=== PATIENT | male | born 1950 | race Caucasian/White ===

== ENCOUNTER 2022-05-04 08:55 | Outpatient (CLI) | payer MEDICARE, BC, SELFPAY ==
--- OUTSIDE RECORDS SUMMARY | 2022-06-04 14:59 | XMS_ITS | Encounter Summary ---
:1950 Author Organization [facility] Address [address] [place] [address] Care Team Providers Name Role Phone Unavailable Primary Care Provider Unavailable Encounter Details Date Type Department Care Team Description 10/02/2011 Hospital Encounter HX [facility] FAMILY[facility] Indigo Santos APRN, C.N.P., D. N.P. [address], [place] [address] (Wo rk) Social History Tobacco Use Types Packs/Day Years Used Date Smoking Tobacco: Never Assessed Sex Assigned at Date Recorded Not on file documented as of this encounter Last Filed Vital Signs Vital Sign Reading Time Taken Comments Blood Pressure 108/62 10/02/2011 8:36 AM EARLY INTERVENTION SPECIALIST Pulse 60 10/02/2011 8:36 AM EARLY INTERVENTION SPECIALIST Temperature - - Respiratory Rate 16 10/02/2011 8:36 AM EARLY INTERVENTION SPECIALIST Oxygen Saturation - - Inhaled Oxygen Concentration - - Weight 74.4 kg (164 lb 0.4 oz) 10/02/2011 8:36 AM EARLY INTERVENTION SPECIALIST Height 177.1 cm (5' 9.72) 10/02/2011 8:36 AM EARLY INTERVENTION SPECIALIST Body Mass Index 23.72 10/02/2011 8:36 AM EARLY INTERVENTION SPECIALIST documented in this encounter Medications at Time of Discharge Medication Sig Dispensed Refills Start Date End Date MULTIVITAMIN ORAL Take 1 tablet by mouth 0 2011 daily. aspirin 325 mg tablet Take 1 tablet by mouth 0 05/06/2022 daily. documented as of this encounter H&P Notes Tania Santos APRN, C.N.P. - 10/02/2011 12:00 AM CST [id number] CHIEF COMPLAINT/ REASON FOR VISIT DOT physical. HISTORY OF PRESENT ILLNESS The patient is a 61-year-old male who presents for a DOT physical. 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 During this time, he was hospitalized and had one episode of atrial fibrillation which they think with secondary to pneumonia. He was cardioverted and had no further symptoms. He denies palpitations, racing heart, shortness of breath or chest pain. The patient is generally healthy and does not routinely doctor other than his DOT physical. He denies fever, chills, nausea, vomiting, shortness of breath or chest pain. CURRENT MEDICATIONS See depart summary ALLERGIES See EMR SYSTEMS REVIEW Review of systems reviewed in its entirety and negative. PAST MEDICAL/SURGICAL HISTORY See EMR SOCIAL HISTORY The patient is and has two children. 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 He does not follow a particular diet. He does not exercise. His vision is corrected and his last eye exam was last year. The patient wears top and bottom dentures. He denies alcohol or drug use or tobacco use. He did quit smoking 3 years ago. FAMILY HISTORY Updated and see EMR VITAL SIGNS See EMR PHYSICAL EXAM See DOT screening sheet scanned into EMR IMPRESSION/REPORT/PLAN 1. Satisfactory DOT physical. UA obtained and within normal limits. There was trace blood. Patient was given a 2-year card. 2. Health maintenance. The patient declines to have his tetanus shot updated today. He also declines cholesterol screening. Patient will return in 2 years for DOT physical. YASMIN/geraldo Signed Tania Manzo CNP Nurse Practitioner Electronically Signed By: TANIA MANZO CNP On: 10/05/2011 09:38 PM Source: [facility] MHSDOLBEYNONRADSYS Document Id: [id number] Y INTERVENTION SPECIALIST documented in this encounter Procedure Notes Conversion, Historical Provider Ser - 10/02/2011 8:50 AM CST Vision Testing Vision Testing Entered On: 10/02/2011 8:50 EARLY INTERVENTION SPECIALIST Performed On: 10/02/2011 8:50 EARLY INTERVENTION SPECIALIST by SUHAS LEE LPN Vision Testing Corrective Lenses : Glasses Color Vision : Pass Eye, Right w/o Correction : 20/25 Eye, Left w/o Correction : 20/20 Eye, Right with Correction : 20/20 Eye, Left w/Correction : 20/20 SUHAS LEE LPN - 10/02/2011 8:50 EARLY INTERVENTION SPECIALIST Source: [facility] POWERCHART Document Id: [id number] EARLY INTERVENTION SPECIALIST!8 documented in this encounter Miscellaneous Notes Miscellaneous - Tania Santos APRN, C.N.P. - 10/02/2011 9:42 AM EARLY INTERVENTION SPECIALIST Ambulatory Patient Summary [address] [address] Visit Information Name: CARLOS MANUEL ZENG Current Date: 10/02/2011 09:42:47 Physicians Attending Provider: TANIA MANZO CNP Primary Care Provider: TANIA MANZO CNP Your Medications Here is a list of your medications. It is important to take your medications as directed. Use a pillbox or chart to help remind you to take your medications. Please let your doctor or nurse know if you have problems taking your medications. Medication/Strength Dose Route Frequency Indications/Special Instructions/Comments multivitamin (multivitamin) Oral once a day Attention: If you have any medications at home that are not on this list, DO NOT take them until youcontact your provider for clarification. Your Allergies & Intolerances Substance Reaction Symptoms Category Comments NKA Drug Your Problem List Problem Status Onset Comments Other General Medical Examination for Administrative Purposes Active 10/03/2009 Debility, Unspecified Active 02/23/2009 Atrial Fibrillation Active 03/14/2009 Tobacco Use Disorder Active 03/14/2009 Routine DOT Exam Active Your Recommendations We want to make sure you get the tests, immunizations, and guidance you need to stay healthy. Here is a customized list of recommendations, based on information we have in your medical record. Your doctor may have additional recommendations for you, based on your personal medical history and risk factors. You can help us by calling us to make an appointment when you are due for your tests. Additional information regarding recommendations: Test/Treatment Last Done Next Due Additional Information Health Assessment every 1 year 10/02/2011 Screening Colonoscopy or Flex Sig or Occult Blood 05/07/2009 05/05/2019 Checks for signs of cancer of the colon. Lipid Panel every 5 years Age 20-75 10/02/2011 11/01/2011 Checks blood for good (HDL) and bad (LDL) cholesterol. Know your numbers, they are one indicator of your risk for heart attack and stroke. Vaccine: Flu every 1 year 10/02/2011 10/16/2011 Immunization to help prevent you from getting the flu strain expected to be a problem for that year's flu season. Vaccine: Tetanus every 10 years 08/03/2005 2015 Immunization to help prevent you from getting the serious disease Tetanus (Lockjaw). Your Upcoming Appointments Date Time Location Reason Provider No Appointments found Your Goals/Additional instructions: Source: [facility] POWERCHART Document Id: [id number] Y INTERVENTION SPECIALIST Miscellaneous - Tania Santos APRN, C.N.P. - 10/02/2011 9:42 AM EARLY INTERVENTION SPECIALIST Ambulatory Depart Summary [address] [address] Visit Information Name: CARLOS MANUEL ZENG Visit Date: 10/02/2011 09:42:47 Attending Provider: TANIA MANZO CNP Primary Care Provider: TANIA MANZO CNP CARLOS MANUEL ZENG has been given the following list of medications: Your Medications It is important to take your medications as directed. Use a pill box or chart to help remind you to take your medications. Please let your doctor or nurse know if you have problems taking your medications. Medication/Strength Dose Route Frequency Indications/Special Instructions/Comments multivitamin (multivitamin) Oral once a day Attention: If you have any medications at home that are not on this list, DO NOT take them until youcontact your provider for clarification. Additional Information: Source: [facility] POWERCHART Document Id: [id number] Y INTERVENTION SPECIALIST Miscellaneous - Conversion, Historical Provider Ser - 10/02/2011 8:36 AM EARLY INTERVENTION SPECIALIST Adult Natural Resources Faculty Member Intake/History Adult Natural Resources Faculty Member Intake/History Entered On: 10/02/2011 8:44 EARLY INTERVENTION SPECIALIST Performed On: 10/02/2011 8:36 EARLY INTERVENTION SPECIALIST by SUHAS LEE LPN Intake Systolic Blood Pressure : 108mmHg Diastolic Blood Pressure : 62mmHg NIBP Mean : 77mmHg SUHAS LEE LPN - 10/02/2011 8:44 EARLY INTERVENTION SPECIALIST Chief Complaint : DOT physical - Temperature Oral : 36.8C(Converted to: 98.2DegF) Peripheral Pulse Rate : 60/min Respiratory Rate : 16/min Heart Rhythm : Regular BP Location : Right upper extremity Blood Pressure Cuff Size : Regular SpO2 : 97% Oxygen Therapy : Room air, Nonrebreather mask Height : 177.1cm(Converted to: 5ft 10inch(es), 69.72inch(es)) Actual Weight : 74.4kg(Converted to: 164lb 0oz) Dosing Weight Clinic : 74.40kg Clinic BSA : 1.91 Body Mass Index : 23.72kg/m2 SUHAS LEE LPN - 10/02/2011 8:36 EARLY INTERVENTION SPECIALIST Subjective Pain Symptoms : No SUHAS LEE LPN - 10/02/2011 8:36 EARLY INTERVENTION SPECIALIST Dependent Habits Tobacco Use/Currently Using : No Tobacco Use/Last 12 months : No Smoking Status : Former smoker Alcohol Use : No SUHAS LEE LPN - 10/02/2011 8:36 EARLY INTERVENTION SPECIALIST Caffeine Use Grid Caffeine Use : Current Type : Coffee Frequency : Daily Amount : 3 cups Last Use : this morning SUHAS LEE LPN - 10/02/2011 8:36 EARLY INTERVENTION SPECIALIST Recreational Drug Use Grid Drug Use : None SUHAS LEE LPN - 10/02/2011 8:36 EARLY INTERVENTION SPECIALIST Allergy Allergies (Active) NKA Estimated Onset Date: Unspecified ; Created By: SUHAS LEE LPN; Reaction Status: Active ; Category: Drug ; Substance: NKA ; Type: Allergy ; Updated By: SUHAS LEE LPN; Reviewed Date: 10/02/2011 8:36 EARLY INTERVENTION SPECIALIST Source: [facility] POWERCHART Document Id: [id number] EARLY INTERVENTION SPECIALIST!5 documented in this encounter Plan of Treatment Upcoming Encounters Date Type Specialty Care Team Description 06/17/2022 Office Visit Neurology Sourav Gregg M.D. [address] [place] [phone] (Wo rk) documented as of this encounter Procedures Procedure Name Priority Date/Time Associated Diagnosis Comme nts DIPSTICK, U Routine 10/02/2011 9:11 AM Results f or this EARLY INTERVENTION SPECIALIST procedure are i n the results section . documented in this encounter Results (ABNORMAL) Dipstick, Urine (10/02/2011 9:11 AM EARLY INTERVENTION SPECIALIST) [facility] Method Time Signature Source Clean Void POWERCHART Urine HXUr Color Yellow POWERCHART Appearance Clear POWERCHART Glucose Negative Negative POWERCHART HXBILIRUBIN Negative Negative POWERCHART Ketones, QL(U) Negative Negative POWERCHART Specific 1.015 1.020 POWERCHART [place], POCT, U HXBLOOD Trace Intact Negative POWERCHART (A) pH, POCT, Urine 7.5 5.0 - 8.0 POWERCHART Protein, Ur, Dip Negative Negative POWERCHART Urobilinogen 0.2 0.2 - 1.0 POWERCHART HXNITRITE Negative Negative POWERCHART Leukocyte Negative Negative POWERCHART Esterase Specimen (Source) Anatomical Collection Method Collection Time Re ceived Time Location / / Volume Laterality Urine 10/02/2011 9:11 AM EARLY INTERVENTION SPECIALIST Tania Santos APRN, C.N.P., D.N.P. LAB URINE ORDERA BLES Performing Organization Address City/State/ZIP Code Phon e Number POWERCHART documented in this encounter Visit Diagnoses Not on filedocumented in this encounter
--- OUTSIDE RECORDS SUMMARY | 2022-06-04 14:59 | XMS_ITS | Encounter Summary ---
:1950 Author Organization [facility] Address [address] [place] [address] Care Team Providers Name Role Phone Elsewhere, Pcp Primary Care Provider Unavailable Reason for Visit Outpatient (Routine) - Closed Specialty Diagnoses / Referred By Contact Referred To Contact Procedures Physical Medicine and Diagnoses Stroke (HCC) [facility] [address] [place] [phone] Referral ID Status Reason Start Date Expiration Date Visits Requ ested Visits Authorized [id number] Closed 05/06/2022 05/06/2023 1 1 Encounter Details Date Type Department Care Team Description 05/14/2022 Comprehensive Visit Department of Physical Mauricio Bo Stroke (HCC) Medicine and A, [facility] in [address] [place] [address] [place] [phone] [place] [phone] Social History Tobacco Use Types Packs/Day Years Used Date Smoking Tobacco: Every Day Cigarettes 0.3 S tarted: 08/03/1964 Smokeless Tobacco: Never Comments: Used to smoke half pack per da y. Alcohol Use Standard Drinks/Week Comments No 0 (1 standard drink = 0.6 oz pure alcoho l) Sex Assigned at Date Recorded Not on file documented as of this encounter Last Filed Vital Signs Vital Sign Reading Time Taken Comments Blood Pressure 132/78 05/14/2022 2:54 PM CDT Pulse 70 05/14/2022 2:54 PM CDT Temperature - - Respiratory Rate - - Oxygen Saturation - - Inhaled Oxygen Concentration - - Weight - - Height - - Body Mass Index - - documented in this encounter Consult Notes Summer Bo M.D. - 05/14/2022 3:00 PM CDT SUBJECTIVE REQUESTING PROVIDER Benjy Gregg M.D. REASON FOR CONSULT Rehabilitation needs after stroke HISTORY OF PRESENT ILLNESS Carlos Manuel Montaño is a 71 y.o. male who presents today for evaluation of rehabilitation needs after stroke. He is accompanied by his daughter and to this appointment. He was admitted to [facility] on 05/04/2022 after waking up with acuteonset left hemiparesis and neglect. NIH stroke score was 6. He was noted to be hypertensive but otherwise unremarkable hemodynamically on presentation. CT head revealed hypodensity of the right insula and right frontal lobe consistent with establish infarction. CTA head and neck showed acute right MCAM2 occlusion. MRI on 05/05 confirmed an evolving acute right MCA territory infarct with petechial hemorrhage in the right insula infarct. His exam improved during hospitalization. During hospitalization, he was seen by PT, OT and BRICK GRADER. With PT he was able to ambulate 500 feet withno assistive device and supervision. CGA for stairs. With OT, he was demonstrating near baseline function with some mild functional/cognitive deficits. He demonstrates mild LUE inattention, weakness (he reports that's normal for him), and requiring intermittent continuous cues to follow a command whendistracted. Geoffrey ambulated to and from bathroom, standing at sink to complete oral cares, and transfers to/from toilet with supervision. No unsteadiness noted. He completed a short blessed cognitive scr een demonstrating normal cognition. BRICK GRADER completed a dysphagia assessment (cleared for general diet) but was unable to complete a cognitive assessment before dismissal. Currently he describes: No specific symptoms related to the stroke. Therefore, I reviewed thing head to toe. Specifically, he denies any headache, visual changes, hearing changes, cognitive changes, pain, change in fatigue, change in sleep, change in bowel or bladder function, sensory changes, balance difficulties, difficulties with walking, difficulties with swallow, difficulties with seizure activity. He does describe weakness on the left side of his body but states that is baseline. He describes 90% weakness in the leftside of his body compared to the right. He has driven his lawnmower and states that his ???lines were straight?? . He also did drive 5 city blocks to the local dum without difficulties. His concurs that everything is going well at home. She states that he has been able to manage medications including hers without error. She has no concerns regarding his cognition, attention to the left side, orstrength. Daughter also concurs with this. They are hopeful he will be able to return to work. We reviewed work in detail. 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 He is aware that he will need to undergo a DOT evaluation if he were to use the CDL license again in the future. Mr. Montaño lives in [place], [place] with his Kimberly. They live in a 2 story house with 4 steps to enter (rails on both sides). Bathroom is on the main floor but bedroom is up a full flight of stairs,approximately 14-16 per patient. They have a step in shower. 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 The following portions of the patient's history were reviewed and updated as appropriate: allergies,current medications, family history, and surgical history. REVIEW OF SYSTEMS I have briefly reviewed the Review of Systems as noted on the Health history form. I am only responding to those symptoms which are directly relevant to the specific indication for my consultation. I recommend that the patient follow up with their primary or referring provider to pursue any other symptoms which may be of concern. OBJECTIVE There were no vitals taken for this visit. PHYSICAL EXAM General: No acute distress, normal mood and affect. Head: Normocephalic, atraumatic. Skin: Exposed areas of skin are clean, dry, and intact with no evidence of cellulitis, pressure ulcers, or necrosis. Lungs: Breathing comfortably on room air. Neuro Exam: Mental Status: Grossly oriented, followed all commands appropriately during and exam and provided full history of present illness. Cranial Nerves: Extra ocular muscles intact. Visual mendez intact in all quadrants to confrontation.No dysconjugate gaze. No gaze preference. No facial droop. Tongue protrudes midline. Coordination: Normal upper and lower limb Abrahan. Normal [id number]. Ymhd-qv-abvs within normal limits. Muscle Strength: No pronator drift although, he cannot extend his left elbow out completely due to aprevious elbow injury. All major muscles groups of the bilateral upper and lower limbs have normal and symmetric bulk and strength with the exception of trace weakness of his left finger flexors and interossei.. Sensation: Normal light touch sensation throughout upper and lower limbs. No extinction to double simultaneous stimulation. Proprioception intact at the great toes bilaterally. Tone: Normal tone throughout upper and lower limbs. Reflexes: Symmetric in upper (0/0) and lower (0/0) extremities bilaterally, no ankle clonus bilateral, Whyte response is absent b/l. Gait: Normal sitting and standing balance. Gsz-dc-[id number] is independent. Romberg negative. Normal gait. Normal single leg stance. Normal tandem stance and tandem gait. ASSESSMENT / PLAN #1 R MCA stroke on 05/04/2022 Mr. Montaño presented today for [facility]. Since hospitalization, he has been doing well. On examination today, he is doing wonderfully well. There are no signs of visual or sensory neglect. He has normal strength in the left side of his body with the exception of very trace weakness of his finger flexors on the left. Visual mendez were intact. Cognition was intact. We had a long discussion about returning to drive in a safe manner. Specifically, we talked about setting himself up for success including driving during good weather, familiar environments, and when heis awake and alert to start with. If this goes well, then driving and more challenging environments.I believe at this time he can return to work and driving for his job. He is aware that if he wants to return to work with a CDL license, he will require a DOT examination. I wrote him a letter explaining this. At this point, I do not feel he requires any additional therapies. I have taken the liberty of cancelling the upcoming PT, OT, and speech pathology appointments. However, I do think he will benefit from regular exercise. We discussed moderate exertion level for aerobic conditioning for 150 minutes week ly and he and his family discussed a walking program as an option. Additionally, we spoke about finemotor exercises including puzzles, playing cards, nuts and bolts, washing dishes, folding laundry and other daily tasks that will continue to strengthen his weaker muscles. Task oriented exercises haveexcellent evidence for stroke rehab. Lastly we reviewed his imaging which he appreciated. No follow up is necessary however he was given my card and he can and was encouraged to follow up with me on an as needed basis. I personally spent 45 minutes in care of the patient today. Time includes both non face to face and face to face patient care. EDUCATION Patient Education: Ready to learn, no apparent learning barriers were identified; learning preferences include listening. Explained diagnosis and treatment plan; patient/child/caregiver expressed understanding of the content. documented in this encounter Plan of Treatment Upcoming Encounters Date Type Specialty Care Team Description 06/17/2022 Office Visit Neurology Sourav Gregg M.D. [address] [place] [phone] (Wo rk) documented as of this encounter Visit Diagnoses Diagnosis Stroke (HCC) documented in this encounter Additional Health Concerns Assessment Noted Time PHQ-9 Depression Total Score: 3 05/05/2022 2:00 PM CDT documented as of this encounter Care Teams Ditch Repairer Relationship Specialty Start Date End Date Elsewhere, Pcp PCP - General 10/16/20 documented as of this encounter
--- OUTSIDE RECORDS SUMMARY | 2022-06-04 14:59 | XMS_ITS | Encounter Summary ---
:1950 Author Organization [facility] Address [address] [place] [address] Care Team Providers Name Role Phone Unavailable Primary Care Provider Unavailable Encounter Details Date Type Department Care Team Description 05/07/2009 Hospital Encounter HX NO MAPPING Social History Tobacco Use Types Packs/Day Years Used Date Smoking Tobacco: Never Assessed Sex Assigned at Date Recorded Not on file documented as of this encounter Plan of Treatment Upcoming Encounters Date Type Specialty Care Team Description 06/17/2022 Office Visit Neurology Sourav Gregg M.D. [address] [place], [place] [phone] (Wo rk) documented as of this encounter Visit Diagnoses Not on filedocumented in this encounter
--- OUTSIDE RECORDS SUMMARY | 2022-06-04 14:59 | XMS_ITS | Encounter Summary ---
:1950 Author Organization [facility] Address [address] [place] [id number] Care Team Providers Name Role Phone Elsewhere, Pcp Primary Care Provider Unavailable Reason for Visit Reason Comments Post Hospital Follow-up Encounter Details Date Type Department Care Team Description 05/09/2022 Clinical Communication Department of [facility] in [place] Follow-up [place], [address] [place] [address] [place] [id number] [place], [place] [phone] (Work) [phone] Social History Tobacco Use Types Packs/Day Years Used Date Smoking Tobacco: Every Day Cigarettes 0.3 S tarted: 08/03/1964 Smokeless Tobacco: Never Comments: Used to smoke half pack per da y. Alcohol Use Standard Drinks/Week Comments No 0 (1 standard drink = 0.6 oz pure alcoho l) Sex Assigned at Date Recorded Not on file documented as of this encounter Miscellaneous Notes Telephone Encounter - Adwoa Prajapati, R.N. - 05/09/2022 1:45 PM CDT The patient was hospitalized on Dr. Sg Goldstein's Neurology Stroke Service from 05/04/22 to 05/07/22 for a right insular acute stroke. He underwent right M2 thrombectomy successfully. I called today for post [facility] hospital follow up. The patient reports feeling good. He shares he is back to feeling like his usual self. He does not perceive any residual effects himself at this point. Symptoms: He denies any new or ongoing residual symptoms. His reports that he is doing wonderful. Patient was able to teach back signs and symptoms of stroke with reinforcement. He shares he wouldreally defer to his on when to call 911. He would appreciate a Stroke Magnet mailed to his homeand this will be sent accordingly. Medications: The patient was diagnosed with atrial fibrillation prior to dismissal. He was advised to continue 81 mg aspirin daily taking last dose on 05/12/22, then transitioning to Xarelto on 05/13/22. He is taking the metoprolol succinate 50 mg daily as advised. He is checking his heart rate daily.They have a blood pressure monitor at home to keep track. He shares he saw his primary provider today at [facility] now in [place]. His transition to Xarelto was provided his PCP. He is aware hisatorvastatin dose was increased to 40 mg. Risk factors: Atrial fibrillation, hyperlipidemia, hypertension, smoking. Test pending at time of hospital dismissal: None. Follow-up: He has seen his PCP. 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 They are awaiting an order for this. The patient is aware of his upcoming appointments: -05/14/22-PM&R consult, Dr. Zach Bo -05/15/22-PT, OT. -05/30/22-Speech -06/17/22-Neurology Post [facility] visit. I verified the follow up plan, when to seek emergent medical treatment, and provided our contact information. The patient and his expressed appreciation for this phone contact. RECOMMENDED LEVEL OF CARE. The patient/caller is willing and able to follow the nurse's recommendation. RESPONSE TO ADVICE GIVEN. Patient/caller able to teach back. REFERENCES UTILIZED. Nursing clinical judgment utilized. Other interventions or information: Provider advice. TYPE OF PHONE CALL. Follow-up. Symptom assessment. documented in this encounter Plan of Treatment Upcoming Encounters Date Type Specialty Care Team Description 06/17/2022 Office Visit Neurology Sourav Gregg M.D. [address] [place], [place] [phone] (Wo rk) documented as of this encounter Visit Diagnoses Not on filedocumented in this encounter Additional Health Concerns Assessment Noted Time PHQ-9 Depression Total Score: 3 05/05/2022 2:00 PM CDT documented as of this encounter Care Teams Maintenance Shop Manager Relationship Specialty Start Date End Date Elsewhere, Pcp PCP - General 10/16/20 documented as of this encounter
--- OUTSIDE RECORDS SUMMARY | 2022-06-04 14:59 | XMS_ITS | Encounter Summary ---
:1950 Author Organization [facility] Address [address] [place] [address] Care Team Providers Name Role Phone Elsewhere, Pcp Primary Care Provider Unavailable Reason for Referral Physical Therapy (Routine) - Authorized Specialty Diagnoses / Procedures Referred By Contact Refer red To Contact Diagnoses Stroke ([facility]) Benjy Gregg M.D. [facility] Procedures PMR Brain rehabilitation program (PMR Internal) [address] [place] [address] Referral ID Status Reason Start Date Expiration Date Visits V isits Requested Authorized [id number] Authorized 05/06/2022 05/06/2023 99 99 Physical Therapy (Routine) - Authorized Specialty Diagnoses / Procedures Referred By Contact Refer red To Contact Diagnoses Stroke ([facility]) Benjy Gregg M.D. [facility] Procedures PMR Brain rehabilitation program (PMR Internal) [address] [place] [address] Referral ID Status Reason Start Date Expiration Date Visits V isits Requested Authorized [id number] Authorized 05/06/2022 05/06/2023 99 99 Outpatient (Routine) - Closed Specialty Diagnoses / Referred By Contact Referred To Contact Procedures Physical Medicine and Diagnoses Stroke (HCC) Benjy Gregg [facility] Yamini Delacruz [address] [place] [address] Referral ID Status Reason Start Date Expiration Date Visits Requ ested Visits Authorized [id number] Closed 05/06/2022 05/06/2023 1 1 Outpatient (Routine) - Authorized Specialty Diagnoses / Procedures Referred By Contact Refer red To Contact Diagnoses Stroke (HCC) Benjy Gregg M.D. [facility] Procedures US Carotid Bilateral [address] [place], [place] [address] Referral ID Status Reason Start Date Expiration Date Visits V isits Requested Authorized [id number] Authorized 05/06/2022 05/06/2023 1 1 Outpatient (Routine) - Authorized Specialty Diagnoses / Procedures Referred By Contact Refer red To Contact Neurology Maricruz Leung M .D., Ph.D. [facility] [address] [place], [place] [address] Referral ID Status Reason Start Date Expiration Date Visits V isits Requested Authorized [id number] Authorized 05/06/2022 05/05/2025 1 1 Reason for Visit Reason Comments Stroke Like Symptoms Encounter Details Date Type Department Care Team Description 05/04/2022 - Hospital Encounter [facility] Marquis Leach M.D., M.P.H. [address] [place] [id number] Stroke (HCC) (Primary Dx); 05/07/2022 [facility] Alejandro A, M.D. [address] [place] [phone] Change Mental Status; [facility], Shar Sarah M.D. [address] [place] [address] Decline Functional Status; Javier Nicotine Depend ence Cigarettes With Withdrawal Building, [address] floor [address] [place] [phone] Social History Tobacco Use Types Packs/Day Years Used Date Smoking Tobacco: Every Day Cigarettes 0.3 S tarted: 08/03/1964 Smokeless Tobacco: Never Tobacco Cessation: Ready to Quit: Not As ked; Counseling Given: Not Answered Comments: Used to smoke half pack per da y. Alcohol Use Standard Drinks/Week Comments No 0 (1 standard drink = 0.6 oz pure alcoho l) Sex Assigned at Date Recorded Not on file documented as of this encounter Last Filed Vital Signs Vital Sign Reading Time Taken Comments Blood Pressure 103/63 05/07/2022 11:15 AM CDT Pulse 30 05/07/2022 11:17 AM CDT Temperature 36.5 ??C (97.7 ??F) 05/07/2022 11:15 AM CDT Respiratory Rate 18 05/07/2022 11:15 AM CDT Oxygen Saturation 92% 05/07/2022 11:16 AM CDT Inhaled Oxygen Concentration - - Weight 69.2 kg (152 lb 8.9 oz) 05/05/2022 8:45 PM CDT Height 175.3 cm (5' 9) 05/05/2022 8:45 PM CDT Body Mass Index 22.53 05/05/2022 8:45 PM CDT documented in this encounter Discharge Summaries Je Marrero M.D. - 05/07/2022 10:57 AM CDT DISCHARGE SUMMARY BRIEF OVERVIEW Hospital: [facility] Discharge Provider: Shar Sarah M.D. Primary Team: [facility] Neurology Stroke and Cerebrovascular Disease Primary Care Providers: Elsewhere, Pcp (General) No address on file Primary Care Provider Phone Number: None Primary Care Provider Fax Number: None Admission Date: 05/04/2022 Discharge Date: 05/07/2022 PRINCIPAL DIAGNOSIS Stroke (HCC) SECONDARY DIAGNOSES Principal Problem: Stroke (HCC) Active Problems: Atrial Fibrillation Unspecified Abuse Tobacco Smoking Chronic Obstructive Pulmonary Disease Exacerbation (HCC) Resolved Problems: * No resolved hospital problems. * DISCHARGE DISPOSITION Home or Self Care [1] ACTIVE ISSUES REQUIRING FOLLOW UP PATIENT Please continue Aspirin 81mg until 05/12. On 05/13, please attend your appointment with your primarycare provider who will start anticoagulation. When you start your anticoagulation, discontinue Aspirin. Your atorvastatin was increased to 40mg a day You were recommended to have a driving evaluation eval. We recommend this to be completed with the [employer]. You were given a list of providers that can do this evaluation. Please schedule and attend this evaluation. You will need / supervision at home, this is extremely important Physical therapy, occupational therapy, speech therapy and PMR was ordered for outpatient. Please attend these appointments. Starting tomorrow 05/08 begin taking Metoprolol Succinate 50 mg for heart rate control. Please measure your heart rate daily. Your goal heart rate is less than 110 beats per minute. If it is greater than 110 beats per minute please contact your primary care provider. If HR > 140 or symptoms of lightheadedness, chest pain, or shortness of breath, please go to the emergency department for further evaluation. PRIMARY CARE Please follow up with patient 1 week within discharge. Given his etiology was likely due to a cardioembolic source, please initiate rivaroxaban (XARELTO) 20 mg once daily on 05/13 (10 days after his stroke 05/04). He will continue aspirin up until then, and discontinue aspirin when rivaroxaban (XARELTO) is started On the day before discharge the patient went into atrial fibrillation with RVR. He was started on Metoprolol Succinate 50 mg daily. Please repeat an ECG and adjust Metoprolol as indicated. If the patient is still in atrial fibrillation, please refer the patient to cardiology for consideration of cardioversion. NEUROLOGY We will follow up with you in 1 month to ensure medication adherence and follow up return to work You will have an ultrasound of your carotid arteries to monitor your stenosis in 6 months OUTPATIENT FOLLOW UP Scheduled Appointments 06/17/2022 3:00 PM Benjy Gregg M.D. Neurology For appointment details refer to your Patient Appointment Guide. TEST RESULTS PENDING AT DISCHARGE Pending Labs None DETAILS OF HOSPITAL STAY REASON FOR ADMISSION Stroke (HCC) Change Mental Status Decline Functional Status HOSPITAL COURSE Carlos Manuel Montaño is a 71 y.o. 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 He was in his usual state of health when he went to bed on 05/03 at 2200 then awoke on 05/04 with L hemiparesis, L neglect, L facial droop. NIHSS on admission was 6. CT/CTA/CTP revealed an M2 thrombus and mismatch volume of 42 mL for which he received thrombectomy with TICI 2c reperfusion. During the mechanical thrombectomy there was concern that there was also VIRAL involvement and subsequently developed left lower extremity weakness. Post- mechanical thrombectomy NIHSS was scored as a 10 in the IR Suite. He was admitted to the NeuroICU for post-thrombectomy monitoring and his exam significantly improvedwith essentially complete resolution of his neurological deficits over the next 24 hrs. He was stable for transfer to the Stroke service on 05/05. Regarding his stroke mechanism workup, initial ECG and cardiac monitoring was negative for afib, buton 05/06 he had new irregular heart rate and ECG confirmed new diagnosis of atrial fibrillation and he was started on metoprolol. CTA and MRA demonstrated approximately 30-40% stenosis at the R carotid bulb for no features of unstable plaque. CT cardiac angiogram demonstrated a normal L atrial size andno thrombus in the L atrial appendage. TTE with bubble study was normal with no evidence of an intracardiac shunt. MRI brain on 05/05 showed diffusion restriction in the R insula with petechial hemorrhage. Of note, he had a documented history of atrial fibrillation in the context of Legionnaire's pneumo naida in 2008 however did not proceed with anticoagulation due to GI bleed and was initiated on aspirin. No further workup for following of atrial fibrillation per chart review. For his new diagnosis of atrial fibrillation, he was seen by cardiology and repeat ECG demonstrated continued Afib but resolved RVR, rate 92. Following consult, cardiology recommended transitioning to metoprolol succinate 50mg post- discharge. Cardiology recommended the patient check his heart rate once daily until his PCP follow up in 1-2 weeks with another ECG. Outpatient cardiology follow up will be determined by the PCP. For therapeutic anticoagulation, rivaroxaban will be initiated on 05/13. His 81 mg daily aspirin will be discontinued once rivaroxaban has been initiated (last day 05/12). His LDL was 94 and his atorvastatin was increased to 40 mg daily. We extensively counseled him on smoking cessation, and he politely declined. A1C was 5.4%. PMR/PT/OT/ENCODING CLERK evaluated him and recommended discharge home with 24 hr supervision and outpatient follow up before return to work and driving. We counseled him to avoid driving until he has a driving evaluation by the [employer] or [employer]. A list of providers through [employer] was given to him at the time of discharge. Discharge Physical Exam Physical Exam: Constitutional: well-developed, well-nourished, resting comfortably in bed Lungs: Breathing comfortably on NC. Clear to auscultation bilaterally. Cardiac: regular rate and rhythm Abdomen: Soft, non-tender, non-distended. Skin: No rash on exposed skin. Neurologic: Mental status: Alert, orientated, restricted affect Speech: Clear. Language: No evidence of aphasia. Faint dysarthria, however does not have dentures Cranial nerves: PERRL, EOMI, visual mendez intact to confrontation, facial movements full and symmetric, sensation intact to light touch and pinprick in the V1-V3 distributions, hearing intact to voice, tongue protrudes in midline, there is equal elevation of the soft palate, shoulder shrug is appropriate in strength. Motor: Motor Deltoid Biceps Triceps Wrist ext Finger abd Finger extensor Hip flex Hip ext Knee flex Knee ext Ankle flex Ankle ext R 0 0 0 0 0 0 0 0 0 0 0 0 L 0 0 0 0 0 0 0 0 0 0 0 0 No Pronator Drift, however, Satellite sign indicates L arm weakness (has chronic L arm weakness due to remote elbow injury). Sensory: Sensation is intact touch Reflexes: Biceps Brachiorad Triceps Knee Ankle Plantar R 0 0 0 0 0 flexor L 0 0 0 0 0 flexor Coordination: Finger to nose and heel to zamudio are normal bilaterally. No sensory neglect Gait: no gait abnormalities CONSULTS ORDERED DURING THIS ADMISSION IP CONSULT TO NEUROLOGY IP CONSULT TO PHYSICAL MEDICINE & REHABILITATION IP CONSULT TO INTERNAL MEDICINE NICOTINE DEPENDENCE IP CONSULT TO CARDIOLOGY MRI Brain/MR Neck Angiogram IMPRESSION: 1. Evolving acute right MCA territory infarct with petechial hemorrhage in the right insula infarct. No organized parenchymal hematoma. 2. Right carotid bulb plaque with mild luminal narrowing. No evidence of intraplaque hemorrhage. 3. At least moderate right vertebral artery origin narrowing. CT Cardiac Angiogram IMPRESSION: 1. No significant mobile plaque or thrombus of the thoracic aorta. 2. No intracardiac thrombus. 3. Mild thickening of mitral valve leaflets without discrete mass . 4. Bronchial thickening and mucus plugging in bilateral lower lobes and right middle lobe and clustered nodular opacities in the right lower lobe could be due to infection or aspiration. 5. Enlarged hilar lymph nodes could be reactive. TTE 1. Normal left ventricular chamber size. Calculated left ventricular ejection fraction 66%. No regional wall motion abnormalities. 2. Normal left ventricular filling pressure. 3. Normal right ventricular chamber size by visual estimate. Normal right ventricular systolic function. 4. Sclerotic aortic valve with possible strands. Trivial aortic regurgitation. 5. Enlarged inferior vena cava size with normal inspiratory collapse (>50%). 6. Atherosclerosis in the abdominal aorta. 7. No intracardiac or intrapulmonary shunt by agitated saline contrast injection at rest and with Valsalva. 8. No pericardial effusion. CONDITION AT DISCHARGE stable Discharge instructions were provided to the patient and caregiver(s). Benjy Proctor M.D. - 05/06/2022 3:56 PM CDT DISCHARGE SUMMARY BRIEF OVERVIEW Hospital: [facility] Discharge Provider: Shar Sarah M.D. Primary Team: [facility] Neurology Stroke and Cerebrovascular Disease Primary Care Providers: Elsewhere, Pcp (General) No address on file Primary Care Provider Phone Number: None Primary Care Provider Fax Number: None Other Providers: None Admission Date: 05/04/2022 Discharge Date: 05/06/22 PRIMARY DIAGNOSIS Stroke (HCC) SECONDARY DIAGNOSES Principal Problem: Stroke (HCC) Active Problems: Atrial Fibrillation Unspecified Abuse Tobacco Smoking Chronic Obstructive Pulmonary Disease Exacerbation (HCC) Resolved Problems: * No resolved hospital problems. * DISCHARGE DISPOSITION Home or Self Care [1] ACTIVE ISSUES REQUIRING FOLLOW UP - Please continue aspirin 81mg until 05/12. On 05/13, please start anticoagulation prescribed by your primary care provider. When you start your anticoagulation, discontinue your aspirin. - Your atorvastatin was increased to 40mg a day - You were recommended to have a driving evaluation eval. We recommend this to be completed with the[employer]. You were given a list of providers that can do this evaluation. - you will need 24/7 supervision at home - Physical therapy, occupational therapy, speech therapy and PMR was ordered for outpatient. PRIMARY CARE - please follow up with patient 1 week within discharge. Given his etiology was likely due to a cardioembolic source, please initiate anticoagulation on 05/13 (10 days after his stroke 05/04). He will continue aspirin up until then, and discontinue when anticoagulation is started. NEUROLOGY - we will follow up with you in 1 month to review your Holter monitor - you will have an ultrasound of your carotid arteries to monitor your stenosis in 6 months OUTPATIENT FOLLOW UP Scheduled Appointments 06/17/2022 3:00 PM Benjy Gregg M.D. Neurology For appointment details refer to your Patient Appointment Guide. TEST RESULTS PENDING AT DISCHARGE Pending Labs None DETAILS OF HOSPITAL STAY REASON FOR ADMISSION Stroke HOSPITAL COURSE Carlos Manuel Montaño is a 71 y.o. male with significant comorbidities including COPD, Active smoking, and Atrial fibrillation not on AC. Mr. Montaño presents with acute ischemic stroke with left-sided facial droop, left-sided hemiparesis, and left sided visual neglect. 's last known wellwas approximately 2200 on 05/03, and had symptoms upon awakening on 05/04 at 0700. Pt then presented to [facility] ED via EMS where a stroke code was activated, initial NIHSS was determined to be 6, and CT/CTA/CTP were preformed which showed large penumbra and 42mL core proximal R. M2 occlusion. then proceeded to IR for mechanical thrombectomy due to being outside of the time window for possible thrombolysis. Mechanical thrombectomy was successfully preformed and resulted in TICI 2C reperfusion. During the Mechanical thrombectomy there was concern that there was also VIRAL involvement and subsequently developed left lower extremity weakness. Post-mechanical thrombectomy NIHSS was scored as a 10 in the IR Suite. was subsequently admitted to NSICU for further management of AIS s/p mechanical thrombectomy. Upon arrival to the unit NIHSS was scored as a 5for facial palsy, LUE+LLE drift, dysarthria, and visual inattention. Exam continued to improve over the course of the evening of 05/04. Facial palsy appears to have resolved, neglect no longer appreciated, left upper extremity does is noted to be slightly weaker than right side, however, no drift is present. LLE also had no drift. NIHSS of 0. His R M2 occlusion was evaluated for cardioembolic versus carotid plaque etiology. In regards to hiscardioembolic etiology he had a documented history of atrial fibrillation in the context of lesion apneumonia in 2008 however did not proceed with anticoagulation due to GI bleed and was initiated on aspirin. No further workup for following of atrial fibrillation per chart review. In regards to his carotid plaque, on CTA neck and MRA showed 30% stenosis on the symptomatic side however did not revealany high risk features on plaque imaging. Currently favor cardioembolic etiology as a cause to his M2 occlusion. Therefore he will initiate anticoagulation, Eliquis (to prescribe by PCP), at day 10 (05/13), and continue aspirin 81 up until then. We will also continue to monitor for atrial fibrillationwith a Holter monitor and will follow up with neurology in 1 month. In regards to his carotid stenosis, we have ordered carotid ultrasound in 6 months. At the time of discharge, he was recommended a driving evaluation before he drives to assess his safety. He was recommended DMV or with [employer]. A list of providers through [employer] was given to him at the time of discharge. Also, he was instructed to have 24/7 supervision, and PMR/PT/OT/ENCODING CLERK was ordered for outpatient. Discharge Physical Exam Physical Exam: Constitutional: well-developed, well-nourished, resting comfortably in bed Lungs: Breathing comfortably on NC. Clear to auscultation bilaterally. Cardiac: regular rate and rhythm Abdomen: Soft, non-tender, non-distended. Skin: No rash on exposed skin. Neurologic: Mental status: Alert, orientated, restricted affect Speech: Clear. Language: No evidence of aphasia. Faint dysarthria, however does not have dentures Cranial nerves: PERRL, EOMI, visual mendez intact to confrontation, facial movements full and symmetric, sensation intact to light touch and pinprick in the V1-V3 distributions, hearing intact to voice, tongue protrudes in midline, there is equal elevation of the soft palate, shoulder shrug is appropriate in strength. Motor: Motor Deltoid Biceps Triceps Wrist ext Finger abd Finger extensor Hip flex Hip ext Knee flex Knee ext Ankle flex Ankle ext R 0 0 0 0 0 0 0 0 0 0 0 0 L 0 0 0 0 0 0 0 0 0 0 0 0 No Pronator Drift, however, Satellite sign right arm orbiting left. Sensory: Sensation is intact touch Reflexes: Biceps Brachiorad Triceps Knee Ankle Plantar R 0 0 0 0 0 flexor L 0 0 0 0 0 flexor Coordination: Finger to nose and heel to zamudio are normal bilaterally. No sensory neglect Gait: no gait abnormalities CONSULTS ORDERED DURING THIS ADMISSION IP CONSULT TO NEUROLOGY IP CONSULT TO PHYSICAL MEDICINE & REHABILITATION IP CONSULT TO INTERNAL MEDICINE NICOTINE DEPENDENCE CONDITION AT DISCHARGE stable Discharge instructions were provided to the patient and caregiver(s). Yang Anderson P.A.-C. - 05/05/2022 12:39 PM CDT NSICU TRANSFER NOTE REASON FOR TRANSFER: No longer requires ICU level care CONDITION AT TRANSFER: Stable HOSPITAL SUMMARY: Carlos Manuel Montaño is a 71 y.o. male with significant comorbidities including COPD, Active smoking, and Atrial fibrillation not on AC. Mr. Montaño presents with acute ischemic stroke with left-sided facial droop, left-sided hemiparesis, and left sided visual neglect. 's last known wellwas approximately 2200 on 05/03, and had symptoms upon awakening on 05/04 at 0700. Pt then presented to [facility] ED via EMS where a stroke code was activated, initial NIHSS was determined to be 6, and CT/CTA/CTP were preformed which showed large penumbra and 42mL core proximal R. M2 occlusion and R. carotid plaque 30-40% occlusion. then proceeded to IR for mechanical thrombectomy due to being outside of the time window for possible thrombolysis. Mechanical thrombectomy was successfully preformed and resulted in TICI 2C reperfusion. During the Mechanical thrombectomy there was concern that there was also VIRAL involvement and subsequently developed left lower extremity weakness. Post-mechanical thrombectomy NIHSS was scored as a 10 in the IR Suite. was subsequently admitted to NSICU for further management of AIS s/p mechanical thrombectomy. Upon arrival to the unit NIHSS was scored as a 5 for facial palsy, LUE+LLE drift, dysarthria, and visual extinction. Overnight SBPremained <160 without any intervention. Exam continued to improve over the course of the evening of 05/04. Facial palsy appears to have resolved, neglect no longer appreciated, left upper extremity does have an old olecranon fracture and is chronically weak and appears to be at baseline, however, nodrift is present. LLE also had no drift. NIHSS of 0 this morning 05/05. We will plan to order an MRI and TTE this morning in order to decide whether or not this is most likely a cardioembolic vs carotidplaque etiology of stroke and then decide whether anti-coagulation would be appropriate and whether intervention of carotid artery is necessary. RECOMMENDATIONS: Follow-up on MRI results in order to determine size of infarction appropriateness of initiation of anticoagulation Follow-up on MRA results in order to determine whether intervention is needed on carotid plaque. Follow-up on TTE results in order to help determine possible cardioembolic source Continue atorvastatin 40mg daily Goal SBP <160 PRN Labetalol and Hydralazine available, has not required Transfer Checklist: Diet: Oral Maintenance IVF: No Vital sign instability: No Recommended Blood Pressure Parameter: SBP less than 160 IV blood pressure medications in the past 6 hours: No Have all IV cardiac meds or sedatives been cancelled or converted to oral form: Yes Was antiplatelet therapy or anticoagulation (other than for DVT prophylaxis) started during ICU admission: No Pharmacologic DVT prophylaxis: Yes Lines other than peripheral IVs: No Urinary Catheter: No Active consults: Yes Pending labs/tests that require follow-up: TTE, MRI, MRA Social work consult: Yes Anticipated disposition: Home Code status: full Decision maker: Patient Advanced directive available: No DIAGNOSES SUMMARY: #1 Stroke (HCC) #2 Atrial Fibrillation Unspecified #3 Chronic Obstructive Pulmonary Disease Exacerbation (HCC) #4 Abuse Tobacco Smoking Yang Anderson P.A.-C. 05/05/22 documented in this encounter Discharge Instructions Discharge InstructionsLoretta López - 05/06/2022 7:31 AM CDT You were discharged from the Neurology Stroke Service. Please Identify this service name if you callwith questions after your hospitalization. Discharge Instr - Radha Reveles O.T., MOT - 05/06/2022 12:29 PM CDT Physical Therapy Discharge Summary MOBILITY RESTRICTIONS/PRECAUTIONS: Other Precautions: fall risk CURRENT FUNCTIONAL STATUS: Bed Mobility-Supine to Sit # of Assistants: 1 Level of Assistance: Minimal assistance Device: Bed rail Cuing: Verbal, Tactile, Visual Transfer-Sit to Stand # of Assistants: 1 Transfer Surface: Bed Transfer Equipment: Gait belt Level of Assistance: Supervision/set-up Bed to Chair/Wheelchair # of Assistants: 1 Transfer Surface: Bed, Chair Transfer Approach: To, To the right Transfer Equipment: No device Level of Assistance: Contact guard assistance Gait Assessment Distance (m): 153 m (500 feet (with stairs in the middle)) Surface: Even, Smooth/hard Device: Gait belt # of Assistants: 1 Level of Assistance: Supervision/Set-up, Independent Quality/Pattern: Shuffling, Decreased arm swing Stability: good stability, no loss of balance. Assessment of Gait: Patient ambulates with bilateral lower extremities externally rotated. Able to turn in hallway to change direction with ease; scans environment to both sides throughout; stand by assistance to near independence with ambulation. Cueing Provided: Verbal Stairs # Stairs: 10 Rails: 1 Device: Gait belt # of Assistants: 1 Level of Assistance: Contact guard assistance Stair Navigation Pattern-Ascending: Reciprocal pattern Stair Navigation Pattern-Descending: Reciprocal pattern Quality of Stair Negotiation: Contact guard assistance due to first time negotiating stairs in hospital. Patient navigates stairs with right rail ascending and descending. When ascending, patient only puts ball of foot on each step. No loss of balance. Cueing Provided: Verbal Stability: Stable throughout. RECOMMENDATIONS: Level of Care Needed - PT: Physical assistance needed (/ assistance recommended upon discharge, just initially for safety.) Discharge information provided on 05/06/2022 Contact information: [facility], [address], Occupational Therapy Discharge Summary MOBILITY RESTRICTIONS/PRECAUTIONS: Other Precautions: mild left inattention, cog-attention CURRENT FUNCTIONAL STATUS: Grooming Grooming Level of Assistance: Supervision/Set-up Grooming Location: Standing at sink Grooming Comments: Patient completed oral cares standing at the sink with no assist and one physicalcue to open toothbrush packaging. Patient did a great job cleaning up around sink and sequencing through task. Toileting: Independent Lower Body Dressing: Independent Toilet Transfers # of Assistants: 1 Level of Assistance: Independent Transfer Approach: To and from COGNITIVE ASSESSMENTS PERFORMED: Short Blessed Test demonstrating normal cognition. Clinical observations demonstrates mild processing delay and left inattention. RECOMMENDATIONS: Discharge Therapy Needs - OT: Ongoing skilled occupational therapy (one follow up visit) Level of Care Needed - OT: Assistance with transportation, Assistance with shopping, Assistance withfinancial management, Assistance with meal preparation, Other (Comment) (will followup with financial/money scenarios tomorrow) Discharge information provided on 05/06/2022 Contact information: [facility], [address], AttachmentsThe following attachments cannot be sent through Care Everywhere. Aspirin (By mouth) (Puerto [place]ican)Atorvastatin (By mouth) ([place])Metoprolol (By mouth) ([place])Rivaroxaban (By mouth) ([place])documented in this encounter Medications at Time of Discharge Medication Sig Dispensed Refills Start Date End Date aspirin 81 mg chewable Chew 1 tablet (81 mg 5 tablet 0 12/2021 tablet total) daily for 5 days. atorvastatin (LIPITOR) Take 1 tablet (40 mg 90 tablet 0 11/202108/04/2022 40 mg tablet total) by mouth at bedtime. albuterol 90 Inhale 2 puffs every 0 mcg/actuation inhaler 6 (six) hours as needed for wheezing or shortness of breath. metoprolol succinate Take 2 tablets (50 mg 30 tablet 11 12/2021 (TOPROL-XL) 25 mg 24 hr total) by mouth tablet daily. Do not crush or chew. rivaroxaban (XARELTO) 20 Take 1 tablet (20 mg 30 tablet 3 1 mg tablet total) by mouth daily with dinner. MULTIVITAMIN ORAL Take 1 tablet by 0 10/02/2011 mouth daily. documented as of this encounter Progress Notes Mahnaz Curtis R.N. - 05/07/2022 12:40 PM CDT Patient discussed at Stroke multidisciplinary rounds. Patient is currently being followed by the following members of the Care Management team: Case Management Plan for the day: PT, OT, Cardiology consult and Discharge planning Plan for stay: Stroke work up Discharge barriers: Inpatient needs Recommended discharge disposition: Home w/family As discussed, multidisciplinary team members have had ongoing care and discharge discussions with the Patient and Family. Multidisciplinary team indicated Patient and Family may benefit from the following discharge services: Outpatient follow up Shar Sarah M.D. - 05/07/2022 11:38 AM CDT SUBJECTIVE Mr. Montaño developed atrial fibrillation with RVR was kept overnight and started on Metoprolol. Hefeels ready for discharge OBJECTIVE EXAM: He has minimal deficits at this time as his weakness as essentially resolved ASSESSMENT / PLAN #1 Acute ischemic stroke, right MCA distribution, mechanism: Embolism likely from cardiac source #2 Chronic paroxysmal atrial fibrillation, not anticoagulated #3 Status post endovascular recanalization of right M2 occlusion #4 Left hemiparesis, resolved #5 Left hemineglect, resolved #6 Chronic nicotine use disorder #7 Right ICA origin atherosclerosis with mild stenosis #8 Atrial fibrillation, Paroxysmal Mechanism: Atrial fibrillation Aspirin 81 mg daily for 10 days and then switch to DOAC, discontinuing aspirin. 2. Metoprolol succinate 50 mg daily, which can be titrated, monitor heart rate at home 3. He was counseled on nicotine cessation 4. Atorvastatin increased to 40 mg/d 5. Will need PCP follow-up 6. Carotid U/S in 6 months 7. Will need home supervision 8. Discussed that he cannot drive until he is cleared by rehab and road-side driving evaluation. Total time: 35 minutes Suzie Lew Pharm.D., R.Ph. - 05/07/2022 7:54 AM CDT Pharmacist Progress Note Reason for admission: 71 year old male with acute ischemic stroke - right M2 infarct PMH: COPD, nicotine dependence, AFib not on A/C OBJECTIVE Home medications: Held: MVT Changed: aspirin 325 --> 81 mg Patient own medications: none Prophylaxis: H ASSESSMENT / PLAN Acute ischemic right MCA stroke s/p thrombectomy 05/04 Continues atorvastatin 40 mg/d Goal SBP < 160 mmHg; not requiring antihypertensives Asa 81 mg x 10 days (stop date 05/12), then switch to AC per PCP Afib: Dx 2008 - self limited. 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 Found to be in Afib w/ RVR on 05/06, Metoprolol 25 mg BID initiated for rate control. Plan to initiate AC with PCP outpatient once asa completed (AC to start 05/13). Nicotine dependence - if desired by patient, may use 14 mg nicotine patch per Nicotine Dependence Counselor. Changes to medications anticipated at discharge:New atorvastatin, aspirin, metoprolol Suzie Lew Pharm.D., R.Ph. Benjy Gregg M.D. - 05/06/2022 6:34 PM CDT NEUROLOGY STROKE SERVICE PROGRESS NOTE EVENT NOTE Plan for discharge, last vitals noted by nursing to be fluctuating between 70-100s. EKG taken, critical care fellow paged, agree Afib w/ RVR with PVC sBP 130s/70s, manual check average 110-120s. asymptomatic, no cp, sob, lightheadedness, palpitations Metoprolol 25mg PO bid ordered with HR goal <110, avoiding rhythm ctrl given not on anticoagulation and stroke risk Discharge cancelled May consider consult cardiology 05/07, cannot give anticoagulation at this time give recent M2 AIS. SUBJECTIVE No pain, complaints. Some coughing, but no wheezing or SOB. No new sx. I have reviewed the current medication list. OBJECTIVE Temperature: [36.8 ??C-37.7 ??C] 37.3 ??C Resp Rate: [16-18] 16 Blood Pressure: (117-136)/(58-78) 134/67 SpO2: [89 %-93 %] 91 % Pulse Rate: [46-96] 96 Physical Exam: Constitutional: well-developed, well-nourished, resting comfortably in bed Lungs: Breathing comfortably on NC. Clear to auscultation bilaterally. Cardiac: regular rate and rhythm Abdomen: Soft, non-tender, non-distended. Skin: No rash on exposed skin. Neurologic: Mental status: Alert, orientated, restricted affect Speech: Clear. Language: No evidence of aphasia. Faint dysarthria, however does not have dentures Cranial nerves: PERRL, EOMI, visual mendez intact to confrontation, facial movements full and symmetric, sensation intact to light touch and pinprick in the V1-V3 distributions, hearing intact to voice, tongue protrudes in midline, there is equal elevation of the soft palate, shoulder shrug is appropriate in strength. Motor: Motor Deltoid Biceps Triceps Wrist ext Finger abd Finger extensor Hip flex Hip ext Knee flex Knee ext Ankle flex Ankle ext R 0 0 0 0 0 0 0 0 0 0 0 0 L 0 0 0 0 0 0 0 0 0 0 0 0 No Pronator Drift, however, Satellite sign right arm orbiting left. Sensory: Sensation is intact touch Reflexes: Biceps Brachiorad Triceps Knee Ankle Plantar R 0 0 0 0 0 flexor L 0 0 0 0 0 flexor Coordination: Finger to nose and heel to zamudio are normal bilaterally. No sensory neglect Gait: deferred ASSESSMENT / PLAN 71-year-old right-handed man with history of atrial fibrillation not on anticoagulation, history of GI bleed 2008, smoking use, presents with left hemiparesis and neglect. CT head with aspects of 8, CTA with right M2 occlusion. Proceeded to mechanical thrombectomy and resulted in TICI to see reperfusion. Of note during mechanical thrombectomy, concern for VIRAL involvement and subsequently patient developed left lower extremity weakness. After mechanical thrombectomy NIHSS score increased from 6 (in the ED) to 10 in the IR suite. Transferred to the [facility] thereafter. NIHSS score decreased to 5 upon arrival to the unit for facial palsy, LUE+LLE drift, dysarthria, and neglect. Overnight vital signs stable, systolics less than 160. On repeat examination exam improved over the course with recent NIH SS score of 0. Plan to order MRI and CT to evaluate cardioembolic versus carotid plaque etiology. His R M2 occlusion was evaluated for cardioembolic versus carotid plaque etiology. In regards to hiscardioembolic etiology he had a documented history of atrial fibrillation in the context of lesion apneumonia in 2008 however did not proceed with anticoagulation due to GI bleed and was initiated on aspirin. No further workup for following of atrial fibrillation per chart review. In regards to his carotid plaque, on CTA neck and MRA showed 30% stenosis on the symptomatic side however did not revealany high risk features on plaque imaging. Currently favor cardioembolic etiology as a cause to his M2 occlusion. Therefore he will initiate anticoagulation, Eliquis (to prescribe by PCP), at day 10 (), and continue aspirin 81 up until then. We will also continue to monitor for atrial fibrillationwith a Holter monitor and will follow up with neurology in 1 month. In regards to his carotid stenosis, we have ordered carotid ultrasound in 6 months. On 05/06, pt found to be in afib w/ RVR. Will require monitoring overnight. Metop tart 25mg po q12 started tonight for HR goal <110. Avoid rhythm control d/t risk of stroke and also not on anticoagulation. Plan - metoprolol 25mg po q12, start tonight for afib - does not need holter monitor on discharge - aspirin until day 10, then start anticoagulation (prescribed by the PCP) on day 11 and stop aspirin - PCP within 1 week after discharge to start anticoagulation and dc aspirin - f/u neurology in 1 month - carotid ultrasound in 6 months to monitor carotid stenosis - OP PMR/ST/PT/OT # R Proximal M2 AIS # ?R VIRAL AIS # s/p thrombectomy 05/04 Etiology cardioembolic vs carotid plaque - Anticoagulation vs DAPT - DVTppx: heparin - sBP<160 - TTE, MRI, MRA - PT/OT - TSH 1.4, A1c: 5.4, cLDL: 94 # Afib w/ RVR Chart review, afib w/ rvr in the context of pneumonia. No other document afib. Anticoag deferred at the time d/t GI bleed, but was put on aspirin 325. - documented afib 05/06 this admission - metoprolol 25mg po bid # COPD No home o2, currently asymptomatic but w/ 2L NC # Tobacco Use - smoking cessation consult - recommend 14mg patch if patch amenable - not interesting in stopping Current activity/mobility: PAMP Level 2 (chairbound, staff moves patient to chair TID) Diet: regular Tubes/lines: Lines, Drains, and Airways None VTE prophylaxis: heparin Code status: DNR Surrogate Decision Maker: Spouse, kimberly Disposition: pending w/u with expected discharge date 05/06/2022 Stable to discharge criteria (not met): pending w/u Plan discussed with NSICU quality improvement consultant, Dr. Bhandari. Please page the [facility] Neurology Stroke and Cerebrovascular Disease service pager at [phone] with any questions. Benjy Gregg M.D. Kristi Blankenship PRobles., D.P.T. - 05/06/2022 12:21 PM CDT Physical Therapy Acute Hospital Inpatient Treatment SUBJECTIVE Patient's Name: Carlos Manuel Montaño Reason for Referral: PT Evaluation and Treat - Brain Consult Medical Diagnosis: 1. Stroke (HCC) 2. Change Mental Status Active 3. Decline Functional Status Active 4. Nicotine Dependence Cigarettes With Withdrawal History of Present Illness: Patient is a 71 year old male that presented to [facility] on 05/04/2022 after waking up with acute onset left hemiparesis and neglect. Last known well was evening prior to bed on 05/03. NIH score was 6 on presentation. His past medical history is significant for atrial fibrilation and 1 pack per day tobacco use. Onset Date: 05/04/22 Patient/Caregiver Goals: To go home. Patient Comments: I am feeling normal. Precautions Other Precautions: fall risk Fall Risk (65 and older) Fall in the last 12 months: No Are you fearful of falling?: No Fall Risk Comments: New onset of left sided weakness. OBJECTIVE Pain: Patient reports no pain. Vitals: Not indicated at this time Therapeutic Activity Bed Mobility - Sit to Supine # of Assistants: 1 Level of Assistance: Supervision/Set-up Device: None Cuing: Verbal Comments: Patient able to get into transfer bed to CAT scan with supervision. Sit to Stand Transfers # of Assistants: 1 Transfer Surface: Bed Transfer Equipment: Gait belt Level of Assistance: Supervision/set-up Assessment/Delivery: Assessed Comments: Patient able to stand prior to ambulation to put on gown. Good power and stability upon standing. Stand to Sit Transfers # of Assistants: 1 Transfer Surface: Chair Transfer Equipment: Gait belt Level of Assistance: Supervision/set-up Assessment/Delivery: Assessed Comments: Patient controls descent without cueing. Bed, Chair, Wheelchair Transfers # of Assistants: 1 Transfer Surface: Bed, Chair Transfer Approach: To, To the right Transfer Equipment: No device Level of Assistance: Contact guard assistance Assessment/Delivery: Assessed, Instructed, Educated, Therapist assisted Comments: Patient able to transfer to bedside chair with contact guard assist, requires total assistfor line management and chair set up. Gait Assessment/Training Distance (m): 153 m (500 feet (with stairs in the middle)) Surface: Even, Smooth/hard Device: Gait belt # of Assistants: 1 Level of Assistance: Supervision/Set-up, Independent Quality/Pattern: Shuffling, Decreased arm swing Stability: good stability, no loss of balance. Assessment of Gait: Patient ambulates with bilateral lower extremities externally rotated. Able to turn in hallway to change direction with ease; scans environment to both sides throughout; stand by assistance to near independence with ambulation. Cueing Provided: Verbal Training/Intervention: Encouragement to continue scaning environment (esspecially to the left) to promote safety upon discharge. Response: Patient not fatigued following ambulation or stairs. Stairs/Curb # Stairs: 10 Rails: 1 Device: Gait belt # of Assistants: 1 Level of Assistance: Contact guard assistance Stair Navigation Pattern-Ascending: Reciprocal pattern Stair Navigation Pattern-Descending: Reciprocal pattern Quality of Stair Negotiation: Contact guard assistance due to first time negotiating stairs in hospital. Patient navigates stairs with right rail ascending and descending. When ascending, patient only puts ball of foot on each step. No loss of balance. Cueing Provided: Verbal Stability: Stable throughout. Training/Intervention: PT encouraged patient to place entirity of foot on each step to promote safety, patient does not complete, but does stay stable throughout. Response: Patient has no short of breath following stairs. Patient/Family Training: No family in room throughout session. Patient provided education on safety following discharge. PT recommends patient slowing down while ambulating and use of railings on stairs to avoid any falls. At the end of today's therapy session patient was left with transfer service to CT scan. Patient's needs and questions addressed during today's session. Assessment Patient has great participation in therapy today. Today, patient ambulates 500 feet with no assistive device. Currently, the patient is supervision for all mobility. Patient will continue to benefit from skilled physical therapy interventions for progressive mobility and neuromuscular re-education and patient/family education to maximize safety and independence prior to hospital discharge. From the Physical Therapist's perspective, the patient is not an inpatient rehabilitation candidate due to patient's current level of function. Patient will be able to discharge home with family. Recommended he have 24/7 support initially upon discharge for safety. Barriers to a safe discharge home: Barriers to Discharge Home: Current functional status, Limited caregiver availability Barriers to Discharge Comments: Need to continue to assess support upon discharge. Personal Factors: Age Level of Care Needed - PT: Physical assistance needed (24/7 assistance recommended upon discharge, just initially for safety.) Skilled therapy can include physical therapy provided by home health, outpatient clinic, or a post-acute facility. The location of these services is determined by the patient's care team in partnershipwith patient/family. Equipment Recommended - PT: (Will continue to assess.) Functional Goals and Timeframes: PT Goal #1: Upon hospital discharge, patient will be able to complete all bed mobility independentlyin order to decrease caregiver burden. PT Goal #1 Status: Ongoing PT Goal #2: Upon hospital discharge, patient will be able to complete sit to/from stand with supervision in order to transfer from a variety of surfaces. PT Goal #2 Status: Achieved (05/06/2022 - Patient stands with stand by assistance from bed side chair.) PT Goal #3: Upon hospital discharge, patient will be able to ambulate 150 feet with the least restrictive gait aid and supervision in order to promote functional independence at home. PT Goal #3 Status: Achieved (05/06/2022 - Patient ambulates 500 feet with stand by assistance to independent and no gait aid.) PT Goal #4: Upon hospital discharge, patient will be able to negotiate 10 steps with bilateral railing and supervision to safely get up to bedroom. PT Goal #4 Status: Progressing (05/06/2022 - Patient navigates 10 stairs with single rail on right and contact guard assistance.) Progress: Progressing toward goals Plan Patient agrees with the plan of care and goals. Treatment Plan: PT Frequency: 5 times per week PT Amount: 1 visit per day PT Inpatient Duration : Until goals are met or hospital discharge Plan: Continue with current plan PT Plan Comments: Seems the plan is to discharge today, progress mobility and balance if seen tomorrow. Treatment interventions may include: Treatment/Interventions: Therapeutic exercise, Therapeutic functional activity, Neuromuscular re-education, Gait training, Therapeutic modalities as needed, Self-care/home management Time Spent with Patient Therapeutic Interventions Therapeutic Activity (min): 24 min Time Tracking Total Timed Units (min): 24 min Total Treatment Time (min): 24 min Kristi Blankenship P.T., D.P.T. Shar Sarah M.D. - 05/06/2022 11:41 AM CDT SUBJECTIVE I have reviewed the history and physical examination findings of Dr. Gregg. I have met with Carlos Manuel Castellanos Amundson. I agree with the clinical notes dated 05/06/22. No issues overnight. He feels he is near his baseline. OBJECTIVE EXAM: He ambulated independently. He continues to have left arm drift. ASSESSMENT / PLAN #1 Acute ischemic stroke, right MCA distribution, mechanism: Embolism likely from cardiac source #2 Chronic paroxysmal atrial fibrillation, not anticoagulated #3 Status post endovascular recanalization of right M2 occlusion #4 Left hemiparesis, resolved #5 Left hemineglect, resolved #6 Chronic nicotine use disorder #7 Right ICA origin atherosclerosis with mild stenosis #8 History of atrial fibrillation Mr. Montaño is a 71 y.o. man with history of atrial fibrillation who underwent endovascular therapyfor a M2 occlusion on the right. He had significant improvement in his deficits. His prior history of atrial fibrillation makes this the most likely mechanism. He did have a 30% stenosis on the symptomatic side but plaque imaging didn't reveal high risk features. We will complete the cardiac work-up with Holter monitor but I would favor anticoagulation beginning at day 7 given the size of infarction.He can continue on aspirin until then. Eliquis at day 7 with PCP Aspirin until Eliquis He was counseled on nicotine cessation 4. Atorvastatin increased to 40 mg/d 5. Will need PCP follow-up 6. Carotid U/S in 6 months 7. Will need home supervision 8. Discussed that he cannot drive until he is cleared by rehab and road-side driving evaluation. Total time: 40 minutes Howard Jurado R.N. - 05/06/2022 11:36 AM CDT Patient discussed at Stroke multidisciplinary rounds. Patient is currently being followed by the following members of the Care Management team: Social Work Plan for the day: PT, OT, and CT Plan for stay: Stroke work up Discharge barriers: Inpatient needs Recommended discharge disposition: Home w/family As discussed, multidisciplinary team members have had ongoing care and discharge discussions with the Patient and Family. Multidisciplinary team indicated Patient and Family may benefit from the following discharge services: Pending PT/OT assessment and recommendations. Peewee Onofre - 05/06/2022 10:53 AM CDT NEUROLOGY STROKE SERVICE PROGRESS NOTE SUBJECTIVE Mr. Montaño is a 71 y/o male comorbid with COPD and an active smoker being treated on the stroke service for a right M2 ischemic infarct. He states he is feeling well this morning and has been able to go for several short walks. He deniesany new vision changes, weakness, headaches, or other changes, There were no acute events overnight.Today, he is feeling well with off his nasal cannula with no shortness of breath. I have reviewed the current medication list. OBJECTIVE Temperature: [36.5 ??C-37.7 ??C] 37.5 ??C Heart Rate: [72-88] 79 Resp Rate: [16-18] 18 Blood Pressure: (117-150)/(58-81) 128/64 SpO2: [89 %-97 %] 90 % Flow Rate (L/min): [2 L/min] 2 L/min Pulse Rate: [63-98] 78 Physical Exam: Constitutional: well-developed, well-nourished, resting comfortably Lungs: Breathing comfortably on room air. Clear to auscultation bilaterally. Cardiac: regular rate and rhythm Abdomen: Soft, non-tender, non-distended. Skin: No rash on exposed skin. Neurologic: Mental status: Alert and oriented to time, place and person Speech: Clear. Language: No evidence of aphasia. (Naming, reading, repetition and comprehension are intact.) Cranial nerves: PERRL, EOMI, (funduscopic exam shows sharp optic disc margins bilaterally), visual mendez intact to confrontation, facial movements full and symmetric, sensation intact to light touch and pinprick in the V1-V3 distributions, hearing intact to voice, tongue protrudes in midline, there is equal elevation of the soft palate, shoulder shrug is appropriate in strength. Motor: Bilateral upper and lower extremity strength evaluated including: (R, L) deltoids (0,0), biceps (0,0), triceps (0,0), wrist extension (0,0), finger extension (0,0), interossei (0,0), iliopsoas (0,0), knee flexion (0,0), knee extension (0,0), ankle dorsiflexion (0,0), toe extension (0,0). Tone is normal in bilateral upper and lower extremities. Sensory: Sensation is intact to vibration, proprioception, pinprick of distal extremities bilaterally. Reflexes: biceps (0,0), triceps (0,0), brachioradialis (0,0), patellar (0,0) and Achilles (0,0). Plantar flexor responses are flexor-flexor. Coordination: Finger to nose and heel to zamudio are normal bilaterally. Gait: Appropriate width, normal arm swing, and speed. Narrow stance. Normal step size. Normal toe, heel and tandem walking. Turns without shuffling. Diagnostics: CT head profusion/CT non-contrast (05/04) IMPRESSION: 1. Acute right M2 occlusion. 2. Penumbra 74 mL. Infarct core 32 mL. 3. 30-40% stenosis of the right carotid bulb by calcified and noncalcified plaque.ead profusion TTE: (05/05) Final Impressions 1. Normal left ventricular chamber size. Calculated left ventricular ejection fraction 66%. No regional wall motion abnormalities. 2. Normal left ventricular filling pressure. 3. Normal right ventricular chamber size by visual estimate. Normal right ventricular systolic function. 4. Sclerotic aortic valve with possible strands. Trivial aortic regurgitation. 5. Enlarged inferior vena cava size with normal inspiratory collapse (>50%). 6. Atherosclerosis in the abdominal aorta. 7. No intracardiac or intrapulmonary shunt by agitated saline contrast injection at rest and with Valsalva. 8. No pericardial effusion. CT cardiac angiogram (05/06) IMPRESSION: 1. No significant mobile plaque or thrombus of the thoracic aorta. 2. No intracardiac thrombus. 3. Mild thickening of mitral valve leaflets without discrete mass . 4. Bronchial thickening and mucus plugging in bilateral lower lobes and right middle lobe and clustered nodular opacities in the right lower lobe could be due to infection or aspiration. 5. Enlarged hilar lymph nodes could be reactive I have reviewed the diagnostics from admission. ASSESSMENT / PLAN Plan for today: - CT cardiac angiogram - Increase atorvastatin to 40mg/day from 20mg/day - Continue 81 mg aspirin - Discharge to home #1 Atrial Fibrillation Unspecified #2 Abuse Tobacco Smoking #3 Stroke (HCC) #4 Chronic Obstructive Pulmonary Disease Exacerbation (HCC) Mr. Montaño is a 71 y/o male comorbid with COPD, a history of Afib, and an active smoker admitted on 05/04/22 for a right M2 ischemic infarct. The two most likely etiologies of Mr Montaño's right M2 infarct include a cardioembolic source or atherosclerotic plaque embolus. Evaluation of the atherosclerotic right carotid bulb demonstrated 30-40% stenosis with a stable plaque. It's unlikely that this degree of occlusion could cause Mr. Montaño's right M2 infarct. Though CT cardiac angiogram and TTE were unremarkable, it's possible that Mr. Montaño has a paroxysmal presentation of Afib that could have caused a thromboembolism occluding his right MCA. We think it would be prudent given his history of Afib and inconsistent monitoring to start him on anticoagulation. He'll be started on apixaban or rivaroxaban on day 7 from his initial presentation to the ED (05/12). He will discontinue his current aspirin regimen when he begins the apixaban To further assess for the possibility of ongoing paroxymal Afib, he'll receive extended cardiac Holter monitoring for a duration up to 30 days. Current neuro exam remains unchanged and is much improved from his initial presentation to the ED. He is ambulating well and does not display any focal neurological deficits. 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 He will need a course of brain rehab with OT. His most recent LDL (94) is above the ideal range for an ischemic stroke (<70). Current dosage ofatorvastatin is 20mg/day. This will be increased to 40mg/day to reach target. Given his current condition and diagnostic studies, Mr. Montaño can be discharged to home. He will require 24hr supervision upon discharge. Continue current outpatient treatment for COPD. Current activity/mobility: PAMP Level 3 (walks occasionally, majority of day is spent sitting in chair) Diet: Oral intake Tubes/lines: Oxygen VTE prophylaxis: Code status: DNR Disposition: Home with expected discharge date Stable to discharge criteria (not met): none Plan discussed with [facility] Neurology Stroke and Cerebrovascular Disease Rewinder Operator Helper, Dr. Sarah. Please page the [facility] Neurology Stroke and Cerebrovascular Disease service pager at [phone] with any questions. Shorty Onofre Quoc Dozier M.A., CCC-ENCODING CLERK - 05/06/2022 9:54 AM CDT Speech Pathology attempted to see Mr. Montaño for treatment targeting cognitive-communication skills. He is away from his room at time of attempt. Mr. Montaño will continue to benefit from ongoing Speech Pathology services. Quoc Dozier M.A., CCC-ENCODING CLERK 05/06/2022 AVIT Suzie Lew Pharm.D., R.Ph. - 05/06/2022 7:36 AM CDT Pharmacist Progress Note Reason for admission: 71 year old male with acute ischemic stroke - right M2 infarct PMH: COPD, nicotine dependence, AFib not on A/C OBJECTIVE Home medications: Held: aspirin 325 mg, MVT, albuterol Changed: none Patient own medications: none Prophylaxis: SQH ASSESSMENT / PLAN Acute ischemic right MCA stroke s/p thrombectomy 05/04 Atorvastatin increased to 40 mg/d Goal SBP < 160 mmHg - Labetalol 5 mg IV q1h PRN. No doses of labetalol required. Based on cardiac CT - may consider DAPT x 21 days vs anticoagulation Afib: Dx 2008 - self limited. 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 Pending cardiac CT, may consider AC. Extended cardiac monitoring on discharge. Nicotine dependence - if desired by patient, may use 14 mg nicotine patch per Nicotine Dependence Counselor. Changes to medications anticipated at discharge:New atorvastatin, DAPT vs AC pending cardiac CT Suzie Lew Pharm.D., R.Ph. Jemima Peewee - 05/05/2022 5:49 PM CDT CHIEF CONCERN: Right MCA (M2) ischemic stroke HISTORY OF PRESENT ILLNESS: Carlos Manuel is a 71 y/o male comorbid with COPD and an active smoker presenting with right MCA (M2) infarct. On 05/04, Carlos Manuel woke up with left-hemiparesis and weakness. Upon presentation to the ED later that day, he was also noted to have left-hemineglect and an NIHSS of 6. His exam was notable for rightgaze drift and left arm and leg drift. He received a noncontrast CT of the head that demonstrated hypodensities in the right insula and right superior frontal lobe. CT angiogram of the head and neck demonstrated right MCA M2 occlusion. CT perfusion demonstrated a 32 mL infarcted core with 74 mL penumbra. Pertinent vitals at the time of presentation revealed a BP of 162/95 and HR of 75. An ECG demonstrated normal sinus rhythm. Mr. Montaño was outside of the window for tenecteplase but was deemed a candidate for endovascular intervention. His right MCA was recanalized through thrombectomy in the angio suite. Following recanalization, Carlos Manuel's neurological exam improved in the neuro ICU with reduced right gaze deviation anddiminished left-hemineglect. A repeat NIHSS today (05/05) was 0 and he subjectively looks much better. He passed a Joaquin bedside swallow assessment. At home, he is independent in performing all daily activities. REVIEW OF SYSTEMS: Pertinent items are noted in HPI; all other review of systems was negative. PAST MEDICAL HISTORY: Atrial Fibrillation (2008) Legionnaire's disease (2008) Gastrointestinal bleed (2008) PAST SURGICAL HISTORY: Vasectomy Elbow procedure () MEDICATIONS: 81mg aspirin 1x daily (home) Current Facility-Administered Medications: acetaminophen tablet 1,000 mg (TYLENOL), 1,000 mg, oral, 4x Daily PRN, Yang Anderson, P.A.-C. [START ON 05/05/2022] aspirin chewable tablet 81 mg, 81 mg, oral, Daily OR [START ON 05/05/2022] aspirin chewable tablet 81 mg, 81 mg, gastric tube, Daily, Yang Anderson, P.A.-C. bisacodyL DR tablet 10 mg (DULCOLAX), 10 mg, oral, BID PRN OR bisacodyL suppository 10 mg (DULCOLAX), 10 mg, rectal, BID PRN, Yang Anderson, P.A.-C. [START ON 05/05/2022] clopidogreL tablet 75 mg (PLAVIX), 75 mg, oral, Daily OR [START ON 05/05/2022] clopidogreL tablet 75 mg (PLAVIX), 75 mg, gastric tube, Daily, Yang Anderson, P.A.-C. docusate sodium 283 mg/5 mL enema 1 enema (ENEMEEZ), 1 enema, rectal, BID PRN, Yang Anderson, P.A.-C. heparin (porcine) injection 5,000 Units, 5,000 Units, subcutaneous, Q8H GALILEO, Yang Anderson, P.A.-C. NaCl 0.9 % bolus 1,000 mL, 1,000 mL, intravenous, Once, Clinton Díaz, ANNIKA, C.N.P., M.S.N. polyethylene glycol powder packet 17 g (MIRALAX), 17 g, oral, Daily PRN, Yang Anderson, P.A.-C. sennosides-docusate sodium 8.6-50 mg per tablet 1 tablet (SENOKOT-S), 1 tablet, oral, BID, Yang Anderson, P.A.-C. sodium chloride 0.9 % injection 10 mL, 10 mL, intravenous, PRN, Marquis Leach M.D., M.P.H. sodium chloride 0.9 % injection 10 mL, 10 mL, intravenous, PRN, Yang Anderson, P.A.-C. sodium chloride 0.9 % injection 3 mL, 3 mL, intravenous, PRN, Marquis Leahc M.D., M.P.H. sodium chloride 0.9 % injection 3 mL, 3 mL, intravenous, Q12H GALILEO, Marquis Leach M.D., M.P.H. sodium chloride 0.9 % injection 3 mL, 3 mL, intravenous, PRN, Yang Anderson, P.A.-C. sodium chloride 0.9 % injection 3 mL, 3 mL, intravenous, Q12H GALILEO, Yang Anderson, P.A.-C. ALLERGIES: None PHYSICAL EXAM: Temperature: [36.8 ??C-37 ??C] 36.8 ??C Heart Rate: [65-93] 77 Resp Rate: [11-27] 21 Blood Pressure: (112-170)/(66-115) 146/84 SpO2: [96 %-99 %] 96 % Flow Rate (L/min): [2 L/min] 2 L/min Pulse Rate: [68-94] 73 Physical Exam: Constitutional: well-developed, well-nourished, resting comfortably in bed Lungs: Breathing comfortably on NC. Clear to auscultation bilaterally. Cardiac: regular rate and rhythm Abdomen: Soft, non-tender, non-distended. Skin: No rash on exposed skin. Neurologic: Mental status: Alert, orientated, restricted affect Speech: Clear. Language: No evidence of aphasia. Faint dysarthria, however does not have dentures Cranial nerves: PERRL, EOMI, visual mendez intact to confrontation, facial movements full and symmetric, sensation intact to light touch and pinprick in the V1-V3 distributions, hearing intact to voice, tongue protrudes in midline, there is equal elevation of the soft palate, shoulder shrug is appropriate in strength. Motor: Motor Deltoid Biceps Triceps Wrist ext Finger abd Finger extensor Hip flex Hip ext Knee flex Knee ext Ankle flex Ankle ext R 0 0 0 0 0 0 0 0 0 0 0 0 L 0 0 0 0 0 0 0 0 0 0 0 0 No Pronator Drift, however, Satellite sign right arm orbiting left. Sensory: Sensation is intact touch Reflexes: Biceps Brachiorad Triceps Knee Ankle Plantar R 0 0 0 0 0 flexor L 0 0 0 0 0 flexor Coordination: Finger to nose and heel to zamudio are normal bilaterally. No sensory neglect Gait: deferred DIAGNOSTICS: Imaging/Labs/other diagnostics: CT head profusion/CT non-contrast IMPRESSION: 1. Acute right M2 occlusion. 2. Penumbra 74 mL. Infarct core 32 mL. 3. 30-40% stenosis of the right carotid bulb by calcified and noncalcified plaque.ead profusion TTE: Final Impressions 1. Normal left ventricular chamber size. Calculated left ventricular ejection fraction 66%. No regional wall motion abnormalities. 2. Normal left ventricular filling pressure. 3. Normal right ventricular chamber size by visual estimate. Normal right ventricular systolic function. 4. Sclerotic aortic valve with possible strands. Trivial aortic regurgitation. 5. Enlarged inferior vena cava size with normal inspiratory collapse (>50%). 6. Atherosclerosis in the abdominal aorta. 7. No intracardiac or intrapulmonary shunt by agitated saline contrast injection at rest and with Valsalva. 8. No pericardial effusion. ASSESSMENT/PLAN: #1 Right MCA ischemic stroke #2 Smoking #3 COPD Carlos Manuel is a 71 y/o male comorbid with COPD and an active smoker with a right MCA M2 infarct status post thrombectomy. He has displayed signs of improvement since admission to the neuro ICU with an unremarkable neurological exam at time of transfer. Current etiology of ischemic stroke is undetermined.His previous history of Afib during a bout of Legionnaire's disease without anticoagulation raises the possibility of a cardiac thromboembolism. However, ECG in ED demonstrated normal sinus rhythm and no signs of Afib. His Afib could have been a self limited event in the context of his legionnaires disease back in 2008. His right MCA M2 infarct could also be related to an atheroembolism. He is currently receiving an MRA and MRI head to further evaluate for a possible etiology and to elucidate the extent of his right M2 infarct. Because he was reperfused following thrombectomy, current BP goal is maintenance of systolic below 160. He will continue receiving current dosage of heparin. He was counseled on the possibility of nicotine replacement therapy and cessation. He is currently not interested in pursuing cessation therapy. He is currently receiving 2L of O2 through a nasal cannula. His is not complaining of chest pain or any shortness of breath. He should continue receiving current O2 supplementation. Mouna Mccurdy O.T. - 05/05/2022 3:24 PM CDT Pt having echocardiogram in room this afternoon. Will see tomorrow as able for skilled OT assessment. Mouna Mccurdy O.T. 05/05/2022 Benjy Gregg M.D. - 05/05/2022 1:07 PM CDT NEUROLOGY STROKE SERVICE PROGRESS NOTE ICU SUMMARY Carlos Manuel Montaño is a 71 y.o. male with significant comorbidities including COPD, Active smoking, and Atrial fibrillation not on AC. Mr. Montaño presents with acute ischemic stroke with left-sided facial droop, left-sided hemiparesis, and left sided visual neglect. 's last known wellwas approximately 2200 on 05/03, and had symptoms upon awakening on 05/04 at 0700. Pt then presented to [facility] ED via EMS where a stroke code was activated, initial NIHSS was determined to be 6, and CT/CTA/CTP were preformed which showed large penumbra and 42mL core proximal R. M2 occlusion and R. carotid plaque 30-40% occlusion. then proceeded to IR for mechanical thrombectomy due to being outside of the time window for possible thrombolysis. Mechanical thrombectomy was successfully preformed and resulted in TICI 2C reperfusion. During the Mechanical thrombectomy there was concern that there was also VIRAL involvement and subsequently developed left lower extremity weakness. Post-mechanical thrombectomy NIHSS was scored as a 10 in the IR Suite. was subsequently admitted to NSICU for further management of AIS s/p mechanical thrombectomy. Upon arrival to the unit NIHSS was scored as a 5 for facial palsy, LUE+LLE drift, dysarthria, and visual extinction. Overnight SBP remained <160 without any intervention. Exam continued to improve over the course of the evening of 05/04. Facial palsy appears to have resolved, neglect no longer appreciated, left upper extremity does have an old olecranon fracture and is chronically weak and appears to be at baseline, however, nodrift is present. LLE also had no drift. NIHSS of 0 this morning 05/05. We will plan to order an MRI and TTE this morning in order to decide whether or not this is most likely a cardioembolic vs carotidplaque etiology of stroke and then decide whether anti- coagulation would be appropriate and whether intervention of carotid artery is necessary. RECOMMENDATIONS: Follow-up on MRI results in order to determine size of infarction appropriateness of initiation of anticoagulation Follow-up on MRA results in order to determine whether intervention is needed on carotid plaque. Follow-up on TTE results in order to help determine possible cardioembolic source Continue atorvastatin 40mg daily Goal SBP <160 PRN Labetalol and Hydralazine available, has not required SUBJECTIVE No pain, complaints. Some coughing, but no wheezing or SOB. No new sx. I have reviewed the current medication list. OBJECTIVE Temperature: [36.8 ??C-37 ??C] 36.8 ??C Heart Rate: [65-93] 77 Resp Rate: [11-27] 21 Blood Pressure: (112-170)/(66-115) 146/84 SpO2: [96 %-99 %] 96 % Flow Rate (L/min): [2 L/min] 2 L/min Pulse Rate: [68-94] 73 Physical Exam: Constitutional: well-developed, well-nourished, resting comfortably in bed Lungs: Breathing comfortably on NC. Clear to auscultation bilaterally. Cardiac: regular rate and rhythm Abdomen: Soft, non-tender, non-distended. Skin: No rash on exposed skin. Neurologic: Mental status: Alert, orientated, restricted affect Speech: Clear. Language: No evidence of aphasia. Faint dysarthria, however does not have dentures Cranial nerves: PERRL, EOMI, visual mendez intact to confrontation, facial movements full and symmetric, sensation intact to light touch and pinprick in the V1-V3 distributions, hearing intact to voice, tongue protrudes in midline, there is equal elevation of the soft palate, shoulder shrug is appropriate in strength. Motor: Motor Deltoid Biceps Triceps Wrist ext Finger abd Finger extensor Hip flex Hip ext Knee flex Knee ext Ankle flex Ankle ext R 0 0 0 0 0 0 0 0 0 0 0 0 L 0 0 0 0 0 0 0 0 0 0 0 0 No Pronator Drift, however, Satellite sign right arm orbiting left. Sensory: Sensation is intact touch Reflexes: Biceps Brachiorad Triceps Knee Ankle Plantar R 0 0 0 0 0 flexor L 0 0 0 0 0 flexor Coordination: Finger to nose and heel to zamudio are normal bilaterally. No sensory neglect Gait: deferred ASSESSMENT / PLAN 71-year-old right-handed man with history of atrial fibrillation not on anticoagulation, history of GI bleed 2008, smoking use, presents with left hemiparesis and neglect. CT head with aspects of 8, CTA with right M2 occlusion. Proceeded to mechanical thrombectomy and resulted in TICI to see reperfusion. Of note during mechanical thrombectomy, concern for VIRAL involvement and subsequently patient developed left lower extremity weakness. After mechanical thrombectomy NIHSS score increased from 6 (in the ED) to 10 in the IR suite. Transferred to the [facility] thereafter. NIHSS score decreased to 5 upon arrival to the unit for facial palsy, LUE+LLE drift, dysarthria, and neglect. Overnight vital signs stable, systolics less than 160. On repeat examination exam improved over the course with recent NIH SS score of 0. Plan to order MRI and CT to evaluate cardioembolic versus carotid plaque etiology. Etiology may be cardioembolic given history of atrial fibrillation not on anticoagulation. Per chartfeet per chart review on note from 03/2009 he was found to have atrial fibrillation with RVR in the ICU (due to lesion in the pneumonia) that required cardioversion in January 2009. Coumadin was considered but not used due to GI bleed during ICU admission. Aspirin 325 was started instead. Due to this, heopposed to anticoagulation. On review, no discussion of further eval of afib or anticoag. Also possible carotid plaque in etiology given 30-40% stenosis of the right carotid bulb found on CTneck on 05/04/2022. Plan to further evaluate etiology with MRA of the neck and TTE. Plan for today: Follow-up on MRI results in order to determine size of infarction appropriateness of initiation of anticoagulation Follow-up on MRA results in order to determine whether intervention is needed on carotid plaque. Follow-up on TTE results in order to help determine possible cardioembolic source Continue atorvastatin 40mg daily # R Proximal M2 AIS # ?R VIRAL AIS # s/p thrombectomy 05/04 Etiology cardioembolic vs carotid plaque - Anticoagulation vs DAPT - DVTppx: heparin - sBP<160 - TTE, MRI, MRA - PT/OT - TSH 1.4, A1c: 5.4, cLDL: 94 # Hx of Afib Chart review, afib w/ rvr in the context of pneumonia. No other document afib. Anticoag deferred at the time d/t GI bleed, but was put on aspirin 325. # COPD No home o2, currently asymptomatic but w/ 2L NC # Tobacco Use - smoking cessation consult - recommend 14mg patch if patch amenable - not interesting in stopping Current activity/mobility: PAMP Level 2 (chairbound, staff moves patient to chair TID) Diet: regular Tubes/lines: Lines, Drains, and Airways Peripheral IV Duration Peripheral IV 05/04/22 18 G Left Antecubital 1d 7h Peripheral IV 05/04/22 18 G Right Antecubital 1d 7h VTE prophylaxis: heparin Code status: Full Code Surrogate Decision Maker: Spousekimberly Disposition: pending w/u with expected discharge date Stable to discharge criteria (not met): pending w/u Plan discussed with NSICU quality improvement consultant, Dr. Bhandari. Please page the [facility] Neurology Stroke and Cerebrovascular Disease service pager at [phone] with any questions. Benjy Gregg M.D. Lamont Su M.D. - 05/05/2022 10:53 AM CDT I have reviewed Yang Anderson's history, examination and plan of care and agree with the documentation, other than where indicated in my note. I have personally examined the patient. Case discussed in detail during multidisciplinary rounds. INTERVAL EVENTS Remarkable improvement overnight Blood pressure within acceptable range. Has remained in sinus rhythm. LDL 84 mg/dL OBJECTIVE I have reviewed the current vital sign data as applicable and as indicated above. Physical examination Essentially free of any focal neurological deficits today (examination conducted in sitting position). Very mild systolic hypertension Sinus rhythm on telemetry monitoring Diagnostic studies I have reviewed relevant laboratory, imaging, and other diagnostics as applicable and as indicated above. DIAGNOSTIC ASSESSMENT #1 Acute ischemic stroke, right MCA distribution, mechanism: Embolism likely from cardiac source #2 Chronic paroxysmal atrial fibrillation, not anticoagulated #3 Status post endovascular recanalization of right M2 occlusion #4 Left hemiparesis, resolved #5 Left hemineglect, resolved #6 Chronic nicotine use disorder #7 Right ICA origin atherosclerosis with mild stenosis PLAN Obtain brain MRI today. Because of history of atrial fibrillation, even if documented in the distant past and at the time when he was acutely ill with Legionella pneumonia, I would favor anticoagulation. Yet, vascular Neurosurgery would like to obtain an MRA with plaque imaging of the right ICA origin to assess for vulnerable plaque features and this is reasonable. We will also obtain a transthoracic echocardiogram. Received aspirin last night Started on statin Need for smoking cessation PMR consultation Transfer to the floor under the care of the Stroke service Rest of plan by systems as indicated by Yang Anderson in his note. AVIT Lucita Hoang Pharm.D., R.Ph. - 05/05/2022 6:57 AM CDT Clinical Pharmacist Progress Note 71 year old male admitted to [facility] ICU on 05/04/2022 for acute ischemicstroke. PMH: COPD, nicotine dependence, AFib not on A/C Procedures and notable events during this stay: 05/04: intracranial mechanical thrombectomy (TICI 2b) OBJECTIVE DVT prophylaxis: SQH GI prophylaxis: +BR Home medications: Held: aspirin 325, MVI Changed: n/a New: atorvastatin, likely A/C TBD Patient own medications: n/a ASSESSMENT / PLAN Pharmacotherapy Assessment/Plan AIS: proximal right M2 occlusion, atherosclerotic plaque at the origin of the right ICA Goal SBP < 160 mmHg with PRNs available New atorvastatin 20 mg/d Antithrombotics: pending MRI today AFib: Dx 2008. Not on A/C MERCHANDISING INTERN likely due to hx of occult GIB. Nicotine dependence: consider daily nicotine patch if desired by patient Electronically signed by: Lucita Hoang Pharm.D., R.Ph. 05/05/22 6:57 AM CDT [id number] Yang Anderson, P.A.-C. - 05/05/2022 6:44 AM CDT Images from the original note were not included. SUBJECTIVE CHIEF COMPLAINT Mr. Montaño is hospital day 1 for management of Stroke (HCC) HISTORY OF PRESENT ILLNESS Carlos Manuel Montaño is a 71 y.o. male with significant comorbidities including COPD, Active smoking, and Atrial fibrillation not on AC. Mr. Montaño presents with acute ischemic stroke with left-sided facial droop, left-sided hemiparesis, and left sided visual neglect. 's last known wellwas approximately 2200 on 05/03, and had symptoms upon awakening on 05/04 at 0700. Pt then presented to [facility] ED via EMS where a stroke code was activated, initial NIHSS was determined to be 6, and CT/CTA/CTP were preformed which showed large penumbra and 42mL core proximal R. M2 occlusion. then proceeded to IT for mechanical thrombectomy due to being outside of the time window for possible thrombolysis. Mechanical thrombectomy was successfully preformed and resulted in TICI 2C reperfusion. During the Mechanical thrombectomy there was concern that there was also VIRAL involvement and subsequently developed left lower extremity weakness. Post-mechanical thrombectomy NIHSS was scored as a 10 in the IR Suite. was subsequently admitted to NSICU for further management of AIS s/p mechanical thrombectomy. Upon arrival to the unit NIHSS was scored as a 5 for facial palsy, LUE+LLE drift, dysarthria, and visual inattention. Overnight SBP remained <160 without any intervention. Exam continued to improve over the course of the evening. Facial palsy appears to have resolved, neglect no longer appreciated, left upper extremity does is noted to be slightly weaker than right side, however, no drift is present. LLE also had no drift. NIHSS of 0. We will plan to order an MRI and TTE this morning in order to decide whether or not this is most likely a cardioembolic vs carotid p laque etiology of stroke and then decide whether anti-coagulation would be appropriate and whether intervention of carotid artery is necessary. 24 HOUR EVENTS - No acute events overnight - No further intervention needed for SBP <160 - Clevidipine discontinued - NIHSS improved significantly 0 this morning The following portions of the patient's history were reviewed and updated as appropriate: allergies,current medications, family history, medical history, social history, surgical history and problem list. OBJECTIVE I have reviewed the current vital sign data as applicable to this admission. PHYSICAL EXAM General appearance: acutely ill appearing, in moderate distress, cooperative, and Resting in bed, appears distressed/overwhelmed/frustrated with stroke symptoms Neurologic: alert, oriented, cranial nerves facial palsy appears resolved, sensory intact, unalteredbilaterally, motor strength significantly better in LUE/LLE today with minor LUE weakness compared to RUE, coordination no ataxia, HEENT: normocephalic, without obvious abnormality, pupils equal and reactive, extraocular movements,and visual extinction no longer appreciated Chest: clear to auscultation anteriorly Heart: regular rate and rhythm, S1 and S2 normal, no murmur Abdomen: non-distended, non-tender, and soft Extremities: extremities normal, warm and well-perfused Skin: normal without ulcer DIAGNOSTICS I have reviewed relevant laboratory, imaging, and other diagnostics as applicable to this admission. BP 136/84 Pulse 73 Temp 36.8 ??C (Oral) Resp 21 Ht 175.5 cm Wt 76.2 kg SpO2 96% BMI 24.74 kg/m?? Lab Results Component Value Date WBC 11.9 (H) 05/05/2022 HGB 13.0 (L) 05/05/2022 HCT 39.9 05/05/2022 MCV 95.5 05/05/2022 PLT 355 (H) 05/05/2022 Lab Results Component Value Date NA 140 05/05/2022 KSERUM 4.4 05/05/2022 KBLOOD 4.1 05/04/2022 KPLASMA 4.4 05/04/2022 CL 104 05/05/2022 BICARB 23 05/05/2022 CREATININE 0.73 (L) 05/05/2022 BUN 13 05/05/2022 ANIONGAP 13 05/05/2022 GLUCOSE 83 05/05/2022 GLUCOSEPOC 95 05/04/2022 CALCIUM 8.6 (L) 05/05/2022 ALT 15 05/04/2022 AST 19 05/04/2022 Magnesium:1.9 (05/05 421) Estimated Creatinine Clearance: 97.1 mL/min (A) (by C-G formula based on SCr of 0.73 mg/dL (L)). Lab Results Component Value Date CHOL 154 05/05/2022 Lab Results Component Value Date HDL 41 05/05/2022 Lab Results Component Value Date LDLCALC 94 05/05/2022 Lab Results Component Value Date TRIG 102 05/05/2022 Ha1c: 5.4 INTAKE/OUTPUT Intake/Output Summary (Last 24 hours) at 05/05/2022 0645 Last data filed at 05/05/2022 0600 Gross per 24 hour Intake 1702.17 ml Output 1090 ml Net 612.17 ml Admission Weight: 76.8 kg Today's weight: 76.2 kg IMAGING 05/04 CTH 05/04 CTA 05/04 CTP FINDINGS: HEAD: Loss of the hu-white differentiation in the right insula and right frontal lobe compatible with right MCA territory infarct. Possible hyperdense right MCA. No other acute findings. CTA: Acute occlusion of the proximal right M2 superior branch just beyond the bifurcation (4/376 see screen shot images). Mixed calcified and uncalcified right carotid bulb plaque with 30-40% stenosis 1. Acute right M2 occlusion. 2. Penumbra 74 mL. Infarct core 32 mL. 3. 30-40% stenosis of the right carotid bulb by calcified and noncalcified plaque. ASSESSMENT / PLAN #1 Stroke (HCC) #2 Atrial Fibrillation Unspecified #3 Chronic Obstructive Pulmonary Disease Exacerbation (HCC) #4 Abuse Tobacco Smoking PLAN BY SYSTEMS: NEURO: R. Proximal M2 AIS, R. VIRAL AIS - Neurologic Status: NIHSS 5 upon arrival to Unit - Pain management: Acetaminophen 1000mg Q6H PRN for fevers and pain. - Neuro checks per unit routine - Imaging: MR Brain with MRA with plaque protocol in order to evaluate for possible intervention forcarotid plaque - PM&R Consulted CARDIAC: Atrial Fibrillation - SBP Goal: <160 - MAP Goal: >65 - Vasoactive meds: PRN Labetalol 5mg q1hr PRN and Hydralazine 5mg q1hr PRN, has not required - Obtain ECG: Showed NSR with QTC of 430 - Obtain TTE today, last TTE 2008 showed no shunt and small Left atrial appendage - Will discuss anticoagulation vs DAPT after safety scan tomorrow to rule out hemorrhagic conversion RESP: COPD, Active Tobacco Use - Oxygen via NC 2L to keep sats > 90% - CXR: No focal consolidation or acute findings - smoking cessation consult placed - will replace nicotine as needed : No Acute Concerns - Goal Fluid Status: +500ml-1L - Received 1L NS upon arrival to unit - Monitor and replace electrolytes as needed - Avoid nephrotoxic medications GI: No acute concern - Passed FLIP, failed joaquin, will proceed with formal swallow study - Nutrition: NPO - Bowel regimen: Sennosides-docusate 8.6-50mg BID and Miralax 17g ENDO: No acute concerns - RBGs per unit - Initiate SSI if blood glucose consistently >180 - Hgb A1c 5.4 - Lipid Panel revealed total cholesterol 154, LDL 94 - will initiate atorvastatin 20mg daily ID: No acute Concerns - Tmax 37.1 - WBC 11.9 - Cultures: Not obtained, no indication for cultures at this time - Abx: None initiated HEME: No Acute Concerns - Anticoagulation/DVT prophylaxis: GALILEO 5000 units TID to start tonight @ 2200 - Type and Cross obtained, Coags normal on admission - Will make decision for anticoagulation after MRI obtained today ACCESS: -PIV x2 ICU Standards of Care: FEN: NPO, awaiting formal swallow study Activity: Up as tolerated BP Goal: SBP <160 DVT Prophylaxis: GALILEO 5000 units TID SUP Prophylaxis: N/a Antimicrobials: N/a Mechanical Ventilator: N/a Code Status: Full Code DISPO -ICU level of cares. -Family updated. Treatment plan reviewed with Danyel, who expressed understanding. All questions answered to patient's satisfaction. Yang Anderson P.A.-C. Pager: [phone] 05/05/22 [facility] Neurology George Au Pharm.D., R.Ph. - 05/04/2022 2:13 PM CDT Pharmacist Progress Note HPI: 71 y.o. male. Admitted 05/04 with last known well at ~2200 on 05/03. Symptoms noted upon awakening ~0700 on 05/04 with left sided facial droop, left hemiparesis, and left visual neglect. CT showing large penumbra and M2 occlusion. S/p mechanical thrombectomy on 05/04. Concern for VIRAL involvement with LLE weakness. Admitted to NeuroICU for post-thrombectomy monitoring. PMH: COPD, Active smoking, and Atrial fibrillation not on AC ASSESSMENT / PLAN Outpatient medication history: Reviewed by a Pharmacist(or pharmacy general manager) on 05/04 Procedures(this encounter): 05/04: mechanical thrombectomy for AIS Neuro/Psych: RASS 0, ox3, CAM-, pain 0 with PRN APAP. Started on ASA/clopid CV: NSR and HD stable, goal SBP <160, currently off clevidipine, has PRN hydral/labet available Resp: NC Neph: BL Scr ~0.7-1. SCr at BL and making urine, lytes ok ID: Afeb since admission and leukocytosis present. No acute ID concerns GI/Nutrition/Endocrine: +BR. Glucose <180 Prophylaxis: SQH(starting tonight), no SUP indication Pharmacy Specific Dosing Protocols and Consultations: None George Au Pharm.D., R.Ph. Pager [phone] Yang Anderson P.A.-C. - 05/04/2022 12:43 PM CDT Images from the original note were not included. SUBJECTIVE CHIEF COMPLAINT Mr. Montaño is hospital day 0 for management of Stroke (HCC) HISTORY OF PRESENT ILLNESS Carlos Manuel Montaño is a 71 y.o. male with significant comorbidities including COPD, Active smoking, and Atrial fibrillation not on AC. Mr. Montaño presents with acute ischemic stroke with left-sided facial droop, left-sided hemiparesis, and left sided visual neglect. 's last known wellwas approximately 2200 on 05/03, and had symptoms upon awakening on 05/04 at 0700. Pt then presented to [facility] ED via EMS where a stroke code was activated, initial NIHSS was determined to be 6, and CT/CTA/CTP were preformed which showed large penumbra and 42mL core proximal R. M2 occlusion. then proceeded to IT for mechanical thrombectomy due to being outside of the time window for possible thrombolysis. Mechanical thrombectomy was successfully preformed and resulted in TICI 2C reperfusion. During the Mechanical thrombectomy there was concern that there was also VIRAL involvement and subsequently developed left lower extremity weakness. Post-mechanical thrombectomy NIHSS was scored as a 10 in the IR Suite. was subsequently admitted to NSICU for further management of AIS s/p mechanical thrombectomy. Upon arrival to the unit NIHSS was scored as a 5 for facial palsy, LUE+LLE drift, dysarthria, and visual inattention. NIHSS: 5 1A: Level of consciousness Alert; keenly responsive 0 1B: Ask month and age Both questions right 0 1C: 'Blink eyes' & 'squeeze hands' Performs both tasks 0 2: Horizontal extraocular movements Normal 0 3: Visual mendez No visual loss 0 4: Facial palsy Minor paralysis (flat nasolabial fold, smile asymmetry) +1 5A: Left arm motor drift Drift, but doesn't hit bed +1 5B: Right arm motor drift No drift for 10 seconds 0 6A: Left leg motor drift Drift, but doesn't hit bed +1 6B: Right leg motor drift No drift for 5 seconds 0 7: Limb Ataxia No ataxia 0 8: Sensation Normal; no sensory loss 0 9: Language/aphasia Normal; no aphasia 0 10: Dysarthria Mild-moderate dysarthria: slurring but can be understood +1 11: Extinction/inattention Visual/tactile/auditory/spatial/personal inattention +1 STROKE DOCUMENTATION: Stroke Center Measures: Did this patient have a possible stroke/TIA/hemorrhage?: Yes Type of stroke: Ischemic stroke/Transient ischemic attack Date of NIHSS completed: 05/04/2022 Time of NIHSS completed: 12:49 CDT Admission NIHSS total score: 5 Date patient last known well: 05/03/2022 Time patient last known well: 22:00 CDT Onset of symptoms - date: 05/04/2022 Onset of symptoms - time: 07:00 CDT Patient received IV thrombolytic?: No Reason not a candidate: Symptom onset beyond time window Intra-arterial candidate for intervention?: Yes Intervention type: Mechanical embolectomy NIHSS in the endovascular suite prior to procedure: 6 NIHSS in the endovascular suite after procedure: 10 Patient admitted solely for an elective carotid intervention: No Antithrombotic started on admission: Started on admission Dysphagia screen performed before oral intake or any p.o. medication given: Performed and patient passed, oral intake initiated (Will complete prior to any oral intake or PO medication) Screen date completed: 05/04/2022 (05/05/2022) Screen time completed: 16:00 CDT Prestroke modified [place] Score (mRS): 0 - No symptoms. Physical Medicine (PMR) consulted: Consulted and will evaluate the patient Speech therapy consulted to evaluate patient: Consulted and will evaluate the patient Pharmacologic VTE prophylaxis: instituted Tobacco use: Currently uses tobacco, smoking cessation consult will be performed Fasting lipids performed: Will be performed in the morning Patient on lipid-lowering agent prior to arrival?: No Relevant cerebrovascular risk factors: Hypertension, tobacco use and atrial fib (history of any atrial fib remote, persistent, or paroxysmal or atrial flutter in the past, or current atrial fib or flutter on EKG) The following portions of the patient's history were reviewed and updated as appropriate: allergies,current medications, family history, medical history, social history, surgical history and problem list. REVIEW OF SYSTEMS Pertinent items are noted in HPI; all other review of systems was negative. OBJECTIVE I have reviewed the current vital sign data as applicable to this admission. PHYSICAL EXAM General appearance: acutely ill appearing, in moderate distress, cooperative, and Resting in bed, appears distressed/overwhelmed/frustrated with stroke symptoms Neurologic: alert, oriented, cranial nerves VII facial palsy, sensory appears intact, possible extinction to double simultaneous stimulation, motor LUE/LLE drift +1, coordination no ataxia, and NIHSS documented above HEENT: normocephalic, without obvious abnormality, pupils equal and reactive, extraocular movements,and visual extinction to double simultaneous stimulation Chest: clear to auscultation anteriorly Heart: regular rate and rhythm, S1 and S2 normal, no murmur Abdomen: non-distended, non-tender, and soft Extremities: extremities normal, warm and well-perfused Skin: normal without ulcer DIAGNOSTICS I have reviewed relevant laboratory, imaging, and other diagnostics as applicable to this admission. BP (!) 171/92 Pulse 88 Temp 37.1 ??C Resp 23 Wt 76.8 kg SpO2 99% BMI 24.94 kg/m?? Lab Results Component Value Date WBC 14.1 (H) 05/04/2022 HGB 14.4 05/04/2022 HCT 42.9 05/04/2022 MCV 95.8 05/04/2022 PLT 338 (H) 05/04/2022 Lab Results Component Value Date NA 141 05/04/2022 KBLOOD 4.1 05/04/2022 KPLASMA 4.4 05/04/2022 CL 102 05/04/2022 BICARB 26 05/04/2022 CREATININE 0.75 05/04/2022 BUN 17 05/04/2022 ANIONGAP 13 05/04/2022 GLUCOSE 100 05/04/2022 GLUCOSEPOC 95 05/04/2022 CALCIUM 9.2 05/04/2022 Estimated Creatinine Clearance: 95.3 mL/min (by C-G formula based on SCr of 0.75 mg/dL). INTAKE/OUTPUT Intake/Output Summary (Last 24 hours) at 05/04/2022 1247 Last data filed at 05/04/2022 1203 Gross per 24 hour Intake 702.17 ml Output 40 ml Net 662.17 ml Admission Weight: 76.8 kg Today's weight: 76.8 kg IMAGING 05/04 CTH 05/04 CTA 05/04 CTP FINDINGS: HEAD: Loss of the hu-white differentiation in the right insula and right frontal lobe compatible with right MCA territory infarct. Possible hyperdense right MCA. No other acute findings. CTA: Acute occlusion of the proximal right M2 superior branch just beyond the bifurcation ( see screen shot images). Mixed calcified and uncalcified right carotid bulb plaque with 30-40% stenosis 1. Acute right M2 occlusion. 2. Penumbra 74 mL. Infarct core 32 mL. 3. 30-40% stenosis of the right carotid bulb by calcified and noncalcified plaque. ASSESSMENT / PLAN #1 Stroke (HCC) #2 Atrial Fibrillation Unspecified #3 Chronic Obstructive Pulmonary Disease Exacerbation (HCC) #4 Abuse Tobacco Smoking PLAN BY SYSTEMS: NEURO: R. Proximal M2 AIS, R. VIRAL AIS - Neurologic Status: NIHSS 5 upon arrival to Unit - Pain management: Acetaminophen 1000mg Q6H PRN for fevers and pain. - Neuro checks per unit routine - Imaging: CTH tomorrow in order to further define extension of stroke - Plan for MRA plaque protocol on 05/06 CARDIAC: Atrial Fibrillation - SBP Goal: <160 - MAP Goal: >65 - IV Fluids Received 1L bolus, no maintenance fluids currently - Vasoactive meds: Clevidipine briefly required, now off, PRN Labetalol 5mg q1hr PRN and [id number] q1hr PRN - Obtain ECG: Showed NSR with QTC of 430 - Obtain Lactate - Obtain TTE today, last TTE 2008 showed no shunt and small Left atrial appendage - Will discuss anticoagulation vs DAPT after safety CTH scan tomorrow to rule out hemorrhagic conversion RESP: COPD, Active Tobacco Use - Oxygen via NC 2L to keep sats > 90% - Obtain CXR - smoking cessation consult placed - will replace nicotine as needed : No Acute Concerns - Goal Fluid Status: +500ml-1L - Received 1L NS upon arrival to unit - Monitor and replace electrolytes as needed - Avoid nephrotoxic medications - UCI for strict I&Os GI: No acute concern - Will obtain bedside swallow, speech consulted, advance diet as tolerated - Nutrition: NPO - Bowel regimen: Sennosides-docusate 8.6-50mg BID and Miralax 17g ENDO: No acute concerns - RBGs per unit - Initiate SSI if blood glucose consistently >180 - Hgb A1c pending for AM - Obtain Lipid Panel in AM ID: No acute Concerns - Tmax 37.1 - WBC 14.1 - Cultures: Not obtained, no indication for cultures at this time - Abx: None initiated HEME: No Acute Concerns - Anticoagulation/DVT prophylaxis: GALILEO 5000 units TID to start tonight @ 2200 - Obtain Type and Cross and Coags ACCESS: -PIV x2 ICU Standards of Care: FEN: NPO Activity: Up as tolerated BP Goal: SBP <160 DVT Prophylaxis: GALILEO 5000 units TID SUP Prophylaxis: N/a Antimicrobials: N/a Mechanical Ventilator: N/a Code Status: Full Code DISPO -ICU level of cares. -Family updated. Treatment plan reviewed with Mr. Montaño, who expressed understanding. All questions answered to patient's satisfaction. Yang Anderson P.A.-C. Pager: [phone] 05/04/22 [facility] Neurology documented in this encounter H&P Notes George Au Pharm.D., R.Ph. - 05/04/2022 2:26 PM CDT Images from the original note were not included. Admission Medication History Note Adherence issues: No concerns Medication list source: Patient and Pharmacy or dispense records Medication related information: Prior to Admission Medications Med List Status: Pharmacy Complete Set By: George Au Pharm.D., R.Ph. at 05/04/2022 2:26 PM Taking? Last Dose Informant Start Date End Date LT albuterol 90 mcg/actuation inhaler -- -- -- -- Inhale 2 puffs every 6 (six) hours as needed for wheezing or shortness of breath. aspirin 325 mg tablet -- -- 10/02/11 -- Take 1 tablet by mouth daily. MULTIVITAMIN ORAL -- -- 10/02/11 -- Take 1 tablet by mouth daily. Notes: Received from: [facility] Data Received Sig: multivitamin PO, Daily Lamont Bhandari M.D. - 05/04/2022 1:41 PM CDT REASON FOR ADMISSION Acute stroke HISTORY OF PRESENT ILLNESS I have reviewed Yang Anderson's history, examination, and plan of care and I agree with that documentation, other than indicated below. I have personally examined the patient. Case discussed in detail during multidisciplinary rounds. Mr. Carlos Manuel Montaño is a 71 y.o. man with history of atrial fibrillation (not anticoagulated) and smoking who went to bed last night at 10:00 p.m. without neurological symptoms and woke up this morning with left-sided weakness. He was evaluated in our emergency department by Dr. Wang who documentedan NIHSS of 6 with disabling cortical deficits (left-sided neglect in addition to mild left hemiparesis) he underwent multimodal CT. Head CT showed an established infarction involving the right insularcortex and part of the right superior frontal lobe with an ASPECTS of 8 . CTA showed a proximal right M2 occlusion with good collaterals; there was also a mixed, partially calcified right ICA origin plaque without severe stenosis. CT perfusion showed a core of 32 mL with a mismatch of 42 mL. Patient was hypertensive at the time of these scans. After I personally examined the patient in the CT scan area, we decided to activate the acute endovascular response team. The patient was taken to the angio suite and got promptly recanalized with a final reperfusion scoreof TICI 2b (because of distal embolism to right VIRAL branch) The procedure was completed under local anesthesia only. SBPs during the intervention were above 160 mmHg spontaneously The following portions of the patient's history were reviewed and updated as appropriate: allergies,current medications, family history, medical history, social history, surgical history and problem list. REVIEW OF SYSTEMS Pertinent items are noted in HPI; all other review of systems was negative. OBJECTIVE I have reviewed the current vital sign data as applicable to this admission. Physical Examination Prior to the endovascular intervention, he was confused, had a right gaze preference with left sidedneglect which was fairly pronounced. He had drift of the left arm and leg and left hypoesthesia to light touch. Now in the ICU, his verbal answers are still limited but more appropriate. Both his right gaze preference and left michael-neglect are improved. His previous left visual field extinction does no longer appear to be present. Still has a drift of the left arm and leg but the left hemisensory loss is only apparent to double simultaneous stimulation. No physical signs of acute groin complications on the site of catheter access. Currently sinus with heart rate of 82. Hypertensive into the 160s to 170s systolic. Diagnostic tests I have reviewed relevant laboratory, imaging, and other diagnostics as applicable to this admission and as indicated above. DIAGNOSTIC IMPRESSION #1 Acute ischemic stroke, right MCA distribution, mechanism: Embolism likely from cardiac source #2 Chronic paroxysmal atrial fibrillation, not anticoagulated #3 Status post endovascular recanalization of right M2 occlusion #4 Left hemiparesis, mild #5 Left hemineglect, improved #6 Chronic nicotine use disorder #7 Right ICA origin atherosclerosis with mild stenosis DISCUSSION AND PLAN Although there is evidence of some atherosclerotic plaque at the origin of the right ICA, the mechanism of the stroke is most likely related to his atrial fibrillation for which he was not receiving a anticoagulation. It seems that his atrial fibrillation was diagnosed back in 2008 and at that the time he had an occult GI bleeding. This may have been the reason why he was not anticoagulated. I have not identified any contraindications for anticoagulation from his more recent history. He will need strict control vascular risk factors (I suspect that he has untreated hypertension), a statin (will check a baseline LDL), and initiation of anticoagulation when deemed safe from the standpoint of the stroke. PMR evaluation Nicotine dependence consultation Rest of plan by systems as outlined in the Admission note by Yang Anderson The patient arrived critically ill due to disabling cerebral ischemia requiring emergency evaluationand treatment. This note reflects all services provided since the arrival of the patient to the hospital. Critical care time 40 minutes. This is time spent at this critically ill patient's bedside actively involved in patient care as well as the coordination of care and discussions with the patient's family. This does not include any procedural time. documented in this encounter Procedure Notes Marquis Leach M.D., M.P.H. - 05/04/2022 10:56 AM CDTAssociated Order(s): Critical Care Procedure Critical Care Performed by: Marquis Leach M.D., M.P.H. Authorized by: Marquis Leach M.D., M.P.H. Critical care provider statement: Critical care total time (minutes): 30 Critical care time was exclusive of: separately billable procedures and treating other patients and teaching time Critical care was necessary to treat or prevent imminent or life-threatening deterioration of the following conditions: PLATE [employer] failure or compromise Critical care was time spent personally by me on the following activities: development of treatment plan with patient or surrogate, discussions with consultants, documenting in the patient chart, examination of patient, obtaining history from patient or surrogate, ordering and performing treatments and interventions, ordering and review of laboratory studies, ordering and review of radiographic studies and review of old charts Marquis Leach M.D., M.P.H. 05/04/22 1057 documented in this encounter Consult Notes Nestor Khoury T - 05/07/2022 11:45 AM CDTAssociated Order(s): Cardiology consult ([facility]) - [facility] CARDIOLOGY CONSULT NOTE SUBJECTIVE Cardiology consult (hospital) - [facility] Referring Provider: Je Marrero M.D. REASON FOR CONSULT Management of paroxysmal afib w/rvr in the setting of recent ischemic stroke HISTORY OF PRESENT ILLNESS Mr. Carlos Manuel Montaño is a 71 y.o. male admitted 05/04/2022 for an acute ischemic stroke s/p mechanical thrombectomy with a PMH significant for paroxysmal afib not on anticoagulation, active smoker, presumed COPD (no documented PFT's). Cardiology was consulted for management of his atrial fibrillation. Patient has a documented episode of Afib in 2008 in the setting of hospitalization with PNA. Atthat time, patient was successfully cardioverted with GEOVANNA. Warfarin therapy was initiated but then stopped due to GI bleeding. Patient was discharged with 325 mg aspirin daily. Yesterday, 05/06 patient was found to have an elevated HR in the 130's-140's, ECG showed atrial fibrillation with PVC's. Patient was asymptomatic during this event. He was started on metoprolol tartrate 25mg and his HR came down and is currently 80's-90's. Of note, patient was evaluated for a cardioembolic vs atherosclerotic plaque source for his ischemicstroke. TTE showed normal LV chamber size and calculated LVEF of 66%, enlarged left atrial size by visual estimate, and a thickened mitral valve. CT Cardiac Angiogram did not reveal a significant mobile plaque or thrombus of the thoracic aorta and did not reveal an intracardiac thrombus. This morning, the patient was calm and comfortable on room air. He denied any feelings of chest pain, heart palpitations, lightheadedness, orthopnea, swelling today or in the last few months. He does endorse some shortness of breath with exertion, but associates that with his COPD. Patient denies any hypertension and states that his only medication is the 325mg of aspirin daily. The following portions of the patient's history were reviewed: allergies, family history, social history, problem list, surgical history, medical history and current medications OBJECTIVE Vitals: 05/07/22 0550 05/07/22 0555 05/07/22 0600 05/07/22 0800 BP: Patient Position: Pulse: 63 (!) 30 87 88 Heart Rate: Temp: Resp: Height: Weight: SpO2: (!) 88% (!) 89% TempSrc: Pain Score: PHYSICAL EXAMINATION Constitutional Appearance: Normal appearance. HENT Head: Normocephalic and atraumatic. Nose: Nose normal. Mouth/Throat: Mouth: Mucous membranes are moist. Pharynx: Oropharynx is clear. Eyes Extraocular Movements: Extraocular movements intact. Conjunctiva/sclera: Conjunctivae normal. Neck Vascular: No carotid bruit. Cardiovascular Rate and Rhythm: Normal rate. Rhythm irregular. Pulses: Normal pulses. Heart sounds: Normal heart sounds. Pulmonary Effort: Pulmonary effort is normal. No respiratory distress. Breath sounds: Normal breath sounds. No wheezing or rales. Abdominal General: Abdomen is flat. Palpations: Abdomen is soft. Musculoskeletal Cervical back: Normal range of motion. Skin General: Skin is warm and dry. Neurological Mental Status: He is alert. DIAGNOSTICS I have reviewed diagnostics. Studies of note include: TTE 05/05/2022 Final Impressions 1. Normal left ventricular chamber size. Calculated left ventricular ejection fraction 66%. No regional wall motion abnormalities. 2. Normal left ventricular filling pressure. 3. Normal right ventricular chamber size by visual estimate. Normal right ventricular systolic function. 4. Sclerotic aortic valve with possible strands. Trivial aortic regurgitation. 5. Enlarged inferior vena cava size with normal inspiratory collapse (>50%). 6. Atherosclerosis in the abdominal aorta. 7. No intracardiac or intrapulmonary shunt by agitated saline contrast injection at rest and with Valsalva. 8. No pericardial effusion. CT Cardiac Angiogram 05/06/2022 IMPRESSION: 1. No significant mobile plaque or thrombus of the thoracic aorta. 2. No intracardiac thrombus. 3. Mild thickening of mitral valve leaflets without discrete mass . 4. Bronchial thickening and mucus plugging in bilateral lower lobes and right middle lobe and clustered nodular opacities in the right lower lobe could be due to infection or aspiration. 5. Enlarged hilar lymph nodes could be reactive. ECG 12 Lead 05/07/2022 IMPRESSION: Coarse Atrial fibrillation with premature ventricular or aberrantly conducted complexes Incomplete right bundle branch block Nonspecific ST and T wave abnormality When compared with ECG of 06-MAY-2022 22:06, Vent. rate has decreased BY 57 BPM ASSESSMENT / PLAN # Paroxysmal Atrial Fibrillation, [id number] 4 # Chronic nicotine use disorder, current smoker # Presumed COPD (no documented PFT's) # Acute Ischemic Stroke 05/04/22, R MCA distribution, mechanism: embolism likely from cardiac source # s/p endovascular recanalization of right M2 occlusion 05/04/22 Mr. Montaño is a 71 y.o. male with a history of paroxysmal afib, active smoking, presumed COPD (no known PFT's), hospitalized for a recent ischemic stroke likely cardioembolic in nature s/p mechanicalthrombectomy. Patient is doing well post-stroke and was ready to be discharged yesterday 05/06, however in the afternoon his heart rate increased and he was found to be in afib w/ rvr on ECG with HR in the 130-140's. Patient was asymptomatic during this time. Suspect that the CVA was due to underlying afib. Patient started on metoprolol tartrate 25mg BID for rate control and his HR came down to 80's-90's. Given his history of ischemic stroke, patient needs to remain on lifelong anticoagulation. ECG shows that patient remains in atrial fibrillation HR in the 80's-90's which is acceptable. Patient will require outpatient follow-up for his afib with consideration of potential cardioversion which has been successful in the past (2008). RECOMMENDATIONS Discharge with oral metoprolol succinate 50mg daily for rate control Agree with Neurology plan to continue aspirin 81mg for 10 days in setting of recent thrombectomy andthen initiate lifelong Eliquis 5mg BID on 05/13 by PCP. This should be continued for stroke prevention even if he reverts to normal sinus rhythm given his [id number] score 4 and history of stroke Agree to continue with oral atorvastatin 40mg daily. Follow up with PCP; recommend getting an ECG at time of appointment. PCP can consider cardiology referral for consideration of rhythm control if patient has persistent tachycardia, afib symptoms, or ECG showing Afib at time of PCP followup . Patient counseled to record his HR daily via radial pulse check and report these findings to his PCP. This patient was seen and discussed with Dr. Marc Shell PGY-2, and Dr. Rolando Lemos, who were present for sethi evaluation and management. Please see the supervisory note for further details. Thank you for involving us in the care of this patient. Patient is appropriate for discharge from a cardiology standpoint. Please contact the Cardiology Consult Service pager with any questions or concerns. Electronically signed by: Nestor Khoury 05/07/22 11:40 AM CDT Associated attestation - Marc Shell M.D., M.S. - 05/07/2022 2:25 PM CDT I saw the patient with the medical student. I was present for or re-performed the History of PresentIllness. I saw and evaluated the patient, participating in the sethi portions of the service and did medical decision making. I have reviewed the above documentation and agree or amended. In brief, this is a 71-year-old gentleman who was admitted for acute ischemic stroke of presumed cardioembolic etiology s/p mechanical thrombectomy, with history of paroxysmal atrial fibrillation not on anticoagulation. He is recovering well from his stroke, but had an episode of atrial fibrillation with RVR the day prior to consultation. He was started on metoprolol tartrate for rate control which has been successful though he remains in atrial fibrillation. We recommend discharge on metoprolol succinate 50mg po qd. His [id number] score is 4 and he has a history of stroke so he should continue on lifetime anticoagulation with Eliquis unless new clinical concerns arise regarding bleeding risk. He will follow-up with his PCP with ECG at time of follow-up, at which time referral to Cardiology canbe considered for consideration of rhythm control if he has persistent tachycardia, AFib symptoms, or remains in atrial fibrillation when he follows up with his PCP. There is no barrier to discharge from a cardiology perspective. We appreciate the consultation, please feel free to reach out with any questions. Electronically signed by: Marc Shell M.D., M.S. 05/07/22 2:25 PM CDT Rolando Lemos M.D. - 05/07/2022 10:05 AM CDT This is a supervisory note. I met, interviewed, and examined Mr. Montaño with the team. I agree with the history of present illness, past medical, surgical, social and family histories, as well as allergies, medications and review of systems as documented. I agree with the team's documentation, in addition to what I have noted below. REASON FOR CONSULT: Atrial fibrillation HISTORY OF PRESENT ILLNESS Mr. Montaño is a 71-year-old male. He is a chronic smoker and carries a presumed diagnosis of COPD.He was hospitalized in January, for Legionella pneumonia and sepsis. His hospitalization was complicated by atrial fibrillation. He was cardioverted. He started anticoagulation but developed GI bleeding. He was subsequently placed on aspirin. He had limited cardiology care until he awoke the morning of May 04 with left-sided weakness. He came to the emergency room. He was diagnosed with a right MCA territory infarct. He was treated with endovascular recanalization. An MRA/MRI (May 05) showed an evolving right MCA infarct but no parenchymal hematoma. Transthoracic echocardiogram (May 05) showed an ejection fraction of 66% with no significant valve disease. Cardiac CT (May 06) showed no intracardiac thrombus or left atrial appendage clot. He also had no mobile plaque or thrombus of the thoracic aorta. Since his hospitalization, he has had brief runs of atrial fibrillation. He was in sinus rhythm as documented on his initial ECG May 04 at 10 a.m. However, yesterday (May 06 at 8:06 p.m.), he hadatrial fibrillation documented at 149 beats per minute. He was asymptomatic at that time. He received beta blockers. He remains on metoprolol tartrate 25 mg twice a day. He is doing well this morning. He has no baseline symptoms of atrial fibrillation or baseline cardiac symptoms. PHYSICAL EXAMINATION BP 103/63 (BP Location: Right arm;Upper, Patient Position: Sitting) Pulse (!) 30 Temp 36.5 ??C (Oral) Resp 18 Ht 175.3 cm Wt 69.2 kg SpO2 92% BMI 22.53 kg/m?? General: The patient is sitting up in a chair. He is in no acute distress. Skin: No chronic venous stasis changes in the lower extremities. Extremities: No pretibial edema. Lungs: Coarse breath sounds bilaterally with no focal crackles or wheezes. Heart: Distant heart sounds. Regular rate with irregular rhythm due to what I think might be some intermittent ectopic beats, but I cannot exclude ongoing atrial fibrillation. No murmurs. No diastolic filling sounds. ASSESSMENT / PLAN #1 Acute right MCA territory infarct status post endovascular recanalization (May 04, 2022) #2 Paroxysmal atrial fibrillation with elevated rates #3 Active smoking I suspect that the paroxysmal atrial fibrillation was likely the mechanism for the patient's stroke.This appears to be minimally symptomatic. It is reassuring that LV function is normal, which makes the likelihood of tachycardia mediated cardiomyopathy significantly less likely. His rate appears controlled at the current time, but it would not surprise me if he continues to have ongoing episodes of atrial fibrillation. RECOMMENDATIONS: Check electrocardiogram this morning to document rhythm prior to discharge. Per the neurology team, the patient will take aspirin 81 mg daily for 10 days and then switch to apixaban 5 mg twice daily, discontinuing aspirin. That is perfectly appropriate from a cardiac perspective. The patient needs lifelong anticoagulation. Switch beta erika to metoprolol succinate 50 mg daily, which can be titrated to achieve heart ratecontrol. Recommend goal resting heart rate in atrial fibrillation of at least less than 100-110 beats per minute, ideally <90-100 bpm. The patient should monitor his heart rate on a daily basis at home. The patient should see primary care in 2-4 weeks. Primary care can refer to cardiology if he has (1) symptoms of atrial fibrillation, (2) evidence of tachycardia despite beta blockers, or (3) persistent atrial fibrillation documented on electrocardiogram (in which situation he may be a candidate for cardioversion). I would not recommend rhythm control now given the need to defer anticoagulation for a few more days, the lack of symptoms, and his preserved left ventricular function. That could certainly be readdressed in the outpatient setting, particularly if the patient's atrial fibrillation persists. We reviewed the aforementioned with the patient and the primary team. They were amenable with this plan. Rolando Lemos M.D. CT CT Job ID: [id number] AVIT Radha Leiva O.T., [facility] - 05/06/2022 2:20 PM CDT Occupational Therapy Acute Hospital Inpatient Evaluation/Treatment SUBJECTIVE Referring/Attending Provider: Shar Sarah M.D. Patient's Name: Carlos Manuel Montaño Reason for Referral: OT Evaluation and Treat - Brain Consult Medical Diagnosis: 1. Stroke (HCC) 2. Change Mental Status Active 3. Decline Functional Status Active 4. Nicotine Dependence Cigarettes With Withdrawal Onset Date: 05/04/22 Payor: MEDICARE / Plan: MEDICARE A AND B / Product Type: Medicare / PERTINENT MEDICAL / SURGICAL HISTORY: Patient Active Problem List Diagnosis Atrial Fibrillation Unspecified Abuse Tobacco Smoking Stroke (HCC) Chronic Obstructive Pulmonary Disease Exacerbation (HCC) Past Surgical History: Procedure Laterality Date OTHER CONVERTED SHX (SEE COMMENT) N/A 05/07/2009 >Colonoscopy with polypectomy. OTHER SURGICAL HISTORY N/A Elbow joint operations VASECTOMY N/A 08/03/1973 Vasectomy History of Present Illness: Patient is a 71 year old male that presented to [facility] on 05/04/2022 after waking up with acute onset left hemiparesis and neglect. Last known well was evening prior to bed on 05/03. NIH score was 6 on presentation. His past medical history is significant for atrial fibrilation and 1 pack per day tobacco use. See Hospital Admission History and Physical for full history of present illness. Precautions Other Precautions: mild left inattention, cog-attention? Patient/Caregiver Goals: To go home. Prior Function/Occupational Profile Dominant Hand: Right Lives With: Spouse (, Kimberly (patient reports she is in good health)) Receives Help From: (reports only having help from ) ADL Assistance: Independent IADL/Homemaking Assistance: Independent Driving: Independent Driving Comments: Drives for work and for fun. 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 Home Living Type of Home: House Home Layout: Two level, Bedroom upstairs, Full bath main level Home Layout Comments: bed and bathroom updatirs; full bathroom on main level if necessary Home Access: Stairs to enter with rails Entrance Stairs: Rails: Both Entrance Stairs: Number of Steps: 3 steps Bathroom Shower/Tub: Tub/shower unit Tub/shower unit location: Second floor/upper level, Main floor Bathroom Toilet: Standard Home Equipment Home Adaptive Equipment: None Bathroom Equipment: None Fall Risk (65 and older) Fall in the last 12 months: No Are you fearful of falling?: No Fall Risk Comments: New onset of left sided weakness. OBJECTIVE Pain: no pain noted Vitals:Not indicated at this time Cognition Cognitive assessment method: Therapist observations Arousal/Alertness: Appropriate responses to stimuli Attention: Impairments noted Sustained: Mild Alternating: Mild Orientation: Oriented X4 Following Commands: Multistep Commands Multistep Commands: Follows multistep commands with increased time, Follows multistep commands with repetition Following Commands Comments: follows commands, at times with increased time. Memory: Addressed, no concerns noted Safety/Judgment: Impairments noted Insight/Awareness of Deficits: Mild Safety/Judgment Comments: reports no change; patient reports his had to convince him to come into the hospital because she was noticing he was off Numeric Reasoning: Addressed, no concerns noted Cognition Comments: Patient demonstrates normal conition with mild difficulty to follow directives and remain attentive; mildly flat affect at the time of evaluation. Balance Static Sitting-Balance: Good (Maintains balance without support) Dynamic Sitting-Balance: Good (Maintains balance without support) Static Standing-Balance: Good (Maintains balance without support) Dynamic Standing-Balance: Good (Maintains balance without support) Activity Tolerance Endurance: Tolerates 10-20 minutes of activity Baseline Vision/Correction: Wears glasses only for reading Ocular Motility/Range of Motion Assessment Right Eye: Addressed, no concerns noted Ocular Motility/Range of Motion Assessment Left Eye: Addressed, no concerns noted Light Touch: No deficits Proprioception: No deficits Inattention/Neglect: Cues to attend to left side of body Current Hearing Function: Hearing intact Motor Planning: Appears intact ROM - Upper Extremity Screen: Addressed, no concerns noted ROM - Lower Extremity Screen: Addressed, no concerns noted Strength - Upper Extremity Screen: Impaired left Strength - Upper Extremity Screen Comments: Slight weakness in left upper extrmity, 4/5; patient reports the left weak at baseline from a longstanding elbow surgery and has never been the same Strength - Lower Extremity Screen: Addressed, no concerns noted Gross Hand Function Right Hand Gross Grasp: Functional Left Hand Gross Grasp: Functional Right Hand Coordination: Functional Left Hand Coordination: Functional Grooming Grooming Location: Standing at sink Grooming Delivery: Assessed Grooming Level of Assistance: Supervision/Set-up Grooming Comments: Patient completed oral cares standing at the sink with no assist and one physicalcue to open toothbrush packaging. Patient did a great job cleaning up around sink and sequencing through task. Bed, Chair, Wheelchair Transfers # of Assistants: 1 Transfer Surface: Chair Transfer Approach: To and from Transfer Equipment: No device Level of Assistance: Independent Assessment/Delivery: Assessed Toilet Transfers # of Assistants: 1 Transfer Surface: Toilet Transfer Approach: To and from Level of Assistance: Independent Assessment/Delivery: Assessed Short Blessed Test Patient participated in the Short Blessed Test (SBT,) a screening tool used to assess orientation, memory and concentration. Patient scored 0/28. Higher scores suggest more areas for concern than lowerscores. Results indicate 0 - 4 Normal Cognition. At the end of today's therapy session patient was left seated in bedside chair with an appropriate call light within reach. Patient's needs and questions addressed during today's session. Assessment Geoffrey is demonstrating near baseline function with some mild functional/cognitive deficits. He demonstrates mild LUE inattention, weakness (he reports that's normal for him), and requiring intermittent continuous cues to follow a command when distracted. Geoffrey ambulated to and from bathroom, standing atsink to complete oral cares, and transfers to/from toilet with supervision. No unsteadiness noted. He completed a short blessed cognitive screen demonstrating normal cognition. Recommending patient have 24/7 supervision upon returning home and brain follow up for safety. Rehab Potential: Mr. Montaño has good potential to achieve established occupational therapy goals within the time frame outlined below. Barriers to Discharge Home: None Comorbid Conditions: Cerebrovascular accident Discharge Therapy Needs - OT: Ongoing skilled occupational therapy (one follow up visit) Level of Care Needed - OT: Assistance with transportation, Assistance with shopping, Assistance withfinancial management, Assistance with meal preparation, Other (Comment) (will followup with financial/money scenarios tomorrow) Skilled therapy can include occupational therapy provided by home health, outpatient clinic, or a post-acute facility. The location of these services is determined by the patient's care team in partnership with patient/family. Functional Goals and Timeframes: OT Goal #1: Patient will demonstrate toilet transfer with supervision and no verbal cues OT Goal #1 Status: Achieved OT Goal #2: Patient will demonstrate oral cares standing at sink with supervision and no verbal cuesfor redirection OT Goal #2 Status: Ongoing OT Goal #3: Patient will complete a cognitive screen for further evaluation and understanding of cognitive skills for safety upon discharging home OT Goal #3 Status: Achieved OT Goal #4: Patient will demoncomplete 3 moderate financial scenarios to demonstrate awareness and problem solving skills with no redirection Progress: Improving as expected Plan Patient agrees with the plan of care and goals. Treatment Plan: OT Frequency: Follow-up visit only OT Amount: 1 visit per day OT Inpatient Duration : Until goals are met or hospital discharge Plan: Plan of care initiated OT Plan Comments: one follow up visit tomorrow with complex problem solving skills if patient is still here; further assess if is able to provide 24/ supervision upon going home Treatment interventions may include: Treatment Interventions: Cognitive skills training, Self-care/home management Occupational Profile and History review: Expanded Evaluation Complexity: Low Time Spent with Patient Evaluations OT Eval - Low Complexity : 12 min Therapeutic Interventions Home Management Training (min): 8 min Time Tracking Total Timed Units (min): 8 min Total Treatment Time (min): 20 min Radha Leiva O.T., MOT Kristi Blankenship PAustin, D.P.T. - 05/05/2022 2:06 PM CDT Physical Therapy Acute Hospital Inpatient Evaluation/Treatment SUBJECTIVE Referring/Attending Provider: Lamont Bhandari M.D. Patient's Name: Carlos Manuel Montaño Reason for Referral: PT Evaluation and Treat - Brain Consult Medical Diagnosis: 1. Stroke (HCC) 2. Change Mental Status Active 3. Decline Functional Status Active 4. Nicotine Dependence Cigarettes With Withdrawal Onset Date: 05/04/22 Payor: MEDICARE / Plan: MEDICARE A AND B / Product Type: Medicare / PERTINENT MEDICAL / SURGICAL HISTORY: Patient Active Problem List Diagnosis Atrial Fibrillation Unspecified Abuse Tobacco Smoking Stroke (HCC) Chronic Obstructive Pulmonary Disease Exacerbation (HCC) Past Surgical History: Procedure Laterality Date OTHER CONVERTED SHX (SEE COMMENT) N/A 05/07/2009 >Colonoscopy with polypectomy. OTHER SURGICAL HISTORY N/A Elbow joint operations VASECTOMY N/A 08/03/1973 Vasectomy History of Present Illness: Patient is a 71 year old male that presented to [facility] on 05/04/2022 after waking up with acute onset left hemiparesis and neglect. Last known well was evening prior to bed on 05/03. NIH score was 6 on presentation. His past medical history is significant for atrial fibrilation and 1 pack per day tobacco use. See Hospital Admission History and Physical for full history of present illness. Precautions Other Precautions: fall risk; left sided neglect Patient/Caregiver Goals: To go home. Patient Comments: I am feeling normal. Prior Function/Occupational Profile Dominant Hand: Right Lives With: Spouse (, Kimberly (patient reports she is in good health)) Receives Help From: (reports only having help from ) ADL Assistance: Independent IADL/Homemaking Assistance: Independent Driving: Independent Driving Comments: Drives for work and for fun. 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 Home Living Type of Home: House Home Layout: Two level, Bedroom upstairs, Full bath main level Home Layout Comments: bed and bathroom updatirs; full bathroom on main level if necessary Home Access: Stairs to enter with rails Entrance Stairs: Rails: Both Entrance Stairs: Number of Steps: 3 steps Bathroom Shower/Tub: Tub/shower unit Tub/shower unit location: Second floor/upper level Fall Risk (65 and older) Fall in the last 12 months: No Are you fearful of falling?: No Fall Risk Comments: New onset of left sided weakness. OBJECTIVE Pain: Patient reports no pain throughout evaluation. Vitals: In ICU, continual monitoring Cognition Arousal/Alertness: Appropriate responses to stimuli Orientation: Oriented X4 Following Commands: Follows all commands/directions without difficulty Following Commands Comments: follows commands, at times with increased time. Cognition Comments: Patient presents in good cognition status; flat affect at the time of evaluation. Activity Tolerance Endurance: Tolerates 10-20 minutes of activity Activity Tolerance Comments: Tolerates entirity of evaluation. Evaluation cute short due to service needing to check in and ECHO. Baseline Vision/Correction: No visual deficits Light Touch: Partial deficits in the LUE, Partial deficits in the LLE Paresthesia Comments: Patient does not report any sensation changes. During sensation screen, patient able to identify which extremity is beng touch, bu has inconsistencies with both sides are touch (inattention to left). Proprioception: No deficits Inattention/Neglect: Cues to attend to left visual field, Cues to attend to left side of body ROM - Upper Extremity Screen: Addressed, no concerns noted ROM - Lower Extremity Screen: Addressed, no concerns noted Strength - Upper Extremity Screen: Impaired left Strength - Upper Extremity Screen Comments: Slight weakness in left upper extrmity, globally 4/5 Strength - Lower Extremity Screen: Impaired left Strength - Lower Extremity Screen Comments: Slight weakness in left lower extremity, globally 4/5 Static Sitting-Balance: Good (Maintains balance without support) Dynamic Sitting-Balance: Fair (Maintains balance with handheld/contact guard assistance) Static Standing-Balance: Good (Maintains balance without support) Dynamic Standing-Balance: Fair (Maintains balance with handheld/contact guard assistance) Bed Mobility - Supine to Sit # of Assistants: 1 Level of Assistance: Minimal assistance Device: Bed rail Cuing: Verbal, Tactile, Visual Comments: PT cues patient to do as much as he can, just requires minimal assistance at trunk for power. PT assitance for line management. Therapeutic Activity Sit to Stand Transfers # of Assistants: 1 Transfer Surface: Bed Transfer Equipment: Gait belt Level of Assistance: Contact guard assistance Assessment/Delivery: Assessed, Instructed, Educated, Therapist assisted Comments: PT provides contact guard assist for standing from bed, patient presents with good power and stability upon standing. Stand to Sit Transfers # of Assistants: 1 Transfer Surface: Chair Transfer Equipment: Gait belt Level of Assistance: Contact guard assistance Assessment/Delivery: Assessed, Instructed, Educated, Therapist assisted Comments: PT provides cueing for hand placement for controlled descent. Bed, Chair, Wheelchair Transfers # of Assistants: 1 Transfer Surface: Bed, Chair Transfer Approach: To, To the right Transfer Equipment: No device Level of Assistance: Contact guard assistance Assessment/Delivery: Assessed, Instructed, Educated, Therapist assisted Comments: Patient able to transfer to bedside chair with contact guard assist, requires total assistfor line management and chair set up. Gait Assessment/Training Assessment of Gait: Not formally assessed today. Patient able to take a few steps to the chair upon standing. Will assess tomorrow. [facility] BASIC MOBILITY SHORT FORM: 1. Turning from your back to your side while in a flat bed without using bedrails?: A Little 2. Moving from lying on your back to sitting on the side of a flat bed without using bedrails?: A Little 3. Moving to and from a bed to a chair (including a wheelchair)?: A Little 4. Standing up from a chair using your arms (e.g., wheelchair, or bedside chair)?: A Little 5. To walk in hospital room?: A Lot 6. Climbing 3-5 steps with a railing?: A Lot -[facility] Basic Mobility (V.2) Raw Score: 16 -[facility] Basic Mobility (V.2) Standardized Score: 38.32 Interpretation: 14 Average score of those going to a SNF Patient/Family Education: No family present throughout physical therapy evaluation. Patient providededucation on physical therapy purpose, plan of care, intervention rationale and progression. Began on the conversation on possible gait aid on return home for safety - will continue assessing necessity. At the end of today's therapy session patient was left seated in bedside chair with service in room with an appropriate call light within reach. Patient's needs and questions addressed during today's session. Assessment Patient is functioning below his baseline level of mobility. Patient is experiencing , impaired strength, sensation, motor control, balance and left inattention which impact safety and place patient atincreased risk for falls. Despite deficits, patient seems motivated to return home Patient currently requires minimal assistance to contact guard assistance for bed mobility, contact guard for sit to stand transfers, and has not ambulated. Will assess gait tomorrow and possibly stairs. Patient will benefit from skilled physical therapy interventions for treatment including progressiveneuromuscular re-education; balance assessment and treatment; progressive mobility with least-restrictive gait aid with emphasis on safety; stair assessment/ treatment; patient/ family education to maximize safety and independence for hospital discharge. From the Physical Therapist's perspective, the patient needs further assessment for candidacy for inpatient rehabilitation. Will formally discuss at next PMR team rounds and communicate with primary service accordingly. Rehab Potential: Mr. Montaño has Good potential to achieve established physical therapy goals within the time frame outlined below. Barriers to a safe discharge home: Barriers to Discharge Home: Current functional status, Limited caregiver availability Barriers to Discharge Comments: Need to continue to assess support upon discharge. Personal Factors: Age Level of Care Needed - PT: Assistance with walking and moving around the home, Assistance with bed mobility, Assistance with transfers (Comment), Assistance with stairs Skilled therapy can include physical therapy provided by home health, outpatient clinic, or a post-acute facility. The location of these services is determined by the patient's care team in partnershipwith patient/family. Equipment Recommended - PT: (Will continue to assess.) Functional Goals and Timeframes: PT Goal #1: Upon hospital discharge, patient will be able to complete all bed mobility independentlyin order to decrease caregiver burden. PT Goal #2: Upon hospital discharge, patient will be able to complete sit to/from stand with supervision in order to transfer from a variety of surfaces. PT Goal #3: Upon hospital discharge, patient will be able to ambulate 150 feet with the least restrictive gait aid and supervision in order to promote functional independence at home. PT Goal #4: Upon hospital discharge, patient will be able to negotiate 10 steps with bilateral railing and supervision to safely get up to bedroom. Plan Patient agrees with the plan of care and goals. Treatment Plan: PT Frequency: 5 times per week PT Amount: 1 visit per day PT Inpatient Duration : Until goals are met or hospital discharge Plan: Continue with current plan PT Plan Comments: Plan to assess gait tomorrow and possibly stairs, progress bed mobility with less assistance, progress neuromuscular re-education interventions. Treatment interventions may include: Treatment/Interventions: Therapeutic exercise, Therapeutic functional activity, Neuromuscular re-education, Gait training, Therapeutic modalities as needed, Self-care/home management Clinical Presentation: Evolving Number of Examination elements: 4+ Clinical Decision Making: Moderate complexity clinical decision making Time Spent with Patient Evaluations PT Eval - Mod Complexity: 20 min Therapeutic Interventions Therapeutic Activity (min): 15 min Time Tracking Total Timed Units (min): 15 min Total Treatment Time (min): 35 min Kristi Blankenship P.T., D.P.T. Minnie Powell, Ru.G.S.W., M.S.W. - 05/05/2022 1:05 PM CDT Psychosocial Assessment SUBJECTIVE DEMOGRAPHIC INFORMATION Referral Source: Service/Provider Referral Reason: Psychosocial Assessment and Stroke Assessment Person(s) present during interview: Patient Geoffrey, Spouse Kimberly Previous Psychosocial Assessment : No Primary care clinic and provider: Dwain Truong CNP, ANNI[facility] at [facility] in [place], [place] They were advised of the various topics that will be assessed during this evaluation. They consentedto proceed. The information provided in the assessment is based on review of the medical record as well as the interview. They were advised that the content of this interview will be shared with the health care team. It was discussed that staff are mandated reporters and they reported understanding. HISTORY OF PRESENT ILLNESS Mr. Montaño presented with an acute ischemic stroke on 05/04. SOCIAL HISTORY Family / Household: Mr. Montaño lives with his , Kimberly, has 1 daughter in [place], [place], 1 daughter in [place] who was currently visiting patient in [place] at this time. Mr. Montaño has 2cats (Isaak and Roseanne) living in the home. Spirituality / Alevism / Culture: None reported. History: None reported. 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 Psychosocial Risk Factors impacting the patient: none Abuse, Neglect, Maltreatment, Trauma: Current: None reported. ENVIRONMENTAL SUPPORTS Current Living Situation: Mr. Montaño and live in a two level home. There are two steps to getonto the deck that leads into the main entrance of the house. There is a full bathroom on the main floor but not a bedroom. Anticipated modifications to the patient's home environment: None and pending skilled therapies recommendations FUNCTIONAL STATUS (ADL's and IADL's) Dressing: independent Feeding: independent Bathing: independent Grooming: independent Toileting: independent Transfer to/from Bed, Chair, Etc.: independent Mobility: independent Meal Prep: independent Medication Setup/Administration: independent Telephone Use: independent Housekeeping: independent Shopping: independent Managing Finances: independent It is anticipated that the patient will need assistance with bathing, dressing, grooming/hygiene, toileting, transfers to/from bed, chair, etc., mobility, meal preparation, housekeeping, and transportation use (drive car, use taxi/bus) ASSISTIVE DEVICES Patient has the following equipment: none Patient anticipates potentially needing the following additional equipment: none and pending skilledtherapies recommendations Transportation needs: support from family/friends FORMAL AND INFORMAL RESOURCES None reported. FINANCES/INSURANCE Primary insurance: MEDICARE A AND B Secondary insurance: [employer] Financial concerns: No ADVANCE DIRECTIVES Advance Directive: Patient does not have advance directive, does not want information OBJECTIVE Suicide Risk and Safety Risk Assessment: Suicidal: No Homicidal: No Current Stressors Current hospitalization and wanting to go home Coping Skills/Strengths Spouse of 55 years, pets (2 cats), ASSESSMENT / PLAN DISCUSSION Mr. Montaño is a 71 year-old man who was seen for a psychosocial and stroke assessment. He shared he lives in [place], [place] with his , Kimberly of 55 years and their 2 cats (Isaak and Roseanne). Mr. Montaño mentioned that they live in a two story home that has two steps to get onto the deck that leads to the main entrance. He stated that on the main level there is a full bath. They could also put a bed on the main level if needed. Mr. Montaño shared he was previously independent with all ADLS/IADLS prior this this hospitalization and did not use any DME. Mr. Montaño denied having any formal services in his home. He shared that he was planning on returning home after discharge and did not anticipate having any needs or concerns with home. Mr. Montaño was however open to hearing from therapy regarding their recommendations. Mr. Montaño shared that he has two daughters one in [place], [place] and one in [place], [place]. 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 Mr. Montaño'swife shared that she works at [employer] but only for the next month as they were closing the facility. She mentioned she had another job where she only worked Thursday's but would be picking up more hours after [facility] closes. Mr. Montaño shared that there are no financial concerns at this time. Mr. Mnotaño stated that he does not use any substances and shared that he uses very little tobacco. He mentioned that his mood has been OK, his further shared that his mood has been fine. Mr. Montaño denied having any suicidal ideation or mental health concerns. Mr. Montaño shared that his sleep has been good and slept great on his first night at the hospital. He and his mentionedthat his appetite has decreased compared to when he was younger. Mr. Montaño and his stated that he is looking forward to go home and see their cats. They shared that they also have a Corvette and enjoy going out on drives together. They did not have any concerns or questions for social work at this time. STROKE ASSESSMENT The patient was assessed for readiness, willingness, and ability to engage in self-management activities. The patient has the following social supports available to them: spouse The family was also assessed for readiness, willingness, and ability to provide or support self-management activities including skills, capacities, and resources needed. What care/support can you provide to the patient if needed? Supervision Are there any barriers you have to providing this care if needed or any concerns you have regarding this? No Do you anticipate needing any additional support? No Do you have financial concerns? (i.e. time away from work) No Do you have resources for transportation for follow up appointments? Yes, spouse able to drive The following barriers were identified: none. Patient and family are in agreement with recommended lifestyle changes. Patient's current formal andinformal support systems were assessed. Assessment with the Patient has identified that the following services may be needed: none at this time but pending skilled therapies recommendations . Other than those services/resources listed previously no additional services are needed at this time. A folder of applicable stroke/TBI resources was given to the Patient and Family by the Rn Documentation. Patient and Family were receptive to the information provided and will review and contact ARABELLA/ORI cuenca have additional questions The folder of resources includes: Recovering From a Stroke ([id number]), Stroke Website Resources([id number]), Stroke Self-Care Plan ([id number]), General Local Resources for Patients with Stroke(CX3158-31), Emotional Response to Stroke (TR7835) and Brain Injury [place] pamphlet. IMPRESSION Patient and were agreeable to a visit with social work. Patient was sitting on his chair watching TV prior to social work entering. Patient appeared to have a flat affect but was forthcoming with information for the assessment. Patient and appeared distracted by the imagery playing on the muted TV but maintained a conversation with social work. Patient and his appeared to have insightsinto his needs and are planning for discharge. Patient's is involved and appears to have his best interests in mind. Patient is anticipating to discharge home but was open to hearing PT/OT recommendations for a safe discharge plan. Patient appears to be coping adequately at this time. INTERVENTIONS Social work completed a psychosocial and stroke assessment. Social work provided education on the role of social work at [facility]. PLAN Social work will continue to follow for support and assist with discharge plans as needed. Anticipated barriers to the transition of care/plan: none anticipated at this time Natalia Membreno, M.S.W. 05/05/2022 Quoc Dozier M.A., CCC-ENCODING CLERK - 05/05/2022 12:04 PM CDT Speech Language Pathology Dysphagia and Communication/Cognitive Evaluation- Acute Care Session Type: Evaluation Length of session: 18 minutes Time of Dysphagia Session: 1204 SUBJECTIVE Referred By: RST Neurology Stroke and Cerebrovascular Disease History: Mr. Montaño is a 71-year-old male who was admitted to [facility] on May 04, 2022 following acute onset left-sided weakness. Head CT completed in the ED showed an established infarction involving the right insular cortex and part of the right superior frontal lobe. CTA showed a proximal right M2 occlusion with good collaterals; there was also a mixed, partially calcified right ICA origin plaque without severe stenosis. He was taken to the angio suite for prompt recanalization. Additional medical history is significant for atrial fibrillation, COPD, and tobacco use. Please refer to clinical notes for full patient history and details. Mr. oMntaño was seen in his room on [address] He was alert and seated upright in armchair. Hereported that prior to this hospitalization he was tolerating a regular diet with thin liquids. He denied the sensation of materials entering his airway or sticking in his throat, nasal regurgitation, or odynophagia. Mr. Montaño does not have a history of prior COVID-19 infection, GERD, recurrent lung infections or pneumonias. He reports his weight has remained stable. Mr. Montaño has not received prior Speech Pathology services. Speech Pathology consult was received for evaluation of dysphagia. General Family/Caregiver Present: Yes Arousal/Alertness: Appropriate responses to stimuli Hearing: Within Normal Limits (WNL) Behavior: Alert, Cooperative, Pleasant mood Pain No pain was reported during session. OBJECTIVE Objective Session Data Oral Motor Dentition: Edentulous Facial Symmetry: (-1) Mild, Left asymmetry Labial Structure and Function: Within Functional Limits (WFL) Lingual Structure and Function: Impaired Lingual Protrusion: (-1) Mild (mildly deviated to the left) Lateral Lingual Strength Left: (-1) Mild Palatal Structure and Function: Within Functional Limits (WFL) Mandible Strength and Function: Within Functional Limits (WFL) Laryngeal Function: Within Functional Limits (WFL) Motor Speech Voice: Within Normal Limits (WNL) Respiration: Within Normal Limits (WNL) Resonance (DAIRY PROCESSING EQUIPMENT OPERATOR Function): Within Normal Limits (WNL) Articulation: Within Normal Limits (WNL) Speech AMRs: Within Functional Limits Speech SMRs: Within Functional Limits Intelligibility: Intelligible Consistencies Assessed: Level 0 Thin Oral: Within Functional Limits (WFL) Pharyngeal: Within Functional Limits (WFL) Level 4 Puree Oral: Within Functional Limits (WFL) Pharyngeal: Within Functional Limits (WFL) Level 7 Regular Oral: Within Functional Limits (WFL) Pharyngeal: Within Functional Limits (WFL) Assessment Mr. Montaño was seen by Speech Pathology for evaluation of cognitive communication skills and dysphagia. Cognitive Communication: Physical exam of the oral mechanism showed facial symmetry at rest. Jaw opened symmetrically and wasnormal in strength. The tongue is mildly deviated to the left and mildly reduced in strength on the left. Labial strength and range of motion were normal. The palate was symmetric and mobile on phonation. Cough strength was within normal limits. There was no evidence of dysarthria or apraxia of speech. We discussed the rationale for further evaluation of cognitive communication skills to be completedin subsequent session. Mr. Montaño and his are in agreement with this plan. Dysphagia: His swallow was assessed during intake of water, applesauce, and a cracker at the bedside. Oral containment and control were adequate for all consistencies. Oral transit was timely. Pharyngeal swallow was timely and laryngeal elevation was subjectively judged to be present per digital palpation duringthe swallow. One swallow per intake was noted suggesting adequate pharyngeal clearance. No clinical signs or symptoms of penetration or aspiration were observed with any consistency. At this time, Mr. Montaño is demonstrating an oropharyngeal swallow within functional limits. He should initiate a regular diet with thin liquids. Education regarding rationale for today's evaluation,signs and symptoms of penetration/aspiration, and normal swallowing physiology is provided to Mr. Lanre gary and his present. Please refer to recommendations below. Speech Pathology will continue tofollow. Contact Monitoring: Clinician was wearing the following PPE for the duration of today's session(s): surgical mask and eye protection Goals: Dysphagia Short Term Goal 1 Dysphagia Short Term Goal 1: Patient will tolerate the least restrictive oral diet without signs or symptoms of aspiration. Dysphagia Short Term Goal 1 Progress Toward Goal: Progress toward goal completion: continue on target Diagnosis: Oropharyngeal swallow within functional limits on clinical exam Plan DYSPHAGIA RECOMMENDATIONS: Diet Recommendation-Solids: IDDSI Level 7 Regular Diet Recommendation-Liquids: IDDSI Level 0 Thin Medication Recommendation: Whole, With liquid Safety Precautions: sitting fully upright during all oral intake, taking small bites/sips one at a time, chewing carefully, and eating slowly. Maintain meticulous oral cares. Speech Pathology will continue to follow. Discharge Location: Unknown ENCODING CLERK Ongoing Services: Ongoing formal Speech Pathology services Duration of Treatment: until goals are met Rehab Potential: Good Shanti Mclean M.S., C.T.T.S., L.P.C.C. - 05/05/2022 11:35 AM CDTAssociated Order(s): IP CONSULT TO INTERNAL MEDICINE NICOTINE DEPENDENCE SUBJECTIVE Consults REASON FOR CONSULT Admitting Service: Neurology Reason for Consult: Tobacco Use Disorder HISTORY OF PRESENT ILLNESS Carlos Manuel Montaño is a 71 y.o. male who was seen at [place] and is being evaluated for tobacco use disorder. Tobacco use history: Patient averages 5 cigarettes per day, having cut down from 10 per day in the past. He usually smokes within 5-10 minutes of waking. Carlos Manuel started using tobacco at the age of 18.He has made several quit attempts with his longest period of abstinence being 1 month. Carlos Manuel has tried stopping using various methods such as cold turkey . The patient has experienced the following withdrawal symptoms: anxiety, craving, desire to smoke, frustration, impatience, irritability, nervousness, and restlessness. Motivation: It is unclear as to his motivation to quit. He states that he doesn't know if he will. He has tried in the past, but it seems as if he has tried to do on his own instead of using NRT. His reason to quit is to improve health , but he was not engaging in conversation with me consistently. I am not sure if it is due to stroke or if he is disinterested. Perceived Barriers to quitting: The patient enjoys smoking, Continued motivation to sustain cessation, and Implementation of behavioral changes to sustain cessation. OBJECTIVE Patient states no contraindications to nicotine replacement. ASSESSMENT / PLAN 1. Tobacco use disorder Mr. Montaño is not yet ready to make a plan for stopping. The patient is currently using no NRT which should be continued at patients choice. He could benefitfrom a 14 mg patch. His daughter walked in as we were talking and he shut down even more than he wasbefore she came in. She approached me as I was walking out and asked if we were putting patch on him, I let her know he didn't really want it at this time, and she wondered if it was because she came in as she stated that he doesn't think I know that he smokes. I let her know that if she wanted to try to talk to him, that we would recommend a 14 mg patch. I also spoke to the nurse on duty, letting him know that if they wanted to keep checking with him to see if he wanted a patch, maybe he would. Medication Plan: In hospital medications to be provided by the primary service team If he would like a patch, 14 mg is recommended. Behavioral Plan: Cognitive and behavorial techniques for coping with urges to smoke were not reviewed as patient was not interested in discussing at this time. The patient did accept the booklet entitled My Smoke-Free Future. Follow-Up: I encouraged Carlos Manuel Montaño to contact me with any questions or concerns. I provided the patient with educational materials and [facility] contact information. Patient declined to schedule a follow-up appointment, but will receive a follow- up phone call in 30 days.. Patient is ready to learn, No apparant barriers to learning were identified. Patient understands andagrees with plan. 10 minutes of our visit was spent on tobacco use disorder counseling. Shanti Mclean M.S., Evelyn, Danny. 05/05/2022 11:35 AM CDT Yang Ramirez M.D. - 05/05/2022 9:00 AM CDTAssociated Order(s): IP CONSULT TO PHYSICAL MEDICINE & REHABILITATION Physical Medicine and Rehabilitation consult (hospital) SUBJECTIVE REQUESTING PROVIDER SHELDON Gill REASON FOR CONSULT Stroke HISTORY OF PRESENT ILLNESS History obtained via review of the EMR and in discussion with the patient. Carlos Manuel Montaño is a right-handed 71 y.o. male with past medical history of atrial fibrillation, tobacco use for which Physical Medicine and Rehabilitation was consulted for inpatient rehab. Mr. Montaño presented to [place] on 05/04/2022 after waking up with acute onset left hemiparesis and neglect. Last known well was evening prior to bed on 05/03. NIH score was 6 on presentation. Hypertensive but otherwise hemodynamically stable on admission. Noncontrast CT of the head revealed areas o f hypodensity in the right insula and right frontal lobe consistent with established infarct. CT angiogram of the head and neck showed acute right middle cerebral artery M2 occlusion. He was outside ofthe window for tenecteplase but was deemed a candidate for endovascular intervention which was performed and had reperfusion score TICI 2b. Following the procedure, his left michael-neglect was improved but he continued to have left sided weakness. Over the next 24 hours, his exam continued to improve and his NIHSS was 0 the morning of 05/05/2022 per most recent critical care assessment. Prior to admission, he was independent with all activities of daily living and did not use a gait aid for assistance with ambulation. At this time, patient denies any weakness, loss of bowel/bladder control, fever/chills, rash, numbness/tingling. Has not yet worked with therapy but feels that he no longer has any deficits and wishes to go home. The patient lives in [place], [place] with his Kimberly. They live in a 2 story house with 4 steps to enter (rails on both sides). Bathroom is on the main floor but bedroom is up a full flight of stairs, approximately 14-16 per patient. They have a step in shower. 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 REVIEW OF SYSTEMS Review of symptoms completed and negative except as noted in the HPI. OBJECTIVE Temperature: [36.8 ??C-37.1 ??C] 36.8 ??C Heart Rate: [65-93] 84 Resp Rate: [11-27] 21 Blood Pressure: (112-175)/(66-115) 147/84 SpO2: [91 %-100 %] 96 % Flow Rate (L/min): [2 L/min] 2 L/min Height: [175.5 cm] 175.5 cm Weight: [76.2 kg-76.8 kg] 76.2 kg BMI (Calculated): [24.7 kg/m??] 24.7 kg/m?? PHYSICAL EXAM GENERAL: Alert. No acute distress. Resting comfortably in recliner chair HEENT: Normocephalic, atraumatic. Oral cavity and tongue are unremarkable. HEART: Extremities warm and well perfused. Radial pulses strong bilaterally. No lower extremity edema. LUNGS: No dyspnea. Breathing comfortably on room air. Symmetric chest rise. ABDOMEN: Soft, nontender, nondistended, bowels sounds present. EXTREMITIES: No swelling or erythema. No calf tenderness. SKIN: Exposed areas of skin are clean, dry, and intact with no evidence of cellulitis, pressure ulcers, or necrosis. MENTAL STATUS: Grossly oriented with appropriate mood and affect. CRANIAL NERVES: Extra ocular muscles intact. Visual mendez intact in all quadrants to confrontation.No dysconjugate gaze. Sensation intact to light touch in all three distributions bilaterally. No facial droop. Tongue protrudes midline. Palate elevates symmetrically. MOTOR SPEECH: No dysarthria. Normal prosody, phonation, resonation, and articulation. Patient feels speech is back to baseline LANGUAGE: Normal, nonaphasic. Naming whole objects 3/3. Naming subparts 3/3. Repetition good. Simplecommands 3/3. Multi-step commands 3/3. MUSCLE STRENGTH: (scoring scale: 0=normal to -4=plegic; right/left) -Upper limb: deltoid 0/-1; biceps 0/-1; triceps 0/-1; wrist extensors 0/-0.5; finger extensors 0/0; wrist flexors 0/0; finger flexors 0/0; interossei 0/0. -Lower limb: iliopsoas 0/0, quadriceps 0/0, hamstrings 0/0, anterior tibial 0/0, EHL 0/0, gastroc-soleus 0/0. TONE: Normal tone throughout upper and lower limbs. No ankle clonus bilaterally. MUSCLE REFLEXES (scale: -4=absent, 0=normal, +4=sustained clonus; right/left): Biceps 0/0, Triceps 0/0, Quadriceps -1/-1, Gastroc-soleus 0/0. PLANTAR RESPONSE: (right/left) flexor/flexor. GAIT: Deferred COORDINATION: Normal upper and lower limb Abrahan. Normal [id number]. SENSATION: Normal light touch sensation throughout upper and lower limbs. Intact proprioception at great toes bilaterally. No extinction to double simultaneous stimulation in upper and lower limbs. DIAGNOSTICS I have reviewed the diagnostic labs and imaging from this hospitalization. ASSESSMENT / PLAN #1 Atrial Fibrillation Unspecified #2 Abuse Tobacco Smoking #3 Stroke ([facility]) #4 Chronic Obstructive Pulmonary Disease Exacerbation ([facility]) Carlos Manuel Montaño is a right-handed 71 y.o. male with past medical history of atrial fibrillation, tobacco use for which Physical Medicine and Rehabilitation was consulted for inpatient rehab after stroke At this time, patient presents with minimal supposed deficits and a desire to go home. He has yet tohave a formal evaluation with therapies so the rehab team will continue to monitor as those evaluations are completed to look for deficits that would be amenable to further therapy with inpatient rehab. The idea was presented to the patient about the possibility of rehab as an inpatient and patient reported that he [place] fine and would prefer to go home, so his desire to pursue further rehab would also be a factor in determining candidacy. PM&R will continue to be available if questions arise and will followalong during the therapy evaluation process. The Physical Medicine and Rehabilitation Brain Consultation Service will proceed with the rehabilitation plan of care as outlined. Please see the therapist's notes for progress with therapy. Patient status and progress is reviewed daily during the week and the plan of care is updated as indicated. Please contact the PM&R Brain Consult service with questions or concerns. This plan was discussed and formulated with Dr. Joy who is in agreement. Please see his supervisory note for further details. EDUCATION I discussed the diagnosis and treatment plan in detail. The patient expressed understanding of the content. No apparent learning barriers were identified; learning preferences include listening. Yang Ramirez M.D. PGY-2 9:00 AM CDT 05/05/2022 Associated attestation - Jas Joy M.D. - 05/05/2022 4:34 PM CDT I interviewed and examined the patient; I agree with Dr. Ramirez's evaluation. He presented on May 04 with left-sided weakness and neglect secondary to a stroke in evolution; he underwent endovascular intervention for right middle cerebral artery occlusion with excellent clinical results. He may still have a trace of left-sided weakness but no signs of neglect on visual field testing and double simultaneous stimulation. Nursing indicates that he is been up ambulating in the room with standby assistance. Physical and Occupational therapy will evaluate safety tomorrow; I suspect that he will do well and be able to be dismissed home. He has further testing scheduled including an MRI brain. Kenia Wang M.D., M.S. - 05/04/2022 12:31 PM CDTAssociated Order(s): IP CONSULT TO NEUROLOGY SUBJECTIVE REFERRAL [id number] Primary ED staff: Dr. Marquis Leach CHIEF COMPLAINT / REASON FOR VISIT Stroke HISTORY OF PRESENT ILLNESS Carlos Manuel Montaño is a 71-year-old, right-handed, gentleman with medical comorbidities including atrial fibrillation which was felt to be provoked in the setting of pneumonia and for which he is not on anticoagulation, a remote history of an occult GI bleed (2008), and chronic ongoing tobacco usewho presents to the [facility] Department with new onset left hemiparesis and neglect that were present upon waking this morning at 7:00 am. He was last known well yesterday eveningat 10:00 pm. Upon arrival, his blood pressure was 162/95 mmHg. Initial NIHSS score was 6 in the setting of a right middle cerebral artery syndrome. Eciga-po-tnwy blood glucose was 144 mg/dL. His EKG showed normal sinus rhythm with a ventricular rate of 74 beats per minute. Noncontrast CT of the head revealed areasof hypodensity in the right insula and right frontal lobe consistent with established infarct. CT angiogram of the head and neck showed acute right middle cerebral artery M2 occlusion. CT perfusion demonstrated a 32 mL infarcted core with a 74 mL penumbra. Mr. Montaño was outside of the window for tenecteplase but was deemed a candidate for endovascular intervention. He is aspirin 81 mg daily at home. At baseline, he is independent in all activities of daily living--baseline modified [place] Score (mRS) of 0 (no symptoms). 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 He reportedly still smokes seven cigarettes daily. Last known normal: 05/03/2022, 10:00 pm Pager time: 05/04/2022, 9:53 am Arrival time:05/04/2022, 9:59 am NIHSS done: 05/04/2022, 10:[address] interpreted: 05/04/2022, 10:38 am Endovascular decision: 05/04/2022, 10:47 am HISTORY AND REVIEW OF SYSTEMS Carlos Manuel Montaño's history was reviewed including allergies, current medications, review of systems, family history, medical and surgical history, social history, and problem list. Pertinent information is outlined in the history of present illness. MEDICATIONS: Current Facility-Administered Medications: acetaminophen tablet 1,000 mg (TYLENOL), 1,000 mg, oral, 4x Daily PRN, Yang Anderson, P.A.-C. [START ON 05/05/2022] aspirin chewable tablet 81 mg, 81 mg, oral, Daily OR [START ON 05/05/2022] aspirin chewable tablet 81 mg, 81 mg, gastric tube, Daily, Yang Anderson, P.A.-C. bisacodyL DR tablet 10 mg (DULCOLAX), 10 mg, oral, BID PRN OR bisacodyL suppository 10 mg (DULCOLAX), 10 mg, rectal, BID PRN, Yang Anderson, P.A.-C. [START ON 05/05/2022] clopidogreL tablet 75 mg (PLAVIX), 75 mg, oral, Daily OR [START ON 05/05/2022] clopidogreL tablet 75 mg (PLAVIX), 75 mg, gastric tube, Daily, Yang Anderson, P.A.-C. docusate sodium 283 mg/5 mL enema 1 enema (ENEMEEZ), 1 enema, rectal, BID PRN, Yang Anderson, P.A.-C. heparin (porcine) injection 5,000 Units, 5,000 Units, subcutaneous, Q8H GALILEO, Yang Anderson, P.A.-C. NaCl 0.9 % bolus 1,000 mL, 1,000 mL, intravenous, Once, Clinton Díaz, ANNIKA, C.N.P., M.S.N. polyethylene glycol powder packet 17 g (MIRALAX), 17 g, oral, Daily PRN, Yang Anderson, P.A.-C. sennosides-docusate sodium 8.6-50 mg per tablet 1 tablet (SENOKOT-S), 1 tablet, oral, BID, Yang Anderson, P.A.-C. sodium chloride 0.9 % injection 10 mL, 10 mL, intravenous, PRN, Marquis Leach M.D., M.P.H. sodium chloride 0.9 % injection 10 mL, 10 mL, intravenous, PRN, Yang Anderson, P.A.-C. sodium chloride 0.9 % injection 3 mL, 3 mL, intravenous, PRN, Marquis Leach M.D., M.P.H. sodium chloride 0.9 % injection 3 mL, 3 mL, intravenous, Q12H Haylee GURROLA Bo E, M.D., M.P.H. sodium chloride 0.9 % injection 3 mL, 3 mL, intravenous, PRN, Yang Anderson, P.A.-C. sodium chloride 0.9 % injection 3 mL, 3 mL, intravenous, Q12H GALILEOJustin Jacob D RadhaA.-C. OBJECTIVE PHYSICAL EXAM Blood pressure (!) 171/92, pulse 88, temperature 37.1 ??C, resp. rate 23, weight 76.8 kg, SpO2 99 %.Body mass index is 24.94 kg/m??. NIH Stroke Scale (prior to revascularization) 1A. LOC: 0=alert; keenly responsive 1B. Questions: 0=answers both questions correctly 1C. Commands: 0=Performs both tasks correctly 2. Best Gaze: 1=partial gaze palsy 3. Visual: 0=No visual loss 4. Facial Palsy: 1=Minor paralysis (flattened nasolabial fold, asymmetric on smiling) 5A. Left Arm Motor: 1=Drift, limb holds 90 (or 45) degrees but drifts down before full 10 seconds: does not hit bed 5B. Right Arm Motor: 0=No drift, limb holds 90 (or 45) degrees for full 10 seconds 6A. Left Leg Motor: 1=Drift, leg falls by the end of the 5-second period but does not hit the bed 6B. Right Leg Motor: 0=No drift, leg holds 30 degrees for full 5 seconds 7. Limb Ataxia: 0=Absent 8. Sensory: 0=Normal; no sensory loss 9. Best Language:0=No aphasia, normal 10. Dysarthria: 0=Normal 11. Extinction: 2=Profound michael-inattention or michael-inattention to more than one modality. Orients only to one side of space. TOTAL SCORE: 6 NIH Stroke Scale (following revascularization) 1A. LOC: 0=alert; keenly responsive 1B. Questions: 0=answers both questions correctly 1C. Commands: 0=Performs both tasks correctly 2. Best Gaze: 1=partial gaze palsy 3. Visual: 0=No visual loss 4. Facial Palsy: 1=Minor paralysis (flattened nasolabial fold, asymmetric on smiling) 5A. Left Arm Motor: 2=Some effort against gravity, limb cannot get to or maintain (if cured) 90 (or 45) degrees, drifts down to bed, but has some effort against gravity 5B. Right Arm Motor: 0=No drift, limb holds 90 (or 45) degrees for full 10 seconds 6A. Left Leg Motor: 3=No effort against gravity, legs falls to bed immediately 6B. Right Leg Motor: 0=No drift, leg holds 30 degrees for full 5 seconds 7. Limb Ataxia: 0=Absent 8. Sensory: 0=Normal; no sensory loss 9. Best Language:0=No aphasia, normal 10. Dysarthria: 1=Mild to moderate, patient slurs at least some words and at worst, can be understood with some difficulty 11. Extinction: 2=Profound michael-inattention or michael-inattention to more than one modality. Orients only to one side of space TOTAL SCORE: 10 ASSESSMENT # Acute right middle cerebral artery ischemic stroke # Right M2 occlusion status post successful recanalization, TICI 2b # Atrial fibrillation, previously in the setting of active pneumonia, not on anticoagulation # Remote occult GI bleed # Left hemiparesis # Left hemineglect # Chronic tobacco use Carlos Manuel Montaño is a 71-year-old, right-handed, gentleman with mild left hemiparesis and neglect in the setting of a right M2 branch occlusion status post recanalization (TICI 2b) with non-occlusive thrombus to the right anterior cerebral artery. His stroke is most likely due to cardioembolism in the context of atrial fibrillation for which he has not been on anticoagulation. RECOMMENDATIONS - Admit to the Neurosciences Intensive Care Unit - Neuro checks per Unit protocol - Keep systolic blood pressure greater than 160 mmHg in the context of nonocclusive thrombus in the right anterior cerebral artery - Maintain blood glucose 140-180 mg/dL - Bedside swallow evaluation per the admitting provider, Speech and Language Pathology consultation for formal dysphagia evaluation should he fail. - Please obtain fasting lipids, hemoglobin A1c, and thyroid stimulating hormone - Transthoracic versus transesophageal echocardiogram as per the Neurocritical Care team - Physical Medicine and Rehabilitation consultation - Nicotine Dependence consultation - Code status, medication reconciliation, and stroke documentation (DOT STROKE phrase) per the admitting provider. Thank you for the opportunity to participate in the care of Carlos Manuel Montaño. This an Emergency Neurology consultation. Please page [phone] with any additional questions. Kenia Wang M.D. PGY-4, Neurology Pager [phone] documented in this encounter Nursing Notes Kendal Ingram R.N. - 05/07/2022 3:02 PM CDT Patient discharged home self care with . AVS was reviewed medications were discussed. At this time they have no other questions. Patient left room via escort and will be getting his meds at home. BP 103/63 (BP Location: Right arm;Upper, Patient Position: Sitting) Pulse (!) 30 Temp 36.5 ??C (Oral) Resp 18 Ht 175.3 cm Wt 69.2 kg SpO2 92% BMI 22.53 kg/m?? Electronically signed by: Kendal Ingram R.N. 05/07/22 3:08 PM CDT Jeri Rahman R.N. - 05/07/2022 6:11 AM CDT Shift Goals: Clinical Goals for the Shift: Pt will sleep >6 hours overnight Identify possible barriers to meeting goals/advancing plan of care: none End of Shift Summary: Goal met Problem: KNOWLEDGE DEFICIT Goal: Patient/family/caregiver demonstrates understanding of disease process, treatment plan, medications, and discharge instructions Outcome: Progressing Problem: SKIN/TISSUE INTEGRITY Goal: Skin/Tissue integrity maintained or improved Outcome: Progressing Goal: Oral and Nasal mucous membranes remain intact Outcome: Progressing Problem: SAFETY ADULT Goal: Maintain a safe environment Outcome: Progressing Problem: DISCHARGE PLANNING Goal: Patient discharge needs identified Outcome: Progressing Maricruz Stauffer, R.R.T., L.R.T. - 05/05/2022 1:53 PM CDT Patient is a 71 y.o. male admitted on 05/04/2022 Alert Information: Plan of Care: Pt seen on 2 L nasal cannula, continue to assess and monitor while in the ICU. Hx of COPD, no home oxygen. Albuterol as needed. Actively smoking. Shift note: RAT completed with as score of 6. Respiratory assess and treat order discontinued due toscore of 6. Principal Problem Stroke (HCC) Oxygen Therapy $Delivery Method: Nasal cannula Social History Tobacco Use Smoking Status Every Day Packs/day: 0.25 Types: Cigarettes Start date: 08/03/1966 Smokeless Tobacco Never Tobacco Comments Used to smoke half pack per day. Respiratory Assessment Score: 6 No results for input(s): PO2 ART, PCO2 ART, PH ART in the last 24 hours. Skin integrity checked: yes Rubi Valera R.R.T., L.R.T. - 05/04/2022 4:51 PM CDT Patient is a 71 y.o. male admitted on 05/04/2022 Alert Information: Plan of Care: Monitor and assess per ICU protocol. Wean oxygen as tolerated. Anesthesia bag and maskat bedside. Principal Problem Stroke (HCC) Oxygen Therapy $Delivery Method: Nasal cannula 2L Social History Tobacco Use Smoking Status Former Smokeless Tobacco Never No results for input(s): PO2 ART, PCO2 ART, PH ART in the last 24 hours. documented in this encounter OR Notes Op Note - Mata Waters M.D. - 05/06/2022 8:00 AM CDT Pre-op Diagnosis Acute ischemic stroke Post-op Diagnosis Same Operation: Mechanical clot retrieval Surgeon: Jt A first assistant manager actively participated and was necessary for one or more of the following: opening,exposure and visualization during the case, maintaining hemostasis, wound closure resulting in its safe and expeditious completion. Findings As expected. Complications None Operative Note Narrative For a full report of this procedure which was done in Radiology, please see fully dictated Radiologyreport Mata Waters M.D. Op Note - Mata Waters M.D. - 05/04/2022 12:01 PM CDT Pre-op Diagnosis Acute Ischemic Stroke Post-op Diagnosis Same Operation: Mechanical clot retrieval Surgeon: Jaimie Billet Recorder:Sania Hernandez first assistant manager actively participated and was necessary for one or more of the following: opening,exposure and visualization during the case, maintaining hemostasis, wound closure resulting in its safe and expeditious completion. Findings As expected. Complications None Operative Note Narrative For a full report of this procedure which was done in radiology, please see fully dictated Radiologyreport Mata Waters M.D. documented in this encounter ED Notes Yemi Rodriguez M.D., Ph.D. - 05/04/2022 10:11 AM CDT SUBJECTIVE CHIEF COMPLAINT/REASON FOR VISIT Stroke Like Symptoms HISTORY OF PRESENT ILLNESS 71-year-old gentleman who comes in with altered mental status and symptoms of acute stroke. His lastknown normal was approximally 10:00 a.m. last night when he went to bed. He woke up this morning at about 7:00 a.m. where he had some left-sided weakness, facial drooping, drooling, slurred speech. He was picked up by EMS and during transit he did have a glucose of 144. Patient does have a history Afib and smokes 1 pack per day, but no histories of stroke or myocardial infarction. Of note patient hasnot been followed up with his primary care physician in many years. Code stroke was called immediately and neurology was consulted. History provided by: Patient manager medicare marketing needed/used: no REVIEW OF SYSTEMS Constitutional: Positive for fatigue. HENT: Positive for trouble swallowing. Eyes: Negative. Respiratory: Negative. Cardiovascular: Negative. Endocrine: Negative. Genitourinary: Negative. Musculoskeletal: Negative. Skin: Negative. Allergic/Immunologic: Negative. Neurological: Positive for facial asymmetry, speech difficulty and weakness. Hematological: Negative. Psychiatric/Behavioral: Negative. OBJECTIVE Initial Vitals Temperature Pulse Rate Heart Rate Resp Rate Blood Pressure SpO2 05/04/22 0957 05/04/22 1000 05/04/22 0955 05/04/22 0955 05/04/22 0957 05/04/22 09 37.1 ??C 78 76 19 (!) 165/95 95 % Pain Score -- PHYSICAL EXAMINATION Constitutional: Vitals reviewed. HENT: Head: Normocephalic and atraumatic. Mouth/Throat: Mucous membranes are moist. Eyes: Conjunctivae are normal. Periorbital area normal appearing. Cardiovascular: Normal rate, S1 normal, S2 normal and normal heart sounds. Pulses are palpable. Capillary refill: takes less than 3 seconds Pulmonary/Chest: Effort normal. Abdominal: Normal appearance and non-distended. Musculoskeletal: Cervical back: Normal range of motion. Neurological: Oriented to person, place, and time. He has cranial nerves II through XII intact. Displays no tremor. Speech is slurred. He displays no seizure activity. Cranial nerve exam findings showsno accessory nerve (XI) deficit and no hypoglossal nerve (XII) deficit. Facial droop on left side of face. Skin: Skin is warm and intact. Neuro: Patient has slurred speech with drooling of the left side of his mouth. He is grossly inattentive to the left side with some right-sided gaze palsy, but can be directed to look at the left with prompting. ASSESSMENT/PLAN IMPRESSION AND PLAN 70-year-old gentleman who comes in with acute stroke symptoms. His last known normal time was 10:00 p.m. last night and woke up at 7:00 a.m. this morning with some slurred speech, weakness, drooling. He was evaluated by Neurology in the emergency department and was taken for emergent CT angio, noncontrast CT, CT perfusion. Following the results of the scans he was then taken to IR for an IR angiography and will be admitted to the [place] [id number] neuro ICU for further care. DIFFERENTIAL DIAGNOSIS Acute stroke, intracranial hemorrhage, carotid dissection, TIA, I reviewed previous medical records including lab results, with the following summary comments: EMS glucose 144. I personally reviewed the lab result(s) and my interpretation is documented in ED Course and no significant findings. I personally reviewed the radiology image(s). The Radiology exam interpretation(s) is/are abnormal, with the following comments: Patient does have a left-sided narrowing of his carotid artery calcification. Patient does not demonstrate any acute intraparenchymal intracranial hemorrhage.. I independently reviewed the ECG tracing and my interpretation is normal, with the following comments: Independently reviewed the EKG results which demonstrated a normal EKG. Patient was in a regular rate and with sinus rhythm, intervals were normal, axis was normal, T-waves rice for electric with good R- wave progression. Case reviewed with other health personal carer, including Neurology. CPR: No CPR performed. NIH Stroke Scale 1A. Level of Consciousness: Alert, Keenly Responsive 1B. Ask Month and Age: Both Questions Right 1C. Blink Eyes & Squeeze Hands: Performs Both Tasks 2. Best Gaze: Partial Gaze Palsy 3. Visual: Partial Hemianopia 4. Facial Palsy: Partial Paralysis 5A. Motor - Left Arm: Drift 5B. Motor - Right Arm: No Drift 6A. Motor - Left Leg: No Drift 6B. Motor - Right Leg: No Drift 7. Limb Ataxia: Present in One Limb 8. Sensory Loss: Normal 9. Best Language: No Aphasia 10. Dysarthria: Iltf-tg-Psxhawik Dysarthria 11. Extinction and Inattention: Visual, Tactile, Auditory, Spatial, or Personal Inattention NIH Stroke Scale: 8 Final Diagnoses: as of 05/04/22 1246 Stroke (HCC) Change Mental Status Decline Functional Status Yemi Rodriguez M.D., Ph.D. Resident 05/04/22 1113 Yemi Rodriguez M.D., Ph.D. Resident 05/04/22 1246 Marquis Leach M.D., M.P.H. - 05/04/2022 10:08 AM CDT I have personally seen and examined this patient. I have fully participated in the care of this patient. I have reviewed all clinical information including history, physical exam, orders, and plan. I agree with the note of the resident. IMPRESSION AND PLAN This patient is a 71-year-old gentleman with a history of COPD, atrial fibrillation and smoking, unknown if active or former smoker. The patient went to bed last night feeling normal around 10:00 p.m..Woke up around 7 this morning with left-sided facial droop, drooling and 1 episode of vomiting and had left- sided weakness. He denies any pain, fever or chills. Blood sugar reported by EMS as 144. The patient is not anticoagulated but takes an aspirin a day. I do not see any records in our system since 2018 and also not anymore recent outside records. Exam notable for slurred speech, left-sided facial droop, left upper extremity pronator drift and inattention or difficulty following commands Code stroke activated, EKG obtained demonstrates sinus rhythm with normal electrical axis and intervals. ST segments are isoelectric and T-waves upright. Will obtain labs including point of care VBG toevaluate for hypercapnia as a possible explanation for his inattention though I think that his stroke is the much more likely cause also of that symptom. Neurology here and DIFFERENTIAL DIAGNOSIS Hemorrhagic stroke, ischemic stroke, cervical artery dissection, hyperglycemia, hypercapnia I reviewed previous medical records including documentation from previous visits. I independently reviewed the ECG tracing and my interpretation is normal. Case reviewed with other health personal carer, including Neurology. ED Course as of 05/04/22 1442 Sun May 04, [address] Head Perfusion with IV Contrast IMPRESSION: 1. Acute right M2 occlusion. 2. Penumbra 74 mL. Infarct core 32 mL. 3. 30-40% stenosis of the right carotid bulb by calcified and noncalcified plaque. EXAM: CT HEAD ACUTE STROKE PROTOCOL WITHOUT IV CONTRAST, CT HEAD NECK ANGIOGRAM WITH IV CONTRAST, CT HEAD PERFUSION WITH IV CONTRAST Including 3D image post-processing. COMPARISON: None FINDINGS: HEAD: Loss of the hu-white differentiation in the right insula and right frontal lobe compatible with right MCA territory infarct. Possible hyperdense right MCA. No other acute findings. CTA: Acute occlusion of the proximal right M2 superior branch just beyond the bifurcation (4/376 see screen shot images). Mixed calcified and uncalcified right carotid bulb plaque with 30-40% stenosis. The origin of the right vertebral artery is not well visualized, possibly due to motion or stenosis. The remaining carotid, vertebral, and major intracranial arteries are negative for stenosis, occlusion, or aneurysmal dilatation. PERFUSION: Penumbra volume: 74 mL Infarcted core: 32 mL Mismatch volume: 42 mL Mismatch ratio: 2.3 OTHER: Mild diffuse cervical spondylosis and facet arthritis. Mild emphysema in the lung apices. 1236 INR: 1.0 Final Diagnoses: as of 05/04/22 1442 Stroke (HCC) Change Mental Status Decline Functional Status Marquis Leach M.D., M.P.H. 05/04/22 1012 Marquis Leach M.D., M.P.H. 05/04/22 1234 Marquis Leach M.D., M.P.H. 05/04/22 1443 documented in this encounter Miscellaneous Notes Hospital Course - Je Marrero M.D. - 05/05/2022 1:04 PM CDT Carlos Manuel Montaño is a 71 y.o. 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 He was in his usual state of health when he went to bed on 05/03 at 2200 then awoke on 05/04 with L hemiparesis, L neglect, L facial droop. NIHSS on admission was 6. CT/CTA/CTP revealed an M2 thrombus and mismatch volume of 42 mL for which he received thrombectomy with TICI 2c reperfusion. During the mechanical thrombectomy there was concern that there was also VIRAL involvement and subsequently developed left lower extremity weakness. Post- mechanical thrombectomy NIHSS was scored as a 10 in the IR Suite. He was admitted to the NeuroICU for post-thrombectomy monitoring and his exam significantly improvedwith essentially complete resolution of his neurological deficits over the next 24 hrs. He was stable for transfer to the Stroke service on 05/05. Regarding his stroke mechanism workup, initial ECG and cardiac monitoring was negative for afib, buton 05/06 he had new irregular heart rate and ECG confirmed new diagnosis of atrial fibrillation and he was started on metoprolol. CTA and MRA demonstrated approximately 30-40% stenosis at the R carotid bulb for no features of unstable plaque. CT cardiac angiogram demonstrated a normal L atrial size andno thrombus in the L atrial appendage. TTE with bubble study was normal with no evidence of an intracardiac shunt. MRI brain on 05/05 showed diffusion restriction in the R insula with petechial hemorrhage. Of note, he had a documented history of atrial fibrillation in the context of Legionnaire's pneumo naida in 2008 however did not proceed with anticoagulation due to GI bleed and was initiated on aspirin. No further workup for following of atrial fibrillation per chart review. For his new diagnosis of atrial fibrillation, he was seen by cardiology and repeat ECG demonstrated continued Afib but resolved RVR, rate 92. Following consult, cardiology recommended transitioning to metoprolol succinate 50mg post- discharge. Cardiology recommended the patient check his heart rate once daily until his PCP follow up in 1-2 weeks with another ECG. Outpatient cardiology follow up will be determined by the PCP. For therapeutic anticoagulation, rivaroxaban will be initiated on 05/13. His 81 mg daily aspirin will be discontinued once rivaroxaban has been initiated (last day 05/12). His LDL was 94 and his atorvastatin was increased to 40 mg daily. We extensively counseled him on smoking cessation, and he politely declined. A1C was 5.4%. PMR/PT/OT/ENCODING CLERK evaluated him and recommended discharge home with 24 hr supervision and outpatient follow up before return to work and driving. We counseled him to avoid driving until he has a driving evaluation by the [employer] or [employer]. A list of providers through [employer] was given to him at the time of discharge. Discharge Physical Exam Physical Exam: Constitutional: well-developed, well-nourished, resting comfortably in bed Lungs: Breathing comfortably on NC. Clear to auscultation bilaterally. Cardiac: regular rate and rhythm Abdomen: Soft, non-tender, non-distended. Skin: No rash on exposed skin. Neurologic: Mental status: Alert, orientated, restricted affect Speech: Clear. Language: No evidence of aphasia. Faint dysarthria, however does not have dentures Cranial nerves: PERRL, EOMI, visual mendez intact to confrontation, facial movements full and symmetric, sensation intact to light touch and pinprick in the V1-V3 distributions, hearing intact to voice, tongue protrudes in midline, there is equal elevation of the soft palate, shoulder shrug is appropriate in strength. Motor: Motor Deltoid Biceps Triceps Wrist ext Finger abd Finger extensor Hip flex Hip ext Knee flex Knee ext Ankle flex Ankle ext R 0 0 0 0 0 0 0 0 0 0 0 0 L 0 0 0 0 0 0 0 0 0 0 0 0 No Pronator Drift, however, Satellite sign indicates L arm weakness (has chronic L arm weakness due to remote elbow injury). Sensory: Sensation is intact touch Reflexes: Biceps Brachiorad Triceps Knee Ankle Plantar R 0 0 0 0 0 flexor L 0 0 0 0 0 flexor Coordination: Finger to nose and heel to zamudio are normal bilaterally. No sensory neglect Gait: no gait abnormalities documented in this encounter Plan of Treatment Upcoming Encounters Date Type Specialty Care Team Description 06/17/2022 Office Visit Neurology Sourav Gregg M.D. [address] [place], [place] [phone] (Wo rk) Scheduled Orders Name Type Priority Associated Diagnoses Order S chedule US Carotid Imaging RAD - Routine (most Stroke (HCC) Expected : Bilateral inpatients and all 3 outpatients) (Approximate), Expires: 08/06/2023 Scheduled Referrals Name Type Priority Associated Order Schedule Diagnoses Neurology office visit Outpatient Referral Routine Expected: (clinic) 06/10/2022, Expires: 08/06/2023 Physical Medicine and Outpatient Referral Routine Stroke (HCC) Expected: Rehabilitation - 05/06/2022 General consult (Approximate ), (clinic) Expires: 08/06/2023 documented as of this encounter Procedures Procedure Name Priority Date/Time Associated Comments Diagnosis ECG Routine 05/07/2022 Results for 10:01 AM CDT this procedure are in the results section. HOLTER MONITOR - IN Routine 05/07/2022 8:52 Stroke (HCC) Resul ts for [facility] AM CDT this procedur e are in the results section. ECG Routine 05/06/2022 Results for 10:06 PM CDT this procedure are in the results section. ECG Routine 05/06/2022 5:51 Results for PM CDT this procedure are in the results section. CT CARDIAC ANGIOGRAM RAD - Routine 05/06/2022 Result s for WITH IV CONTRAST (most inpatients 10:37 AM CDT this pr ocedure and all are in the outpatients) results section. MR BRAIN WITHOUT IV RAD - Routine 05/05/2022 6:11 Resu lts for CONTRAST (most inpatients PM CDT this proced ure and all are in the outpatients) results section. MR NECK ANGIOGRAM RAD - Routine 05/05/2022 6:11 Result s for WITHOUT AND WITH IV (most inpatients PM CDT this procedure CONTRAST and all are in the outpatients) results section. (TTE) 2D ECHO DOPPLER Routine 05/05/2022 4:09 Res ults for COLOR AND CONTRAST PM CDT this proc edure are in the results section. LIPID PANEL, S Routine 05/05/2022 4:21 Results fo r AM CDT this procedure are in the results section. CBC WITHOUT Routine 05/05/2022 4:21 Results for DIFFERENTIAL, B AM CDT this procedu re are in the results section. MAGNESIUM, S Routine 05/05/2022 4:21 Results for AM CDT this procedure are in the results section. HEMOGLOBIN A1C, B Routine 05/05/2022 4:21 Results for AM CDT this procedure are in the results section. BASIC METABOLIC PANEL, Routine 05/05/2022 4:21 Re sults for S/P AM CDT this procedure are in the results section. SARS CORONAVIRUS 2, Routine 05/04/2022 2:09 Resul ts for RNA, RAPID POC, V PM CDT this proce dure are in the results section. RESPIRATORY ASSESS AND Routine 05/04/2022 2:00 TREAT PM CDT DX CHEST PORTABLE 1 RAD - Routine 05/04/2022 1:49 Resu lts for VIEW (most inpatients PM CDT this proced ure and all are in the outpatients) results section. TROPONIN T, 2H/6H, 5TH STAT 05/04/2022 Resul ts for GEN, P 12:55 PM CDT this procedure are in the results section. ACTIVATED PARTIAL STAT 05/04/2022 Results fo r THROMBOPLASTIN TIME 12:55 PM CDT this pro cedure (APTT), P are in the results section. PROTHROMBIN TIME (PT), STAT 05/04/2022 Resul ts for P 12:55 PM CDT this procedure are in the results section. TYPE AND SCREEN STAT 05/04/2022 Results for 12:55 PM CDT this procedure are in the results section. ALANINE STAT 05/04/2022 Results for AMINOTRANSFERASE (ALT), 12:55 PM CDT this procedure S/P are in the results section. ASPARTATE STAT 05/04/2022 Results for AMINOTRANSFERASE (AST), 12:55 PM CDT this procedure S/P are in the results section. THYROID-STIMULATING STAT 05/04/2022 Results for HORMONE-SENSITIVE 12:55 PM CDT this proce dure (S-TSH) are in the results section. PHOSPHORUS (INORGANIC), STAT 05/04/2022 Resu lts for S 12:55 PM CDT this procedure are in the results section. MAGNESIUM, S STAT 05/04/2022 Results for 12:55 PM CDT this procedure are in the results section. RESPIRATORY ASSESS AND Routine 05/04/2022 TREAT 12:02 PM CDT IR CEREBRAL RAD - Routine 05/04/2022 Results for INTRACRANIAL ARTERY (most inpatients 11:58 AM CDT this procedure THROMBECTOMY and all are in the outpatients) results section. CRITICAL CARE Routine 05/04/2022 Results for 10:56 AM CDT this procedure are in the results section. CT HEAD ACUTE STROKE RAD - Emergent 05/04/2022 Resul ts for PROTOCOL WITHOUT IV (Fastest; for 10:46 AM CDT this pr ocedure CONTRAST the most are in the critically ill results patients) section. CT HEAD PERFUSION WITH RAD - Semiurgent 05/04/2022 R esults for IV CONTRAST (Fast; most ED 10:46 AM CDT this procedur e patients; some are in the inpatients) results section. CT HEAD NECK ANGIOGRAM RAD - Emergent 05/04/2022 Res ults for WITH IV CONTRAST (Fastest; for 10:46 AM CDT this proce dure the most are in the critically ill results patients) section. VBG & LYTES CG8+, POCT, STAT 05/04/2022 Resu lts for B 10:14 AM CDT this procedure are in the results section. TROPONIN T, BASELINE, STAT 05/04/2022 Result s for 5TH GEN, P 10:14 AM CDT this procedure are in the results section. LACTATE, POCT, B STAT 05/04/2022 Results for 10:14 AM CDT this procedure are in the results section. ACTIVATED PARTIAL STAT 05/04/2022 Results fo r THROMBOPLASTIN TIME 10:14 AM CDT this pro cedure (APTT), P are in the results section. PROTHROMBIN TIME (PT), STAT 05/04/2022 Resul ts for P 10:14 AM CDT this procedure are in the results section. CBC WITHOUT STAT 05/04/2022 Results for DIFFERENTIAL, B 10:14 AM CDT this procedu re are in the results section. BASIC METABOLIC PANEL, STAT 05/04/2022 Resul ts for S/P 10:14 AM CDT this procedure are in the results section. VBG & LYTES CG8+, POCT, Routine 05/04/2022 Resu lts for B 10:12 AM CDT this procedure are in the results section. LACTATE, POCT, B Routine 05/04/2022 Results for 10:12 AM CDT this procedure are in the results section. ECG STAT 05/04/2022 Results for 10:00 AM CDT this procedure are in the results section. documented in this encounter Results ECG 12 Lead (05/07/2022 10:01 AM CDT) Patholo gist Method Time Signature Ventricular 92 BPM MUSE Rate ECG/Min QRSD Interval 90 ms MUSE QT Interval 348 ms MUSE QTC Interval 430 ms MUSE R [place] 47 degrees MUSE T Wave [place] 68 degrees MUSE CODED Atrial MUSE DIAGNOSIS fibrillation Specimen Anatomical Collection Method Collection Time Receive d Time (Source) Location / / Volume Laterality 05/07/2022 10:01 05/07/2022 AM CDT 10:08 AM CDT Impressions MUSE - 05/07/2022 10:08 AM CDT Coarse Atrial fibrillation with premature ventricular or aberrantly conducted complexes Incomplete right bundle branch block Nonspecific ST and T wave abnormality When compared with ECG of 06-MAY-2022 22 :06, Vent. rate has decreased BY ??57 BPM Reviewed by LLUVIA Velasco Narrative This result has an attachment that is no t available. Procedure Note Mikal Gallagher M.D. - 05/07/2022Formatt ing of this note might be different from the original. IMPRESSION: Coarse Atrial fibrillation with premature ventricular or aberrantly conducted complexes Incomplete right bundle branch block Nonspecific ST and T wave abnormality When compared with ECG of 06-MAY-2022 22 :06, Vent. rate has decreased BY 57 BPM Reviewed by LLUVIA Velasco Je Marrero M.D. ECG ORDERABLES Performing Organization Address City/State/ZIP Code Phon e Number MUSE MUSE NA HOLTER MONITOR - IN [facility] (05/07/2022 8:52 AM CDT) P athologist Signature Min Heart Rate 66 bpm [facility] Max Heart Rate 189 bpm [facility] Mean Heart 79 bpm INFO[facility] Rate MOME VE Total Beats 9670 count [facility] VE Percent 6 percent [facility] Beats MOME SVE Total 2696 count [facility] Beats MOME SVE Percent 2 percent [facility] Beats MOME AF Count 1 count [facility] AF Duration 18h 54m duration [facility] AF [place] 80 percent [facility] Longest AF 18h 59m duration INFO[facility] Duration MOME Symptom Count 0 count [facility] Specimen (Source) Anatomical Collection Method Collection Time Re ceived Time Location / / Volume Laterality 05/06/2022 9:23 AM CDT Narrative [facility] - 05/08/2022 12:14 PM CD T Sonam 1. The basic rhythm was atrial fibrillat ion/flutter. The recording began in sinus rhythm and then switched to atrial fibrillation/flutter on 05/06/2022 15:59 for the remainder of the recording. The tota l analyzed time was 23h 42m. The heart r ate varied from 66 (sinus) to 189 (A-fib/flutter) b pm. The average HR was 79 bpm. There was an AF burden of 80%. The longest AF duration was 18h 59m. The total time in AF was 18h 54m. 2. Premature ventricular and/or aberrant ly conducted complexes were noted singly, in bigeminy, in trigeminy, in pairs, in eight 4 beat runs of non- sustained ventricular tachycardia or aberrantly conduct ed beats during atrial fibrillation, wit h a maximum rate of 214 BPM and in thirteen beat manjit tricular runs with a maximum rate of 203 BPM. There were 9670 PVCs recorded with a PVC burden of 6%. 3. Premature supraventricular complexes were noted singly, with aberrancy, in bigeminy, in pairs and in five 3 to 7 beat atrial runs with a maximum rate of 122 BPM. Non-conducted PACs were noted singly and in bigeminy. There were 2696 PACs re corded with a PAC burden of 2%. 4. No symptomatic events were noted. Wire Drawing Machine Operator: Samantha Yañez/Beatrice A Holter monitor with cascade to extende d monitoring was ordered for the indication of Atrial fibrillation or flutter calculate burden/% time in AF. During the Holter monitoring period, the patient did experience have atrial fibrillation or f lutter >=30. Therefore, the study was not cascaded to extended monitoring. Procedure Note Chantel Caraballo M.D., Ph.D. - 05/08/2022Fo rmatting of this note might be different from the original. Sonam 1. The basic rhythm was atrial fibrillat ion/flutter. The recording began in sinus rhythm and then switched to atrial fibrillation/flutter on 05/06/2022 15:59 for the remainder of the recording. The total analyzed time was 23h 42m. The heart rate varied from 66 (sinus) to 189 (A-fib/flutter) b pm. The average HR was 79 bpm. There was an AF burden of 80%. The longest AF duration was 18h 59m. The total time in AF was 18h 54m. 2. Premature ventricular and/or aberrant ly conducted complexes were noted singly, in bigeminy, in trigeminy, in pairs, in eight 4 beat runs of non- sustained ventricular tachycardia or aberrantly conducted beats during atrial fibrillation, with a maximum rate of 214 BPM and in thirteen beat manjit tricular runs with a maximum rate of 203 BPM. There were 9670 PVCs recorded with a PVC burden of 6%. 3. Premature supraventricular complexes were noted singly, with aberrancy, in bigeminy, in pairs and in five 3 to 7 beat atrial runs with a maximum rate of 122 BPM. Non-conducted PACs were noted singly and in bigeminy. There were 2696 PACs recorded with a PAC burden of 2%. 4. No symptomatic events were noted. Wire Drawing Machine Operator: Samantha Yañez/Beatrice A Holter monitor with cascade to extende d monitoring was ordered for the indication of Atrial fibrillation or flutter calculate burden/% time in AF. During the Holter monitoring period, the patient did experience have atrial fibrillation or flutter >=30. Therefore, the study was not cascaded to extended monitoring. Benjy Gregg M.D. CV CARDIAC SERVICES PROCEDUR ES Performing Organization Address City/State/ZIP Code Phon e Number [facility] NA ECG 12 Lead (05/06/2022 10:06 PM CDT) [facility] Method Time Signature Ventricular 149 BPM MUSE Rate ECG/Min QRSD Interval 88 ms MUSE QT Interval 268 ms MUSE QTC Interval 422 ms MUSE R [place] 78 degrees MUSE T Wave [place] 61 degrees MUSE CODED Atrial MUSE DIAGNOSIS fibrillation Specimen Anatomical Collection Method Collection Time Receive d Time (Source) Location / / Volume Laterality 05/06/2022 10:06 05/06/2022 PM CDT 10:13 PM CDT Impressions MUSE - 05/06/2022 10:13 PM CDT Atrial fibrillation with rapid ventricular response with premature ventricular or aberrantly conducted complexes Nonspecific ST abnormality When compared with ECG of 06-MAY-2022 17 :51, No significant change was found Reviewed by LLUVIA Stearns Narrative This result has an attachment that is no t available. Procedure Note Gopal Martines M.D., Ph.D. - 2 IMPRESSION: Atrial fibrillation with rapid ventricul ar response with premature ventricular or aberrantly conducted complexes Nonspecific ST abnormality When compared with ECG of 06-MAY-2022 17 :51, No significant change was found Reviewed by LLUVIA Stearns Kathleen Collins, B.Ch., B.A.O. ECG ORDERABLES Performing Organization Address City/State/ZIP Code Phon e Number MUSE MUSE NA ECG 12 Lead (05/06/2022 5:51 PM CDT) [facility] Method Time Signature Ventricular 132 BPM MUSE Rate ECG/Min QRSD Interval 88 ms MUSE QT Interval 262 ms MUSE QTC Interval 388 ms MUSE R [place] 65 degrees MUSE T Wave [place] 63 degrees MUSE CODED Atrial MUSE DIAGNOSIS fibrillation Specimen Anatomical Collection Method Collection Time Receive d Time (Source) Location / / Volume Laterality 05/06/2022 5:51 PM 2 6:02 CDT PM CDT Impressions MUSE - 05/06/2022 6:02 PM CDT Atrial fibrillation with rapid ventricular response with premature ventricular or aberrantly conducted complexes Nonspecific ST abnormality When compared with ECG of 04-MAY-2022 10 :00, Significant changes have occurred Reviewed by LLUVIA Baires Narrative This result has an attachment that is no t available. Procedure Note Gopal Martines M.D., Ph.D. - 2 IMPRESSION: Atrial fibrillation with rapid ventricul ar response with premature ventricular or aberrantly conducted complexes Nonspecific ST abnormality When compared with ECG of 04-MAY-2022 10 :00, Significant changes have occurred Reviewed by LLUVIA Baires Benjy Gregg M.D. ECG ORDERABLES Performing Organization Address City/State/ZIP Code Phon e Number MUSE MUSE NA CT Cardiac Angiogram with IV Contrast (05/06/2022 10:37 AM CDT) Anatomical Region Laterality Modality Cardiac, Cardiovascular RST LOS, N/A Compute d Tomography, Computed Thoracic ARZ LOS, Cardiovascular FLA Jean Claude ography LOS Specimen (Source) Anatomical Collection Method Collection Time Re ceived Time Location / / Volume Laterality 05/06/2022 11:07 AM CDT Impressions 05/06/2022 11:45 AM CDT 1. ??No significant mobile plaque or thrombus of the thoracic aorta. 2. ??No intracardiac thrombus. 3. ??Mild thickening of mitral valve mat flets without discrete mass . 4. ??Bronchial thickening and mucus plug ging in bilateral lower lobes and right middle lobe and clustered nodular opacities in the right lower lobe could be due to infection or aspiration. 5. ??Enlarged hilar lymph nodes could be reactive. Narrative 05/06/2022 11:45 AM CDT EXAM: ??CT CARDIAC ANGIOGRAM WITH IV CONTRAST Including 3D image post-processing. COMPARISON: ??None. ? FINDINGS: ? CARDIOVASCULAR FINDINGS: ?? PULMONARY ARTERIES: No pulmonary emboli. ??The central pulmo nary arteries are normal in caliber. THORACIC AORTA: ??Normal caliber. Minima l atherosclerosis of ascending aorta, moderate atherosclerosis of arch and the severe, predominantly noncalcific atherosclerosis of the descending thoracic aorta. Small ulcerations are se en in descending thoracic aorta. No irregular, or mobile plaque or thrombus. Left sided aortic ar ch with normal 3-vessel arch branching pattern. Noncalcific atherosclerosis in the proximal and dist al left subclavian artery with minimal to mild luminal stenosis. Minimal atherosclerosis of oth er arch branch vessels. CARDIAC VALVES: Normal aortic valve thic kness. Mild thickening of the mitral valve leaflets. No nodularity, thrombus, vegetation, or yordan cification. ??Minimal mitral annular calcification. Trileaflet aortic valve. LEFT VENTRICLE: No left ventricular thro mbus. Normal left ventricular size. No regional wall motion abnormalities. Estimated ejection fracti on: ??55 % Normal wall thickness. LEFT ATRIUM: No thrombus in the left atr ium or atrial appendage. Normal size left atrium. OTHER CARDIOVASCULAR FINDINGS: No evidence of right to left shunting. N o atrial septal or ventricular septal defect seen. Conventional pulmonary venous anatomy wi th all pulmonary veins draining into the left atrium. ADDITIONAL FINDINGS: ? * ??Trachea and central bronchi are novoa nt. No central endobronchial lesion. Mild upper lobe predominant centrilobular emphysema. Dif fuse bronchial wall thickening, greater in the right middle and bilateral lower lobes associated wit h mucous plugging and minimal opacities. A few clustered nodular opacities are seen in the superi or right lower lobe. No pulmonary consolidation, pleural effusion or pneumothorax. * ??Mildly enlarged hilar lymph nodes, m easuring measuring up to 15 mm on the right (series 5, image 155), likely reactive. Visualized thyroi d gland is normal. * ??Degenerative changes of the spine. Procedure Note Akin Simpson M.B.B.S., M.D. - 11/2021 EXAM: CT CARDIAC ANGIOGRAM WITH IV CONTR AST Including 3D image post-processing. COMPARISON: None. FINDINGS: CARDIOVASCULAR FINDINGS: PULMONARY ARTERIES: No pulmonary emboli. The central pulmona ry arteries are normal in caliber. THORACIC AORTA: Normal caliber. Minimal atherosclerosis of ascending aorta, moderate atherosclerosis of arch and the severe, predominantly noncalcific atherosclerosis of the descending thoracic aorta. Small ulcerations are se en in descending thoracic aorta. No irregular, or mobile plaque or thrombus. Left sided aortic ar ch with normal 3-vessel arch branching pattern. Noncalcific atherosclerosis in the proximal and dist al left subclavian artery with minimal to mild luminal stenosis. Minimal atherosclerosis of oth er arch branch vessels. CARDIAC VALVES: Normal aortic valve thic kness. Mild thickening of the mitral valve leaflets. No nodularity, thrombus, vegetation, or yordan cification. Minimal mitral annular calcification. Trileaflet aortic valve. LEFT VENTRICLE: No left ventricular thro mbus. Normal left ventricular size. No regional wall motion abnormalities. Estimated ejection fracti on: 55 % Normal wall thickness. LEFT ATRIUM: No thrombus in the left atr ium or atrial appendage. Normal size left atrium. OTHER CARDIOVASCULAR FINDINGS: No evidence of right to left shunting. N o atrial septal or ventricular septal defect seen. Conventional pulmonary venous anatomy wi th all pulmonary veins draining into the left atrium. ADDITIONAL FINDINGS: * Trachea and central bronchi are patent . No central endobronchial lesion. Mild upper lobe predominant centrilobular emphysema. Dif fuse bronchial wall thickening, greater in the right middle and bilateral lower lobes associated wit h mucous plugging and minimal opacities. A few clustered nodular opacities are seen in the superi or right lower lobe. No pulmonary consolidation, pleural effusion or pneumothorax. * Mildly enlarged hilar lymph nodes, hector suring measuring up to 15 mm on the right (series 5, image 155), likely reactive. Visualized thyroi d gland is normal. * Degenerative changes of the spine. IMPRESSION: 1. No significant mobile plaque or throm bus of the thoracic aorta. 2. No intracardiac thrombus. 3. Mild thickening of mitral valve leafl ets without discrete mass . 4. Bronchial thickening and mucus pluggi ng in bilateral lower lobes and right middle lobe and clustered nodular opacities in the right lower lobe could be due to infection or aspiration. 5. Enlarged hilar lymph nodes could be r eactive. Mary SANDERS CT PROCEDURES MR Neck Angiogram without and with IV Contrast (05/05/2022 6:11 PM CDT) Anatomical Region Laterality Modality Neck, Neuroradiology RST [facility], Neuroradiology ARZ [facility], N/A Magnetic Resonance Neuroradiology [facility] Specimen (Source) Anatomical Collection Method Collection Time Re ceived Time Location / / Volume Laterality 05/05/2022 6:16 PM CDT Impressions 05/05/2022 7:26 PM CDT 1. Evolving acute right MCA territory infarct with petechial hemorrhage in the right insula infarct. No organized parenchymal hematoma. 2. Right carotid bulb plaque with mild l uminal narrowing. No evidence of intraplaque hemorrhage. 3. At least moderate right vertebral art carri origin narrowing. Narrative 05/05/2022 7:26 PM CDT EXAM: MR BRAIN WITHOUT IV CONTRAST, MR NECK ANGIOGRAM WITHOUT AND WITH IV CONTRAST COMPARISON: CTA head and neck on 022. Head CT 05/04/2022. FINDINGS: MRI BRAIN: Areas of restricted diffusion, largest in the right insula/frontal operculum, smaller areas of restricted diffusion in the right parietal lobe, right posterior temporal lobe and tiny foci of restricted diffusion in the right frontal lobe, consistent with evolving acute right MCA territory infarcts. Associated edema and mild gyral expansion without significant midline shift or brain parenchymal herniation. Area of susceptibility signal within the right insula, consistent some petechial hemorrhage. No organized parenchymal hematoma. Superimposed mild scattered leukoaraiosis. Mild to moderate generali zed cerebral volume loss. Scattered mild paranasal sinus mucosal thickening. Small amount of flui d in the right mastoid air cells. MRA NECK: Right carotid bulb plaque caus ing mild, approximately 30% luminal narrowing. No intrinsic T1 hyperintensity within the plaque to s uggest intraplaque hemorrhage or fatty plaque. Normal antegrade flow within the cervica l arterial vasculature. The origin of the right vertebral artery is not well visualized, likely du e to combination of motion artifact and at least moderate narrowing. Vertebral arteries are incomp lete included in this study. No significant narrowing in remainder of the visualized cervical art erial vasculature. Procedure Note Aki Mukherjee M.D. - 05/05/2022Formatti ng of this note might be different from the original. EXAM: MR BRAIN WITHOUT IV CONTRAST, MR N BRAYAN ANGIOGRAM WITHOUT AND WITH IV CONTRAST COMPARISON: CTA head and neck on 022. Head CT 05/04/2022. FINDINGS: MRI BRAIN: Areas of restricted diffusion, largest in the right insula/frontal operculum, smaller areas of restricted diffusion in the right parietal lobe, right posterior temporal lobe and tiny foci of restricted diffusion in the right frontal lobe, consistent with evolving acute right MCA territory infarcts. Associated edema and mild gyral expansion without significant midline shift or brain parenchymal herniation. Area of susceptibility signal within the right insula, consistent some petechial hemorrhage. No organized parenchymal hematoma. Superimposed mild scattered leukoaraiosis. Mild to moderate generali zed cerebral volume loss. Scattered mild paranasal sinus mucosal thickening. Small amount of flui d in the right mastoid air cells. MRA NECK: Right carotid bulb plaque caus ing mild, approximately 30% luminal narrowing. No intrinsic T1 hyperintensity within the plaque to s uggest intraplaque hemorrhage or fatty plaque. Normal antegrade flow within the cervica l arterial vasculature. The origin of the right vertebral artery is not well visualized, likely du e to combination of motion artifact and at least moderate narrowing. Vertebral arteries are incomp lete included in this study. No significant narrowing in remainder of the visualized cervical art erial vasculature. IMPRESSION: 1. Evolving acute right MCA territory in farct with petechial hemorrhage in the right insula infarct. No organized parenchymal hematoma. 2. Right carotid bulb plaque with mild l uminal narrowing. No evidence of intraplaque hemorrhage. 3. At least moderate right vertebral art carri origin narrowing. Clinton Díaz APRN, C.N.P., M.S.N. G MRI PROCEDURES MR Brain without IV Contrast (05/05/2022 6:11 PM CDT) Anatomical Region Laterality Modality Head, Brain, Neuroradiology RST LOS, Neuroradiology ARZ N/A Magnetic Resonance LOS, Neuroradiology FLA LOS Specimen (Source) Anatomical Collection Method Collection Time Re ceived Time Location / / Volume Laterality 05/05/2022 6:16 PM CDT Impressions 05/05/2022 7:26 PM CDT 1. Evolving acute right MCA territory infarct with petechial hemorrhage in the right insula infarct. No organized parenchymal hematoma. 2. Right carotid bulb plaque with mild l uminal narrowing. No evidence of intraplaque hemorrhage. 3. At least moderate right vertebral art carri origin narrowing. Narrative 05/05/2022 7:26 PM CDT EXAM: MR BRAIN WITHOUT IV CONTRAST, MR NECK ANGIOGRAM WITHOUT AND WITH IV CONTRAST COMPARISON: CTA head and neck on 022. Head CT 05/04/2022. FINDINGS: MRI BRAIN: Areas of restricted diffusion, largest in the right insula/frontal operculum, smaller areas of restricted diffusion in the right parietal lobe, right posterior temporal lobe and tiny foci of restricted diffusion in the right frontal lobe, consistent with evolving acute right MCA territory infarcts. Associated edema and mild gyral expansion without significant midline shift or brain parenchymal herniation. Area of susceptibility signal within the right insula, consistent some petechial hemorrhage. No organized parenchymal hematoma. Superimposed mild scattered leukoaraiosis. Mild to moderate generali zed cerebral volume loss. Scattered mild paranasal sinus mucosal thickening. Small amount of flui d in the right mastoid air cells. MRA NECK: Right carotid bulb plaque caus ing mild, approximately 30% luminal narrowing. No intrinsic T1 hyperintensity within the plaque to s uggest intraplaque hemorrhage or fatty plaque. Normal antegrade flow within the cervica l arterial vasculature. The origin of the right vertebral artery is not well visualized, likely du e to combination of motion artifact and at least moderate narrowing. Vertebral arteries are incomp lete included in this study. No significant narrowing in remainder of the visualized cervical art erial vasculature. Procedure Note Aki Mukherjee M.D. - 05/05/2022Formatti ng of this note might be different from the original. EXAM: MR BRAIN WITHOUT IV CONTRAST, MR N BRAYAN ANGIOGRAM WITHOUT AND WITH IV CONTRAST COMPARISON: CTA head and neck on 022. Head CT 05/04/2022. FINDINGS: MRI BRAIN: Areas of restricted diffusion, largest in the right insula/frontal operculum, smaller areas of restricted diffusion in the right parietal lobe, right posterior temporal lobe and tiny foci of restricted diffusion in the right frontal lobe, consistent with evolving acute right MCA territory infarcts. Associated edema and mild gyral expansion without significant midline shift or brain parenchymal herniation. Area of susceptibility signal within the right insula, consistent some petechial hemorrhage. No organized parenchymal hematoma. Superimposed mild scattered leukoaraiosis. Mild to moderate generali zed cerebral volume loss. Scattered mild paranasal sinus mucosal thickening. Small amount of flui d in the right mastoid air cells. MRA NECK: Right carotid bulb plaque caus ing mild, approximately 30% luminal narrowing. No intrinsic T1 hyperintensity within the plaque to s uggest intraplaque hemorrhage or fatty plaque. Normal antegrade flow within the cervica l arterial vasculature. The origin of the right vertebral artery is not well visualized, likely du e to combination of motion artifact and at least moderate narrowing. Vertebral arteries are incomp lete included in this study. No significant narrowing in remainder of the visualized cervical art erial vasculature. IMPRESSION: 1. Evolving acute right MCA territory in farct with petechial hemorrhage in the right insula infarct. No organized parenchymal hematoma. 2. Right carotid bulb plaque with mild l uminal narrowing. No evidence of intraplaque hemorrhage. 3. At least moderate right vertebral art carri origin narrowing. Clinton Díaz APRN, C.N.P., M.S.N. [facility] MRI PROCEDURES (TTE) 2D ECHO DOPPLER COLOR AND CONTRAST (05/05/2022 4:09 PM CDT) [facility] Method Time Signature Ejection Fraction 66 MC CV EIMS Sinus of Valsalva 35 MC CV EIMS Proximal Ascending 33 MC CV EIMS Aorta LV Mass Index 85 MC CV EIMS LV End-Diastolic 49 MC CV EIMS Diameter LV End-Systolic 34 MC CV EIMS Diameter MV E Velocity 0.60 MC CV EIMS MV A Velocity 0.60 MC CV EIMS MV E/A 1 MC CV EIMS MV e' Velocity 0.07 MC CV EIMS Medial MV e' Velocity 0.14 MC CV EIMS Lateral MV E/e' Medial 8.60 MC CV EIMS MV E/e' Lateral 4.30 MC CV EIMS Left ventricular 43 MC CV EIMS stroke volume index Cardiac Output 5.90 MC CV EIMS Cardiac Index 3.07 MC CV EIMS LV Interventricular 10 MC CV EIMS Septal Wall Thickness LV Posterior Wall 9 MC CV EIMS Thickness LV Relative Wall 37 MC CV EIMS Thickness RA Pressure 10 MC CV EIMS AV mean gradient 2 MC CV EIMS Aortic valve area 4.36 MC CV EIMS Aortic Valve 0.89 MC CV EIMS Dimensionless Index Aortic Valve 1.10 MC CV EIMS Systolic Peak Velocity Anatomical Region Laterality Modality Echocardiography Specimen (Source) Anatomical Collection Method Collection Time Re ceived Time Location / / Volume Laterality 05/05/2022 1:24 PM CDT Impressions 05/05/2022 4:27 PM CDT Echo performed in the ICU. The available image quality was limited from the apical window. Agitated saline contrast administered. No intracardiac or intrapulmonary shunt. LEFT VENTRICLE:Normal left ventricular c hamber size. Normal left ventricular wall thickness. Calculated 2-D monoplane volumetric left ventricular ejection fraction 66% with the use of ultrasound enhanci ng agent. No regional wall motion abnorm alities. Normal left ventricular filling pressure . RIGHT VENTRICLE:Normal right ventricular chamber size by visual estimate. Normal right ventricular systolic function by visual estimate. Unable to detect peak tricuspid regurgitation velocity for pulmonary artery systolic pressure calculation. ATRIA:Enlarged left atrial size by visua l estimate. Normal right atrial size by visual estimate. CARDIAC VALVES:Trileaflet aortic valve. Sclerotic aortic valve. Aortic valve strands (possible strands; clip 51). Trivial aortic valve regurgitation. Thickened mitral valve. Trivial mitral valve regurgi tation. Pulmonary valve not well visuali zed. Normal pulmonary valve systolic velocities. Tri vial pulmonary valve regurgitation. Normal tricuspid valve. Trivial tricuspid valve regurgitation (clip 36) OTHER ECHO FINDINGS:Enlarged inferior ve na cava size with normal inspiratory collapse (>50%). Normal sinus of Valsalva diameter of 35 mm. Upper limit of normal of the sinus of Valsalva for age, sex and BSA is 42 mm. Normal proximal ascending aorta diameter of 33 mm. Upper limit of normal of the mid ascending aorta, for age, sex and BSA is 41 mm. Atherosclerosis in the abdominal aorta. Abdominal aorta incompletely visualized. Normal abdominal aort a Doppler flow pattern. No atrial level shunt by color flow imaging and agitated saline c ontrast injection. No intracardiac mass or thrombus, but the left atrial appendage cannot be visualized adequately with transthoracic echo to exclude thrombus in this location. No ??pericardial effusion . Attempts were made to optimize the echocardiograp hic images and two or more left ventricular segments were not visualized adequately to evaluate cardiac structure. The patient's current allergies and medications have been screened. Intravenous Lumason ultrasound enhancement agent(s) administered to enh ance endocardial border definition. Imaging enhancement agent administered per Echocardiography Contrast Administration Protocol Reference Document [id number]. Sheldon mora met an inclusion criterion and did not have contraindications in screening sections. For the complete report, see the Order-L evel Documents. Narrative 05/05/2022 4:27 PM CDT For the complete report, see the Order-Level Documents. Hemodynamics Heart Rate: 79 BPM Blood Pressure: 146 / 84 mmHg ECG: Normal sinus rhythm, Right bundle b ranch block Final Impressions 1. Normal left ventricular chamber size. ?? Calculated left ventricular ejection fraction 66%. ??No regional wall motion abnormalities. 2. Normal left ventricular filling press ure. 3. Normal right ventricular chamber size by visual estimate. ?? Normal right ventricular systolic function. 4. Sclerotic aortic valve with possible strands. Trivial aortic regurgitation. 5. Enlarged inferior vena cava size with normal inspiratory collapse (>50%). 6. Atherosclerosis in the abdominal aort a. 7. No intracardiac or intrapulmonary shola nt ??by agitated saline contrast injection at rest and with Valsalva. 8. No ??pericardial effusion. Procedure Note Felicita Hobbs M.D., Ph.D. - 2 For the complete report, see the Order-L evel Documents. Hemodynamics Heart Rate: 79 BPM Blood Pressure: 146 / 84 mmHg ECG: Normal sinus rhythm, Right bundle b ranch block Final Impressions 1. Normal left ventricular chamber size. Calculated left ventricular ejection fraction 66%. No regional wall motion abnormalities. 2. Normal left ventricular filling press ure. 3. Normal right ventricular chamber size by visual estimate. Normal right ventricular systolic function. 4. Sclerotic aortic valve with possible strands. Trivial aortic regurgitation. 5. Enlarged inferior vena cava size with normal inspiratory collapse (>50%). 6. Atherosclerosis in the abdominal aort a. 7. No intracardiac or intrapulmonary shola nt by agitated saline contrast injection at rest and with Valsalva. 8. No pericardial effusion. Findings Echo performed in the ICU. The available image quality was limited from the apical window. Agitated saline contrast administered. No intracardiac or intrapulmonary shunt. LEFT VENTRICLE:Normal left ventricular c hamber size. Normal left ventricular wall thickness. Calculated 2-D monoplane volumetric left ventricular ejection fraction 66% with the use of ultrasound enhancing agent. No regional wall motion abnormali ties. Normal left ventricular filling pressure. RIGHT VENTRICLE:Normal right ventricular chamber size by visual estimate. Normal right ventricular systolic function by visual estimate. Unable to detect peak tricuspid regurgitation velocity for pulmonary artery systolic pressure calculation. ATRIA:Enlarged left atrial size by visua l estimate. Normal right atrial size by visual estimate. CARDIAC VALVES:Trileaflet aortic valve. Sclerotic aortic valve. Aortic valve strands (possible strands; clip 51). Trivial aortic valve regurgitation. Thickened mitral valve. Trivial mitral valve regurgitation. Pulmonary valve not well visualized. [place] mal pulmonary valve systolic velocities. Trivial pulmonary valve regurgitation. Normal tricuspid valve. Trivial tricuspid valve regurgitation (clip 36) OTHER ECHO FINDINGS:Enlarged inferior ve na cava size with normal inspiratory collapse (>50%). Normal sinus of Valsalva diameter of 35 mm. Upper limit of normal of the sinus of Valsalva for age, sex and BSA is 42 mm. Normal proximal ascending aorta diam eter of 33 mm. Upper limit of normal of the mid ascending aorta, for age, sex and BSA is 41 mm. Atherosclerosis in the abdominal aorta. Abdominal aorta incompletely visualized. Normal abdominal aorta Doppl er flow pattern. No atrial level shunt by color flow imaging and agitated saline contrast injection. No intracardiac mass or thrombus, but the left atrial appendage cannot be visualized adequately with transthoracic echo to exclude thrombus in this location. No pericardial effusion. Attempts were made to optimize the echocardiographic images and two or more left ventricular segments were not visualized adequately to evaluate ca rdiac structure. The patient's current allergies and medications have been screened. Intravenous Lumason ultrasound enhancement agent(s) administered to enhance endocardial border definition. Imaging enhancement agent ad ministered per Echocardiography Contrast Administration Protocol Reference Document [id number]. Patient met an inclusion criterion and did not have contraindications in screening sections. For the complete report, see the Order-L evel Documents. Yang Anderson P.A.-C. CV ECHO PROCEDURES Hemoglobin A1c (05/05/2022 4:21 AM CDT) athologist Signature Hemoglobin A1c, 5.4 4.0 - 5.6 05/05/2022 DTL B % 6:30 AM CDT Specimen Anatomical Collection Method Collection Time Receive d Time (Source) Location / / Volume Laterality Blood (Blood, 05/05/2022 4:21 AM 05/05/20 5:13 Venous) CDT AM CDT Yang Anderson P.A.-C. LAB BLOOD ADD-ON Performing Organization Address City/State/ZIP Code Phon e Number [facility] - [address] [place] [phone] [facility] [place] [address] Laboratories-[facility] [address] [facility] Lipid Panel (05/05/2022 4:21 AM CDT) athologist Signature Triglycerides 102 mg/dL 05/05/2022 DTL 5:46 AM CDT Comment: ----REFERENCE VALUE---- Normal: <150 mg/dL Borderline High: 150-199 mg/dL High: 200-499 mg/dL Very High: > or =500 mg/dL Cholesterol, Total 154 mg/dL 05/05/2022 5:46 AM CD T DTL Comment: ----REFERENCE VALUE---- Desirable: < 200 mg/dL Borderline High: 200 - 239 mg/dL High: > or = 240 mg/dL Cholesterol, LDL, Calculated 94 mg/dL 05/05/2022 5:46 AM CDT DTL Comment: ----REFERENCE VALUE---- Desirable: <100 mg/dL Above Desirable: 100-129 mg/dL Borderline High: 130-159 mg/dL High: 160-189 mg/dL Very High: >=190 mg/dL ----ADDITIONAL INFORMATION---- LDL cholesterol calculated using the Rocha/NIH equation. Cholesterol, HDL, S 41 >=40 mg/dL 05/05/2022 5:46 AM CDT DTL Cholesterol, Non-HDL, Calculated 113 mg/dL 5:46 AM CDT DTL Comment: ----REFERENCE VALUE---- Desirable: <130 mg/dL Above Desirable: 130-159 mg/dL Borderline High: 160-189 mg/dL High: 190-219 mg/dL Very High: > or =220 mg/dL Fasting (8 HR or more) Unknown 05/05/2022 5:26 A M CDT DTL Specimen Anatomical Collection Method Collection Time Receive d Time (Source) Location / / Volume Laterality Blood (Blood, 05/05/2022 4:21 AM 05/05/20 5:26 Venous) CDT AM CDT Yang Anderson P.A.-C. LAB BLOOD ADD-ON Performing Organization Address City/[facility] Code Phon e Number [facility] - [address] [place], [place] [address] [facility] [place] [address] [facility] [address] [facility] Magnesium (05/05/2022 4:21 AM CDT) P athologist Signature Magnesium, S 1.9 1.7 - 2.3 05/05/2022 DTL mg/dL 5:46 AM CDT Specimen Anatomical Collection Method Collection Time Receive d Time (Source) Location / / Volume Laterality Blood (Blood, 05/05/2022 4:21 AM 05/05/20 5:26 Venous) CDT AM CDT Yang Anderson P.A.-C. LAB BLOOD ADD-ON Performing Organization Address City/State/[facility] Code Phon e Number [facility] - [address] [place], [place] [address] [facility] [place] [address] (ABNORMAL) Basic Metabolic Panel (05/05/2022 4:21 AM CDT) [facility] Potassium, S 4.4 3.6 - 5.2 05/05/2022 DTL mmol/L 5:46 AM CDT Sodium, S 140 135 - 145 05/05/2022 DTL mmol/L 5:46 AM CDT Chloride, S 104 98 - 107 05/05/2022 DTL mmol/L 5:46 AM CDT Bicarbonate, S 23 22 - 29 05/05/2022 DTL mmol/L 5:46 AM CDT Anion Gap 13 7 - 15 05/05/2022 DTL 5:46 AM CDT BUN (Blood Urea 13 8 - 24 05/05/2022 DTL Nitrogen), S mg/dL 5:46 AM CDT Creatinine 0.73 (L) 0.74 - 05/05/2022 DTL 1.35 mg/dL 5:46 AM CDT Estimated GFR >90 >=60 05/05/2022 DTL (eGFR) mL/min/BSA 5:46 AM CDT Comment: Estimated GFR calculated using the 2020 CKD_EPI creatinine equation. Calcium, Total, S 8.6 (L) 8.8 - 10.2 mg/dL 05/05/2022 5:46 AM CDT DTL Glucose, S 83 70 - 140 mg/dL 05/05/2022 5:46 AM CDT D TL Specimen Anatomical Collection Method Collection Time Receive d Time (Source) Location / / Volume Laterality Blood (Blood, 05/05/2022 4:21 AM 05/05/20 5:26 Venous) CDT AM CDT Yang Anderson P.A.-C. LAB BLOOD ADD-ON Performing Organization Address City/State/ZIP Code Phon e Number [facility] - [address] [place], [place] [address] [facility] [place] [address] (ABNORMAL) CBC without Differential (05/05/2022 4:21 AM CDT) [facility] system [employer] Method Time Signature Hemoglobin 13.0 (L) 13.2 - 05/05/2022 DTL 16.6 g/dL 5:46 AM CDT Hematocrit 39.9 38.3 - 05/05/2022 DTL 48.6 % 5:46 AM CDT Erythrocytes 4.18 (L) 4.35 - 05/05/2022 DTL 5.65 5:46 AM CDT x10(12)/L MCV 95.5 78.2 - 05/05/2022 DTL 97.9 fL 5:46 AM CDT RBC Distrib Width 12.9 11.8 - 05/05/2022 DTL 14.5 % 5:46 AM CDT Platelet Count 355 (H) 135 - 317 05/05/2022 DTL x10(9)/L 5:46 AM CDT Leukocytes 11.9 (H) 3.4 - 9.6 05/05/2022 DTL x10(9)/L 5:46 AM CDT Specimen Anatomical Collection Method Collection Time Receive d Time (Source) Location / / Volume Laterality Blood (Blood, 05/05/2022 4:21 AM 05/05/20 22 5:13 Venous) CDT AM CDT Yang Anderson P.A.-C. LAB BLOOD ADD-ON Performing Organization Address City/State/ZIP Code Phon e Number [facility] - [address] [place] [address] 05 [facility] [place] [address] [facility] 200 [facility] SARS Coronavirus 2, RNA, Rapid POC, V Asymptomatic (05/04/2022 2:09 PM CDT) [facility] [employer] Method Time Signature SARS Undetected Undetected 05/04/2022 DTLR Coronavirus-2 2:30 PM CDT , RNA, Rapid POC, V Comment: Negative for SARS-CoV-2. The [employer] COVID-19 test is a molecular dorcas t for SARS-CoV-2, the virus that causes COVID- 19. A Negative result means that the [employer] COV ID-19 test did not detect SARS-CoV-2 virus in your sample. Cue COVID-19 test uses the [employer] System. This test has received Emergency Use Authorization (EUA) by the U.S. Food and Drug Administration (FDA) and is used per man ufacturer instructions. Performance characteristic s were verified by [facility] in a manner consistent with CLIA requirements. Fact sheets for this Emerg ency Use Authorization (EUA) can be found at the following links: Providers: https://[employer].Coolstuff/documentation/prov iders.pdf Patients: https://[employer]Coolstuff/documentation/vicky ents.pdf SARS Coronavirus 2, Source Nasopharynx DEFAULT 05/04/2022 2:30 PM CDT DTLR Specimen Anatomical Collection Method Collection Time Receive d Time (Source) Location / / Volume Laterality Swab 05/04/2022 2:09 PM 2:09 (Nasopharynx) CDT PM CDT Lamont Bhandari M.D. LAB MICROBIOLOGY - GENERAL ORDERABLES Performing Organization Address City/State/ZIP Code Phon e Number PERFORMING LABS, [place] [address] INTERFACE Ref Interface [address] DTLR Performing Labs, [place] [address] DX Chest Portable 1 View (05/04/2022 1:49 PM CDT) Anatomical Region Laterality Modality Chest, Thoracic RST LOS, Thoracic ARZ LOS, Thoracic N/A Digital Radiography FLA LOS Specimen (Source) Anatomical Collection Method Collection Time Re ceived Time Location / / Volume Laterality 05/04/2022 2:01 PM CDT Impressions 05/04/2022 2:02 PM CDT Comparison to 02/20/2009. Heart size normal. Aorta tortuous and calcified. Lungs well-expanded consistent with underlying obstructive lung disease. No focal lung infiltrate, pleural effusion, or pneumothorax. Prominent pul monary arteries raises possibility of underlying pulmonary arterial hypertension. Narrative 05/04/2022 2:02 PM CDT EXAM: ??DX CHEST PORTABLE 1 VIEW Procedure Note Doc Seaman M.D. - 05/04/2022For matting of this note might be different from the original. EXAM: DX CHEST PORTABLE 1 VIEW IMPRESSION: Comparison to 02/20/2009. Heart size nor mal. Aorta tortuous and calcified. Lungs well-expanded consistent with underlying obstructive lung disease. No focal lung infiltrate, pleural effusion, or pneumothorax. Prominent pul monary arteries raises possibility of underlying pulmonary arterial hypertension. Yang Anderson P.A.-C. IMG DIAGNOSTIC IMAGING PROCE CHERIEES Type and Screen (with reflex Antibody ID) (05/04/2022 12:55 PM CDT) [facility] Method Time Signature ABORh O Pos Not 05/04/2022 STRM applicable 1:22 PM CDT Antibody Negative Negative 05/04/2022 STRM Screen 1:35 PM CDT Type & Screen 05/07/2022 05/04/2022 STRM Expiration 23:59 1:22 PM CDT Testing [place] DEFAULT 05/04/2022 STRM Location 1:01 PM CDT Specimen Anatomical Collection Method Collection Time Receive d Time (Source) Location / / Volume Laterality Blood (Blood, 05/04/2022 12:55 05/04/2022 1:01 Venous) PM CDT PM CDT Yang Anderson P.A.-C. LAB BLOOD BANK TEST ORDERABL ES Performing Organization Address City/[facility] Phon e Number [facility] - [address] STRM [address] S-TSH (Thyroid-Stimulating Hormone - Sensitive) (05/04/2022 12:55 PM CDT) athologist Signature TSH, Sensitive 1.4 0.3 - 4.2 05/04/2022 DT mIU/L 2:16 PM CDT Specimen Anatomical Collection Method Collection Time Receive d Time (Source) Location / / Volume Laterality Blood (Blood, 05/04/2022 12:55 05/04/2022 1:44 Venous) PM CDT PM CDT Yang Anderson P.A.-C. LAB BLOOD ADD-ON Performing Organization Address City/[facility]/ZIP Code Phon e Number [facility] - [address] DTL [address] AST (Aspartate Aminotransferase) (05/04/2022 12:55 PM CDT) [facility] Method Time Signature Aspartate 19 8 - 48 05/04/2022 STMA Aminotransferase U/L 1:16 PM CDT (AST), P Specimen Anatomical Collection Method Collection Time Receive d Time (Source) Location / / Volume Laterality Blood (Blood, 05/04/2022 12:55 05/04/2022 Venous) PM CDT 12:59 PM CDT Yang Anderson P.A.-C. LAB BLOOD ADD-ON Performing Organization Address City/[facility]/ZIP Code Phon e Number [facility] - [address] [place], [place] [address] [facility] [place] [place] [address] ALT (Alanine Aminotransferase) (05/04/2022 12:55 PM CDT) Patholo gist Method Time Signature Alanine 15 7 - 55 05/04/2022 DTL Aminotransferase U/L 2:16 PM CDT (ALT), S Specimen Anatomical Collection Method Collection Time Receive d Time (Source) Location / / Volume Laterality Blood (Blood, 05/04/2022 12:55 05/04/2022 1:44 Venous) PM CDT PM CDT Yang Anderson P.A.-C. LAB BLOOD ADD-ON Performing Organization Address City/[facility]/ZIP Code Phon e Number [facility] - [address] [place], [place] [address] [facility] [place] [address] (ABNORMAL) APTT (Activated Partial Thromboplastin Time) (05/04/2022 12:55 PM CDT) P athologist Signature Activated 47 (H) 25 - 37 05/04/2022 STMA Partial sec 1:08 PM CDT Thrombopl Time, P Specimen Anatomical Collection Method Collection Time Receive d Time (Source) Location / / Volume Laterality Blood (Blood, 05/04/2022 12:55 05/04/2022 Venous) PM CDT 12:59 PM CDT Yang Anderson P.A.-C. LAB BLOOD ADD-ON Performing Organization Address City/State/ZIP Code Phon e Number [facility] - [address] [place], [place] [address] [facility] [place] [address] Prothrombin Time (PT) (05/04/2022 12:55 PM CDT) athologist Signature Prothrombin 12.0 9.4 - 12.5 05/04[facility]20[facility], P sec 1:06 PM CDT INR 1.1 0.9 - 1.1 05/04/2022 [facility] 1:06 PM CDT Comment: ----ADDITIONAL INFORMATION---- Standard intensity warfarin therapeutic range: 2.0 to 3.0 ?? High intensity warfarin therapeutic rang e: 2.5 to 3.5 Specimen Anatomical Collection Method Collection Time Receive d Time (Source) Location / / Volume Laterality Blood (Blood, 05/04/2022 12:55 05/04/2022 Venous) PM CDT 12:59 PM CDT Yang Anderson P.A.-C. LAB BLOOD ADD-ON Performing Organization Address City/[facility] Phon e Number [facility] - [address] ST[address] Phosphorus Inorganic (05/04/2022 12:55 PM CDT) athologist Signature Phosphorus 3.4 2.5 - 4.5 05/04/2022 DTL (Inorganic), S mg/dL 2:16 PM CDT Specimen Anatomical Collection Method Collection Time Receive d Time (Source) Location / / Volume Laterality Blood (Blood, 05/04/2022 12:55 05/04/2022 1:44 Venous) PM CDT PM CDT Yang Anderson P.A.-C. LAB BLOOD ADD-ON Performing Organization Address City/[facility] Phon e Number [facility] - [address] DTL [address] Magnesium (05/04/2022 12:55 PM CDT) athologist Signature Magnesium, S 1.9 1.7 - 2.3 05/04/2022 DTL mg/dL 2:16 PM CDT Specimen Anatomical Collection Method Collection Time Receive d Time (Source) Location / / Volume Laterality Blood (Blood, 05/04/2022 12:55 05/04/2022 1:44 Venous) PM CDT PM CDT Yang Anderson P.A.-C. LAB BLOOD ADD-ON Performing Organization Address City/State/ZIP Code Phon e Number [facility] - [address] [place], [place] [address] [facility] [place] [address] [facility] [address] Troponin T, 2H/6H, 5th Gen (05/04/2022 12:55 PM CDT) [facility] Method Time Signature Troponin T, 2 10 <=15 ng/L 05/04/2022 STMA hr, 5th gen 1:31 PM CDT 2H Delta 0 ng/L 05/04/2022 STMA 1:31 PM CDT 2H Delta Not Changing 05/04/2022 STMA Interp 1:31 PM CDT Troponin T, 6 CANCELED ng/L 05/04/2022 STMA hr, 5th gen 1:31 PM CDT Comment: Result canceled by the ancmichelle y. Specimen Anatomical Collection Method Collection Time Receive d Time (Source) Location / / Volume Laterality Blood (Blood, 05/04/2022 12:55 05/04/2022 Venous) PM CDT 12:59 PM CDT Narrative [facility] - 05/04/2022 1:31 PM CDT Specimen Information: Specimen ID: [id number] Specimen Type: Blood Specimen Collection Start Date: 05/04/20 12:55 PM Specimen Received Date: 05/04/2022 12:59 PM Specimen ID: [id number] Specimen Type: Blood Specimen Collection Start Date: 05/04/20 ??1:31 PM Specimen Received Date: 05/04/2022 ??1:3 1 PM Marquis Leach M.D., M.P.H. LAB BLOOD TROPONIN Performing Organization Address City/State/ZIP Code Phon e Number [facility] - [address] [place], [place] [address] [place] [address] [facility] [address] [facility] IR Cerebral Intracranial Artery Thrombectomy (05/04/2022 11:58 AM CDT) Anatomical Region Laterality Modality Head, Neuro Interventional RST LOS, Neuroradiology DOMINGO N/A X-Ray Angiography LOS, Neuro Interventional FLA LOS Specimen (Source) Anatomical Collection Method Collection Time Re ceived Time Location / / Volume Laterality 05/04/2022 2:32 PM CDT Impressions 05/04/2022 2:50 PM CDT 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 ??Complete revascularization of the middle cerebral artery territory after single pass with aspiration catheter. ??New distal nonocclusive embo li involving the pericallosal artery. ??Final TICI 2c Access: 11:10 Lesion crossed: 11:26 Revascularization: 11:32 Final TICI 2c NIHSS done by Neurology Team before leav ing the angio suite: 9 EP Narrative 05/04/2022 2:50 PM CDT EXAM: IR CEREBRAL INTRACRANIAL ARTERY THROMBECTOMY COMPARISON: ??CTA 05/04/2022 PREPROCEDURE: Patient seen and evaluated . Allergies, pertinent medications, and history reviewed. Discussed risks, benefits, alternatives for procedure, and obtained informed consent. Patient understands information and questions an swered. Immediately prior to starting the procedure, in the presence of the assisting personnel, pro cedural pause was conducted to verify correct patient identity and verification of procedure t o be performed, and as applicable, correct side and site, correct patient position, availability o f implants, special equipment, or special requirements, and all image and specimen identification da ta. The roles and responsibilities of care team members, residents, and fellows were discussed. S edation provided by Anesthesiology. TECHNIQUE: ??Access to the right femoral artery was obtained using the Seldinger technique. ??A 9 Mexican sheath was introduced over a wire and secured to the skin. ??Through the introducer sheath, a Walrus guidcatheter was advanced over a Vitek catheter and a glide wire. ?? The catheter was advanced to the common carotid artery and angiogr ams were obtained. ??A 6 Mexican Kerry was then advanced under roadmap over a Rebar 27 microcatheter an golden Maya microguidewire. ?? The 6 Mexican Kerry was placed into the proximal superior trunk and zachery ludin under aspiration. ??We did not inflate the Walrus because of a significant plaque and irregular pl aque at the carotid bifurcation. ??Under aspiration, the 6 Mexican Kerry was withdrawn and subsequen t catheter angiography confirmed revascularization. However, there was a nonocclusive clot i nto the distal anterior cerebral artery. ?? The patient was given bolus of 3000 unit s of heparin and the access site was controlled with Star close. ?? Dr. Waters was the attending physician and present throughout the entire procedure. Dr. Lui assisted. FINDINGS: ??Right common carotid artery injection: ??AP and lateral views are available for review. There is an irregular calcified plaque a t the carotid bifurcation. Right internal carotid artery injection: ??AP and lateral views of the intracranial portion of the internal carotid artery are available fo r review. ??There is complete occlusion of the superior M2 trunk. ??Complete revascularization of t he middle cerebral artery territory after single pass with aspiration catheter. ??However, there ar e distal emboli with a nonocclusive thrombus involving the distal pericallosal artery. ??The territ ory of the distal anterior cerebral artery fills both through the clot and through leptomeningeal toño aterals from the middle cerebral artery. ?? Procedure Note Mata Waters M.D. - 05/04/2022Form atting of this note might be different from the original. EXAM: IR CEREBRAL INTRACRANIAL ARTERY TH ROMBECTOMY COMPARISON: CTA 05/04/2022 PREPROCEDURE: Patient seen and evaluated . Allergies, pertinent medications, and history reviewed. Discussed risks, benefits, alternatives for procedure, and obtained informed consent. Patient understands information and questions an swered. Immediately prior to starting the procedure, in the presence of the assisting personnel, pro cedural pause was conducted to verify correct patient identity and verification of procedure t o be performed, and as applicable, correct side and site, correct patient position, availability o f implants, special equipment, or special requirements, and all image and specimen identification da ta. The roles and responsibilities of care team members, residents, and fellows were discussed. S edation provided by Anesthesiology. TECHNIQUE: Access to the right femoral a rtery was obtained using the Seldinger technique. A 9 Mexican sheath was introduced over a wire and secured to the skin. Through the introducer sheath, a Walrus guidcatheter was advanced over a #waywireek catheter and a glide wire. The catheter was advanced to the common carotid artery and angiogr ams were obtained. A 6 Mexican Kerry was then advanced under roadmap over a Rebar 27 microcatheter an d an Avigo microguidewire. The 6 Mexican Kerry was placed into the proximal superior trunk and zachery ludin under aspiration. We did not inflate the Walrus because of a significant plaque and irregular pl aque at the carotid bifurcation. Under aspiration, the 6 Mexican Kerry was withdrawn and subsequen t catheter angiography confirmed revascularization. However, there was a nonocclusive clot i nto the distal anterior cerebral artery. The patient was given bolus of 3000 unit s of heparin and the access site was controlled with Star close. Dr. Waters was the attending physician and present throughout the entire procedure. Dr. Lui assisted. FINDINGS: Right common carotid artery in jection: AP and lateral views are available for review. There is an irregular calcified plaque a t the carotid bifurcation. Right internal carotid artery injection: AP and lateral views of the intracranial portion of the internal carotid artery are available fo r review. There is complete occlusion of the superior M2 trunk. Complete revascularization of the middle cerebral artery territory after single pass with aspiration catheter. However, there are distal emboli with a nonocclusive thrombus involving the distal pericallosal artery. The territor y of the distal anterior cerebral artery fills both through the clot and through leptomeningeal toño aterals from the middle cerebral artery. 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 Complete revascularization of the middle cerebral artery territory after single pass with aspiration catheter. New distal nonocclusive emboli involving the pericallosal artery. Final TICI 2c Access: 11:10 Lesion crossed: 11:26 Revascularization: 11:32 Final TICI 2c NIHSS done by Neurology Team before leav ing the angio suite: 9 EP Kenia Wang M.D., M.S. IMG IR PROCEDURES Critical Care (05/04/2022 10:56 AM CDT) Narrative Marquis Leach M.D., M.P.H. - 05/04/2022 10:56 AM CDT Marquis Leach M.D., M.P.H. ? 05/04/2022 10:57 AM Critical Care Performed by: Marquis Leach M.D., M.P.H. Authorized by: Marquis Leach M.D., M.P.H . Critical care provider statement: Critical care total time (minutes): 30 Critical care time was exclusive of: sep ying billable procedures and treating other patients and teaching ralph jeffers Critical care was necessary to treat or prevent imminent or life-threatening deterioration of the fo llowing conditions: PLATE [employer] OUT [employer]ER failure or compromise Critical care was time spent personally by me on the following activities: development of treatment plan with patie nt or surrogate, discussions with consultants, documenting in the patient chart, examination of patient, obtaining history from patient or surrog ate, ordering and performing treatments and interventions, ordering a nd review of laboratory studies, ordering and review of radiographic stud ies and review of old charts Marquis Leach M.D., M.P.H. PROCEDURE/MINOR SURGICAL ORD ERABLES CT Head Perfusion with IV Contrast (05/04/2022 10:46 AM CDT) Anatomical Region Laterality Modality Head, Neuroradiology RST LOS, N/A Computed T omography, Computed Neuroradiology ARZ LOS, Neuroradiology T omography FLA LOS Specimen (Source) Anatomical Collection Method Collection Time Re ceived Time Location / / Volume Laterality 05/04/2022 10:23 AM CDT Impressions 05/04/2022 11:09 AM CDT 1. ??Acute right M2 occlusion. 2. ??Penumbra 74 mL. Infarct core 32 mL. 3. ??30-40% stenosis of the right caroti d bulb by calcified and noncalcified plaque. Narrative 05/04/2022 11:09 AM CDT EXAM: CT HEAD ACUTE STROKE PROTOCOL WITHOUT IV CONTRAST, CT HEAD NECK ANGIOGRAM WITH IV CONTRAST, CT HEAD PERFUSION WITH IV CONTRAST Including 3D image post-processing. COMPARISON: None FINDINGS: HEAD: Loss of the hu-white differentia tion in the right insula and right frontal lobe compatible with right MCA territory infarct. Possib le hyperdense right MCA. No other acute findings. CTA: Acute occlusion of the proximal rig ht M2 superior branch just beyond the bifurcation (4/376 see screen shot images). Mixed calcified and uncalcified right ca rotid bulb plaque with 30-40% stenosis. The origin of the right vertebral artery is not well visua lized, possibly due to motion or stenosis. The remaining carotid, vertebral, and major intracrani al arteries are negative for stenosis, occlusion, or aneurysmal dilatation. PERFUSION: Penumbra volume: 74 mL Infarcted core: 32 mL Mismatch volume: 42 mL Mismatch ratio: 2.3 OTHER: Mild diffuse cervical spondylosis and facet arthritis. Mild emphysema in the lung apices. Findings discussed in person with neurol ogy team at 10:26 AM and 05/04/2022. Procedure Note Steph Mcmullen M.D. - 05/04/2022Format ting of this note might be different from the original. EXAM: CT HEAD ACUTE STROKE PROTOCOL WITH OUT IV CONTRAST, CT HEAD NECK ANGIOGRAM WITH IV CONTRAST, CT HEAD PERFUSION WITH IV CONTRAST Including 3D image post-processing. COMPARISON: None FINDINGS: HEAD: Loss of the hu-white differentia tion in the right insula and right frontal lobe compatible with right MCA territory infarct. Possib le hyperdense right MCA. No other acute findings. CTA: Acute occlusion of the proximal rig ht M2 superior branch just beyond the bifurcation (4/376 see screen shot images). Mixed calcified and uncalcified right ca rotid bulb plaque with 30-40% stenosis. The origin of the right vertebral artery is not well visua lized, possibly due to motion or stenosis. The remaining carotid, vertebral, and major intracrani al arteries are negative for stenosis, occlusion, or aneurysmal dilatation. PERFUSION: Penumbra volume: 74 mL Infarcted core: 32 mL Mismatch volume: 42 mL Mismatch ratio: 2.3 OTHER: Mild diffuse cervical spondylosis and facet arthritis. Mild emphysema in the lung apices. Findings discussed in person with neurol ogy team at 10:26 AM and 05/04/2022. IMPRESSION: 1. Acute right M2 occlusion. 2. Penumbra 74 mL. Infarct core 32 mL. 3. 30-40% stenosis of the right carotid bulb by calcified and noncalcified plaque. Yemi Rodriguez M.D., Ph.D. IMG CT PROCEDURES CT Head Neck Angiogram with IV Contrast (05/04/2022 10:46 AM CDT) Anatomical Region Laterality Modality Head and Neck, Neuroradiology RST LOS, N/A C omputed Tomography, Computed Neuroradiology ARZ LOS, Neuroradiology T omography FLA LOS Specimen (Source) Anatomical Collection Method Collection Time Re ceived Time Location / / Volume Laterality 05/04/2022 10:23 AM CDT Impressions 05/04/2022 11:09 AM CDT 1. ??Acute right M2 occlusion. 2. ??Penumbra 74 mL. Infarct core 32 mL. 3. ??30-40% stenosis of the right caroti d bulb by calcified and noncalcified plaque. Narrative 05/04/2022 11:09 AM CDT EXAM: CT HEAD ACUTE STROKE PROTOCOL WITHOUT IV CONTRAST, CT HEAD NECK ANGIOGRAM WITH IV CONTRAST, CT HEAD PERFUSION WITH IV CONTRAST Including 3D image post-processing. COMPARISON: None FINDINGS: HEAD: Loss of the hu-white differentia tion in the right insula and right frontal lobe compatible with right MCA territory infarct. Possib le hyperdense right MCA. No other acute findings. CTA: Acute occlusion of the proximal rig ht M2 superior branch just beyond the bifurcation (4/376 see screen shot images). Mixed calcified and uncalcified right ca rotid bulb plaque with 30-40% stenosis. The origin of the right vertebral artery is not well visua lized, possibly due to motion or stenosis. The remaining carotid, vertebral, and major intracrani al arteries are negative for stenosis, occlusion, or aneurysmal dilatation. PERFUSION: Penumbra volume: 74 mL Infarcted core: 32 mL Mismatch volume: 42 mL Mismatch ratio: 2.3 OTHER: Mild diffuse cervical spondylosis and facet arthritis. Mild emphysema in the lung apices. Findings discussed in person with neurol ogy team at 10:26 AM and 05/04/2022. Procedure Note Steph Mcmullen M.D. - 05/04/2022Format ting of this note might be different from the original. EXAM: CT HEAD ACUTE STROKE PROTOCOL WITH OUT IV CONTRAST, CT HEAD NECK ANGIOGRAM WITH IV CONTRAST, CT HEAD PERFUSION WITH IV CONTRAST Including 3D image post-processing. COMPARISON: None FINDINGS: HEAD: Loss of the hu-white differentia tion in the right insula and right frontal lobe compatible with right MCA territory infarct. Possib le hyperdense right MCA. No other acute findings. CTA: Acute occlusion of the proximal rig ht M2 superior branch just beyond the bifurcation (4/376 see screen shot images). Mixed calcified and uncalcified right ca rotid bulb plaque with 30-40% stenosis. The origin of the right vertebral artery is not well visua lized, possibly due to motion or stenosis. The remaining carotid, vertebral, and major intracrani al arteries are negative for stenosis, occlusion, or aneurysmal dilatation. PERFUSION: Penumbra volume: 74 mL Infarcted core: 32 mL Mismatch volume: 42 mL Mismatch ratio: 2.3 OTHER: Mild diffuse cervical spondylosis and facet arthritis. Mild emphysema in the lung apices. Findings discussed in person with neurol ogy team at 10:26 AM and 05/04/2022. IMPRESSION: 1. Acute right M2 occlusion. 2. Penumbra 74 mL. Infarct core 32 mL. 3. 30-40% stenosis of the right carotid bulb by calcified and noncalcified plaque. Marquis Leach M.D., M.P.H. IMG CT PROCEDURES CT Head Acute Stroke Protocol without IV Contrast (05/04/2022 10:46 AM CDT) Anatomical Region Laterality Modality Head, Neuroradiology RST LOS, N/A Computed T omography, Computed Neuroradiology ARZ LOS, Neuroradiology T omography FLA LOS Specimen (Source) Anatomical Collection Method Collection Time Re ceived Time Location / / Volume Laterality 05/04/2022 10:19 AM CDT Impressions 05/04/2022 11:09 AM CDT 1. ??Acute right M2 occlusion. 2. ??Penumbra 74 mL. Infarct core 32 mL. 3. ??30-40% stenosis of the right caroti d bulb by calcified and noncalcified plaque. Narrative 05/04/2022 11:09 AM CDT EXAM: CT HEAD ACUTE STROKE PROTOCOL WITHOUT IV CONTRAST, CT HEAD NECK ANGIOGRAM WITH IV CONTRAST, CT HEAD PERFUSION WITH IV CONTRAST Including 3D image post-processing. COMPARISON: None FINDINGS: HEAD: Loss of the hu-white differentia tion in the right insula and right frontal lobe compatible with right MCA territory infarct. Possib le hyperdense right MCA. No other acute findings. CTA: Acute occlusion of the proximal rig ht M2 superior branch just beyond the bifurcation (4/376 see screen shot images). Mixed calcified and uncalcified right ca rotid bulb plaque with 30-40% stenosis. The origin of the right vertebral artery is not well visua lized, possibly due to motion or stenosis. The remaining carotid, vertebral, and major intracrani al arteries are negative for stenosis, occlusion, or aneurysmal dilatation. PERFUSION: Penumbra volume: 74 mL Infarcted core: 32 mL Mismatch volume: 42 mL Mismatch ratio: 2.3 OTHER: Mild diffuse cervical spondylosis and facet arthritis. Mild emphysema in the lung apices. Findings discussed in person with neurol ogy team at 10:26 AM and 05/04/2022. Procedure Note Steph Mcmullen M.D. - 05/04/2022Format ting of this note might be different from the original. EXAM: CT HEAD ACUTE STROKE PROTOCOL WITH OUT IV CONTRAST, CT HEAD NECK ANGIOGRAM WITH IV CONTRAST, CT HEAD PERFUSION WITH IV CONTRAST Including 3D image post-processing. COMPARISON: None FINDINGS: HEAD: Loss of the hu-white differentia tion in the right insula and right frontal lobe compatible with right MCA territory infarct. Possib le hyperdense right MCA. No other acute findings. CTA: Acute occlusion of the proximal rig ht M2 superior branch just beyond the bifurcation (4/376 see screen shot images). Mixed calcified and uncalcified right ca rotid bulb plaque with 30-40% stenosis. The origin of the right vertebral artery is not well visua lized, possibly due to motion or stenosis. The remaining carotid, vertebral, and major intracrani al arteries are negative for stenosis, occlusion, or aneurysmal dilatation. PERFUSION: Penumbra volume: 74 mL Infarcted core: 32 mL Mismatch volume: 42 mL Mismatch ratio: 2.3 OTHER: Mild diffuse cervical spondylosis and facet arthritis. Mild emphysema in the lung apices. Findings discussed in person with neurol ogy team at 10:26 AM and 05/04/2022. IMPRESSION: 1. Acute right M2 occlusion. 2. Penumbra 74 mL. Infarct core 32 mL. 3. 30-40% stenosis of the right carotid bulb by calcified and noncalcified plaque. Marquis Leach M.D., M.P.H. IMG CT PROCEDURES Lactate, POCT (05/04/2022 10:14 AM CDT) Analysis Performed At Patho logist Time Signature Lactate, POCT Collected DEFAULT 05/04/2022 SMLX 10:14 AM CDT Specimen Anatomical Collection Method Collection Time Receive d Time (Source) Location / / Volume Laterality Blood (Blood, 05/04/2022 10:14 05/04/2022 Venous) AM CDT 10:14 AM CDT Marquis Leach M.D., M.P.H. LAB POCT ORDERABLES - DEVICE Performing Organization Address [facility] Phon e Number [facility] - [address] Venous Blood Gas and Electrolytes CG8+, POCT (05/04/2022 10:14 AM CDT) Analysis Performed At Patho logist Time Signature VBG & Lytes Collected DEFAULT 05/04/2022 SMLX CG8+, POCT, B 10:14 AM CDT Specimen Anatomical Collection Method Collection Time Receive d Time (Source) Location / / Volume Laterality Blood (Blood, 05/04/2022 10:14 05/04/2022 Venous) AM CDT 10:14 AM CDT Marquis Leach M.D., M.P.H. LAB POCT ORDERABLES - DEVICE Performing Organization Address City/[facility] Phon e Number [facility] - [id number] [place] [address] Troponin T, Baseline, 5th gen (05/04/2022 10:14 AM CDT) P athologist Signature Troponin T, 10 <=15 ng/L 05/04/2022 [facility] Baseline, 5th 10:39 AM CDT gen Specimen Anatomical Collection Method Collection Time Receive d Time (Source) Location / / Volume Laterality Blood (Blood, 05/04/2022 10:14 05/04/2022 Venous) AM CDT 10:19 AM CDT Marquis Leach M.D., M.P.H. LAB BLOOD TROPONIN Performing Organization Address City/[facility] Phon e Number [facility] - [address] APTT (Activated Partial Thromboplastin Time) (05/04/2022 10:14 AM CDT) P athologist Signature Activated 27 25 - 37 sec 05/04/2022 STMA Partial 10:41 AM CDT Thrombopl Time, P Specimen Anatomical Collection Method Collection Time Receive d Time (Source) Location / / Volume Laterality Blood (Blood, 05/04/2022 10:14 05/04/2022 Venous) AM CDT 10:19 AM CDT Marquis Leach M.D., M.P.H. LAB BLOOD ADD-ON Performing Organization Address [facility] Phon e Number [facility] - [address] [place] [address] [address] [place] [address] [facility] 200 [facility] Prothrombin Time (PT) (05/04/2022 10:14 AM CDT) athologist Signature Prothrombin 11.5 9.4 - 12.5 05[facility] Time, P sec 10:39 AM CDT INR 1.0 0.9 - 1.1 05/04/2022 [facility] 10:39 AM CDT Comment: ----ADDITIONAL INFORMATION---- Standard intensity warfarin therapeutic range: 2.0 to 3.0 ?? High intensity warfarin therapeutic rang e: 2.5 to 3.5 Specimen Anatomical Collection Method Collection Time Receive d Time (Source) Location / / Volume Laterality Blood (Blood, 05/04/2022 10:14 05/04/2022 Venous) AM CDT 10:19 AM CDT Marquis Leach M.D., M.P.H. LAB BLOOD ADD-ON Performing Organization Address [facility] Phon e Number [facility] - [address] [place] [address] [address] [place] [address] [facility] 200 [facility] (ABNORMAL) CBC without Differential (05/04/2022 10:14 AM CDT) Patholo gist Method Time Signature Hemoglobin 14.4 13.2 - 05/04/2022 [facility] 16.6 g/dL 10:23 AM CDT Hematocrit 42.9 38.3 - 05/04/2022 [facility] 48.6 % 10:23 AM CDT Erythrocytes 4.48 4.35 - 05/04/2022 [facility] 5.65 10:23 AM CDT x10(12)/L MCV 95.8 78.2 - 05/04/2022 [facility] 97.9 fL 10:23 AM CDT RBC Distrib Width 13.2 11.8 - 05/04/2022 [facility] 14.5 % 10:23 AM CDT Platelet Count 338 (H) 135 - 317 05/04/2022 [facility] x10(9)/L 10:23 AM CDT Leukocytes 14.1 (H) 3.4 - 9.6 05/04/2022 [facility] x10(9)/L 10:23 AM CDT Specimen Anatomical Collection Method Collection Time Receive d Time (Source) Location / / Volume Laterality Blood (Blood, 05/04/2022 10:14 05/04/2022 Venous) AM CDT 10:19 AM CDT Marquis Leach M.D., M.P.H. LAB BLOOD ADD-ON Performing Organization Address City/State/[facility] Code Phon e Number [facility] - [address] [place] [address] [phone] [place] [address] [facility] 200 [facility] Basic Metabolic Panel (05/04/2022 10:14 AM CDT) P athologist Signature Potassium, P 4.4 3.6 - 5.2 05/04/2022 [facility] mmol/L 10:38 AM CDT Sodium, P 141 135 - 145 05/04/2022 [facility] mmol/L 10:38 AM CDT Chloride, P 102 98 - 107 05/04/2022 [facility] mmol/L 10:38 AM CDT Bicarbonate, P 26 22 - 29 05/04/2022 [facility] mmol/L 10:38 AM CDT Anion Gap, P 13 7 - 15 05/04/2022 [facility] 10:38 AM CDT BUN (Blood Urea 17 8 - 24 05/04/2022 [facility] Nitrogen), P mg/dL 10:38 AM CDT Creatinine 0.75 0.74 - 05/04/2022 [facility] 1.35 mg/dL 10:38 AM CDT Estimated GFR >90 >=60 05/04/2022 [facility] (eGFR) mL/min/BSA 10:38 AM CDT Comment: Estimated GFR calculated using the 2020 CKD_EPI creatinine equation. Calcium, Total, P 9.2 8.8 - 10.2 mg/dL 05/04/2022 10:3 8 AM CDT STMA Glucose, P 100 70 - 140 mg/dL 05/04/2022 10:38 AM CDT STMA Specimen Anatomical Collection Method Collection Time Receive d Time (Source) Location / / Volume Laterality Blood (Blood, 05/04/2022 10:14 05/04/2022 Venous) AM CDT 10:19 AM CDT Marquis Leach M.D., M.P.H. LAB BLOOD ADD-ON Performing Organization Address City/State/ZIP Code Phon e Number [facility] - [address] [place] [address] [facility] [place] [address] [facility] 200 [facility] Venous Blood Gas and Electrolytes CG8+, POCT (05/04/2022 10:12 AM CDT) P athologist Signature Sample Site, Venstick 05/04/2022 PCSM POCT 10:27 AM CDT Comment: ----ADDITIONAL INFORMATION---- Performed at the Point of Care pH, Venous, POCT, B 7.38 7.32 - 7.43 05/04/2022 10:27 A M CDT PCSM Comment: ----ADDITIONAL INFORMATION---- Performed at the Point of Care pCO2, Venous, POCT, B 49 41 - 51 mm Hg 05/04/2022 10: 27 AM CDT PCSM Comment: ----ADDITIONAL INFORMATION---- Performed at the Point of Care pO2, Venous, POCT, B 29 Not Applicable mm Hg 05/04/20 10:27 AM CDT PCSM Comment: ----ADDITIONAL INFORMATION---- Performed at the Point of Care Base Excess, Venous, POCT, B 4 Not Applicable mmol/L 05/04/2022 10:27 AM CDT PCSM Comment: ----ADDITIONAL INFORMATION---- Performed at the Point of Care HCO3, Venous, POCT, B 29 Not Applicable mmol/L 2021 10:27 AM CDT PCSM Comment: ----ADDITIONAL INFORMATION---- Performed at the Point of Care Sodium, POCT, B 141 135 - 145 mmol/L 05/04/2022 10:27 AM CDT PCSM Comment: ----ADDITIONAL INFORMATION---- Performed at the Point of Care Potassium, POCT, B 4.1 3.6 - 5.2 mmol/L 05/04/2022 10: 27 AM CDT PCSM Comment: ----ADDITIONAL INFORMATION---- Performed at the Point of Care Calcium, Ionized, POCT, B 4.90 4.65 - 5.30 mg/dL 2021 10:27 AM CDT PCSM Comment: ----ADDITIONAL INFORMATION---- Performed at the Point of Care Glucose, POCT, B 95 70 - 140 mg/dL 05/04/2022 10:27 A M CDT PCSM Comment: ----ADDITIONAL INFORMATION---- Performed at the Point of Care Hematocrit, POCT, B 41.0 38.3 - 48.6 % 05/04/2022 10:27 AM CDT PCSM Comment: ----ADDITIONAL INFORMATION---- Performed at the Point of Care Specimen Anatomical Collection Method Collection Time Receive d Time (Source) Location / / Volume Laterality Blood 05/04/2022 10:12 05/04/2022 AM CDT 10:28 AM CDT Unknown Provider LAB POCT ORDERABLES - DEVICE Performing Organization Address City/[facility] Code Phon e Number POC [facility] [address] [place], [place] [address] LABS PCSM [facility] [place] [address] [facility] [address] Lactate, POCT (05/04/2022 10:12 AM CDT) P athologist Signature Lactate, POCT 1.68 0.50 - 05/04/2022 PCLX 2.20 10:27 AM CDT mmol/L Sample Site, Venstick 05/04/2022 PCLX POCT 10:27 AM CDT Specimen Anatomical Collection Method Collection Time Receive d Time (Source) Location / / Volume Laterality Blood 05/04/2022 10:12 05/04/2022 AM CDT 10:27 AM CDT Unknown Provider LAB POCT ORDERABLES - DEVICE Performing Organization Address City/[facility]/ZIP Code Phon e Number POC [facility] [address] [place] [address] [place] [address] [facility] [address] ECG 12 Lead (05/04/2022 10:00 AM CDT) P athologist Signature Ventricular Rate 74 BPM MUSE ECG/Min MI Interval 128 ms MUSE QRSD Interval 90 ms MUSE QT Interval 388 ms MUSE QTC Interval 430 ms MUSE P [place] 82 degrees MUSE R [place] 76 degrees MUSE T Wave [place] 71 degrees MUSE Specimen Anatomical Collection Method Collection Time Receive d Time (Source) Location / / Volume Laterality 05/04/2022 10:00 05/04/2022 AM CDT 10:17 AM CDT Impressions MUSE - 05/04/2022 10:17 AM CDT Normal sinus rhythm Incomplete right bundle branch block Nonspecific ST abnormality When compared with ECG of 07-MAY-2009 17 :02, No significant change was found Reviewed by LLUVIA Tapia Narrative This result has an attachment that is no t available. Procedure Note Clinton Chong M.D. - 05/04/2022Fo rmatting of this note might be different from the original. IMPRESSION: Normal sinus rhythm Incomplete right bundle branch block Nonspecific ST abnormality When compared with ECG of 07-MAY-2009 17 :02, No significant change was found Reviewed by LLUVIA Tapia Marquis Leach M.D., M.P.H. ECG ORDERABLES Performing Organization Address City/State/ZIP Code Phon e Number MUSE MUSE NA documented in this encounter Visit Diagnoses Diagnosis Stroke (HCC) - Primary Stroke (HCC) Change Mental Status Decline Functional Status Nicotine Dependence Cigarettes With With drawal Atrial Fibrillation Unspecified Abuse Tobacco Smoking Chronic Obstructive Pulmonary Disease Ex acerbation (HCC) documented in this encounter Admitting Diagnoses Diagnosis Stroke (HCC) documented in this encounter Administered Medications Inactive Administered Medications - up to 3 most recent administrations Medication Order MAR Action Action Date Dose Rate Site acetaminophen tablet 1,000 mg (TYLENOL) 1,000 mg, oral, 4 times daily PRN, mild pain or score 1-3 of 10, Starting on 05/04/22 at 1155 aspirin chewable tablet 81 mg Given 05/04/2022 8:30 PM CDT 81 mg 81 mg, oral, Once, On 05/04/22 at 2100, For 1 dose aspirin chewable tablet 81 mg Given 05/07/2022 8:54 AM CDT 81 mg 81 mg, oral, Daily, First dose (after last modification) on Thu05/06/22 at 1615 Given 05/06/2022 6:24 PM CDT 81 mg atorvastatin tablet 20 mg (LIPITOR) Given 05/05/2022 9:35 PM CDT 20 mg 20 mg, oral, Daily at bedtime, First dose on Thu05/05/22 at 2100, atorvaSTATin 20 mg oral daily was interchanged for simvastatin 5-40 mg oral daily atorvastatin tablet 40 mg (LIPITOR) Given 05/06/2022 8:10 PM CDT 40 mg 40 mg, oral, Daily at bedtime, First dose (after last modification) on Thu05/06/22 at 2100, atorvaSTATin 20 mg oral daily was interchanged for simvastatin 5-40 mg oral daily bisac[address]L DR tablet 10 mg (DULCOLAX) 10 mg, oral, 2 times daily PRN, constipation, Starting on Thu05/04/22 at 1155, Suppository is the preference. Swallow w hole. Do NOT crush, chew, or split tablet. bisacodyL suppository 10 mg (DULCOLAX) 10 mg, rectal, 2 times daily PRN, consti pation, Starting on Thu05/04/22 at 1155, Suppository is the preference. docusate sodium 283 mg/5 mL enema 1 enem a (ENEMEEZ) 1 enema, rectal, 2 times daily PRN, cons tipation, Starting on Thu05/04/22 at 1155, If no bowel movement within 24 hours of starting bisac odyl gadobutrol injection 0.01-30 mL (GADAVIS T) Given 05/05/2022 6:12 PM CDT 8 mL 0.01-30 mL, intravenous, Once in imaging, contrast, Starting on Thu05/05/22 at 1812, For 1 dose, Imaging Protocol Orders, Dose per Radiant Medication Guidelines Intrathecal doses greater than 0.25 mL not recommended. heparin (porcine) Given 05/07/2022 5:42 AM CDT 5,000 Units Right Lower injection 5,000 Units Abdomen 5,000 Units, subcutaneous, Every 8 hours scheduled, First dose on Thu05/04/22 at 2200 Given 05/06/2022 2:32 PM CDT 5,000 Units Left Upper Arm (Back) Given 05/06/2022 6:16 AM CDT 5,000 Units Left Lower Abdomen iohexoL 300 mg iodine/mL solution (OMNIP AQUE) Given 05/04/2022 11:43 AM 140 mL Code/trauma/sedation medication, Starting on CDT 05/04/22 at 1143 iohexoL 350 mg iodine/mL solution 1-200 mL Given 05/04/2022 10:22 AM CDT 130 mL (OMNIPAQUE) 1-200 mL, intravenous, Once in imaging, contrast, Starting on Thu05/04/22 at 1001, For 1 dose, Imaging Protocol Orders, Dose per Radiant Medication Guidelines iohexoL 350 mg iodine/mL solution 1-200 mL Given 05/06/2022 10:02 AM CDT 136 mL (OMNIPAQUE) 1-200 mL, intravenous, Once in imaging, contrast, Starting on Thu05/06/22 at 0949, For 1 dose, Imaging Protocol Orders, Dose per Radiant Medication Guidelines lidocaine (PF) 10 mg/mL (1 %) injection Given 05/04/2022 11:42 A M CDT 3 mL (XYLOCAINE) Code/trauma/sedation medication, Starting on Thu05/04/22 at 1142 metoprolol succinate 24 hr tablet 25 mg Given 05/07/2022 11:19 A M CDT 25 mg (TOPROL-XL) 25 mg, oral, Daily, First dose on Thu05/07/22 at 1045, For 1 dose, Do NOT crush or chew. Tablet may be split on score if needed. metoprolol tartrate tablet 25 mg (LOPRES SOR) Given 05/07/2022 8:54 AM CDT 25 mg 25 mg, oral, 2 times daily, First dose on Thu05/06/22 at 1845 Given 05/06/2022 6:52 PM CDT 25 mg NaCl 0.9 % bolus 1,000 mL New Bag 05/04/2022 12:30 PM CDT 1,000 mL 1000 mL/hr 1,000 mL, intravenous, at 1,000 mL/hr, Administer over 1 Hours, Once, On Thu05/04/22 at 1230, For 1 dose NaCl 0.9% bacteriostatic 0.9 % injection 30 mL Given 05/05/2022 3:57 PM CDT 30 mL 30 mL, intravenous, As needed, for agitated saline (bubble) studies, Starting on Thu05/05/22 at 1507, Intraprocedure - Diagnostic, See protocol polyethylene glycol powder packet 17 g ( MIRALAX) 17 g, oral, Daily PRN, constipation, Starting on Thu at 1155, Ordered sequence of administration: polyethylene glycol, then bisacodyl until BM achieved. Avoid mixing with starch-based thickened liquids. sennosides-docusate sodium 8.6-50 mg per Given 05/07/2022 8:54 A M CDT 1 tablet tablet 1 tablet (SENOKOT-S) 1 tablet, oral, 2 times daily, First dose on Thu05/04/22 at 2100, Do not give if patient has diarrhea. Given 05/06/2022 8:09 AM CDT 1 tablet Given 05/05/2022 9:35 PM CDT 1 tablet sodium chloride (PF) 0.9 % injection 1-1 00 mL Given 05/04/2022 10:22 AM CDT 80 mL 1-100 mL, intravenous, Once, On Thu05/04/22 at 1002, For 1 dose, Imaging Protocol Orders sodium chloride (PF) 0.9 % injection 1-1 00 mL Given 05/05/2022 6:13 PM CDT 40 mL 1-100 mL, intravenous, Once, On Thu05/05/22 at 1815, For 1 dose, Imaging Protocol Orders sodium chloride (PF) 0.9 % injection 1-1 00 mL Given 05/06/2022 10:02 AM CDT 40 mL 1-100 mL, intravenous, Once, On Thu05/06/22 at 1000, For 1 dose, Imaging Protocol Orders sodium chloride 0.9 % injection 10 mL 10 mL, intravenous, As needed, line care, Starting on Thu05/04/22 at 1147, Peripheral Intravenous Catheter and Rapid Infusion Cat heter, prior to blood sampling, post blood transfusion or post blood samplin g sodium chloride 0.9 % injection 10 mL Given 05/05/2022 3:56 PM CDT 10 mL 10 mL, intravenous, As needed, line care, Starting on Thu05/05/22 at 1506, Prior to and following infusion and between multiple consecutive infusions: sodium chloride 0.9 % injection sodium chloride 0.9 % injection 3 mL Given 05/06/2022 8:10 AM CDT 3 mL 3 mL, intravenous, Every 12 hours scheduled, First dose on Thu05/04/22 at 2100, Peripheral Intravenous Catheter and Rapid Infusion Catheter, when no infusion to maintain patency Given 05/05/2022 9:36 PM CDT 3 mL Given 05/05/2022 8:36 AM CDT 3 mL sodium chloride 0.9 % injection 3 mL 3 mL, intravenous, As needed, line care, Starting on Thu05/04/22 at 1147, Prior to and following infusion and between multi ple consecutive infusions: sodium chloride 0.9 % injection sodium chloride 0.9 % injection 3 mL Given 05/07/2022 9:03 AM CDT 3 mL 3 mL, intravenous, Every 12 hours scheduled, First dose on 05/04/22 at 2100, Peripheral Intravenous Catheter and Rapid Infusion Catheter, when no infusion to maintain patency Given 05/06/2022 8:09 AM CDT 3 mL Given 05/05/2022 9:36 PM CDT 3 mL sulfur hexafluoride microspheres injection Given 05/05/2022 3:57 PM CDT 2.5 mL (LUMASON) intravenous, As needed, contrast, Starting on Thu05/05/22 at 1507, Intraprocedure - Diagnostic, See protocol. Reconstitute each 25 mg vial with 5 mL NS. documented in this encounter Active and Recently Administered Medications Times are shown in CDT. Scheduled Medication Order 05/05/2022 05/06/2022 05/07/2022 aspirin chewable tablet 81 mg 1824 (Give n - Provider: Kendal Ingram RLauraNLaura) 0854 (Given - Provider: Kendal aguilar R.NLaura) 81 mg, oral, Daily, First dose (after last modificatio n) on Thu05/06/22 at 1615 atorvastatin tablet 20 mg (LIPITOR) (CANCELED) 2134 (Shanae baeren - Provider: Juan Manuel Leiva RLauraNLaura) 20 mg, oral, Daily at bedtime, First dos e on Thu05/05/22 at 2100, atorvaSTATin 20 mg oral daily was interchanged for simvastatin 5-40 mg oral daily atorvastatin tablet 40 mg (LIPITOR) 2009 (Given - Provider: Dara Fay R.N.) 40 mg, oral, Daily at bedtime, First dos e (after last modification) on Thu05/06/22 at 2100, atorvaSTATin 20 mg oral daily was interchanged for simvastatin 5-40 mg oral daily heparin (porcine) injection 5,000 Units 0639 (Given - Provider: Mireya Doe R.N., CCRN)1322 (Given - Provider: Peewee Metzger R.N.)2136 (Given - Provider: Juan Manuel Leiva R.N.) 0616 (Given - Provider: Juan Manuel Leiva R.N.)1432 (Given - Provider: Charanjit Pizano R.N.)2203 (Not Given - Provider: Dara Fay R.N. - Reason: Patient/family refused) 0542 (Given - Provider: Jeri Rahman R.N.)1500 (Not Given - Provider: Kendal Ingram R.N. - Reason: Patient/family refused - Comment: being discharged) 5,000 Units, subcutaneous, Every 8 hours scheduled, First dose on Thu05/04/22 at 2200 metoprolol succinate 24 hr tablet 25 mg (TOPROL-XL) (COMPLETED) 1119 (Given - Provider: Kendal Ingram R.N.) 25 mg, oral, Daily, First dose on Thu at 1045, For 1 dose, Do NOT crush or chew. Tablet may be split on score if needed. metoprolol tartrate tablet 25 mg (LOPRESSOR) 1852 (Given - Provider: Kendal Ingram R.N.) 0854 (Given - Provider: Kendal aguilar RLauraNLaura) 25 mg, oral, 2 times daily, First dose on Thu05/06/22 at 1845 sennosides-docusate sodium 8.6-50 mg per tablet 1 tabl et (SENOKOT-S) 0836 (Given - Provider: Peewee Metzger R.N.)2135 (Given - Provider: Juan Manuel Leiva R.N.) 0809 (Given - Provider: Kacie Sandoval)2002 (Not Given - Provider: Dara Fay R.N. - Reason: Patient/family refused) 0854 (Given - Provider: Kendal Ingram R.N.) 1 tablet, oral, 2 times daily, First dos e on 05/04/22 at 2100, Do not give if patient has diarrhea. sodium chloride (PF) 0.9 % injection 1-100 mL (COMPLET ED) 1813 (Given - Provider: Burton Olivera(MR)) 1-100 mL, intravenous, Once, On 05/05 at 1815, For 1 dose, Imaging Protocol Orders sodium chloride (PF) 0.9 % injection 1-100 mL (COMPLETED) 1002 (Given - Provider: Kingston Engle R.N.) 1-100 mL, intravenous, Once, On 05/06 at 1000, For 1 dose, Imaging Protocol Orders sodium chloride 0.9 % injection 3 mL (CANCELED) 0836 ( Given - Provider: Peewee Metzger R.N.)2135 (Given - Provider: Juan Manuel Leiva R.N.) 0810 (Given - Provider: Charanjit Pizano R.N.) 3 mL, intravenous, Every 12 hours schedu led, First dose on 05/04/22 at 2100, Peripheral Intravenous Catheter and Rapid Infusion Catheter, when no infusion to maintain patency sodium chloride 0.9 % injection 3 mL 0836 (Given - Pro vider: Peewee Metzger R.N.)2135 (Given - Provider: Juan Maneul Leiva R.N.) 0809 (Given - Provider: Charanjit Pizano R.N.)2017 (Not Given - Provider: Dara Fay RLoki - Reason: Other - Comment: just placed and flushed by IV team) 0903 (Given - Provider: Kendal Ingram R.N.) 3 mL, intravenous, Every 12 hours schedu led, First dose on 05/04/22 at 2100, Peripheral Intravenous Catheter and Rapid Infusion Catheter, when no infusion to maintain patency PRN Medication Order 05/05/2022 05/06/2022 05/07/2022 acetaminophen tablet 1,000 mg (TYLENOL) 1,000 mg, oral, 4 times daily PRN, mild pain or score 1-3 of 10, Starting on 05/04/22 at 1155 albuterol nebulizer solution 2.5 mg 2.5 mg, nebulization, Every 6 hours PRN, wheezing, shortness of breath, Starting on Thu05/06/22 at 0911, Albuterol nebs were interchanged for albuterol/levalbuterol MDI (same frequency) bisacodyL DR tablet 10 mg (DULCOLAX)(Linked Group 1) 10 mg, oral, 2 times daily PRN, constipa tion, Starting on Thu05/04/22 at 1155, Suppository is the preference. Swallow whole. Do NOT crush, chew, or split tablet. bisacodyL suppository 10 mg (DULCOLAX)(Linked Group 1) 10 mg, rectal, 2 times daily PRN, consti pation, Starting on Thu05/04/22 at 1155, Suppository is the preference. docusate sodium 283 mg/5 mL enema 1 enema (ENEMEEZ) 1 enema, rectal, 2 times daily PRN, cons tipation, Starting on Thu05/04/22 at 1155, If no bowel movement within 24 hours of starting bisacodyl gadobutrol injection 0.01-30 mL (GADAVIST) (COMPLETED) 181 (Given - Provider: Burton Olivera(MR) - Comment: [id number]) 0.01-30 mL, intravenous, Once in imaging , contrast, Starting on Thu05/05/22 at 1812, For 1 dose, Imaging Protocol Orders, Dose per [facility] Medication Guidelines Intrathecal doses greater than 0.25 mL not recommended. iohexoL 350 mg iodine/mL solution 1-200 mL (OMNIPAQUE) (COMP LETED) 1002 (Given - Provider: Kingston Engle R.N. - Comment: [id number]) 1-200 mL, intravenous, Once in imaging, contrast, Starting on Thu05/06/22 at 0949, For 1 dose, Imaging Protocol Orders, Dose per [facility] Medication Guidelines NaCl 0.9% bacteriostatic 0.9 % injection 30 mL 1557 (G iven - Provider: LLUVIA Miranda) 30 mL, intravenous, As needed, for agita malathi saline (bubble) studies, Starting on Thu05/05/22 at 1507, Intraprocedure - Diagnostic, See protocol polyethylene glycol powder packet 17 g (MIRALAX) 17 g, oral, Daily PRN, constipation, Sta rting on Thu05/04/22 at 1155, Ordered sequence of administration: polyethylene glycol, then bisacodyl until BM achieved. Avoid mixing with starch-based thickened liquids. sodium chloride 0.9 % injection 10 mL 10 mL, intravenous, As needed, line care , Starting on Thu05/04/22 at 1147, Peripheral Intravenous Catheter and Rapid Infusion Catheter, prior to blood sampling, post blood transfusion or post blood sampling sodium chloride 0.9 % injection 10 mL 1556 (Given - Pr ovider: LLUVIA Miranda) 10 mL, intravenous, As needed, line care , Starting on Thu05/05/22 at 1506, Prior to and following infusion and between multiple consecutive infusions: sodium chloride 0.9 % injection sodium chloride 0.9 % injection 3 mL 3 mL, intravenous, As needed, line care, Starting on Thu05/04/22 at 1147, Prior to and following infusion and between multiple consecutive infusions: sodium chloride 0.9 % injection sulfur hexafluoride microspheres injection (LUMASON) ( CANCELED) 1557 (Given - Provider: LLUVIA Miranda) intravenous, As needed, contrast, Starti ng on Thu05/05/22 at 1507, Intraprocedure - Diagnostic, See protocol. Reconstitute each 25 mg vial with 5 mL NS. Linked Groups Order Group 1: bisacodyL DR tablet 10 mg (DULCOLAX)Jump to med 10 mg, oral, 2 times daily PRN, constipa tion, Starting on Thu05/04/22 at 1155
Suppository is the preference. Swallow whole. Do NOT crush, chew, or split tablet.
Or bisacodyL suppository 10 mg (DULCOLAX)Jump to med 10 mg, rectal, 2 times daily PRN, consti pation, Starting on 05/04/22 at 1155
Suppository is the preference.
documented in this encounter Additional Health Concerns Infection Onset Date Last Indicated Resolved Time COVID19 Pending 05/04/2022 05/04/2022 05/04/2022 2:30 PM CDT Assessment Noted Time PHQ-9 Depression Total Score: 3 05/05/2022 2:00 PM CDT documented as of this encounter Care Teams Single End Sewer Relationship Specialty Start Date End Date Elsewhere, Pcp PCP - General 10/16/20 documented as of this encounter
--- OUTSIDE RECORDS SUMMARY | 2022-06-04 14:59 | XMS_ITS | Encounter Summary ---
:1950 Author Organization [facility] Address [address] [place] [address] Care Team Providers Name Role Phone Jorge L Gonzalez P.A.-C. Primary Care Provider [phone] Encounter Details Date Type Department Care Team Description 07/11/2017 Abstract Department of Family Medicine, Provider, [facility], in [place], [place] [address] [place] [address] [facility] [phone] Social History Tobacco Use Types Packs/Day Years Used Date Smoking Tobacco: Former Sex Assigned at Date Recorded Not on file documented as of this encounter Plan of Treatment Upcoming Encounters Date Type Specialty Care Team Description 06/17/2022 Office Visit Neurology Sourav Gregg M.D. [address] [place], [place] [phone] (Wo rk) documented as of this encounter Visit Diagnoses Not on filedocumented in this encounter Care Teams Route Salesman And Driver Relationship Specialty Start Date End Date Jorge L Gonzalez P.A.-C. PCP - General 01/15/17 10/15/20 [address] [place] [address] documented as of this encounter
--- OUTSIDE RECORDS SUMMARY | 2022-06-04 14:59 | XMS_ITS | Encounter Summary ---
:1950 Author Organization [facility] Address [address] [place] [address] Care Team Providers Name Role Phone Elsewhere, Pcp Primary Care Provider Unavailable Encounter Details Date Type Department Care Team Description 05/04/2022 Anesthesia Event Department of Radiology Jaqueline Moseley APRN, CRNA, D.N.P. [address] [place] [address] in [facility] Sona Julio, ZACH ROBLERO, DNAP [address] [place] [phone] [address] [place] [address] Anesthesia Record Procedure Summary Procedure Name Responsible Anesthesia Start Anesthesia Stop Anesthesiologist Time Time IR CEREBRAL Jaqueline Esposito, 05/04/22 1054 05/04/22 1 215 INTRACRANIAL ARTERY ZACH ROBLERO, D.N.P. THROMBECTOMY Events Date Time Event Comment 05/04/2022 1054 An Start Machine/Equipmen t Checked Infection Precautions Foll owed Procedure/Site Verified NPO Sta tus Verified Supine Standard ASA Mon itors Applied 1059 Turnover to Proceduralist 1105 Anesthesia Time Out 1109 Proc Start 1145 Proc Fin 1202 Turnover to ANE Staff 1214 an stop data 1214 Care transferred to ICU Staff 1215 Monitored Transport 1215 An End I completed my h andoff to the receiving staff during [facility] 1. Identified the patient 2. Ident ified the responsible provider 3. Revi ewed the pertinent medical history 4. Discussed the surgical course 5. Reviewed intra-op anesthesia manag ement and issues during anesthesia 6. Se t expectations for post-procedure p eriod 7. Allowed opportunity for questions and acknowledgement of understanding. Name Total heparin 1,000 units/mL injection 3,000 Units clevidipine 0.5 mg/mL infusion 1.08 mg Lactated Ringers Free Drip 700 mL Agents No agents on file. Blood No blood administrations on file. Lines, Drains, and Airways Type Details Placement Removal Peripheral IV Placement Date: 05/04/22 0953 by 05/06/22 1808 b y 05/04/22; Placement Lathim, Loretta L, Kartheis er, Kendal Time: 0953; Existing LDA R.N. S, R.N. Placed by: EMS; Catheter Size: 18 G; Orientation: Left; Location: Antecubital; Removal Date: 05/06/22; Removal Time: 180; Removal Reason: Patient discharged Peripheral IV Placement Date: 05/04/22 1002 by 05/06/22 1809 b y 05/04/22; Placement Lathim, Loretta L, Kartheis er, Kendal Time: 1002; Catheter R.N. S, R.N. Size: 18 G; Orientation: Right; Location: Antecubital; Site Prep: Chlorhexidine (Preferred); Technique: Anatomical landmarks; Insertion Attempts: 1; Removal Date: 05/06/22; Removal Time: 180; Removal Reason: Patient discharged Percutaneous Access 05/04/22; 1108; 05/04/22 1108 by 05/04/22 11 43 by Site Temporary (non-tunneled, Timoteo Eaton, Timoteo Eaton, non-implanted); R.N. R.N. Arterial; Yes; Yes; Yes; Yes; Chlorhexidine (Preferred); Yes; Cap, Gown, Large drape, Mask (Clinician), Mask (All others in room); Dr Waters; Right Femoral; 5 Fr.; Ultrasound; ARREGUIN closure; 05/04/22; 1143 documented in this encounter Social History Tobacco Use Types Packs/Day Years Used Date Smoking Tobacco: Former Smokeless Tobacco: Never Alcohol Use Standard Drinks/Week Comments No 0 (1 standard drink = 0.6 oz pure alcoho l) Sex Assigned at Date Recorded Not on file documented as of this encounter OR Notes Anesthesia Postprocedure Evaluation - Sona Julio APRN, CRNA, DNAP - 05/04/2022 12:16 PM CDT Patient: Carlos Manuel Montaño Procedure Summary Date: 05/04/22 Room / Location: Department of Radiology in [place], [place] Anesthesia Start: 1054 Anesthesia Stop: 1215 Procedure: IR CEREBRAL INTRACRANIAL ARTERY THROMBECTOMY Diagnosis: (Right M2 thrombectomy) Scheduled Providers: Mata Waters M.D. Responsible Provider: Jaqueline Esposito APRN, CRNA D.N.PLaura Anesthesia Type: MAC ASA Status: 3 - Emergent Anesthesia Type: MAC Last vitals Vitals Value Taken Time BP Temp Pulse Resp SpO2 Please reference Vitals flowsheet for most recent vital signs. Anesthesia Post Evaluation Patient Disposition: monitored unit, expectation for recovery time deferred to receiving unit Cardiovascular status: hemodynamics (HR & BP) acceptable Respiratory status: patent airway with spontaneous effort Temperature: normothermic Oxygen requirements: room air Level of consciousness: awake Pain score: pain adequately controlled and/or at baseline Post Op nausea/vomiting: none Hydration status: euvolemic Anesthesia Preprocedure Evaluation - Sona Julio APRN, CRNA, DNAP - 05/04/2022 11:01 AM CDT Preprocedure Anesthesia & H&P Assessment Procedure Summary Anesthesia Start Date/Time: 05/04/22 1054 Scheduled providers: Mata Waters M.D. Procedure: IR CEREBRAL ARTERY ANGIOGRAM Indications: Right M2 thrombectomy Location: Department of Radiology in [place], [place] Pertinent components of the patient's history including current problem list, medical history, surgical history, family history, social history, medications and allergies were reviewed. Present illnessand pre-op diagnosis were confirmed. The planned surgery / procedure was verified with the patient /legal guardian. The patient's general health condition remains unchanged RELEVANT COMORBID CONDITIONS CV (+) Atrial Fibrillation Unspecified NEURO (+) Stroke (HCC) Other (+) Abuse Tobacco Smoking OBJECTIVE PHYSICAL EXAMINATION Airway (HEENT) Mallampati: II TM Distance: >3 FB Neck ROM: Full Mouth Opening: >3 cm Cardiovascular Rhythm: Regular Cardiovascular Assessment: cardiovascular normal Functional Capacity: >4 METS Pulmonary Pulmonary Assessment: Clear General / Constitutional Constitutional Assessment: Normal General State of Health:: in distress Neurological Neurologic Assessment:??alert and cognitive deficit Dental Dental Assessment: upper dentures and lower dentures ASSESSMENT / PLAN ANESTHESIA PLAN ASA: 3 - Emergent Anesthesia Plan: MAC Patient seen and allergies reviewed, anesthesia plan and risks discussed directly with patient /legal guardian or through an parts interpreter. Risks/Benefits/Alternatives of Blood transfusion discussed with patient / legal guardian, including an opportunity to ask questions and/or decline some or all transfusion therapies. The patient / legalguardian consented to the use of all blood products, as deemed medically necessary Approval to Proceed: approved for anesthesia documented in this encounter Plan of Treatment Upcoming Encounters Date Type Specialty Care Team Description 06/17/2022 Office Visit Neurology Sourav Gregg M.D. [address] [place], [place] [phone] (Wo rk) documented as of this encounter Visit Diagnoses Not on filedocumented in this encounter Administered Medications Inactive Administered Medications - up to 3 most recent administrations Medication Order MAR Action Action Date Dose Rate Site clevidipine 0.5 mg/mL Restarted 05/04/2022 11:54 AM CDT 5 mg/hr 1 0 mL/hr infusion (CLEVIPREX) intravenous, Continuous Infusion: Per Instructions PRN, Starting on 05/04/22 at 1139, Anesthesia Intra-op Rate/Dose Change 05/04/2022 11:43 AM CDT 4 mg/hr 8 mL/hr New Bag 05/04/2022 11:39 AM CDT 2 mg/hr 4 mL/hr heparin (porcine) 1,000 unit/mL Given 05/04/2022 11:35 AM CDT 3, 000 Units injection intravenous, As needed, Starting on 05/04/22 at 1135, Anesthesia Intra-op lactated ringers New Bag 05/04/2022 10:57 AM CDT intravenous, Continuous Infusion: Per Instructions PRN, Starting on 05/04/22 at 1057, Anesthesia Intra-op documented in this encounter Care Teams Strip Roller Relationship Specialty Start Date End Date Elsewhere, Pcp PCP - General 10/16/20 documented as of this encounter
--- OUTSIDE RECORDS SUMMARY | 2022-06-04 14:59 | XMS_ITS | Encounter Summary ---
:1950 Author Organization [facility] Address [address] [place] [address] Care Team Providers Name Role Phone Unavailable Primary Care Provider Unavailable Encounter Details Date Type Department Care Team Description 10/03/2009 Hospital Encounter HX [facility] Refugio Rodriguez M.D. [address] [place] [address] (Wo rk) Social History Tobacco Use Types Packs/Day Years Used Date Smoking Tobacco: Never Assessed Sex Assigned at Date Recorded Not on file documented as of this encounter Plan of Treatment Upcoming Encounters Date Type Specialty Care Team Description 06/17/2022 Office Visit Neurology Sourav Gregg M.D. [address] [place], [place] [phone] (Wo rk) documented as of this encounter Visit Diagnoses Not on filedocumented in this encounter
--- OUTSIDE RECORDS SUMMARY | 2022-06-04 14:59 | XMS_ITS | Encounter Summary ---
:1950 Author Organization [facility] Address [address] [place] [id number] Care Team Providers Name Role Phone Unavailable Primary Care Provider Unavailable Encounter Details Date Type Department Care Team Description 08/30/2015 Hospital Encounter HX [facility] OCCUP MED Sophy Smart, P.A.-CLaura [address] [place], [facility] [address] [place], [place] [address] (Wo rk) Social History Tobacco Use Types Packs/Day Years Used Date Smoking Tobacco: Never Assessed Sex Assigned at Date Recorded Not on file documented as of this encounter Last Filed Vital Signs Vital Sign Reading Time Taken Comments Blood Pressure 135/85 08/30/2015 10:02 AM SCRAP METAL COLLECTOR Pulse 72 08/30/2015 10:02 AM SCRAP METAL COLLECTOR Temperature - - Respiratory Rate - - Oxygen Saturation - - Inhaled Oxygen Concentration - - Weight 72.1 kg (158 lb 15.2 oz) 08/30/2015 10:02 AM SCRAP METAL COLLECTOR Height 176.5 cm (5' 9.49) 08/30/2015 10:02 AM SCRAP METAL COLLECTOR Body Mass Index 23.14 08/30/2015 10:02 AM SCRAP METAL COLLECTOR documented in this encounter Medications at Time of Discharge Medication Sig Dispensed Refills Start Date End Date MULTIVITAMIN ORAL Take 1 tablet by mouth 0 2011 daily. aspirin 325 mg tablet Take 1 tablet by mouth 0 05/06/2022 daily. documented as of this encounter H&P Notes Jean Pierre Smart, P.A.-C. 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 HISTORY OF PRESENT ILLNESS Review of health history completed by the straddle truck driver is negative to all questions PAST MEDICAL HISTORY As above MEDICATIONS Daily aspirin and multivitamin SYSTEMS REVIEW Feels well today SURGERIES Left elbow surgery in the 1980s - has mild limitation with range of motion PCP 2 years ago for DOT physical SOCIAL HISTORY Denies tobacco and alcohol use TESTING Vision and hearing, vital signs, dipstick urinalysis performed today per DOT protocol. Please see scanned DOT medical report. PHYSICAL EXAMINATION Please see scanned duty medical report. CERTIFICATION STATUS Meets standards for 2 year certificate I do recommend that Carlos Manuel see a primary care provider for an annual comprehensive examination and blood work CERTIFICATE EXPIRES 2017 Arturo Alatorre/glenroy Electronically Signed By: JEAN PIERRE SMART PA-C On: 08/30/2015 11:00 AM Source: [facility] [email or web address] Document Id: [id number] P METAL COLLECTOR documented in this encounter Procedure Notes Sharif Osborn C.M.A. - 08/30/2015 10:22 AM CST Urine Dipstick Urine Dipstick Entered On: 08/30/2015 10:23 SCRAP METAL COLLECTOR Performed On: 08/30/2015 10:22 SCRAP METAL COLLECTOR by SHARIF OSBORN [facility] Urine Dipstick UA Color POC : Yellow UA Appear POC : Clear UA Leuk POC : Negative UA Nitrite POC : Negative UA Urobilinogen POC : 0.2 mg/dl UA Protein POC : Negative UA pH POC : 7.0 UA Blood POC : Negativ UA Spec Grav POC : 1.015 UA Ketones POC : Negative UA Bili POC : Negative UA Glucose POC : Negative SHARIF OSBORN [facility] - 08/30/2015 10:22 SCRAP METAL COLLECTOR Source: [facility] POWERFlxOne Document Id: [id number] SCRAP METAL COLLECTOR!14 P METAL COLLECTOR Sharif Osborn C.M.A. - 08/30/2015 10:15 AM CST Vision Testing Vision Testing Entered On: 08/30/2015 10:15 SCRAP METAL COLLECTOR Performed On: 08/30/2015 10:15 SCRAP METAL COLLECTOR by SHARIF OSBORN CMA Vision Testing Corrective Lenses : Glasses Color Vision : Pass Eye, Right with Correction : 20/30 Eye, Left w/Correction : 20/30 Eyes, Both with Correction : 20/20 Field of Vision Right : 85 degrees Field of Vision Left : 85 degrees SHARIF OSBORN CMA - 08/30/2015 10:15 SCRAP METAL COLLECTOR Source: [employer] Document Id: [id number] SCRAP METAL COLLECTOR!9 P METAL COLLECTOR documented in this encounter Nursing Notes Sharif Osborn C.M.A. - 08/30/2015 10:23 AM CST DOT whisper test Forced whisper test performed. Patient was able to hear at a 5 foot distance in each ear. Electronically Signed By: SHARIF OSBORN CMA On: 08/30/2015 10:23 AM Source: [employer] Document Id: [id number] P METAL COLLECTOR documented in this encounter Miscellaneous Notes Miscellaneous - Jean Pierre Smart P.A.-C. - 08/30/2015 10:42 AM CST Ambulatory Patient Summary [facility] [address] [place], [place] [id number] Visit Information Name: CARLOS MANUEL ZENG [facility] Number: [id number] Current Date: 08/30/2015 10:42:47 Physicians Attending Provider: JEAN PIERRE SMART PA-C Primary Care Provider: NANY LOPEZ PA-C CARLOS MANUEL ZENG has been given the following list of follow-up instructions, medication list, and patient education materials: Follow-up Instructions Your Medications Here is a list of your medications. It is important to take your medications as directed. Use a pillbox or chart to help remind you to take your medications. Please let your doctor or nurse know if you have problems taking your medications. Medication/Strength How to Take Indications/Special Instructions/Comments/Notes for Patient Medication Changes/Routing aspirin (aspirin 325 mg oral tablet) 1 Tablet(s), Oral, once a day multivitamin (multivitamin) Oral, once a day Stop Taking the Following Medications: Medication list as of 08-30-15 10:42 Attention: If you have any medications at home that are not on this list, DO NOT take them until youcontact your provider for clarification. Give a copy of your medication list to your primary care provider. Update your medication list any time medications or doses are changed and carry your medication list at all times in case of emergency. 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 Consider Using Patient Online Services Patient Online Services is a secure online and Mobile application that lets you: ?? View lab and test results ?? View portions of your medical record including clinical notes, immunizations and discharge summaries ?? Request an appointment or medication refill ?? Review your appointment schedule ?? Send secure messages to your care team Its easy to create an account if you dont have one. Go to [email or web address] and click on Create Your Account. Then, follow the directions to complete the online form. Youll be asked for your [facility] number which you can find at the top of this document. Your Goals/Additional instructions: Source: [facility] POWERCHART Document Id: [id number] P METAL COLLECTOR Miscellaneous - Jean Pierre Smart P.A.-C. - 08/30/2015 10:42 AM CST Ambulatory Discharge Medication List [facility] [address] [place], [place] [phone] Visit Information Name: CARLOS MANUEL ZENG [facility] Number: [id number] Visit Date: 08/30/2015 10:42:47 Attending Provider: JEAN PIERRE SMART PA-C Primary Care Provider: NANY LOPEZ PA-C CARLOS MANUEL ZENG has been given the following list of medications: Your Medications It is important to take your medications as directed. Use a pill box or chart to help remind you to take your medications. Please let your doctor or nurse know if you have problems taking your medications. Medication/Strength How to Take Indications/Special Instructions/Comments/Notes for Patient Medication Changes/Routing aspirin (aspirin 325 mg oral tablet) 1 Tablet(s), Oral, once a day multivitamin (multivitamin) Oral, once a day Stop Taking the Following Medications: Medication list as of 08-30-15 10:42 Attention: If you have any medications at home that are not on this list, DO NOT take them until youcontact your provider for clarification. Give a copy of your medication list to your primary care provider. Update your medication list any time medications or doses are changed and carry your medication list at all times in case of emergency. Electronically Signed By: Signed On: Additional Information: Source: [facility] POWERCHART Document Id: [id number] P METAL COLLECTOR Miscellaneous - Sharfi Osborn, C.M.A. - 08/30/2015 10:02 AM CST Adult Action Finisher Intake/History Adult Action Finisher Intake/History Entered On: 08/30/2015 10:07 SCRAP METAL COLLECTOR Performed On: 08/30/2015 10:02 SCRAP METAL COLLECTOR by SHARIF OSBORN ELECTRICIAN SECOND Intake Chief Complaint : DOT recertification Peripheral Pulse Rate : 72 /min Heart Rhythm : Regular Systolic Blood Pressure : 135 mmHg Diastolic Blood Pressure : 85 mmHg NIBP Mean : 102 mmHg BP Location : Left upper extremity Blood Pressure Cuff Size : Large Height : 176.5 cm(Converted to: 5 ft 9 inch(es), 69 inch(es)) Actual Weight : 72.10 kg(Converted to: 158 lb 15 oz) Weight Source : Standing scale Dosing Weight Clinic : 72.1 kg Clinic BSA : 1.88 Body Mass Index : 23.14 kg/m2 SHARIF OSBORN [facility] - 08/30/2015 10:02 SCRAP METAL COLLECTOR General Info Information Given By : Patient Languages : Tamazight Is Patient Female and 13-50 no hysterectomy : No SHARIF OSBORN [facility] - 08/30/2015 10:02 SCRAP METAL COLLECTOR Subjective Pain Symptoms : No SHARIF OSBORN [facility] - 08/30/2015 10:02 SCRAP METAL COLLECTOR Dependent Habits Exposure to Tobacco Smoke : Other: quit in 2008 Smoking Status : Former smoker Tobacco 2A : Yes Tobacco Use/Currently Using : No Tobacco Use/Last 30 Days : No Tobacco Use/Last 12 months : No SHARIF OSBORN [facility] 08/30/2015 10:02 SCRAP METAL COLLECTOR Caffeine Use Grid Caffeine Use : Current Type : Coffee Frequency : Daily Amount : 3 cups Last Use : this morning SHARIF OSBORN [facility] 08/30/2015 10:02 SCRAP METAL COLLECTOR Recreational Drug Use Grid Drug Use : None SHARIF OSBORN [facility] 08/30/2015 10:02 SCRAP METAL COLLECTOR Source: [facility] POWERCHART Document Id: [id number] SCRAP METAL COLLECTOR!39 P METAL COLLECTOR documented in this encounter Plan of Treatment Upcoming Encounters Date Type Specialty Care Team Description 06/17/2022 Office Visit Neurology Sourav Gregg M.D. [address] [place] [address] [phone] (Wo rk) documented as of this encounter Procedures Procedure Name Priority Date/Time Associated Diagnosis Comme nts POCT KETONE, URINE Routine 08/30/2015 10:22 AM Re sults for this SCRAP METAL COLLECTOR procedure are i n the results section. documented in this encounter Results Ketone, Urine, POCT (08/30/2015 10:22 AM SCRAP METAL COLLECTOR) [facility] Method Time Signature Color Yellow POWERCHART Appearance Clear POWERCHART Leukocytes, Negative POWERCHART POCT, U Nitrites, POCT, Negative POWERCHART U Urobilinogen, 0.2 mg/dl POWERCHART POCT, Urine Protein, POCT, Negative POWERCHART U pH, POCT, Urine 7.0 5.0 - 9.0 POWERCHART Blood, POCT, U Negativ POWERCHART Specific 1.015 1.000 - POWERCHART [place], POCT, 1.030 U Ketone, POCT, U Negative POWERCHART Bilirubin, Negative POWERCHART POCT, U Glucose, POCT, Negative POWERCHART U Specimen (Source) Anatomical Collection Method Collection Time Re ceived Time Location / / Volume Laterality 08/30/2015 10:22 AM SCRAP METAL COLLECTOR Jean Pierre Smart P.A.-C. LAB POCT ORDERABLES-MANUAL Performing Organization Address City/State/ZIP Code Phon e Number POWERCHART documented in this encounter Visit Diagnoses Not on filedocumented in this encounter
--- OUTSIDE RECORDS SUMMARY | 2022-06-04 14:59 | XMS_ITS | Clinical Summary ---
:1950 Author Organization [facility] Address [address] [place] [address] Care Team Providers Name Role Phone Elsewhere, Pcp Primary Care Provider Unavailable Source Comments Patient records contain information from all sites at [facility]. For routine questions regarding patient records, call [phone] during business hours, M-F 8:00 AM - 5:00 PM Central Time. Record requests for emergency care only can be directed to [phone] at any time.[facility] Allergies No known active allergies Medications Medication Sig Dispensed Refills Start Date End Date Status albuterol 90 Inhale 2 puffs 0 Ac tive mcg/actuation every 6 (six) inhaler hours as needed for wheezing or shortness of breath. atorvastatin Take 1 tablet 90 tablet 0 05/06/2022 Ac tive (LIPITOR) 40 mg (40 mg total) 3 tablet by mouth at bedtime. aspirin 81 mg Chew 1 tablet 5 tablet 0 05/07/2022 A ctive chewable tablet (81 mg total) daily for 5 days. metoprolol Take 2 tablets 30 tablet 11 05/07/2022 Act aayush succinate (50 mg total) (TOPROL-XL) 25 mg by mouth 24 hr tablet daily. Do not crush or chew. rivaroxaban Take 1 tablet 30 tablet 3 05/13/2022 Act aayush (XARELTO) 20 mg (20 mg total) tablet by mouth daily with dinner. aspirin 325 mg Take 1 tablet 0 10/02/2011 Discontinued tablet by mouth 2 (Stop Taki ng at daily. Discharge) MULTIVITAMIN ORAL Take 1 tablet 0 10/02/2011 Suspended by mouth daily. aspirin 81 mg Chew 1 tablet 0 05/07/2022 D iscontinued chewable tablet (81 mg total) 2 (Reorder) daily for 4 days. aspirin 81 mg Chew 1 tablet 6 tablet 0 05/07/2022 D iscontinued chewable tablet (81 mg total) 2 (Reorder) daily for 6 days. Active Problems Problem Noted Date Stroke 05/04/2022 Chronic Obstructive Pulmonary Disease Exacerbation 09/2021 Abuse Tobacco Smoking 05/07/2009 Atrial Fibrillation Unspecified 03/14/2009 Encounters Date Type Specialty Care Team Description 05/14/2022 Comprehensive Visit Physical Medicine and Kervin Bo Stroke (HCC) Rehabilitation Jayme Hernandez 05/14/2022 Documentation Physical Medicine and Summer Bo M.D. 05/09/2022 Clinical Neurology Adwoa Prajapati, Post Hospita l Communication R.N. Follow-up 05/04/2022 Anesthesia Event Radiology Jaqueline Esposito APRN, DRILL PRESSER, D.N.P. Sona Julio APRN, ZACH, DNAP 05/04/2022 Hospital Encounter Porsha Leach, Stroke ( HCC) (Primary Dx); - Jayme, M.P.H. Change Mental Status; 05/07/2022 Elisabet, Decline Functio nal Status; Lamont Hernandez, Nicotine Depend ence Cigarettes With Withdrawal Shar Weber M.D. 03/26/2022 Nurse Only Family Medicine Edward Wharton APRN, C.N.P., D.N.P. from Last 3 Months Immunizations Name Administration Dates Next Due PPSV23 05/07/2009 SARS-COV-2 (COVID-19) - PFIZER TS(12 years or older) 022 Td, (Adult) Unspecified 08/03/2005 Tdap 09/08/2013 Family History Medical History Relation Name Comments Heart attack Father Relation Name Status Comments Father Social History Tobacco Use Types Packs/Day Years [...] Assigned at Date Recorded Not on file Last Filed Vital Signs Vital Sign Reading Time Taken Comments Blood Pressure 132/78 05/14/2022 2:54 PM CDT Pulse 70 05/14/2022 2:54 PM CDT Temperature 36.5 ??C (97.7 ??F) 05/07/2022 11:15 AM CDT Respiratory Rate 18 05/07/2022 11:15 AM CDT Oxygen Saturation 92% 05/07/2022 11:16 AM CDT Inhaled Oxygen Concentration - - Weight 69.2 kg (152 lb 8.9 oz) 05/05/2022 8:45 PM CDT Height 175.3 cm (5' 9) 05/05/2022 8:45 PM CDT Body Mass Index 22.53 05/05/2022 8:45 PM CDT Plan of Treatment Upcoming Encounters Date Type Specialty Care Team Description 06/17/2022 Office Visit Neurology Sourav Gregg M.D. [address] [place], [place] [phone] (Wo rk) Health Maintenance Due Date Last Done Comments Abdominal Aortic Aneurysm (AAA) [address] Colonography 1950 Cologuard 1950 FIT 1950 Hepatitis C Screening 1950 Hepatitis A Vaccines (1 of 2 - 1949 Risk 2-dose series) Zoster Vaccines (1 of 2) 1998 Hepatitis B Vaccines (1 of 3 - 2008 Risk 3-dose series) Pneumococcal vaccine (65+ years) 05/07/2010 05/07/2009 (2 - PCV) Colonoscopy 05/07/2019 05/07/2009 Colorectal Cancer Screening 05/07/2019 Depression Screening (Annual 08/03/2021 PHQ-2) Fall Risk Screen (Annual) 08/03/2021 Influenza Vaccine (#1) 2022 COVID-19 Vaccine (5 - Booster for 05/21/2022 03/26/2022, , Pfizer series) 10/30/2020, Additional history exists Office Visit for Blood Pressure 05/14/2023 05/14/2022 Check / Re-check DTaP,Tdap,and Td Vaccines (2 - Td 09/08/2023 09/08/2013, or Tdap) Fasting Glucose for Diabetes 05/05/2025 05/05/2022, 022, Screening 05/04/2022, Additional history exists Lipid (Cholesterol) Screening 05/05/2027 05/05/2022 Procedures Procedure Name Priority Date/Time Associated Comments Diagnosis ECG Routine 05/07/2022 Results for 10:01 AM CDT this procedure are in the results section. HOLTER MONITOR - IN Routine 05/07/2022 8:52 Stroke (HCC) Resul ts for CLINIC RETAIL AREA MANAGER AM CDT this procedur e are in [...] proc edure are in the results section. HEMOGLOBIN A1C, B Routine 05/05/2022 4:21 Results for AM CDT this procedure are in the results section. LIPID PANEL, [...] procedu re are in the results section. SARS CORONAVIRUS [...] all are in the outpatients) results section. TYPE AND SCREEN STAT 05/04/2022 Results for 12:55 PM CDT this procedure are in the results section. THYROID-STIMULATING STAT 05/04/2022 Results for HORMONE-SENSITIVE 12:55 PM CDT this proce dure (S-TSH) are in the results section. ASPARTATE STAT 05/04/2022 Results for AMINOTRANSFERASE (AST), 12:55 PM CDT this procedure S/P are in the results section. ALANINE STAT 05/04/2022 Results for AMINOTRANSFERASE (ALT), 12:55 PM CDT this procedure S/P are in the results section. ACTIVATED PARTIAL STAT 05/04/2022 Results fo r THROMBOPLASTIN TIME 12:55 PM CDT this pro cedure (APTT), P are in the results section. PROTHROMBIN TIME (PT), STAT 05/04/2022 Resul ts for P 12:55 PM CDT this procedure are in the results section. PHOSPHORUS (INORGANIC), STAT 05/04/2022 Resu lts for S 12:55 PM CDT this procedure are in the results section. MAGNESIUM, S STAT 05/04/2022 Results for 12:55 PM CDT this procedure are in the results section. TROPONIN T, 2H/6H, 5TH STAT [...] are in the results section. CT HEAD PERFUSION WITH RAD - [...] critically ill results patients) section. CT HEAD ACUTE STROKE RAD - Emergent 05/04/2022 Resul ts for PROTOCOL WITHOUT IV (Fastest; for 10:46 AM CDT this pr ocedure CONTRAST the most are in the critically ill results patients) section. LACTATE, POCT, B STAT 05/04/2022 Results for 10:14 AM CDT this procedure are in the results section. VBG & LYTES CG8+, POCT, STAT [...] this procedure are in the results section. from Last 3 Months Results ECG 12 Lead (05/07/2022 10:01 AM CDT)Only the most recent of4 resultswithin the time period is included. Patholo gist Method Time Signature Ventricular 92 BPM MUSE Rate ECG/Min QRSD Interval 90 ms MUSE QT Interval 348 ms MUSE QTC Interval 430 ms MUSE R [place] 47 degrees MUSE T Wave [place] 68 degrees MUSE CODED Atrial MUSE DIAGNOSIS [...] MUSE NA HOLTER MONITOR - IN CLINIC RETAIL AREA MANAGER (05/07/2022 8:52 AM CDT) P athologist Signature [...] Duration 18h 54m duration INFOBIONIC MOME AF [place] 80 percent INFOBIONIC MOME Longest AF 18h 59m duration INFOBIONIC Duration MOME Symptom Count 0 count INFOBIONIC MOME Specimen (Source) Anatomical Collection Method Collection Time Re ceived Time Location / / Volume Laterality 05/06/2022 9:23 AM CDT Narrative INFOBIONIC PATRICE - 05/08/2022 12:14 PM CD T Winner 1. The basic rhythm was atrial fibrillat [...] 2%. 4. No symptomatic events were noted. Barn Worker: Samantha Yañez/Yanni95 A Holter monitor with cascade to extende [...] note might be different from the original. Winner 1. The basic rhythm was atrial fibrillat [...] 2%. 4. No symptomatic events were noted. Barn Worker: Samantha Yañez/Beatrice A Holter monitor with cascade [...] e Number INFOBIONIC MOME INFOBIONIC MOME NA CT Cardiac Angiogram with IV Contrast [...] the spine. Procedure Note Akin Simpson M.B.B.S., MGaye - 11/2021 EXAM: CT CARDIAC ANGIOGRAM WITH [...] lymph nodes could be r eactive. Mary Godwin M.D. IMG CT PROCEDURES MR Brain without IV Contrast (05/05/2022 [...] origin narrowing. Clinton Díaz APRN, C.N.P., M.S.N. IMG MRI PROCEDURES MR Neck Angiogram without and with IV Contrast (05/05/2022 6:11 PM CDT) Anatomical Region Laterality Modality Neck, Neuroradiology RST LOS, Neuroradiology ARZ LOS, N/A Magnetic Resonance Neuroradiology [facility] Specimen (Source) Anatomical Collection Method Collection [...] vertebral art carri origin narrowing. Clinton Díaz APRN C.N.P., M.S.N. IMG MRI PROCEDURES (TTE) 2D ECHO DOPPLER COLOR AND CONTRAST (05/05/2022 4:09 PM CDT) [facility] Method Time Signature Ejection Fraction 66 [...] per Echocardiography Contrast Administration Protocol Reference Document [id number]. Brian mora met an inclusion criterion and did [...] For the complete report, see the Order-L Fablicel Documents. Hemodynamics Heart Rate: 79 BPM Blood [...] per Echocardiography Contrast Administration Protocol Reference Document [id number]. Patient met an inclusion criterion and did not have contraindications in screening sections. For the complete report, see the Order-L evel Documents. Yang Anderson P.A.-C. CV ECHO PROCEDURES Lipid Panel (05/05/2022 4:21 AM CDT) athologist [...] Organization Address City/State/ZIP Code Phon e Number [facility] - [address] [place], [place] [address] [facility] [place] [place] [address] Laboratories-[facility] [address] (ABNORMAL) CBC without Differential (05/05/2022 4:21 AM CDT)Only the most recent of2 resultswithin the time period is included. [facility] gist Method Time Signature Hemoglobin 13.0 (L) 13.2 [...] P.A.-C. LAB BLOOD ADD-ON Performing Organization Address City/[facility] Phon e Number [facility] - [address] [place], [place] [phone] [place] [address] Magnesium (05/05/2022 4:21 AM CDT)Only the most recent of2 resultswithin the time period is included. P athologist Signature Magnesium, S 1.9 1.7 - 2.3 05/05/2022 DTL mg/dL 5:46 AM CDT Specimen Anatomical Collection Method Collection Time Receive d Time (Source) Location / / Volume Laterality Blood (Blood, 05/05/2022 4:21 AM 05/05/20 5:26 Venous) CDT AM CDT Yang Anderson P.A.-C. LAB BLOOD ADD-ON Performing Organization Address City/[facility] Phon e Number [facility] - [address] [place], [place] [address] [facility] [place], [place] [phone] [place] [address] Hemoglobin A1c (05/05/2022 4:21 AM CDT) P athologist Signature Hemoglobin A1c, 5.4 4.0 - 5.6 05/05/2022 DTL B % 6:30 AM CDT Specimen Anatomical Collection Method Collection Time Receive d Time (Source) Location / / Volume Laterality Blood (Blood, 05/05/2022 4:21 AM 05/05/20 5:13 Venous) CDT AM CDT Yang Anderson P.A.-C. LAB BLOOD ADD-ON Performing Organization Address City/State/ZIP Code Phon e Number [facility] - [address] [place], [place] [address] [facility] [place] [address] Laboratories-[facility] [address] (ABNORMAL) Basic Metabolic Panel (05/05/2022 4:21 AM CDT)Only the most recent of 2 resultswithin the time period is included. Analysis Performed At Patho logist Time Signature Potassium, S 4.4 3.6 - [...] P.A.-C. LAB BLOOD ADD-ON Performing Organization Address City/[facility] Code Phon e Number [facility] - [address] [place], [place] [address] [facility] [place] [address] Laboratories-[facility] [address] [facility] SARS Coronavirus 2, RNA, Rapid POC, V Asymptomatic (05/04/2022 2:09 PM CDT) [facility] Method Time Signature SARS Undetected Undetected 05/04/2022 DTLR Coronavirus-2 2:30 PM CDT , RNA, Rapid POC, V Comment: Negative for SARS-CoV-2. The [employer]ar[employer] COVID-19 test is a molecular dorcas t for SARS-CoV-2, the virus that causes COVID- 19. A Negative result means that the sonar[employer] COV ID-19 test did not detect SARS-CoV-2 virus in your sample. [employer] COVID-19 test uses the Section [employer] System. This test has received Emergency Use Authorization (EUA) by the U.S. Food and Drug Administration (FDA) and is used per man acturer instructions. Performance characteristic s were verified by [facility] in a manner consistent with CLIA requirements. Fact sheets for this Emerg ency Use Authorization (EUA) can be found at the following links: Providers: https://bubl.com/documentation/prov iders.pdf Patients: https://bubl.com/documentation/vicky ents.pdf SARS Coronavirus 2, Source Nasopharynx DEFAULT 05/04/2022 2:30 PM CDT DTLR Specimen Anatomical Collection Method Collection Time Receive d Time (Source) Location / / Volume Laterality Swab 05/04/2022 2:09 PM 2 2:09 (Nasopharynx) CDT PM CDT Lamont Bhandari M.D. LAB MICROBIOLOGY - GENERAL ORDERABLES Performing Organization Address City/[facility] Phon e Number PERFORMING LABS, [place] [address] INTERFACE Ref Interface [address] [facility] DTLR Performing Labs, [place] [address] Interface 200 [facility] DX Chest Portable 1 View (05/04/2022 1:49 [...] Yang Anderson P.A.-C. IMG DIAGNOSTIC IMAGING PROCE ROGERIO Troponin T, 2H/6H, 5th Gen (05/04/2022 12:55 PM CDT) [facility] Method Time Signature Troponin T, 2 10 <=15 ng/L 05/04/2022 STMA hr, 5th gen 1:31 PM CDT 2H Delta 0 ng/L 05/04/2022 STMA 1:31 PM CDT 2H Delta Not Changing 05/04/2022 STMA Interp 1:31 PM CDT Troponin T, 6 CANCELED ng/L 05/04/2022 STMA hr, 5th gen 1:31 PM CDT Comment: Result canceled by the idalia cerna Specimen Anatomical Collection Method Collection Time Receive d Time (Source) Location / / Volume Laterality Blood (Blood, 05/04/2022 12:55 05/04/2022 Venous) PM CDT 12:59 PM CDT Narrative [facility] - 05/04/2022 1:31 PM CDT Specimen Information: Specimen ID: [id number] Specimen Type: Blood Specimen Collection Start Date: 05/04/20 12:55 PM Specimen Received Date: 05/04/2022 12:59 PM Specimen ID: [id number] Specimen Type: Blood Specimen Collection Start Date: 05/04/20 ??1:31 PM Specimen Received Date: 05/04/2022 ??1:3 1 PM Porsha Leach M.D., M.P.H. LAB BLOOD TROPONIN Performing Organization Address [facility] Phon e Number [facility] - [address] (ABNORMAL) APTT (Activated Partial Thromboplastin Time) (05/04/2022 12:55 PM CDT)Only the most recent of2 resultswithin the time period is included. athologist Signature Activated 47 (H) 25 - 37 05/04/2022 [facility] Partial sec 1:08 PM CDT Thrombopl Time, P Specimen Anatomical Collection Method Collection Time Receive d Time (Source) Location / / Volume Laterality Blood (Blood, 05/04/2022 12:55 05/04/2022 Venous) PM CDT 12:59 PM CDT Yang Anderson P.A.-C. LAB BLOOD ADD-ON Performing Organization Address [facility] Phon e Number [facility] - [address] [place] [id number] [address] Prothrombin Time (PT) (05/04/2022 12:55 PM CDT)Only the most recent of2 results within the time period is included. P athologist Signature Prothrombin 12.0 9.4 - 12.5 05/04/2022 [place] Time, P sec 1:06 PM CDT INR 1.1 0.9 - 1.1 05/04/2022 [place] 1:06 PM CDT Comment: ----ADDITIONAL INFORMATION---- Standard intensity warfarin therapeutic range: 2.0 to 3.0 ?? High intensity warfarin therapeutic rang e: 2.5 to 3.5 Specimen Anatomical Collection Method Collection Time Receive d Time (Source) Location / / Volume Laterality Blood (Blood, 05/04/2022 12:55 05/04/2022 Venous) PM CDT 12:59 PM CDT Yang Anderson P.A.-C. LAB BLOOD ADD-ON Performing Organization Address City/[facility] Phon e Number [facility] - [address] [place], [place] [address] [facility] [place] [address] Type and Screen (with reflex Antibody ID) (05/04/2022 12:55 PM CDT) [facility] Triond Method Time Signature ABORh O Pos Not 05/04/2022 STRM applicable 1:22 PM CDT Antibody Negative Negative 05/04/2022 STRM Screen 1:35 PM CDT Type & Screen 05/07/2022 05/04/2022 STRM Expiration 23:59 1:22 PM CDT Testing Sonam DEFAULT 05/04/2022 STRM Location 1:01 PM CDT Specimen Anatomical Collection Method Collection Time Receive d Time (Source) Location / / Volume Laterality Blood (Blood, 05/04/2022 12:55 05/04/2022 1:01 Venous) PM CDT PM CDT Yang Anderson P.A.-C. LAB BLOOD BANK TEST ORDERABL ES Performing Organization Address [facility] Phon e Number [facility] - [address] [place], [place] [address] [facility] [place] [address] ALT (Alanine Aminotransferase) (05/04/2022 12:55 PM CDT) [facility] Triond Method Time Signature Alanine 15 7 - 55 05/04/2022 DTL Aminotransferase U/L 2:16 PM CDT (ALT), S Specimen Anatomical Collection Method Collection Time Receive d Time (Source) Location / / Volume Laterality Blood (Blood, 05/04/2022 12:55 05/04/2022 1:44 Venous) PM CDT PM CDT Yang Anderson P.A.-C. LAB BLOOD ADD-ON Performing Organization Address City/[facility] Phon e Number [facility] - [address] AST (Aspartate Aminotransferase) (05/04/2022 12:55 PM CDT) Patholo gist Method Time Signature Aspartate 19 8 - 48 05/04/2022 [place]USTA Aminotransferase U/L 1:16 PM CDT (AST), P Specimen Anatomical Collection Method Collection Time Receive d Time (Source) Location / / Volume Laterality Blood (Blood, 05/04/2022 12:55 05/04/2022 Venous) PM CDT 12:59 PM CDT Yang Anderson P.A.-C. LAB BLOOD ADD-ON Performing Organization Address [facility] Phon e Number [facility] - [address] [place] [address] [facility] [place] [address] S-TSH (Thyroid-Stimulating Hormone - Sensitive) (05/04/2022 12:55 PM CDT) athologist Signature TSH, Sensitive 1.4 0.3 - 4.2 05/04/2022 DTL mIU/L 2:16 PM CDT Specimen Anatomical Collection Method Collection Time Receive d Time (Source) Location / / Volume Laterality Blood (Blood, 05/04/2022 12:55 05/04/2022 1:44 Venous) PM CDT PM CDT Yang Anderson P.A.-C. LAB BLOOD ADD-ON Performing Organization Address City/[facility] Phon e Number [facility] - [address] [place] [address] [facility] [place], [place] [id number] [place] [address] Phosphorus Inorganic (05/04/2022 12:55 PM CDT) P athologist Signature Phosphorus 3.4 2.5 - 4.5 05/04/2022 DTL (Inorganic), S mg/dL 2:16 PM CDT Specimen Anatomical Collection Method Collection Time Receive d Time (Source) Location / / Volume Laterality Blood (Blood, 05/04/2022 12:55 05/04/2022 1:44 Venous) PM CDT PM CDT Yang Anderson P.A.-C. LAB BLOOD ADD-ON Performing Organization Address City/State/ZIP Code Phon e Number [facility] - [address] [place], [place] [address] [facility] [place] [address] Laboratories-[facility] [address] SW IR Cerebral Intracranial Artery Thrombectomy (05/04/2022 11:58 AM CDT) Anatomical Region Laterality Modality Head, Neuro Interventional RST LOS, Neuroradiology ARZ N/A X-Ray Angiography LOS, Neuro Interventional FLA [...] obtained using the Seldinger technique. ??A 9 Khmer sheath was introduced over a wire and secured to the skin. ??Through the introducer sheath, a Walrus guidcatheter was advanced over a Vitek catheter and a glide wire. ?? The catheter was advanced to the common carotid artery and angiogr ams were obtained. ??A 6 Khmer Kerry was then advanced under roadmap over a Rebar 27 microcatheter an d an Zulma microguidewire. ?? The 6 Khmer Kerry was placed into the proximal superior trunk and zachery ludin under aspiration. ??We did not inflate the Walrus because of a significant plaque and irregular pl aque at the carotid bifurcation. ??Under aspiration, the 6 Khmer Kerry was withdrawn and subsequen t catheter [...] obtained using the Seldinger technique. A 9 Khmer sheath was introduced over a wire and secured to the skin. Through the introducer sheath, a Walrus guidcatheter was advanced over a Vitek catheter and a glide wire. The catheter was advanced to the common carotid artery and angiogr ams were obtained. A 6 Khmer Kerry was then advanced under roadmap over a Rebar 27 microcatheter an d an Avigo microguidewire. The 6 Khmer Kerry was placed into the proximal superior trunk and zachery ludin under aspiration. We did not inflate the Walrus because of a significant plaque and irregular pl aque at the carotid bifurcation. Under aspiration, the 6 Khmer Kerry was withdrawn and subsequen t catheter [...] Critical Care (05/04/2022 10:56 AM CDT) Narrative Porsha Leach M.D., M.P.H. - 05/04/2022 10:56 AM CDT Porsha Leach M.D., M.P.H. ? 05/04/2022 10:57 AM Critical Care Performed by: Porsha Leach M.D., M.P.H. Authorized by: Porsha Leach M.D., M.P.H . Critical care provider statement: Critical care total time (minutes): 30 Critical care time was exclusive of: sep aratejuni billable procedures and treating other patients and teaching ralph jeffers Critical care was necessary to treat or prevent imminent or life-threatening deterioration of the fo llowing conditions: SCARIFIER OPERATOR failure or compromise Critical care was time [...] stud ies and review of old charts Porsha Leach M.D., M.P.H. PROCEDURE/MINOR SURGICAL ORD ERABLES CT Head Acute Stroke Protocol without IV Contrast (05/04/2022 10:46 AM CDT) Anatomical Region Laterality Modality Head, Neuroradiology RST LOS, N/A Computed T omography, Computed Neuroradiology ARZ LOS, Neuroradiology T omography FLA [facility] Specimen (Source) Anatomical Collection Method Collection [...] carotid bulb by calcified and noncalcified plaque. Porsha Leach M.D., M.P.H. IMG CT PROCEDURES CT Head Perfusion with IV Contrast (05/04/2022 [...] N/A C omputed Tomography, Computed Neuroradiology ARZ [facility], Neuroradiology T omography FLA [facility] Specimen (Source) Anatomical Collection Method Collection [...] carotid bulb by calcified and noncalcified plaque. Porsha Leach M.D., M.P.H. IMG CT PROCEDURES Venous Blood Gas and Electrolytes CG8+, POCT (05/04/2022 10:14 AM CDT)Only the most recent of2 resultswithin the time period is included. Analysis Performed At Patho logist Time Signature VBG & Lytes Collected DEFAULT 05/04/2022 SMLX CG8+, POCT, B 10:14 AM CDT Specimen Anatomical Collection Method Collection Time Receive d Time (Source) Location / / Volume Laterality Blood (Blood, 05/04/2022 10:14 05/04/2022 Venous) AM CDT 10:14 AM CDT Porsha Leach M.D., M.P.H. LAB POCT ORDERABLES - DEVICE Performing Organization Address [facility] Phon e Number [facility] - [address] Troponin T, Baseline, 5th gen (05/04/2022 10:14 AM CDT) P athologist Signature Troponin T, 10 <=15 ng/L 05/04/2022 STMA Baseline, 5th 10:39 AM CDT gen Specimen Anatomical Collection Method Collection Time Receive d Time (Source) Location / / Volume Laterality Blood (Blood, 05/04/2022 10:14 05/04/2022 Venous) AM CDT 10:19 AM CDT Porsha Leach M.D., M.P.H. LAB BLOOD TROPONIN Performing Organization Address City/[facility] Phon e Number [facility] - 200 [place] [address] [place], [place] [address] [address] Lactate, POCT (05/04/2022 10:14 AM CDT)Only the most recent of2 resultswithin the time period is included. Analysis Performed At Patho logist Time Signature Lactate, POCT Collected DEFAULT 05/04/2022 SMLX 10:14 AM CDT Specimen Anatomical Collection Method Collection Time Receive d Time (Source) Location / / Volume Laterality Blood (Blood, 05/04/2022 10:14 05/04/2022 Venous) AM CDT 10:14 AM CDT Porsha Leach M.D., M.P.H. LAB POCT ORDERABLES - DEVICE Performing Organization Address City/State/ZIP Code Phon e Number [facility] - [address] [place], [place] [address] [facility] [place] [address] [facility] [address] from Last 3 Months Insurance Payer Benefit Plan Subscriber ID Effective Phone Address Typ e / Group Dates MEDICARE MEDICARE A [id number] 2013-Pre [address] [place] [address] BLUE CROSS BCBS [place] [id number] 2017-Pres [phone] PO PORSHA X Cost Share BLUE SHIELD BLUE COST ent [phone] [place] [address] Advance Directives For more information, please contact: [phone] Latest Code Status on File Code Status Date Activated Date Inactivated Comments DNR 05/05/2022 1:10 PM 05/07/2022 5:19 PM Code Status History Code Status Date Activated Date Inactivated Comments Full Code 05/04/2022 12:02 PM 05/05/2022 1:10 PM Question Answer Comments Full Code: Not Discussed Due to: Patient not available Care Teams Joint Yarner Relationship Specialty Start Date End Date Elsewhere, Pcp PCP - General 10/16/20
--- OUTSIDE RECORDS SUMMARY | 2022-06-04 14:59 | XMS_ITS | Encounter Summary ---
:1950 Author Organization [facility] Address [address] [place] [address] Care Team Providers Name Role Phone Jorge L Gonzalez P.A.-C. Primary Care Provider [phone] Reason for Visit Reason Comments Other DOT physical Encounter Details Date Type Department Care Team Description 08/04/2017 Office Visit Department of [facility] Julisa Marshall, N.P. Department Of Medicine, [place] PanchoZonia, ANNIKA, C.N.P. [address] [address] Transportation Clinic, in [facility] Of Motor Vehicles [address] (Primary Dx) [place] [address] Social History Tobacco Use Types Packs/Day Years Used Date Smoking Tobacco: Former Smokeless Tobacco: Never Alcohol Use Standard Drinks/Week Comments No 0 (1 standard drink = 0.6 oz pure alcoho l) Sex Assigned at Date Recorded Not on file documented as of this encounter Last Filed Vital Signs Vital Sign Reading Time Taken Comments Blood Pressure 134/80 08/04/2017 10:36 AM STUDENT LIFE COORDINATOR Pulse 72 08/04/2017 10:36 AM STUDENT LIFE COORDINATOR Temperature 36.5 ??C (97.7 ??F) 08/04/2017 10:36 AM STUDENT LIFE COORDINATOR Respiratory Rate 16 08/04/2017 10:36 AM STUDENT LIFE COORDINATOR Oxygen Saturation - - Inhaled Oxygen Concentration - - Weight 73 kg (160 lb 15 oz) 08/04/2017 10:36 AM STUDENT LIFE COORDINATOR Height 175.5 cm (5' 9.09) 08/04/2017 10:36 AM STUDENT LIFE COORDINATOR Body Mass Index 23.7 08/04/2017 10:36 AM STUDENT LIFE COORDINATOR documented in this encounter Patient Instructions Patient InstructionsZonia Garcia APRN, C.N.P. - 08/04/2017 10:00 AM STUDENT LIFE COORDINATOR It was a pleasure seeing you in the clinic! My goal is to always provide excellent care for my patients. If you receive a clinic survey in the mail and felt you received great care, I would sure appreciate you filling it out and sending it in. Thanks and take care! ENT LIFE COORDINATOR documented in this encounter H&P Notes Zonia Garcia APRN, C.N.P. - 08/04/2017 10:00 AM CST CHIEF COMPLAINT: Chief Complaint Patient presents with ??? 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 This is a recertification exam for [place]. 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 He was hospitalized for 11 days. He has no ongoing problems. MEDICATIONS: Current Outpatient Prescriptions: ??? ASPIRIN ORAL, Take 1 tablet by mouth daily., Disp: , Rfl: ??? MULTIVITAMIN ORAL, Take by mouth daily., Disp: , Rfl: ALLERGIES: No Known Allergies REVIEW OF SYSTEMS: GENERAL: No weight gain, no weight loss, no fever in past month, no chills, no sweats, no fatigue EENT: No blurred vision, no double vision, no eye pain, no sinus problems, no hoarseness, no difficulty swallowing, no mouth sores, no diminished hearing, no ringing in ears, no enlarged glands PULMONARY: No shortness of breath, no cough, no wheezing, no sputum, no hemoptysis CARDIAC: No valve problems, no chest pain, no chest pressure, no rapid beating, no irregular beating, no dependent edema, pain in calves or with walking, no difficulty moving arms and legs GI: No heartburn, no nausea, no vomiting, no stomach trouble, no constipation, no diarrhea, no blood in BM, no change in BM : No penile discharge, no burning/pain with urination, no difficulty starting stream, no difficulty emptying bladder, no excessive urination MUSCULOSKELETAL: No joint pain, no joint swelling, no joint stiffness, no muscle pain, no muscle stiffness, no back pain, no back stiffness SKIN: No skin rashes, no skin sores, no change in moles NEURO: No significant headaches, no slurred speech, no seizures, no dizziness, no loss of consciousness PAST MEDICAL HISTORY: No past medical history on file. PAST SURGICAL HISTORY: Past Surgical History: Procedure Laterality Date ??? OTHER SURGICAL HISTORY N/A Elbow joint operations ??? VASECTOMY N/A 08/03/1973 Vasectomy SOCIAL HISTORY: Social History Substance Use Topics ??? Smoking status: Former Smoker ??? Smokeless tobacco: Never Used ??? Alcohol use No VITALS: Temperature: [36.5 ??C] 36.5 ??C Resp Rate: [16] 16 Blood Pressure: (134)/(80) 134/80 Pulse Rate: [72] 72 LABS and DIAGNOSTICS: Results for orders placed or performed in visit on 08/04/17 Urinalysis no Reflex Result Value Ref Range Source Midstream Clarity Cloudy (A) Clear Color Yellow Blood Negative Negative Nitrite Positive (A) Negative Leukocyte Esterase Trace (A) Negative Protein Negative mg/dL Glucose Negative Negative mg/dL Ketone Trace (A) Negative mg/dL Bilirubin Negative Negative pH 7.0 5.0 - 8.0 Specific [place], U 1.015 1.001 - 1.035 Urobilinogen, Urine 0.2 0.2 - 1.0 mg/dL PHYSICAL EXAM: GENERAL: In general, the patient is pleasant and appears stated age. SKIN: Without lesion. EYES: PERRLA. EOMI intact. Fundi sharp discs. Conjunctiva and lids normal. ENT: Tympanic membranes clear bilaterally. Nasal mucosa without erythema or congestion. Mouth without erythema or exudate. LYMPH NODES: Neck: Supple without adenopathy, no thyromegaly. Carotid pulses are equal bilaterally. PERIPHERAL VESSELS: Femoral, dorsal, pedal and posterior tibial pulses are equal. HEART: Regular rate and rhythm without murmur. LUNGS: Clear to auscultation, good inspiratory effort. ABDOMEN: Soft, nontender, no palpable mass, no hepatosplenomegaly. EXTREMITIES: Warm, dry, no cyanosis or peripheral edema. MENTAL: Alert and oriented times three. NEUROLOGIC: Deep tendon reflexes are +2 and symmetrical. ASSESSMENT/PLAN: #1 Department Of Transportation Examination Department Of Motor Vehicles Good general health. Sign Language Translator health history reviewed. He passed vision, color vision and hearing exams. 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 He is recertified for 2 years. ENT LIFE COORDINATOR documented in this encounter Plan of Treatment Upcoming Encounters Date Type Specialty Care Team Description 06/17/2022 Office Visit Neurology Sourav Gregg M.D. [address] [place] [address] [phone] (Wo rk) documented as of this encounter Procedures Procedure Name Priority Date/Time Associated Diagnosis Comme nts URINALYSIS, Routine 08/04/2017 10:29 Department Of Results fo r this DIPSTICK AM STUDENT LIFE COORDINATOR Transportation procedure are in Examination Department the r esults Of Motor Vehicles section. documented in this encounter Results (ABNORMAL) Urinalysis no Reflex (08/04/2017 10:29 AM STUDENT LIFE COORDINATOR) P athologist Signature Source Midstream 08/04/2017 [facility] 10:40 AM STUDENT LIFE COORDINATOR [facility] Clarity Cloudy (A) Clear 08/04/2017 [facility] 10:41 AM [facility] Color Yellow 08/04/2017 [facility] 10:41 AM [facility] [facility] Comment: ----REFERENCE VALUE---- Colorless Yellow Sari Blood Negative Negative 08/04/2017 10:41 AM [facility] STUDENT LIFE COORDINATOR [facility] Nitrite Positive (A) Negative 08/04/2017 10:41 AM [facility] STUDENT LIFE COORDINATOR [facility] Leukocyte Esterase Trace (A) Negative 08/04/2017 10:41 AM [facility] Protein, U Negative mg/dL 08/04/2017 10:41 AM [facility] STUDENT LIFE COORDINATOR SYSTEM- [facility] Comment: ----REFERENCE VALUE---- Negative Trace Glucose Negative Negative mg/dL 08/04/2017 10:41 AM [facility] Ketones, QL(U) Trace (A) Negative mg/dL 08/04/2017 10:41 AM [facility] Bilirubin Negative Negative 08/04/2017 10:41 AM [facility] pH 7.0 5.0 - 8.0 08/04/2017 10:41 AM [facility] Specific [place] 1.015 1.001 - 1.035 08/04/2017 10:41 AM [facility] Urobilinogen 0.2 0.2 - 1.0 mg/dL 08/04/2017 10:41 AM [facility] Specimen Anatomical Collection Method Collection Time Receive d Time (Source) Location / / Volume Laterality Urine 08/04/2017 10:29 08/04/2017 AM STUDENT LIFE COORDINATOR 10:34 AM STUDENT LIFE COORDINATOR Zonia Garcia APRN C.N.P. LAB URINE ORDERABLES Performing Organization Address City/State/ZIP Code Phon e Number [facility] [address] [place] [address] [facility]- [address] [place] [address] [facility] documented in this encounter Visit Diagnoses Diagnosis Department Of Transportation Examination Department Of Isolation Network Vehicles - Primary documented in this encounter Care Teams Dressing Room Attendant Relationship Specialty Start Date End Date Jorge L Gonzalez P.A.-C. PCP - General 01/15/17 10/15/[address] [place] [phone] documented as of this encounter
--- OUTSIDE RECORDS SUMMARY | 2022-06-04 14:59 | XMS_ITS | Encounter Summary ---
:1950 Author Organization [facility] Address [address] [place] [address] Care Team Providers Name Role Phone Jorge L Gonzalez P.A.-C. Primary Care Provider [phone] Encounter Details Date Type Department Care Team Description 12/19/2019 Orders Only RST PCP [facility] MNT Jorge L Gonzalez, Screen ing Examination P.SugarCLaura Diabetes Mellitus [address] [place] [phone] (Wo rk) Social History Tobacco Use Types [...] Visit Neurology Sourav Gregg M.D. [address] [place], [place] [phone] (Wo rk) documented as of this encounter Visit Diagnoses Diagnosis Screening Examination Diabetes Mellitus documented in this encounter Care Teams [place] Boatman Relationship Specialty Start Date End Date Jorge L Gonzalez P.A.-C. PCP - General 01/15/17 10/15/20 [address] [place] [phone] documented as of this encounter
--- OUTSIDE RECORDS SUMMARY | 2022-06-04 14:59 | XMS_ITS | Encounter Summary ---
:1950 Author Organization [facility] Address [address] [place] [address] Care Team Providers Name Role Phone Jorge L Gonzalez P.A.-C. Primary Care Provider [phone] Encounter Details Date Type Department Care Team Description 06/04/2018 Orders Only Department of [facility] L [facility] Examination Medicine, [facility]ins[facility], in [address] (Primary Dx) [address] [address] [place], [place] [phone] (Work) [phone] Social History Tobacco Use Types Packs/Day Years [...] Visit Neurology Sourav Gregg M.D. [address] [place], [place] [phone] (Wo rk) documented as of this encounter Visit Diagnoses Diagnosis Screening Examination Diabetes Mellitus - Primary documented in this encounter Care Teams Instructional Systems Design Consultant Relationship Specialty Start Date End Date Jorge L Gonzalez P.A.-C. PCP - General 01/15/17 10/15/20 [address] [place] [address] documented as of this encounter
--- OUTSIDE RECORDS SUMMARY | 2022-06-04 14:59 | XMS_ITS | Encounter Summary ---
:[address] [facility] Address [address] [place] [address] Care Team Providers Name Role Phone Elsewhere, Pcp Primary Care Provider Unavailable Reason for Visit Appointment Request (Routine) - Authorized Specialty Diagnoses / Procedures Referred By Contact Refer red To Contact Family Medicine Referral ID Status Reason Start Date Expiration Date Visits V isits Requested Authorized [id number] Authorized 03/26/2022 03/26/2023 1 1 Encounter Details Date Type Department Care Team Description 03/26/2022 Nurse Only [facility] in [facility] REAL ESTATE PROFESSIONAL, C.N.P., D.N.P. [address] [place] [address] [place] [address] [phone] (Wo rk) Social History Tobacco Use Types [...] Visit Neurology Sourav Gregg M.D. [address] [place], [place] [phone] (Wo rk) documented as of this encounter Visit Diagnoses Diagnosis Encounter For COVID-19 Vaccine Immunizat ion - Primary documented in this encounter Care Teams Handle Assembler Relationship Specialty Start Date End Date Elsewhere, Pcp PCP - General 10/16/20 documented as of this encounter
--- OUTSIDE RECORDS SUMMARY | 2022-06-04 14:59 | XMS_ITS | Encounter Summary ---
:1950 Author Organization [facility] Address [address] [place] [address] Care Team Providers Name Role Phone Unavailable Primary Care Provider Unavailable Encounter Details Date Type Department Care Team Description 09/08/2013 Hospital Encounter [facility]X [facility] Rafy Gonzalez P.A.-C. [address] [place] [address] (Wo rk) Social History Tobacco Use Types Packs/Day Years Used Date Smoking Tobacco: Never Assessed Sex Assigned at Date Recorded Not on file documented as of this encounter Last Filed Vital Signs Vital Sign Reading Time Taken Comments Blood Pressure 130/80 09/08/2013 8:21 AM ORDER FILLER Pulse 72 09/08/2013 8:21 AM ORDER FILLER Temperature - - Respiratory Rate 16 09/08/2013 8:21 AM ORDER FILLER Oxygen Saturation - - Inhaled Oxygen Concentration - - Weight 75.1 kg (165 lb 9.1 oz) 09/08/2013 8:21 AM ORDER FILLER Height 177 cm (5' 9.69) 09/08/2013 8:21 AM ORDER FILLER Body Mass Index 23.97 09/08/2013 8:21 AM ORDER FILLER documented in this encounter Medications at Time of Discharge Medication Sig Dispensed Refills Start Date End Date MULTIVITAMIN ORAL Take 1 tablet by mouth 0 2011 daily. aspirin 325 mg tablet Take 1 tablet by mouth 0 05/06/2022 daily. documented as of this encounter Progress Notes Nany Gonzalez P.A.-C. - 09/08/2013 8:33 AM CST [id number] CHIEF COMPLAINT/REASON FOR VISIT DOT history and physical. HISTORY OF PRESENT ILLNESS Geoffrey is a very pleasant 63-year-old male who comes in today for DOT history and physical. In generalhe has been in good health. 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 He was hospitalized for quite some time and had a complication of atrial fibrillation but since that time has been doing quite well. He has been driving without any other concerns. The details of the DOT history and physical are documented on the form which is scanned into electronic medical record. IMPRESSION/REPORT/PLAN DOT history and physical. PLAN: There are no restrictions to driving. He is given a 2-year certificate and I logged his name in the registry. If there is any further questions or problems he will let us know and otherwise have him follow up as needed. Health maintenance, I did update his tetanus vaccine today. I offered him a PSA screen but he refused today. If there is any questions or problems he will let us know. Nany Gonzalez PA-C/kailyn Electronically Signed By: NANY GONZALEZ PA-C On: 09/08/2013 02:50 PM Source: [facility] [id number] Document Id: [id number] R FILLER documented in this encounter Procedure Notes Janay Chavez, L.P.N. - 09/08/2013 8:50 AM CST Hearing Point of Care Testing - Audiometer Document Has Been Updated Hearing Point of Care Testing - Audiometer Entered On: 09/08/2013 8:52 ORDER FILLER Performed On: 09/08/2013 8:50 ORDER FILLER by JANAY CHAVEZ Hearing Point of Care Testing - Audiometer Left Ear Hearing POC Test Grid Left Ear 20 db Left Ear 25 db Left Ear 30 db Left Ear 40 db 500 Hz : Response Response Response Response 1000 Hz : Response Response Response Response 2000 Hz : No response JANAY CHAVEZ - 09/08/2013 10:00 ORDER FILLER No response JANAY CHAVEZ - 09/08/2013 10:00 ORDER FILLER Response Response JANAY CHAVEZ - 09/08/2013 8:50 ORDER FILLER JANAY CHAVEZ - 09/08/2013 8:50 ORDER FILLER JANAY CHAVEZ E 09/08/2013 8:50 ORDER FILLER JANAY CHAVEZ - 09/08/2013 8:50 ORDER FILLER Right Ear Hearing POC Test Grid Right Ear 20 db Right Ear 25 db Right Ear 30 db Right Ear 40 db 500 Hz : Response Response Response Response 1000 Hz : Response Response Response Response 2000 Hz : No response JANAY CHAVEZ - 09/08/2013 10:00 ORDER FILLER No response JANAY CHAVEZ - 09/08/2013 10:00 ORDER FILLER No response JANAY CHAVEZ - 09/08/2013 10:00 ORDER FILLER No response JANAY CHAVEZ - 09/08/2013 10:00 ORDER FILLER JANAY CHAVEZ - 09/08/2013 8:50 ORDER FILLER JANAY CHAVEZ - 09/08/2013 8:50 ORDER FILLER JANAY CHAVEZ - 09/08/2013 8:50 ORDER FILLER JANAY CHAVEZ - 09/08/2013 8:50 ORDER FILLER [facility] Document Id: [id number] ORDER FILLER!16 R FILLER Janay Chavez L.P.N. - 09/08/2013 8:44 AM CST Urine Dipstick Urine Dipstick Entered On: 09/08/2013 8:45 ORDER FILLER Performed On: 09/08/2013 8:44 ORDER FILLER by JANAY CHAVEZ Urine Dipstick UA Color POC : Straw UA Appear POC : Clear UA Leuk POC : Negative UA Nitrite POC : Negative UA Urobilinogen POC : 0.2 mg/dl UA Protein POC : Negative UA pH POC : 7.0 UA Blood POC : Negativ UA Spec Grav POC : 1.015 UA Ketones POC : Negative UA Bili POC : Negative UA Glucose POC : Negative Test Strip Lot # : [id number] Test Strip Expiration Date : 09/2014 JANAY CHAVEZ - 09/08/2013 8:44 ORDER FILLER Source: [employer] Document Id: [id number] ORDER FILLER!16 R FILLER Janay Chavez L.P.N. - 09/08/2013 8:30 AM CST Vision Testing Vision Testing Entered On: 09/08/2013 8:31 ORDER FILLER Performed On: 09/08/2013 8:30 ORDER FILLER by JANAY CHAVEZ Vision Testing Corrective Lenses : Glasses Eye, Right w/o Correction : 20/25 Eye, Left w/o Correction : 20/25 Eye, Right with Correction : 20/20 Eye, Left w/Correction : 20/25 Eyes, Both with Correction : 20/20 Eyes, Both w/o Correction : 20/20 JANAY CHAVEZ - 09/08/2013 8:30 ORDER FILLER [facility] Document Id: [id number] ORDER FILLER!9 R FILLER documented in this encounter Miscellaneous Notes Miscellaneous - Caty Bashir - 01/01/2017 10:55 AM CDT Health Maintenance Reminder January 01, 2017 CARLOS MANUEL ZENG [address] [place] [id number] Dear CARLOS MANUEL ZENG, We have developed a six-month overview of preventive and recommended services that apply to your unique health care needs. Some may be past due or may be coming due in the next three months. If youhave already scheduled any or all of these services, thank you. We recognize that this may or may not include all of your individualized health care needs; however, we are happy to help you with any and all primary care concerns you may have. Past Due Diabetes Screening: recommended preventive service starting at age 18 Fasting Lipid Panel: recommended preventive service starting at age 35 It may be possible to bundle some of the above services together to make your visit with us more convenient. Please call [phone] to schedule services that are past due or that may shortly become due (thank you if you have already done so). We will follow up in three to six months should you have more services to schedule at that time. If you have already received any of the listed past due or upcoming services outside of [facility], please call [phone] to add them to your medical record. You may want to consider contacting your health insurance company to make sure these services are covered and find out if there will be any mur-fo-zwodgj expense. If you have any questions about the services listed above, or if you are no longer receiving care from [facility], please contact us at [phone]. Thank you for partnering to provide you with the best care possible. We encourage you to set up your Patient Online Services account [employer][email or web address], where you can communicate in a convenient way with us, schedule appointments, receive lab results and more. To set up your account, you will need your [facility] Number, which is [phone]. Thank you for choosing us, Nany Gonzalez P.A.-C. and the [facility], for your health care needs! Sincerely, CATY BASHIR Electronic Signature Electronically Signed By: CATY BASHIR LPN On: January 01, 2017 This document has images extracted. Source: [facility] POWERCHART Document Id: [id number] Electronically signed by Hilaria [facility] Automatic Steel Tie Adjuster [id number] at 02/03/2017 4:05 PM CDT Miscellaneous - Nany Gonzalez P.A.-C. - 09/08/2013 9:11 AM CST Ambulatory Patient Summary [address] [address] Visit Information Name: CARLOS MANUEL ZENG [facility] Number: [id number] Current Date: 09/08/2013 09:11:31 Physicians Attending Provider: NANY GONZALEZ PA-C Primary Care Provider: SON ASHRAF CNP CARLOS MANUEL ZENG has been given [...] the Following Medications: Medication list as of 09-08-13 09:11 Attention: If you have any medications at home that are not on this list, DO NOT take them until youcontact your provider for clarification. Give a copy of your medication list to your primary care provider. Update your medication list any time medications or doses are changed and carry your medication list at all times in case of emergency. 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 Your Goals/Additional instructions: Source: [facility] Document Id: [id number] R FILLER Miscellaneous - Nany Gonzalez P.A.-C. - 09/08/2013 9:11 AM CST Ambulatory Depart Summary [address] [address] Visit Information Name: CARLOS MANUEL ZENG [facility] Number: [id number] Visit Date: 09/08/2013 09:11:30 Attending Provider: NANY GONZALEZ PA-C Primary Care Provider: SON [facility]SHRAF [facility] has been given the following list of [...] the Following Medications: Medication list as of 09-08-13 09:11 Attention: If you have any medications at home that are not on this list, DO NOT take them until youcontact your provider for clarification. Give a copy of your medication list to your primary care provider. Update your medication list any time medications or doses are changed and carry your medication list at all times in case of emergency. Additional Information: Source: [facility] POWER[facility]ART Document Id: [id number] R FILLER Miscellaneous - Janay Chavez, L.P.N. - 09/08/2013 8:21 AM CST Adult Kineseologist Intake/History Adult Kineseologist Intake/History Entered On: 09/08/2013 8:23 ORDER FILLER Performed On: 09/08/2013 8:21 ORDER FILLER by JANAY CHAVEZ Intake Chief Complaint : Dot physical Temperature Core : 36.5 DegC(Converted to: 97.7 DegF) Peripheral Pulse Rate : 72 /min Respiratory Rate : 16 /min Heart Rhythm : Regular Systolic Blood Pressure : 130 mmHg Diastolic Blood Pressure : 80 mmHg NIBP Mean : 97 mmHg BP Location : Right upper extremity Blood Pressure Cuff Size : Regular Height : 177.0 cm(Converted to: 5 ft 10 inch(es), 69.69 inch(es)) Actual Weight : 75.1 kg(Converted to: 165 lb 9 oz) Weight Source : Standing scale Dosing Weight Clinic : 75.1 kg Clinic BSA : 1.92 Body Mass Index : 23.97 kg/m2 JANAY CHAVEZ - 09/08/2013 8:21 ORDER FILLER General Info Information Given By : Patient Preferred Communication Mode : Verbal Languages : Bulgarian JANAY CHAVEZ 09/08/2013 8:21 ORDER FILLER Subjective Pain Symptoms : No JANAY CHAVEZ 09/08/2013 8:21 ORDER FILLER Dependent Habits Tobacco Use/Currently Using : No Tobacco Use/Last 12 months : No Tobacco Use/Advised to Quit : No Exposure to Tobacco Smoke : Other: quit in 2008 Smoking Status : Former smoker JANAY CHAVEZ - 09/08/2013 8:21 ORDER FILLER Caffeine Use Grid Caffeine Use : Current Type : Coffee Frequency : Daily Amount : 3 cups Last Use : this morning JANAY CHAVEZ - 09/08/2013 8:21 ORDER FILLER Recreational Drug Use Grid Drug Use : None JANAY CHAVEZ 09/08/2013 8:21 ORDER FILLER Source: [facility] [employer] Document Id: [id number] ORDER FILLER!40 R FILLER Miscellaneous - Janay Chavez L.P.NLaura - 09/08/2013 8:21 AM CST Health Assessment Health Assessment Entered On: 09/08/2013 8:26 ORDER FILLER Performed On: 09/08/2013 8:21 ORDER FILLER by JANAY CHAVEZ Health Assessment Complete Health Assessment Complete or Modified : Annual Health Assessment Annual Health Assessment Completed : Yes JANAY HCAVEZ - 09/08/2013 8:21 ORDER FILLER Nutrition Nutrition Risk Factors by History Adult : None JANAY CHAVEZ 09/08/2013 8:21 ORDER FILLER Functional Current Daily Living Assistance : None JANAY CHAVEZ 09/08/2013 8:21 ORDER FILLER Dependent Habits Tobacco Use/Currently Using : No Tobacco Use/Last 12 months : No Tobacco Use/Advised to Quit : No Exposure to Tobacco Smoke : Other: quit in 2008 Smoking Status : Former smoker Alcohol Use : No JANAY CHAVEZ 09/08/2013 8:21 ORDER FILLER Caffeine Use Grid Caffeine Use : Current Type : Coffee Frequency : Daily Amount : 3 cups Last Use : this morning JANAY CHAVEZ - 09/08/2013 8:21 ORDER FILLER Recreational Drug Use Grid Drug Use : None JANAY CHAVEZ 09/08/2013 8:21 ORDER FILLER Psychosocial Domestic Abuse Concerns : None Marital Status : Years of Marriage : 46 Number of Children : 2 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 Education : College Graduate JANAY CHAVEZ E - 09/08/2013 8:21 ORDER FILLER Advance Directive Advanced Directives : Yes JANAY CHAVEZ - 09/08/2013 8:21 ORDER FILLER Educ Needs Learning Style Preference Adult Grid Patient : Verbal explanation, Demonstration Family : Demonstration, Verbal explanation JANAY CHAVEZ - 09/08/2013 8:21 ORDER FILLER Source: [facility] [employer] Document Id: [id number] ORDER FILLER!39 R FILLER documented in this encounter Plan of Treatment Upcoming Encounters Date Type Specialty Care Team Description 06/17/2022 Office Visit Neurology Sourav Gregg M.D. [address] [place], [place] [phone] (Wo rk) documented as of this encounter Visit Diagnoses Not on filedocumented in this encounter
--- OUTSIDE RECORDS SUMMARY | 2022-06-04 14:59 | XMS_ITS | Encounter Summary ---
:1950 Author Organization [facility] Address [address] [place] [address] Care Team Providers Name Role Phone Elsewhere, Pcp Primary Care Provider Unavailable Encounter Details Date Type Department Care Team Description 05/14/2022 Documentation Department of Physical Summer Bo , Medicine [facility] Rehabilitation Jayme in [facility] [address] [facility] [address] [place] [phone] (Wo rk) Social History Tobacco Use Types Packs/Day Years Used Date Smoking Tobacco: Every Day Cigarettes 0.3 S tarted: 08/03/1964 Smokeless Tobacco: Never Comments: Used to smoke half pack per da y. Alcohol Use Standard Drinks/Week Comments No 0 (1 standard drink = 0.6 oz pure alcoho l) Sex Assigned at Date Recorded Not on file documented as of this encounter Progress Notes Summer Bo M.D. - 05/14/2022 3:35 PM CDT error documented in this encounter Plan of Treatment Upcoming Encounters Date Type Specialty Care Team Description 06/17/2022 Office Visit Neurology Sourav Gregg M.D. [address] [place], [place] [phone] (Wo rk) documented as of this encounter Visit Diagnoses Not on filedocumented in this encounter Additional Health Concerns Assessment Noted Time PHQ-9 Depression Total Score: 3 05/05/2022 2:00 PM CDT documented as of this encounter Care Teams Workers Compensation Manager Relationship Specialty Start Date End Date Elsewhere, Pcp PCP - General 10/16/20 documented as of this encounter
--- OUTSIDE RECORDS SUMMARY | 2022-06-04 14:59 | XMS_ITS | Encounter Summary ---
:1950 Author Organization [facility] Address [address] [place] [address] Care Team Providers Name Role Phone Jorge L Gonzalez P.A.-C. Primary Care Provider [phone] Encounter Details Date Type Department Care Team Description 06/24/2017 Orders Only Department of [facility] Jorge L Gonzalez Sc [facility] Examination Medicine, [facility], in [address] (Primary Dx) [place], [place] [address] [facility] [address] [place], [place] [phone] (Work) [phone] Social History Tobacco Use Types Packs/Day Years Used Date Smoking Tobacco: Former Sex Assigned at Date Recorded Not on file documented as of this encounter Plan of Treatment Upcoming Encounters Date Type Specialty Care Team Description 06/17/2022 Office Visit Neurology Sourav Gregg M.D. [address] [place] [phone] (Wo rk) documented as of this encounter Visit Diagnoses Diagnosis Screening Examination Diabetes Mellitus - Primary documented in this encounter Care Teams Nuisance Wildlife Specialist Relationship Specialty Start Date End Date Jorge L Gonzalez P.A.-C. PCP - General 01/15/17 10/15/20 [address] [place] [address] documented as of this encounter
--- OUTSIDE RECORDS SUMMARY | 2022-06-04 15:00 | XMS_ITS | Encounter Summary ---
:1950 Author Organization [facility] Address [address] [place] [address] Care Team Providers Name Role Phone Unavailable Primary Care Provider Unavailable Encounter Details Date Type Department Care Team Description 10/17/2005 Hospital Encounter HX [facility] Fawad Israel M.D. [address] [place] [phone] (Wo rk) Social History Tobacco Use Types Packs/Day Years Used Date Smoking Tobacco: Never Assessed Sex Assigned at Date Recorded Not on file documented as of this encounter Plan of Treatment Upcoming Encounters Date Type Specialty Care Team Description 06/17/2022 Office Visit Neurology Sourav Gregg M.D. [address] [place], [place] [phone] (Wo rk) documented as of this encounter Visit Diagnoses Not on filedocumented in this encounter
--- OUTSIDE RECORDS SUMMARY | 2022-06-04 15:00 | XMS_ITS | Encounter Summary ---
:1950 Author Organization [facility] Address [address] [place] [address] Care Team Providers Name Role Phone Unavailable Primary Care Provider Unavailable Encounter Details Date Type Department Care Team Description 10/23/2003 Hospital Encounter HX [facility] Fawad Israel M.D. [address] [place] [phone] (Wo rk) Social History Tobacco Use Types Packs/Day Years Used Date Smoking Tobacco: Never Assessed Sex Assigned at Date Recorded Not on file documented as of this encounter Plan of Treatment Upcoming Encounters Date Type Specialty Care Team Description 06/17/2022 Office Visit Neurology Sourav Gregg M.D. [address] [place], [place] [phone] (Wo rk) documented as of this encounter Visit Diagnoses Not on filedocumented in this encounter
--- OUTSIDE RECORDS SUMMARY | 2022-06-04 15:00 | XMS_ITS | Encounter Summary ---
:1950 Author Organization [facility] Address [address] [place] [address] Care Team Providers Name Role Phone Unavailable Primary Care Provider Unavailable Encounter Details Date Type Department Care Team Description 10/12/2007 Hospital Encounter HX [facility] Refugio Rodriguez M.D. [address] [place] [address] (Wo rk) Social History Tobacco Use Types Packs/Day Years Used Date Smoking Tobacco: Never Assessed Sex Assigned at Date Recorded Not on file documented as of this encounter Plan of Treatment Upcoming Encounters Date Type Specialty Care Team Description 06/17/2022 Office Visit Neurology Sourav Gregg M.D. [address] [place], [place] [phone] (Wo rk) documented as of this encounter Visit Diagnoses Not on filedocumented in this encounter
--- OUTSIDE RECORDS SUMMARY | 2022-06-04 15:00 | XMS_ITS | Encounter Summary ---
:1950 Author Organization [facility] Address [address] [place] [address] Care Team Providers Name Role Phone Unavailable Primary Care Provider Unavailable Encounter Details Date Type Department Care Team Description 11/01/2001 Hospital Encounter HX [facility] Fawad Israel M.D. [address] [place] [phone] (Wo rk) Social History Tobacco Use Types Packs/Day Years Used Date Smoking Tobacco: Never Assessed Sex Assigned at Date Recorded Not on file documented as of this encounter Plan of Treatment Upcoming Encounters Date Type Specialty Care Team Description 06/17/2022 Office Visit Neurology Sourav Gregg M.D. [address] [place], [place] [phone] (Wo rk) documented as of this encounter Visit Diagnoses Not on filedocumented in this encounter
--- OUTSIDE RECORDS SUMMARY | 2022-06-04 15:00 | XMS_ITS | Encounter Summary ---
:1950 Author Organization [facility] Address [address] [place] [address] Care Team Providers Name Role Phone Unavailable Primary Care Provider Unavailable Encounter Details Date Type Department Care Team Description 02/16/2009 - 02/26/2009 Hospital Encounter HX [facility] 6B Social History Tobacco Use Types Packs/Day Years Used Date Smoking Tobacco: Never Assessed Sex Assigned at Date Recorded Not on file documented as of this encounter Plan of Treatment Upcoming Encounters Date Type Specialty Care Team Description 06/17/2022 Office Visit Neurology Sourav Gregg M.D. [address] [place], [place] [phone] (Wo rk) documented as of this encounter Procedures Procedure Name Priority Date/Time Associated Comments Diagnosis DX ABDOMEN PORTABLE Routine 02/20/2009 11:40 Resu lts for this ANTERIOR POSTERIOR 1 AM CDT procedu re are in VIEW the results section. DX CHEST PORTABLE 1 VIEW Routine 02/20/2009 5:15 Results for this AM CDT procedure are i n the results section. HX HEMATOPATHOLOGY Routine 02/19/2009 8:20 Result s for this REPORT AM CDT procedure are i n the results section. HX HEMATOPATHOLOGY Routine 02/19/2009 7:57 Result s for this REPORT AM CDT procedure are i n the results section. DX ABDOMEN PORTABLE Routine 02/16/2009 5:12 Resul ts for this ANTERIOR POSTERIOR 1 PM CDT procedu re are in VIEW the results section. DX CHEST PORTABLE 1 VIEW Routine 02/16/2009 11:58 Results for this AM CDT procedure are i n the results section. DX CHEST PORTABLE 1 VIEW Routine 02/16/2009 4:23 Results for this AM CDT procedure are i n the results section. documented in this encounter Results DX Abdomen Portable Anterior Posterior 1 View (02/20/2009 11:40 AM CDT) Anatomical Region Laterality Modality Abdomen N/A Radiographic Imaging Specimen (Source) Anatomical Collection Method Collection Time Re ceived Time Location / / Volume Laterality 02/20/2009 11:40 AM CDT Narrative 02/20/2009 11:45 AM CDT 20-Feb-2009 11:40:00 ??Exam: Portable-Abdomen Indications: NG line placement ORIGINAL REPORT - 20-Feb-2009 11:45:00 Portable-Abdomen, 1vw: Enteric tube tip in the proximal stomach in a similar location than was seen on 02-16-09. Electronically signed by: ?? Darvin Lui MD. ??[id number] 20-Feb-2009 11: 45 Procedure Note Isaias Lui M.D. - 11/01/2017Format ting of this note might be different from the original. 20-Feb-2009 11:40:00 Exam: Portable-Abdo men Indications: NG line placement ORIGINAL REPORT - 20-Feb-2009 11:45:00 Portable-Abdomen, 1vw: Enteric tube tip in the proximal stomach in a similar location than was seen on 02-16-09. Electronically signed by: Darvin Lui MD. [id number] 20-Feb-2009 11:45 Charles Mina D.O. IMShanae DIAGNOSTIC IMAGING PROCE ROGERIO DX Chest Portable 1 View (02/20/2009 5:15 AM CDT) Anatomical Region Laterality Modality Chest N/A Radiographic Imaging Specimen (Source) Anatomical Collection Method Collection Time Re ceived Time Location / / Volume Laterality 02/20/2009 5:15 AM CDT Narrative 02/20/2009 7:19 AM CDT 20-Feb-2009 05:15:00 ??Exam: Portable-Chest Indications: ETT Placement ORIGINAL REPORT - 20-Feb-2009 05:30:00 Chest; 1 view: Since 02/16/2009, the interstitial infilt rates throughout both upper lungs have decreased. Interval increase in the mixed infiltrates throughout the left mid and lower lung. Otherwise no change. Dense co nsolidation in the left base medially. T iny left pleural effusion. The right costophrenic angle is not totally included on this exam. ETT with tip 6 cm above the jossy. Right IJ CVC with tip in the mid SVC. Electronically signed by: ?? Antwon Potts M.D. 20-Feb-2009 05:30 I have reviewed the films/images and agr ee with the above interpretation. Electronically signed by: ?? Darvin Lui MD. ??[id number] 20-Feb-2009 07: 19 Procedure Note Isaias Lui M.D. - 11/01/2017Format ting of this note might be different from the original. 20-Feb-2009 05:15:00 Exam: Portable-Ches t Indications: ETT Placement ORIGINAL REPORT - 20-Feb-2009 05:30:00 Chest; 1 view: Since 02/16/2009, the interstitial infilt rates throughout both upper lungs have decreased. Interval increase in the mixed infiltrates throughout the left mid and lower lung. Otherwise no change. Dense consolidation in the left base medially. Tiny left pleural ef fusion. The right costophrenic angle is not totally included on this exam. ETT with tip 6 cm above the jossy. Right IJ CVC with tip in the mid SVC. Electronically signed by: Antwon Potts M.D. 20-Feb-2009 05:30 I have reviewed the films/images and agr ee with the above interpretation. Electronically signed by: Darvin Lui MD. [id number] 20-Feb-2009 07:19 Arti [facility] Hematopathology Report? (02/19/2009 8:20 AM CDT) Specimen Anatomical Collection Method Collection Time Receive d Time (Source) Location / / Volume Laterality 02/19/2009 8:20 AM 9 8:20 CDT AM CDT Narrative [facility] - 02/19/2009 8:20 AM CDT ??02/16/2009 Hematopathology Report ( [id number]) ? Requested By: Nahid York M.D. ?? [id number] ?DIAGNOSIS: ?? Bronchoalveolar lavage: ??An iron stain was performed on the bronchoalveolar lavage specimen and rev ealed 8% hemosiderin-laden macrophages (100 cells counted). ? 02/19/2009 14:08 Interpreted by: Rodríguez Barker M.D. [id number] Report electronically signed by Rodríguez Barker M.D. Transcribed by: [email or web address] 02/19/2009 13:57:0 5 ?? SPECIMEN DESCRIPTION: ?? A:Bronchoalveolar Lavage Fluid ?? TISSUE DESCRIPTION: ?? Procedure Note 10/24/2017 02/16/2009 Hematopathology Report ([id number]) Requested By: Nahid York M.D. [phone] DIAGNOSIS: Bronchoalveolar lavage: An iron stain w as performed on the bronchoalveolar lavage specimen and rev ealed 8% hemosiderin-laden macrophages (100 cells counted). 02/19/2009 14:08 Interpreted by: Rodríguez Barker M.D. [id number] Report electronically signed by Rodríguez Barker M.D. Transcribed by: [email or web address] 02/19/2009 13:57:0 5 SPECIMEN DESCRIPTION: A:Bronchoalveolar Lavage Fluid TISSUE DESCRIPTION: Nahid York M.D. LAB PATHOLOGY/CYTOLOGY ORDER SIMON Performing Organization Address City/State/ZIP Code Phon e Number [facility] - [address] [place], [place] [address] [facility] HX Hematopathology Report? (02/19/2009 7:57 AM CDT) Specimen Anatomical Collection Method Collection Time Receive d Time (Source) Location / / Volume Laterality 02/19/2009 7:57 AM 9 7:57 CDT AM CDT Narrative [facility] - [facility] - 02/19/2009 7:57 AM CDT ??02/16/2009 Hematopathology Report ([id number]) ? Requested By: Nahid York M.D. ?? [id number] ?DIAGNOSIS: ?? Bronchoalveolar lavage: ??An iron stain was performed on the bronchoalveolar lavage specimen and rev ealed 4% hemosiderin-laden macrophages (100 cells counted). ? 02/19/2009 14:08 Interpreted by: Rodríguez Barker M.D. [id number] Report electronically signed by Rodríguez Barker M.D. Transcribed by: [email or web address] 02/19/2009 13:55:5 1 ?? SPECIMEN DESCRIPTION: ?? A:Bronchoaleolar Lavage Fluid ?? TISSUE DESCRIPTION: ?? Procedure Note 10/24/2017 02/16/2009 Hematopathology Report ([id number]) Requested By: Nahid York M.D. [phone] DIAGNOSIS: Bronchoalveolar lavage: An iron stain w as performed on the bronchoalveolar lavage specimen and rev ealed 4% hemosiderin-laden macrophages (100 cells counted). 02/19/2009 14:08 Interpreted by: Rodríguez Barker M.D. [id number] Report electronically signed by Rodríguez Barker M.D. Transcribed by: [email or web address] 02/19/2009 13:55:5 1 SPECIMEN DESCRIPTION: A:Bronchoaleolar Lavage Fluid TISSUE DESCRIPTION: Nahid York M.D. LAB PATHOLOGY/CYTOLOGY ORDER SIMON Performing Organization Address City/State/ZIP Code Phon e Number [facility] - [address] [place], [place] [address] [facility] DX Abdomen Portable Anterior Posterior 1 View (02/16/2009 5:12 PM CDT) Anatomical Region Laterality Modality Abdomen N/A Radiographic Imaging Specimen (Source) Anatomical Collection Method Collection Time Re ceived Time Location / / Volume Laterality 02/16/2009 5:12 PM CDT Narrative 02/16/2009 6:58 PM CDT 16-Feb-2009 17:12:00 ??Exam: Portable-Abdomen Indications: ng placment ORIGINAL REPORT - 16-Feb-2009 17:44:00 Portable-Abdomen, 1vw: NGT with tip and sidehole overlying the body of the stomach. Diffuse infiltrates with consolidation throughout the visualized left lung. Patchy infiltrates in partially visualized right upper lung. Electronically signed by: ?? Tino Reyes MD ?? [id number] 16-Feb-2009 1 7:44 I have reviewed the films/images and agr ee with the above interpretation. Electronically signed by: ?? Elijah. ??Devan JOHNSON. ??[id number] 16-Feb-2009 1 8:58 Procedure Note Allan Hartman M.D. - 11/01/2017Formatt ing of this note might be different from the original. 16-Feb-2009 17:12:00 Exam: Portable-Abdo men Indications: ng placment ORIGINAL REPORT - 16-Feb-2009 17:44:00 Portable-Abdomen, 1vw: NGT with tip and sidehole overlying the body of the stomach. Diffuse infiltrates with consolidation throughout the visualized left lung. Patchy infiltrates in partially visualized right upper lung. Electronically signed by: Tino Reyes MD [id number] 16-Feb-2009 17:4 4 I have reviewed the films/images and agr ee with the above interpretation. Electronically signed by: Geovani Hartman MD. [id number] 16-Feb-2009 18:58 Doc Chacko M.D. IMG DIAGNOSTIC IMAGING PROCE DURES DX Chest Portable 1 View (02/16/2009 11:58 AM CDT) Anatomical Region Laterality Modality Chest N/A Radiographic Imaging Specimen (Source) Anatomical Collection Method Collection Time Re ceived Time Location / / Volume Laterality 02/16/2009 11:58 AM CDT Narrative 02/16/2009 12:10 PM CDT 16-Feb-2009 11:58:00 ??Exam: Portable-Chest Indications: central line placement, hyp oxia ORIGINAL REPORT - 16-Feb-2009 12:10:00 Chest; 1 view: Since earlier today, an ETT has been zachery ludin with tip above the jossy. Central line tip in the SVC. The infiltrates are unchanged. Electronically signed by: ?? Elijah. ??Devan JOHNSON. ??[id number] 16-Feb-2009 1 2:10 Procedure Note Allan Hartman M.D. - 11/01/2017Formatt ing of this note might be different from the original. 16-Feb-2009 11:58:00 Exam: Portable-Ches t Indications: central line placement, hyp oxia ORIGINAL REPORT - 16-Feb-2009 12:10:00 Chest; 1 view: Since earlier today, an ETT has been zachery ludin with tip above the jossy. Central line tip in the SVC. The infiltrates are unchanged. Electronically signed by: Geovani Hartman MD. [id number] 16-Feb-2009 12:10 Doc [facility] PROCE DURES DX Chest Portable 1 View (02/16/2009 4:23 AM CDT) Anatomical Region Laterality Modality Chest N/A Radiographic Imaging Specimen (Source) Anatomical Collection Method Collection Time Re ceived Time Location / / Volume Laterality 02/16/2009 4:23 AM CDT Narrative 02/16/2009 5:19 AM CDT 16-Feb-2009 04:23:00 ??Exam: Portable-Chest Indications: pneumonia ORIGINAL REPORT - 16-Feb-2009 05:19:00 Chest; 1 view: Diffuse consolidation throughout the lef t lung with focal infiltrate in the right upper lung. Electronically signed by: ?? Darvin Lui MD. ??[id number] 16-Feb-2009 05: 19 Procedure Note Isaias Lui M.D. - 11/01/2017Format ting of this note might be different from the original. 16-Feb-2009 04:23:00 Exam: Portable-Ches t Indications: pneumonia ORIGINAL REPORT - 16-Feb-2009 05:19:00 Chest; 1 view: Diffuse consolidation throughout the lef t lung with focal infiltrate in the right upper lung. Electronically signed by: Darvin Lui MD. [id number] 16-Feb-2009 05:19 Johnny [facility] PROCE ROGERIO documented in this encounter Visit Diagnoses Not on filedocumented in this encounter
--- OUTSIDE RECORDS SUMMARY | 2022-06-04 15:00 | XMS_ITS | Clinical Summary ---
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
--- OUTSIDE RECORDS SUMMARY | 2022-06-04 15:00 | XMS_ITS | Encounter Summary ---
:1950 Author Organization [facility] Address [address] [place] [address] Care Team Providers Name Role Phone Unavailable Primary Care Provider Unavailable Encounter Details Date Type Department Care Team Description 11/04/2001 Hospital Encounter HX [facility] Blair Bryant M.D. Social History Tobacco Use Types Packs/Day Years Used Date Smoking Tobacco: Never Assessed Sex Assigned at Date Recorded Not on file documented as of this encounter Plan of Treatment Upcoming Encounters Date Type Specialty Care Team Description 06/17/2022 Office Visit Neurology Sourav Gregg M.D. [address] [place], [place] [phone] (Wo rk) documented as of this encounter Visit Diagnoses Not on filedocumented in this encounter
--- OUTSIDE RECORDS SUMMARY | 2022-06-04 15:00 | XMS_ITS | Encounter Summary ---
:1950 Author Organization [facility] Address [address] [place] [address] Care Team Providers Name Role Phone Unavailable Primary Care Provider Unavailable Encounter Details Date Type Department Care Team Description 09/07/2001 Hospital Encounter HX [facility] Blair Bryant M.D. Social History Tobacco Use Types Packs/Day Years Used Date Smoking Tobacco: Never Assessed Sex Assigned at Date Recorded Not on file documented as of this encounter Plan of Treatment Upcoming Encounters Date Type Specialty Care Team Description 06/17/2022 Office Visit Neurology Sourav Gregg M.D. [address] [place], [place] [phone] (Wo rk) documented as of this encounter Visit Diagnoses Not on filedocumented in this encounter
== END 2022-05-04 08:56 | disposition home or self-care (01) ==
LOC: AMB 06-04 14:56
PROVIDERS: PCP Nurse Practitioner Family; Visit Provider Family Medicine
DX: R41.82 Altered mental status, unspecified (principal); R47.81 Slurred speech
CPT/HCPCS: A0425; A0427

== ENCOUNTER 2022-11-17 16:31 | Emergency (ER) | payer MEDICARE, BC, SELFPAY ==
[2022-11-17] VITALS (91 sets, daily range): BP systolic 81–154; BP diastolic 54–118; PULSE 78–179; RESP 9–27; TEMP 37.5; O2SAT 86–99; BMI 25.1
--- NOTE | 2022-11-17 17:40 | ED_ITS ---
HPI - Male Genitourinary General Time Seen by Provider: 17:40 Date Seen: 11/17/22 Chief complaint: Urogenital Problems, Male Stated complaint: urinary problems since thursday Time Seen by Provider: 11/17/22 17:30 Source: patient and RN notes reviewed Mode of arrival: ambulatory Limitations: no limitations History of Present Illness HPI Narrative: Patient is a 72-year-old male accompanied by female whom I presume is his . He is coming in with hematuria. He notes he has been having difficulty urinating. He does not feel like he is emptying completely. He has not slept well the last 2 nights due to the sense of bladder pressure and incomplete emptying. He is noting pink urine. He did fall about a week ago and had a little low back pain with it. He states that is improving. He is on Xarelto for history of atrial fibrillation. Related Data Home Medications Medication Instructions Recorded Confirmed finasteride 5 mg tablet 5 mg PO DAILY 02/09/23 03/09/23 tamsulosin 0.4 mg capsule 0.4 mg PO DAILY 02/09/23 03/09/23 metoprolol succinate 25 mg 25 mg PO QDAY 03/09/23 03/09/23 tablet,extended release 24 hr Previous Rx's Medication Instructions Recorded atorvastatin 40 mg tablet 40 mg PO QDAY 90 days #90 tabs 08/06/22 fluticasone 250 mcg-salmeterol 50 1 inh inhalation BID #60 ea 08/06/22 mcg/dose blistr powdr for inhalation (Advair Diskus) rivaroxaban 20 mg tablet (Xarelto) 20 mg PO QDAY 90 days #90 tabs 08/06/22 Allergies Allergy/AdvReac Type Severity Reaction Status Date / Time No Known Drug Allergies Allergy Verified 03/09/23 09:20 Review of Systems Status of ROS: Reports: 6 or more systems reviewed and unremarkable except as noted in History and below [facility] Medical History (Updated 03/10/23 @ 04:49 by Paty Truong APRN, RADIO PROGRAM CHECKER) Former smoker ?Z87.891 - Personal history of nicotine dependence (ICD-10) History of Legionnaire's disease ?Z86.19 - Personal history of other infectious and parasitic diseases (ICD- 10) Surgical History (Updated 03/09/23 @ 09:31 by Paty Truong APRN, RADIO PROGRAM CHECKER) History of cardiac radiofrequency ablation ?Z98.890 - Other specified postprocedural states (ICD-10) History of orthopedic surgery ?Z98.890 - Other specified postprocedural states (ICD-10) History of vasectomy ?Z98.52 - Vasectomy status (ICD-10) Family History (Updated 03/09/23 @ 09:34 by Paty Truong APRN, CHRISTINE) Brother Sudden Brother Heart disease Sister Enlarged heart Mother Stroke Sister Diabetes Social History (Updated 03/09/23 @ 09:35 by Paty Truong APRN, RADIO PROGRAM CHECKER) Narrative: . 2 daughters. Formal Exercise. Former smoker. Alcohol, none. No illicit drug use. Smoking Status: Former smoker Do you use any of these nicotine containing products: None Second hand tobacco smoke exposure: No How often do you have a drink containing alcohol: monthly or less AUDIT-C Alcohol total score: 1 Non-prescribed substance use: denies use Exam Const: Vital Signs, click to edit/add: Vital Signs - 24 hr 11/17/22 17:08 11/17/22 18:54 11/17/22 19:01 Temperature 99.5 F Pulse Rate Pulse Rate [Pulse Oximeter] 78 179 H Respiratory Rate 14 Blood Pressure Blood Pressure [Ri ght Upper Arm] 154/84 H 116/89 Pulse Oximetry 91 93 92 Oxygen Delivery Me thod Room Air Room Air 11/17/22 18:53 11/17/22 18:57 11/17/22 19:00 Temperature Pulse Rate 134 H 155 H 149 H Pulse Rate [Pulse Oximeter] Respiratory Rate Blood Pressure 116/89 Blood Pressure [Ri ght Upper Arm] Pulse Oximetry 93 93 92 Oxygen Delivery Me thod 11/17/22 19:15 11/17/22 19:30 11/17/22 19:35 Temperature Pulse Rate 122 H 140 H 130 H Pulse Rate [Pulse Oximeter] Respiratory Rate Blood Pressure 99/80 Blood Pressure [Ri ght Upper Arm] Pulse Oximetry 92 91 93 Oxygen Delivery Me thod 11/17/22 19:41 11/17/22 19:45 11/17/22 19:47 Temperature Pulse Rate 113 H 144 H 142 H Pulse Rate [Pulse Oximeter] Respiratory Rate Blood Pressure 106/63 87/68 L Blood Pressure [Ri ght Upper Arm] Pulse Oximetry 93 91 92 Oxygen Delivery Me thod 11/17/22 19:52 11/17/22 19:57 11/17/22 20:01 Temperature Pulse Rate 116 H Pulse Rate [Pulse Oximeter] Respiratory Rate Blood Pressure 108/62 97/73 99/84 Blood Pressure [Ri ght Upper Arm] Pulse Oximetry 92 Oxygen Delivery Me thod 11/17/22 20:07 11/17/22 20:11 11/17/22 20:17 Temperature Pulse Rate 133 H Pulse Rate [Pulse Oximeter] Respiratory Rate Blood Pressure 107/80 111/71 110/69 Blood Pressure [Ri ght Upper Arm] Pulse Oximetry 93 Oxygen Delivery Me thod 11/17/22 20:18 11/17/22 20:21 11/17/22 20:26 Temperature Pulse Rate 134 H 131 H 107 H Pulse Rate [Pulse Oximeter] Respiratory Rate Blood Pressure 104/72 115/78 Blood Pressure [Ri ght Upper Arm] Pulse Oximetry 94 94 94 Oxygen Delivery Me thod 11/17/22 20:31 11/17/22 20:51 11/17/22 20:52 Temperature Pulse Rate 147 H 121 H Pulse Rate [Pulse Oximeter] Respiratory Rate Blood Pressure 120/75 97/86 Blood Pressure [Ri ght Upper Arm] Pulse Oximetry 90 96 Oxygen Delivery Me thod 11/17/22 21:00 11/17/22 21:05 11/17/22 21:10 Temperature Pulse Rate 104 H 155 H 135 H Pulse Rate [Pulse Oximeter] Respiratory Rate Blood Pressure Blood Pressure [Ri ght Upper Arm] Pulse Oximetry 94 91 90 Oxygen Delivery Me thod 11/17/22 21:32 11/17/22 21:33 11/17/22 21:35 Temperature Pulse Rate 104 H 100 117 H Pulse Rate [Pulse Oximeter] Respiratory Rate 22 20 Blood Pressure 81/54 L 93/60 Blood Pressure [Ri ght Upper Arm] Pulse Oximetry 98 98 98 Oxygen Delivery Me thod 11/17/22 21:36 11/17/22 21:37 11/17/22 21:40 Temperature Pulse Rate 135 H 108 H 96 Pulse Rate [Pulse Oximeter] Respiratory Rate 22 24 24 Blood Pressure 124/109 H Blood Pressure [Ri ght Upper Arm] Pulse Oximetry 98 98 97 Oxygen Delivery Me thod 11/17/22 21:41 Temperature Pulse Rate 113 H Pulse Rate [Pulse Oximeter] Respiratory Rate 21 Blood Pressure 139/118 H Blood Pressure [Ri ght Upper Arm] Pulse Oximetry 97 Oxygen Delivery Me thod Documenting provider has reviewed patient's vital signs: yes Common normals: no apparent distress, average body habitus, oriented x3, no limitations, healthy appearing and alert General appearance: cooperative, comfortable, well kempt and well developed Other: Somewhat flat affect but overall alert interactive, no apparent distress. HENMT: Common normals: normocephalic, head/scalp atraumatic, hearing grossly normal bilaterally and external ears normal Head and scalp: normocephalic and atraumatic External ear: external ears normal Eye: Common normals: PERRL, EOMs intact bilaterally, conjunctivae normal and no scleral icterus Conjunctiva: conjunctiva(e) normal Pupil: PERRL Neck & C-Spine: Common normals: full ROM, no lymphadenopathy, supple and no meningeal signs Chest: Common normals: inspection of chest normal and palpation of chest normal Resp: Common normals: normal respiratory effort, no retractions, no use of accessory muscles and clear to auscultation bilaterally Auscultation: clear to auscultation bilaterally Cardio: Common normals: regular rate (Sounds regular currently, hear no irregularity), regular rhythm, S1 normal heart sound, S2 normal heart sound, no gallops, no clicks and no murmurs Rate: regular rate (Sounds regular currently, hear no irregularity) Rhythm: regular rhythm Heart sounds: S1 normal and S2 normal GI: Common normals: Normal to inspection, nondistended, normoactive bowel sounds present, soft to palpation, non-tender, no hepatosplenomegaly and no masses Palpation: soft and no hepatosplenomegaly : Common normals: no CVA tenderness Bladder/kidney exam: no CVA tenderness Back & Pelvis: Common normals: no CVA tenderness, thoracic and lumbar spine normal to inspection and no thoracic nor lumbar tenderness Other: No bruising or traumatic change noted throughout his back. Extremity: Common normals: no pedal edema Neuro: Common normals: oriented x3 Sensorium/orientation: alert Meningeal signs: no meningeal signs Psych: Appearance: well kempt Course Course Hospital Course: Nursing staff collected urinalysis on arrival, there was too much blood to be able to do chemical analysis but still able to do microscopy and culture. Have reviewed with patient that given the concern for recent trauma, do think we should proceed with CT of his abdomen pelvis with IV contrast. Will get appropriate labs. Will have nursing staff do bladder scan to ensure that he is not obstructive or significantly distended due to blood in clots. Does not sound like there is complete urinary obstruction but did talk with them that sometimes patients need to be admitted for bladder irrigation. His CT will show if there is any traumatic change within the abdomen. Right now his abdominal exam is reassuring. Procedure note: I provided sedation for cardioversion, please see Dr. Steen's note for full details of patient's visit. He was maintained on oximetry, end-tidal CO2 as well as a monitoring analyst. He received initially 60 and then a total of 70 mg of propofol with good sedation. He did not have any hypoxia or apnea. He was shocked 3 times without successful cardioversion and then allowed to awaken. He did take a significant amount of time to wake up from sedation but did not have any respiratory difficulties during that time. He ultimately did awakened without problems or complaints. Reevaluation(s) Reevaluation #1: Nursing staff reported that after placing IV, were doing a set of vitals in noticed him to be tachycardic. They notified me, obtained EKG. Bladder scan had not been done, had nursing staff do it, 3 different trials showed 500, 609 100 mL approximately. We will be placing a cristobal catheter. For his atrial fibrillation he is anticoagulated with Xarelto., initiate metoprolol 5 mg IV, 500 mL normal saline fluid bolus. He has been placed on cardiac monitoring. Will add on a point of care troponin. He is currently asymptomatic as far as his atrial fibrillation. Time: 19:02 Reevaluation #2: Patient had about 1200 mL of urine out. Still in atrial fibrillation with RVR, white blood count is elevated, positive nitrates on urinalysis. Believe he has UTI. The urinary retention, UTI have likely stimulated his atrial fibrillation. He typically takes his Xarelto and metoprolol around 6:00 p.m.. Thus will order an oral dose of metoprolol, he may need more IV metoprolol as well. Will order his evening Xarelto. Urine draining at this time does not have the level of hematuria that looks like he would require bladder irrigation or holding his Xarelto. Time: 19:21 Reevaluation #3: Have preliminarily talk to the hospitalists Dr. Herr. This patient may end up needing to be unit, may end up needing cardioversion of bed at this time is asymptomatic, last blood pressure was 107/80. I have ordered another L of IV fluids which would give him 2500 mL. He has been treated with Rocephin IV for UTI. Patient was not meeting criteria for sepsis until his heart rate went up but this is because of the atrial fibrillation with RVR. The hospitalist believes we should wait for the lactate, I had not initially ordered that as he was not presenting ill in that manner at 1st. Thought that this might be traumatic change or underlying abnormality causing hematuria. It obviously is a UTI with hematuria, urinary obstruction with this. Lactate was not initially ordered as stated, we have 1 pending. If the lactate is elevated, hospitalist does recommend increasing management to Zosyn for probable sepsis; otherwise, it is felt that the UTI is appropriately treated with Rocephin and the low blood pressure is likely from rate response of the atrial fibrillation. He did not have any blood pressure issues until he went into atrial fibrillation. He just received his oral nightly dose of metoprolol and Xarelto. Time: 20:17 Additional Reevaluation(s): 21:38 decision was made for cardioversion. Patient's blood pressure was 97 over 50s and was still in atrial fibrillation with RVR in the 130s to 150s range. It was felt that he required cardioversion. Risks benefits side effects were reviewed with patient and his including that of the anesthesia with propofol. Dr. Alvarez did assist, please see her note as well. Unfortunately, despite 3 separate attempts with synchronized cardioversion at 120 joules and then 200 joules and 200 joules, patient did not convert. Had initial hypotensive response with the propofol which was expected. He rebounded nicely, just after 9:30 p.m., most recent pressure was systolic 124. Patient was alert and conversive at this time. Patient has had most of his cares at [facility], did want us to attempt transfer there. At 9:30 p.m. did speak with [facility] and they cannot accept him, they have no beds that are appropriate for his level of care. Did subsequently speak with Dr. Huelster the ICU doctor. Patient's pr essures remain soft, most recent 1 was systolic 100, heart rate still no 150s. He did have a brief systolic of 120 for a brief period. Spoke with [facility] ICU doctor starting at 9:40 p.m.. We are going to initiate amiodarone. I had already given patient 200 mg oral amiodarone after discussing with my partner. He recommended that we load with 150 mg IV, and then start the amiodarone drip. Will be 1 milligram/minute for 6 hours, then it goes to 0.5 milligrams/minute for 18 hours. He is not likely to be here. We are just initiating the 1st drip. I have reviewed this with patient his . They do understand. Patient is considered to have unstable atrial fibrillation with RVR, will need transfer to ICU. Have reviewed antibiotics and the director of marketing operations feels that the Rocephin is adequate. Vital Signs Vital signs: Initial Vital Signs Temperature 99.5 F 11/17/22 17:08 Temperature Source Temporal Artery Scan 11/17/22 17:08 Pulse Rate 78 11/17/22 17:08 Respiratory Rate 14 11/17/22 17:08 Blood Pressure 154/84 H 11/17/22 17:08 Blood Pressure Mean 107 H 11/17/22 17:08 Blood Pressure Position Sitting 11/17/22 17:08 Pulse Oximetry 91 11/17/22 17:08 Oxygen Delivery Method Room Air 11/17/22 17:08 Vital Signs Temperature 99.5 F 11/17/22 17:08 Pulse Rate 78 11/17/22 17:08 Respiratory Rate 14 11/17/22 17:08 Blood Pressure 154/84 H 11/17/22 17:08 Pulse Oximetry 91 11/17/22 17:08 Oxygen Delivery Method Room Air 11/17/22 17:08 Temperature 99.5 F 11/17/22 17:08 Pulse Rate 132 H 11/18/22 00:39 Respiratory Rate 23 11/18/22 00:39 Blood Pressure 97/78 11/18/22 00:39 Pulse Oximetry 96 11/18/22 00:31 Oxygen Delivery Method Room Air 11/17/22 19:01 MDM - Male Genitourinary Differential Diagnosis Differential diagnosis: Likely urinary tract infection and acute retention of urine Lab Data Attestation: I reviewed the patient's lab results. Labs: Lab Results 11/17/22 11/17/22 11/17/22 Range/Units 17:22 18:40 19:40 WBC 23.71 H (4.50-11.00) K/uL RBC 4.61 (4.30-5.90) m/uL Hgb 14.7 (13.5-17.5) gm/dL Hct 43.4 (37.0-53.0) % MCV 94 (80-100) fL MCH 32 (26-34) pg MCHC 34 (32-36) gm/dL RDW Coeff of Rowena 13.8 (11.5-15.5) % Plt Count 398 (140-440) K/uL Neut % (Auto) 85.6 H (42.0-72.0) % Lymph % (Auto) 7.2 L (20-44) % [place] % (Auto) 6.9 (0.0-11.0) % Eos % (Auto) 0.0 (0.0-7.0) % Baso % (Auto) 0.1 (0.0-3.0) % Neut # (Auto) 20.30 H (1.7-7.0) K/uL Lymph # (Auto) 1.70 (0.90-2.90) K/uL [place] # (Auto) 1.60 H (0.00-0.90) K/UL Eos # (Auto) 0.00 (0.00-0.50) K/uL Baso # (Auto) 0.00 (0.00-0.30) K/uL Sodium 136 (135-149) mmol/L Potassium 4.0 (3.6-5.1) mmol/L Chloride 102 (96-114) mmol/L Carbon Dioxide 24 (20-32) mmol/L BUN 27 (7-30) mg/dL Creatinine 1.3 (0.5-1.5) mg/dL Estimated Creat Clear 49.85 Estimated GFR 58 ml/min Glucose 134 H (60-115) mg/dL Lactate (0.5-1.9) mmol/L Calcium 9.8 (8.4-10.6) mg/dL Magnesium 2.1 (1.5-2.6) mg/dL Total Bilirubin 1.5 (0.1-1.5) mg/dL AST 39 H (12-35) U/L ALT 32 (4-50) U/L Alkaline Phosphatase 231 H (40-150) U/L Troponin I (0.01-0.04) ng/mL C-Reactive Protein 1.7 H (0.5-1.0) mg/dL Total Protein 7.6 (6.0-8.3) g/dL Albumin 4.4 (3.3-5.0) g/dL Urine Color Red A (Yellow) Urine Appearance Cloudy A (Clear) Urine pH 5.0 (5.0-8.5) Ur Specific [place] 1.020 (1.000-1.030) Urine Protein 1+ A (Negative) Urine Glucose (UA) Negative (Negative) Urine Ketones Negative (Negative) Urine Blood 3+ A (Negative) Urine Nitrite Positive A (Negative) Urine Bilirubin Negative (Negative) Urine Urobilinogen 0.2 (0.2-1.0) Ur Leukocyte Esterase Trace A (Negative) Urine RBC 10-25 A (0-2) Urine WBC 10-25 A (0-5) Ur Squamous Epith Cells None (None-Few) Urine Bacteria Moderate A (None) Fine Granular Casts Few A (None) SARS-CoV-2 Ag (Rapid) negative (Negative) POC Creatinine 1.4 H (0.6-1.3) mg/dl POC Troponin I 0.00 L (0.01-0.04) ng/ml 11/17/22 Range/Units 20:08 WBC (4.50-11.00) K/uL RBC (4.30-5.90) m/uL Hgb (13.5-17.5) gm/dL Hct (37.0-53.0) % MCV (80-100) fL MCH (26-34) pg MCHC (32-36) gm/dL RDW Coeff of Rowena (11.5-15.5) % Plt Count (140-440) K/uL Neut % (Auto) (42.0-72.0) % Lymph % (Auto) (20-44) % [place] % (Auto) (0.0-11.0) % Eos % (Auto) (0.0-7.0) % Baso % (Auto) (0.0-3.0) % Neut # (Auto) (1.7-7.0) K/uL Lymph # (Auto) (0.90-2.90) K/uL [place] # (Auto) (0.00-0.90) K/UL Eos # (Auto) (0.00-0.50) K/uL Baso # (Auto) (0.00-0.30) K/uL Sodium (135-149) mmol/L Potassium (3.6-5.1) mmol/L Chloride (96-114) mmol/L Carbon Dioxide (20-32) mmol/L BUN (7-30) mg/dL Creatinine (0.5-1.5) mg/dL Estimated Creat Clear Estimated GFR ml/min Glucose (60-115) mg/dL Lactate 1.4 (0.5-1.9) mmol/L Calcium (8.4-10.6) mg/dL Magnesium (1.5-2.6) mg/dL Total Bilirubin (0.1-1.5) mg/dL AST (12-35) U/L ALT (4-50) U/L Alkaline Phosphatase (40-150) U/L Troponin I < 0.01 L (0.01-0.04) ng/mL C-Reactive Protein (0.5-1.0) mg/dL Total Protein (6.0-8.3) g/dL Albumin (3.3-5.0) g/dL Urine Color (Yellow) Urine Appearance (Clear) Urine pH (5.0-8.5) Ur Specific [place] (1.000-1.030) Urine Protein (Negative) Urine Glucose (UA) (Negative) Urine Ketones (Negative) Urine Blood (Negative) Urine Nitrite (Negative) Urine Bilirubin (Negative) Urine Urobilinogen (0.2-1.0) Ur Leukocyte Esterase (Negative) Urine RBC (0-2) Urine WBC (0-5) Ur Squamous Epith Cells (None-Few) Urine Bacteria (None) Fine Granular Casts (None) SARS-CoV-2 Ag (Rapid) (Negative) POC Creatinine (0.6-1.3) mg/dl POC Troponin I (0.01-0.04) ng/ml Imaging Data CT scan - abdomen: Attestation: I have reviewed the pertinent imaging results. Radiologist's impression: Patient: LIZBETH ZENG Facility:?[facility] Patient ID:?[id number] Site Patient ID:?[id number]. Site :?[id number] Study:?CT Abdomen/Pelvis w/ 83cc [id number]/17/2023 8:45:35 PM Ordering Physician:Sugey Puckett Final Report: INDICATION: Abdominal pelvic injury from fall, hematuria TECHNIQUE: CT Abdomen and pelvis with i.v. contrast. Coronal and sagittal reformats were obtained. CONTRAST: 83 mL Isovue 370 COMPARISON: None FINDINGS: The sensitivity and specificity of the exam are moderately limited by artifacts from the patient`s inability to maintain a breath hold. Lower chest: Mild bronchiectasis and atelectasis is seen in the right lower lobe. Liver: Unremarkable. Spleen: Unremarkable. Pancreas: Unremarkable. Gallbladder: Unremarkable. Kidney: Mild enhancement of the urothelium is seen in the ureters and renal pelvis. Adrenal: There is a left adrenal nodule present measuring 2 x 1.5 cm. Bowel: A large amount of stool is present within the cecum. Moderate gaseous distention of the ascending colon is noted. Moderate diverticulosis of the sigmoid colon is present. A large amount of stool is present in the rectal vault. The appendix is normal in appearance and size. Vascular: Moderate diffuse atherosclerotic calcifications of the abdominal aorta and its tributaries are present. Lymph: Unremarkable. Peritoneum: Unremarkable. No pneumoperitoneum is seen. No significant ascites is noted. Pelvis: The bladder is decompressed by Cristobal catheter and difficult to evaluate but there are numerous calcified bladder stones present measuring up to 1 cm. Bilateral small fat containing inguinal hernias are noted. Mild enlargement of the prostate gland is present. Soft tissue: Unremarkable. Bone: Mild to moderate dextroscoliosis is noted with associated facet arthritis and degenerative disc disease. There is a sclerotic lesion present within the left iliac bone measuring 8 mm which may represent a bone island. IMPRESSIONS: 1. There is a left adrenal nodule present measuring 2 x 1.5 cm. 2. The bladder is decompressed by Cristobal catheter and difficult to evaluate but there are numerous calcified bladder stones present measuring up to 1 cm. 3. Mild enhancement of the urothelium is seen in the ureters and renal pelvis. Findings may be due to infectious pyelitis. 4. A large amount of stool is present in the rectal vault. Correlation with physical exam recommended to exclude fecal impaction. Dictated by Raheem Cotter MD @ 11/17/2022 9:38:07 PM Please note that all CT scans at this facility use dose modulation, iterative reconstruction, and/or weight-based dosing when appropriate to reduce radiation dose to as low as reasonably achievable. Dictated by: Raheem Cotter MD @ 11/17/2022 21:38:11 (Electronic Signature) Chest x-ray: Attestation: I have reviewed the pertinent imaging results. Radiologist's impression: Patient: LIZBETH ZENG Facility:?[facility] Patient ID:?[id number] Site Patient ID:?[id number]. Site :?[id number] Study:?XRay Chest 1 VIEW-11/17/2022 8:54:11 PM Ordering Physician:Sugey Puckett Final Report: INDICATION: Atrial fibrillation. COMPARISON: None available. FINDINGS: An erect single view of the chest was obtained at 20 47 hours. The lungs are clear. No focal or diffuse infiltrates are present. The heart is normal in size. The mediastinum is normal in appearance. The osseous structures are normal in appearance for the patient`s age. IMPRESSION: Normal chest single view. Dictated by Jared Davies MD @ 11/17/2022 9:37:32 PM (Electronic Signature) ECG Data Attestation: I personally reviewed and interpreted this ECG as follows: (Atrial fibrillation with rapid ventricular response, 100 sing 5 beats per minute. Inferolateral ST segment depression at this rate.) ECG interpretation date: 11/17/22 ECG interpretation time: 18:51 Prior ECG tracings: not available for review Discharge Plan Discharge Clinical Impression: Urinary tract infection, Acute urinary retention, Atrial fibrillation with rapid ventricular response Patient Disposition: Xfer [facility] Discharge Location: [facility] Condition: Unchanged Prescriptions: No Action tamsulosin 0.4 mg capsule 0.4 mg PO DAILY finasteride 5 mg tablet 5 mg PO DAILY metoprolol succinate 25 mg tablet extended release 24 hr 25 mg PO QDAY fluticasone propion-salmeterol [Advair Diskus] 250-50 mcg/dose blister with device 1 inh inhalation BID Qty: 60 4RF atorvastatin 40 mg tablet 40 mg PO QDAY 90 Days Qty: 90 3RF Xarelto 20 mg tablet 20 mg PO QDAY 90 Days Qty: 90 3RF Rx Instructions: must administer with evening meal Stand Alone Forms: MyHealth Info Instructions
[2022-11-17 18:02] LABS: Appearance Urine Cloudy (Clear); Bilirubin Urine Negative (Negative); Blood Urine 3+ (Negative); Color Urine Red (Yellow); Glucose Urine Negative (Negative); Ketones Urine Negative (Negative); Leukocyte Esterase Urine Trace (Negative); Nitrite Urine Positive (Negative); Protein Urine 1+ (Negative); Urobilinogen Urine 0.2 (0.2-1.0)
[2022-11-17 18:03] LABS: Bacteria Urine Moderate
[2022-11-17 18:04] LABS: Fine Granular Casts Urine Few
--- NOTE | 2022-11-17 18:07 | CRLHL7_ITS ---
For Patients: As a result of the Century Cures Act, medical imaging exams and procedure reports are released immediately into your electronic medical record. You may view this report before your referring provider. If you have questions, please contact your health care provider. INDICATION: Abdominal pelvic injury from fall, hematuria TECHNIQUE: CT Abdomen and pelvis with i.v. contrast. Coronal and sagittal reformats were obtained. CONTRAST: 83 mL Isovue 370 COMPARISON: None FINDINGS: The sensitivity and specificity of the exam are moderately limited by artifacts from the patient`s inability to maintain a breath hold. Lower chest: Mild bronchiectasis and atelectasis is seen in the right lower lobe. Liver: Unremarkable. Spleen: Unremarkable. Pancreas: Unremarkable. Gallbladder: Unremarkable. Kidney: Mild enhancement of the urothelium is seen in the ureters and renal pelvis. Adrenal: There is a left adrenal nodule present measuring 2 x 1.5 cm. Bowel: A large amount of stool is present within the cecum. Moderate gaseous distention of the ascending colon is noted. Moderate diverticulosis of the sigmoid colon is present. A large amount of stool is present in the rectal vault. The appendix is normal in appearance and size. Vascular: Moderate diffuse atherosclerotic calcifications of the abdominal aorta and its tributaries are present. Lymph: Unremarkable. Peritoneum: Unremarkable. No pneumoperitoneum is seen. No significant ascites is noted. Pelvis: The bladder is decompressed by Pablo catheter and difficult to evaluate but there are numerous calcified bladder stones present measuring up to 1 cm. Bilateral small fat containing inguinal hernias are noted. Mild enlargement of the prostate gland is present. Soft tissue: Unremarkable. Bone: Mild to moderate dextroscoliosis is noted with associated facet arthritis and degenerative disc disease. There is a sclerotic lesion present within the left iliac bone measuring 8 mm which may represent a bone island. IMPRESSIONS: 1. There is a left adrenal nodule present measuring 2 x 1.5 cm. 2. The bladder is decompressed by Pabol catheter and difficult to evaluate but there are numerous calcified bladder stones present measuring up to 1 cm. 3. Mild enhancement of the urothelium is seen in the ureters and renal pelvis. Findings may be due to infectious pyelitis. 4. A large amount of stool is present in the rectal vault. Correlation with physical exam recommended to exclude fecal impaction. Dictated by Raheem Cotter MD @ 11/17/2022 9:38:07 PM Please note that all CT scans at this facility use dose modulation, iterative reconstruction, and/or weight-based dosing when appropriate to reduce radiation dose to as low as reasonably achievable. Dictated by: Raheem Cotter MD @ 11/17/2022 21:38:11 (Electronically Signed)
[2022-11-17 18:51] LABS: Creatinine, Point-of-Care* 1.4 mg/dl (0.6-1.3)
[2022-11-17 18:52] LABS: Basophils Percent Auto 0.1 % (0.0-3.0); Hematocrit 43.4 % (37.0-53.0); Hemoglobin* 14.7 gm/dL (13.5-17.5); Immature Granulocytes Pct Auto 0.2 %; Lymphocytes Percent Auto 7.2 % (20-44); Mean Corpuscular HGB Conc 34 gm/dL (32-36); Mean Corpuscular Hemoglobin 32 pg (26-34); Mean Corpuscular Volume 94 fL (80-100); Monocytes Percent Auto 6.9 % (0.0-11.0); Neutrophils Percent Auto 85.6 % (42.0-72.0); Platelet Count* 398 K/uL (140-440); RDW Coefficient of Variation % 13.8 % (11.5-15.5); Red Blood Count 4.61 m/uL (4.30-5.90); White Blood Count* 23.71 K/uL (4.50-11.00)
[2022-11-17] MEDS: 0.9 % SODIUM CHLORIDE 500 ML 500 ML IV (19:00)
[2022-11-17 19:05] LABS: Slide Review Reflex No
[2022-11-17 19:08] LABS: Albumin* 4.4 g/dL (3.3-5.0); Chloride* 102 mmol/L (96-114)
[2022-11-17 19:09] LABS: Sodium* 136 mmol/L (135-149)
[2022-11-17 19:11] LABS: Aspartate Amino Transferase* 39 U/L (12-35); Bilirubin Total* 1.5 mg/dL (0.1-1.5); Blood Urea Nitrogen* 27 mg/dL (7-30); Carbon Dioxide* 24 mmol/L (20-32); Creatinine* 1.3 mg/dL (0.5-1.5); Est. Creatinine Clearance* 49.85; Estimated Glomerular Filt Rate 58 ml/min; Total Protein* 7.6 g/dL (6.0-8.3)
[2022-11-17 19:12] LABS: Alanine Aminotransferase* 32 U/L (4-50); Alkaline Phosphatase* 231 U/L (40-150); Calcium* 9.8 mg/dL (8.4-10.6); Glucose* 134 mg/dL (60-115)
[2022-11-17] MEDS: METOPROLOL TARTRATE 1 MG/ML inj 5 MG IVP (19:27)
--- NOTE | 2022-11-17 19:44 | CRLHL7_ITS ---
For Patients: As a result of the Century Cures Act, medical imaging exams and procedure reports are released immediately into your electronic medical record. You may view this report before your referring provider. If you have questions, please contact your health care provider. INDICATION: Atrial fibrillation. COMPARISON: None available. FINDINGS: An erect single view of the chest was obtained at 20 47 hours. The lungs are clear. No focal or diffuse infiltrates are present. The heart is normal in size. The mediastinum is normal in appearance. The osseous structures are normal in appearance for the patient`s age. IMPRESSION: Normal chest single view. Dictated by Jared Davies MD @ 11/17/2022 9:37:32 PM (Electronically Signed)
[2022-11-17] MEDS: cefTRIAXone 2 GM in 0.9 % SODIUM CHLORIDE Mini-bag 100 ML IVPB (19:45)
[2022-11-17] MEDS: RIVAROXABAN 10 MG TABLET 20 MG PO (19:52)
[2022-11-17] MEDS: 0.9 % SODIUM CHLORIDE 1000 ml 1,000 ML IV ×2 (19:54→21:08)
[2022-11-17 20:02] LABS: SARS Antigen* negative (Negative)
[2022-11-17] MEDS: METOPROLOL SUCCINATE (XL) 50 MG TAB PO (20:06)
[2022-11-17 20:11] LABS: Lactate* 1.4 mmol/L (0.5-1.9)
[2022-11-17 20:12] LABS: Magnesium* 2.1 mg/dL (1.5-2.6)
[2022-11-17 20:30] LABS: C Reactive Protein* 1.7 mg/dL (0.5-1.0)
[2022-11-17 20:40] LABS: Troponin I* < 0.01 ng/mL (0.01-0.04)
[2022-11-17] MEDS: PROPOFOL 10 MG/ML INJ 200 MG IVP (21:23)
--- NOTE | 2022-11-17 21:33 | ED.NURSE ---
Patient cardioverted by Md Steen and MD Alvarez. Patient given total of 70mg of Propofol. Patient cardioverted at 2123 with 120J unsuccessfully. Patient Cardioverted again at 2124 with 200J without success. Patient cardioverted at 2125 with 200J. All cardioversions unsuccessful. Patient still sustaining a HR of 147-165.
[2022-11-17] MEDS: AMIODARONE 200 MG TABLET PO (21:47)
[2022-11-17] MEDS: AMIODARONE 50 MG/ML inj 150 MG in 5 % DEXTROSE 100 ML 100 ML 618 MG IVPB (22:08)
--- NOTE | 2022-11-17 22:12 | ED.NURSE ---
RN spoke with extractions technician HELEN Mandujano from [facility]. Delbert stated that today patient was seen by her Psychiatrist Dr Bernal and she recommended the patient be seen since she thought the patient was having a medial change that was causing her change in mentation and behavior. Patients RN at [facility] stated that she has been seeing bugs and more agreesive over the past 2 weeks.
[2022-11-18] VITALS (16 sets, daily range): BP systolic 75–106; BP diastolic 46–80; PULSE 97–132; RESP 18–27; O2SAT 95–99
--- NOTE | 2022-11-18 00:07 | ED.NURSE ---
Patient report given to Yuliana CERVANTES at [facility]. Patient will be going to room H4379
--- NOTE | 2022-11-18 00:35 | ED.NURSE ---
report given to [facility]. Patient care transferred. updated. Receiving RN updated as well
== END 2022-11-18 00:46 | disposition short-term general hospital (02) ==
PROVIDERS: Emergency Provider Family Medicine; PCP Nurse Practitioner Family
DX: I48.20 Chronic atrial fibrillation, unspecified (principal)
CPT/HCPCS: 36415; 71045; 74177; 80053; 81001; 82565; 83605; 83735; 84484; 85025; 86140; 87086; 87426; 92960; 93005; 94761; 96365; 96366; 96375; 99285; 99291; A9270; J0282; J0696; J2704; J7030; J7120; Q9967

== ENCOUNTER 2022-11-18 00:33 | Outpatient (CLI) | payer MEDICARE, BC, SELFPAY | END 2022-11-18 00:34 | disposition home or self-care (01) | LOC: AMB 11-21 10:28 | PROVIDERS: PCP Nurse Practitioner Family; Visit Provider Family Medicine | DX: R03.1 Nonspecific low blood-pressure reading (principal); R33.9 Retention of urine, unspecified; R31.9 Hematuria, unspecified | CPT/HCPCS: A0425; A0434 ==

== ENCOUNTER 2023-03-09 09:43 | Outpatient (CLI) | payer MEDICARE, BC, SELFPAY | END 2023-03-09 09:44 | disposition home or self-care (01) | PROVIDERS: PCP Nurse Practitioner Family; Visit Provider Nurse Practitioner Family | DX: Z01.818 Encounter for other preprocedural examination (principal) | CPT/HCPCS: 80053; 85025 ==

== ENCOUNTER 2023-07-06 08:26 | Outpatient (CLI) | payer MEDICARE, BC, SELFPAY ==
--- NOTE | 2023-07-06 09:00 | CRLHL7_ITS ---
For Patients: As a result of the Century Cures Act, medical imaging exams and procedure reports are released immediately into your electronic medical record. You may view this report before your referring provider. If you have questions, please contact your health care provider. Indication: FOLLOW UP LEFT ADRENAL NODULE Technique: Noncontrast CT abdomen, limited Please note that all CT scans at this facility use dose modulation, iterative reconstruction, and/or weight-based dosing when appropriate to reduce radiation dose to as low as reasonably achievable. Comparison: 11/17/2022 Findings: Chronic bronchiectasis with bronchial wall thickening in the right lower lobe. Curvilinear scarring in both lung bases. No pleural effusion. Atherosclerotic changes. Low-density left adrenal nodule measuring 1.1 cm with Hounsfield units less than 0. Normal right adrenal gland. Small simple cyst posterior left kidney. No hydronephrosis. Spleen normal. Pancreas normal. Normal noncontrast enhanced liver. Gallbladder unremarkable. No bowel obstruction. No adenopathy. Degenerative changes. No fracture. Rightward curvature lumbar spine. Impression: Benign 1 cm left adrenal adenoma. Please note that all CT scans at this facility use dose modulation, iterative reconstruction, and/or weight-based dosing when appropriate to reduce radiation dose to as low as reasonably achievable. Dictated by Oneal Rojas MD @ 07/07/2023 1:06:37 PM (Electronically Signed)
[2023-07-06 09:08] LABS: Creatinine* 0.8 mg/dL (0.5-1.5); Estimated Glomerular Filt Rate 93 ml/min
== END 2023-07-06 08:27 | disposition home or self-care (01) ==
PROVIDERS: PCP Nurse Practitioner Family; Visit Provider Nurse Practitioner Family
DX: E27.9 Disorder of adrenal gland, unspecified (principal); D35.02 Benign neoplasm of left adrenal gland
CPT/HCPCS: 36415; 74150; 82565

== ENCOUNTER 2023-09-01 15:06 | Outpatient (CLI) | payer MEDICARE, BC, SELFPAY ==
--- OUTSIDE RECORDS SUMMARY | 2023-09-01 15:23 | XMS_ITS ---
Author Name Unknown Organization [facility] Address [address] [place] [id number] Care Team Providers Care Canine Service Instructor Trainer Name Role Phone Unavailable Unavailable Unavailable Surgery Details Not on file Complications Check Surgery Details section. Procedure Estimated Blood Loss Check Surgery Details section. Procedure Findings Check Surgery Details section. Procedure Specimens Taken Check Surgery Details section.
--- OUTSIDE RECORDS SUMMARY | 2023-09-01 15:23 | XMS_ITS | Clinical Summary ---
Author Name Unknown Organization [facility] Address [address] [place] [address] Care Team Providers Care Dye Range Feeder Name Role Phone Elsewhere, Pcp Primary Care Provider Unavailabl e Source Comments Patient records contain information from all sites at [facility]. For routine questions regarding patient records, call [phone] during business hours, M-F 8:00 AM - 5:00 PM Central Time. Record requests for emergency care only can be directed to [phone] at any time.[facility] Allergies No known active allergies Medications Medication Sig Dispensed Refills Start Date End Date Status albuterol 90 mcg/actuation inhaler Inhale 2 puffs every 6 (six) hours as needed for wheezing or shortness of breath. 0 Active atorvastatin (LIPITOR) 40 mg tablet Take 1 tablet (40 mg total) by mouth at bedtime. 90 tablet 0 05/06/2022 Active rivaroxaban (XARELTO) 20 mg tablet Take 1 tablet (20 mg total) by mouth daily with dinner. 30 tablet 3 05/13/2022 Active metoprolol succinate (TOPROL-XL) 25 mg 24 hr tablet Take 2 tablets (50 mg total) by mouth daily. Do not crush or chew. 180 tablet 3 06/17/2022 Active MULTIVITAMIN ORAL Take 1 tablet by mouth daily. 0 10/02/2011 Suspended Active Problems Problem Noted Date Diagnosed Date Stroke 05/04/2022 Chronic Obstructive Pulmonary Disease Exacerbati on 05/04/2022 Abuse Tobacco Smoking 05/07/2009 Atrial Fibrillation Unspecified 03/14/2009 Immunizations Name Administration Dates Next Due PPSV23 05/07/2009 SARS-COV-2 (COVID-19) - PFIZER TS(12 years or ol hasmukh) 03/26/2022 Td, (Adult) Unspecified 08/03/2005 Tdap 09/08/2013 Family History Medical History Relation Name Comments Heart attack Father Relation Name Status Comments Father Social History Tobacco Use Types Packs/Day Years Used Date Smoking Tobacco: Every Day Cigarettes 0.3 Started: 08/03/1964 Smokeless Tobacco: Never Tobacco Cessation:Ready to Q uit: Not Asked; Counseling Given: Not Answered Comments:Used to smoke half pack per day. Alcohol Use Standard Drinks/Week Comments No 0 (1 standard drink = 0.6 oz pur e alcohol) Humiliation, Afraid, Rape, and Kick questionnair e Answer Date Recorded Within the last year, have y ou been afraid of your partner or ex-partner? No 06/17/2022 Within the last year, have y ou been humiliated or emotionally abused in other ways by your partner or ex-partner? No Within the last year, have y ou been kicked, hit, slapped, or otherwise physically hurt by your partner or ex-partner? No 06/17/2022 Within the last year, have y ou been raped or forced to have any kind of sexual activity by your partner or ex-partner? No 06/17/2022 Social Connection and Isolation Panel [NHANES] A nswer Date Recorded In a typical week, how many times do you talk on the phone with family, friends, or neighbors? Once a week 06/17/20 How often do you get togethe r with friends or relatives? Once a week 06/17/2022 Attends Catholic Services Not on file 06/17 Do you belong to any clubs o r organizations such as sabianism groups, unions, fraternal or athletic groups, or school groups? No 06/17/2022 How often do you attend meet ings of the clubs or organizations you belong to? 1 to 4 times per year 06/17/2022 Marital Status Not on file 06/17/2022 AUDIT-C Answer Date Recorded Q1: How often do you have a drink containing alc ohol? Never 06/17/2022 Average Number of Drinks Not on file 022 Frequency of Binge Drinking Not on file 06/03 Overall Financial Resource Strain (CARDIA) Answe r Date Recorded How hard is it for you to pa y for the very basics like food, housing, medical care, and heating? Not very hard 06/17/2022 PHQ-2 Answer Date Recorded PHQ-2 Score 0 05/05/2022 [facility] - Occupational Stress Questionnaire Answer Date Recorded Do you feel stress - tense, restless, nervous, or anxious, or unable to sleep at night because your mind is troubled all the time - these days? Not at all 06/17/2022 Exercise Vital Sign Answer Date Recorde d On average, how many days pe r week do you engage in moderate to strenuous exercise (like a brisk walk)? 2 days 06/17/2022 On average, how many minutes do you engage in exercise at this level? 20 min 06/17/2022 Hunger Vital Sign Answer Date Recorded Within the past 12 months, y ou worried that your food would run out before you got the money to buy more. Patient declined Within the past 12 months, t he food you bought just didn't last and you didn't have money to get more. Patient declined PRAPARE - Transportation Answer Date Re corded In the past 12 months, has l ack of transportation kept you from medical appointments or from getting medications? No 06/03 In the past 12 months, has l ack of transportation kept you from meetings, work, or from getting things needed for daily living? No 06/17/2022 Housing Stability Vital Sign Answer Bobby e Recorded In the last 12 months, was t here a time when you were not able to pay the mortgage or rent on time? No 06/17/2022 Number of Places Lived in the Last Year Not on f ile 06/17/2022 In the last 12 months, was t here a time when you did not have a steady place to sleep or slept in a assisted (including now)? No 06/17/2022 Depression Answer Date Recor ded PHQ-9 Total Score (max 27) 3 05/05 Nutrition Answer Date Recorded Nutrition: EVOO Fat Source No 06/17 On average, how many serving s of fruits and vegetables do you eat per day (serving size is equal to 1 cup or approximately the size of a tennis ball)? 0-1 06/17/2022 Dental Answer Date Recorded Dental: Regular Dentist No 06/17/20 Employment Answer Date Recorded Employment status Retired 06/17/2022 Education Answer Date Recorded What is the highest level of school you have completed or the highest degree you have received? 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 Sexual Orientation Not on file Last Filed Vital Signs Vital Sign Reading Time Taken Comments Blood Pressure 132/78 05/14/2022 2:54 PM CDT Pulse 70 05/14/2022 2:54 PM CDT Temperature 36.7 ??C (98.1 ??F) 06/17/2022 2:52 PM CS T Respiratory Rate 18 05/07/2022 11:1 5 AM CDT Oxygen Saturation 92% 05/07/2022 11: 16 AM CDT Inhaled Oxygen Concentration - - Weight 73.9 kg (162 lb 14.7 oz) 06/17/2022 2:52 PM ACCOUNTS PAYABLE ASSISTANT Height 175.3 cm (5' 9.02) 06/17/2022 2:52 PM CS T Body Mass Index 24.05 06/17/2022 2:52 PM ACCOUNTS PAYABLE ASSISTANT Plan of Treatment Health Maintenance Due Date Last Done Comments Abdominal Aortic Aneurysm (A AA) Screen 1948 CT Colonography 1948 Cologuard 1948 FIT 1948 Hepatitis C Screening 1948 Hepatitis A Vaccines (1 of 2 - Risk 2-dose series) 1967 Zoster Vaccines (1 of 2) 1998 Hepatitis B Vaccines (1 of 3 - Risk 3-dose series) 2008 Pneumococcal vaccine (65+ ye ars) (2 of 2 - PCV) 05/07/2010 05/07/2009 Colonoscopy 05/07/2019 05/07/2009 Colorectal Cancer Screening 05/07/2019 COVID-19 Vaccine (5 - 2022-2 4 season) 2023 03/26/2022, 03/26/2022, 04/29/2021, Additional history exists Influenza Vaccine (#1) 2023 Lipid (Cholesterol) Screening 05/05/2023 05/05/2022 Office Visit for Blood Press ure Check / Re-check 05/14/2023 05/14/2022 Depression Screening (Annual PHQ-2) 08/03/2023 Fall Risk Screen (Annual) 08/03/2023 DTaP,Tdap,and Td Vaccines (2 - Td or Tdap) 09/08/2023 09/08/2013, 08/03/2005 Fasting Glucose for Diabetes Screening 01/26/2026 01/26/2023, 05/05/2022, 05/05/2022, Additional history exists Advance Directives For more information, please contact: [phone] Latest Code Status on File Code Status Date Activated Date Inactivated Comments DNR 05/05/2022 1:10 PM 05/07/2022 5:19 PM Code Status History Code Status Date Activated Date Inactivated Comments Full Code 05/04/2022 12:02 PM 05/05/2022 1:10 PM Question Answer Comments Full Code: Not Discussed Due to: Patient not available Care Teams Dye Range Feeder Relationship Specialty Start Date End Date Elsewhere, Pcp PCP - General 10/16/20
--- OUTSIDE RECORDS SUMMARY | 2023-09-01 15:23 | XMS_ITS | Clinical Summary ---
Author Name Unknown Organization [facility] Address [place], [place] [address] Care Team Providers Care Reception Clerk Name Role Phone Paty Truong NP Unavailable [phone] Paty Truong NP Primary Care Provider [phone] Allergies No known active allergies Medications Medication Sig Dispensed Refills Start Date End Date Status albuterol HFA (PRO-AIR; VENTOLIN; PROVENTIL) 90 mcg/actuation inhaler Inhale 2 Puffs by mouth every 4 hours if needed. 0 Active atorvastatin (LIPITOR) 40 mg tablet Take 20 mg by mouth once daily in the evening. 0 Active rivaroxaban (XARELTO) 20 mg tablet Take 20 mg by mouth once daily with evening meal. 0 Active multivitamin (MVI) tablet Take 1 Tablet by mouth once daily in the evening. 0 Active ascorbic acid, vitamin C, (Vitamin C) 1,000 mg tablet Take 1,000 mg by mouth once daily. 0 Active calcium carbonate (Tums) 200 mg calcium (500 mg) chewable tablet Chew 500 mg by mouth once daily in the evening. 0 Active fluticasone propion-salmeteroL (Advair Diskus) 250-50 mcg/Dose diskus inhaler Inhale 1 Puff by mouth 2 times daily if needed. 0 Active finasteride (PROSCAR) 5 mg tablet Take 5 mg by mouth once daily. 0 Active metoprolol tartrate (LOPRESSOR) 25 mg tabletIndications:P aroxysmal atrial fibrillation (HC) Take 25mg by mouth daily as needed for tachycardiac > 110bpm 30 Tablet 0 05/28/2023 Active Active Problems Problem Noted Date Diagnosed Date Atrial fibrillation with RVR 11/18/2022 Acute urinary retention 11/18/2022 Bladder stones 11/18/2022 Constipation 11/18/2022 Adrenal nodule 11/18/2022 Overview: 2 x 1.5 cm L adrenal nodule on CT AP W at [facility] 11/17/22 COPD (chronic obstructive pulmonary disease) 09/202111/18/2022 Stroke 05/04/2022 11/18/2022 Tobacco dependence syndrome 05/07/200911/01 Atrial fibrillation 03/14/2009 11/18/2022 Immunizations Name Administration Dates Next Due Pneumococcal Poly,23-Valent (Pneumovax) 05/07/20 09 TD, UNSPECIFIED 08/03/2005 Td, Preservative Free (age >= 7 Years) 6 Tdap 09/08/2013 Social History Tobacco Use Types Packs/Day Years Used Date Smoking Tobacco: Former Cigarettes Q uit: 08/26/2022 Passive Smoke Exposure: Never Smokeless Tobacco: Never Alcohol Use Standard Drinks/Week Comments Not Currently 0 (1 standard drink = 0.6 oz pur e alcohol) Sober for 54 years(2022) Social Connections Answer Date Recorded Frequency of Communication with Friends and Fami ly Not on file 07/11/2022 Sex and Gender Information Value Date Recorded Sex Assigned at Not on file Gender Identity Not on file Sexual Orientation Not on file Obstetrics History Last Filed Vital Signs Vital Sign Reading Time Taken Comments Blood Pressure 108/68 05/28/2023 1:43 PM CDT Pulse 67 05/28/2023 1:43 PM CDT Temperature 36.1 ??C (97 ??F) 03/18/2023 6:15 PM CDT Respiratory Rate 18 03/18/2023 6:15 PM CDT Oxygen Saturation 95% 05/28/2023 1:43 PM CDT Inhaled Oxygen Concentration - - Weight 78.9 kg (174 lb) 05/28/2023 1:43 PM CDT Height 175.3 cm (5' 9) 05/28/2023 1:43 PM CDT Body Mass Index 25.7 05/28/2023 1:43 PM CDT Plan of Treatment Health Maintenance Due Date Last Done Comments Depression screening for age 12+ 1960 Hepatitis C screening for ag e 18-79 1966 Colonoscopy through age 75 1993 Lipids for age 45-75 1993 Zoster (shingles) series for age 50+ (1 of 2) 1998 Pneumococcal series for age 65+ (2 of 2 - PCV) 05/07/2010 05/07/2009 Medicare Wellness for age 65+ 2013 COVID-19 vaccine series (5 - 2022- season) 2023 03/26/2022, 04/29/2021, 10/30/2020, Additional history exists Influenza for age 65+ 04/03/2023 Tetanus booster 09/08/2023 09/08/2013, 08/2005, 08/03/2005 BMI (ht and wt on same day) for age 18+ 05/28/2024 05/28/2023 Tdap Completed 09/08/2013 Advance Directives Latest Code Status on File Code Status Date Activated Date Inactivated Comments Full Code 03/18/2023 2:27 PM 03/18/2023 10:14 PM Question Answer Comments Code Status Discussion: Unable to Assess Preferences, Provider to review later Code Status History Code Status Date Activated Date Inactivated Comments Full Code 11/18/2022 9:32 AM 11/19/2022 9:29 PM Question Answer Comments Code Status Discussion: Reviewed Preferences Full Code 11/18/2022 4:24 AM 11/18/2022 9:32 AM Question Answer Comments Code Status Discussion: Unable to Assess Preferences, Provider to review later Care Teams Reception Clerk Relationship Specialty Start Date End Date Paty Truong NP [address] [place] [address] PCP - General Emergency Medicine 11/18/22 Paty Truong NP [address] [place] [address] Emergency Medicine 11/18/22
--- OUTSIDE RECORDS SUMMARY | 2023-09-01 15:23 | XMS_ITS | Encounter Summary ---
Author Name Unknown Organization [facility] Address [address] [place] [id number] Care Team Providers Care Engine Hostler Name Role Phone Elsewhere, Pcp Primary Care Provider Unavailabl e Reason for Visit * Reason Onset Date Comments Nicotine Dependence 11/14/2022 Encounter Details Date Type Department Care Team (Latest Contact Info) Description 11/14/2022 Clinical Communication Department of Nicotine Dependence, [facility] in [place], [place] [address] [place] [phone] Lydia Pichardo M.A., L.P., C.T.T.S. [address] [place] [phone] Nicotine Dependence Social History Tobacco Use Types Packs/Day Years Used Date Smoking Tobacco: Every Day Cigarettes 0.3 Started: 08/03/1966 Smokeless Tobacco: Never Comments:Used to smoke half pack per day. [...] or relatives? Once a week 06/17/2022 Attends [employer] Services Not on file 06/17 Do you belong to any clubs o r organizations such as druze groups, unions, fraternal or athletic groups, or [...] Answer Date Recorded PHQ-2 Score 0 05/05/2022 [facility] - Occupational Stress [...] place to sleep or slept in a senior living (including now)? 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
--- OUTSIDE RECORDS SUMMARY | 2023-09-01 15:23 | XMS_ITS | Referral Summary ---
Author Name Unknown Organization [facility] Address [address] [place] [address] Care Team Providers Care Slubber Hand Name Role Phone Elsewhere, Pcp Primary Care Provider Unavailabl e Source Comments Patient records contain information from all sites at [facility]. For routine questions regarding patient records, call [phone] during business hours, M-F 8:00 AM - 5:00 PM Central Time. Record requests for emergency care only can be directed to [phone] at any time.[facility] Allergies No known active allergies Medications Medication [...] 03/26/2022 Td, (Adult) Unspecified 08/03/2005 Tdap 09/08/2013 Social History Tobacco Use Types [...] or relatives? Once a week 06/17/2022 Attends Muslim Services Not on file 06/17 Do you belong to any clubs o r organizations such as baptist groups, unions, fraternal or athletic groups, or [...] Answer Date Recorded PHQ-2 Score 0 05/05/2022 [facility] - Occupational Stress Questionnaire Answer Date Recorded [...] place to sleep or slept in a prison (including now)? 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 Sexual Orientation Not on file Last Filed [...] (162 lb 14.7 oz) 06/17/2022 2:52 PM HOUSING MANAGER Height 175.3 cm (5' 9.02) 06/17/2022 2:52 PM CS T Body Mass Index 24.05 06/17/2022 2:52 PM HOUSING MANAGER Plan of Treatment Not on file Advance Directives For more information, please contact: [phone] Latest Code Status on File Code Status Date Activated Date Inactivated Comments DNR 05/05/2022 1:10 PM 05/07/2022 5:19 PM Code Status History Code Status Date Activated Date Inactivated Comments Full Code 05/04/2022 12:02 PM 05/05/2022 1:10 PM Question Answer Comments Full Code: Not Discussed Due to: Patient not available Care Teams Slubber Hand Relationship Specialty Start Date End Date Elsewhere, Pcp PCP - General 10/16/20
== END 2023-09-01 15:07 | disposition home or self-care (01) ==
PROVIDERS: PCP Nurse Practitioner Family; Visit Provider Nurse Practitioner Family
DX: R06.02 Shortness of breath (principal); R06.09 Other forms of dyspnea
CPT/HCPCS: 80053; 83880; 85025

== ENCOUNTER 2023-09-09 12:35 | Outpatient (CLI) | payer MEDICARE, BC, SELFPAY ==
--- OUTSIDE RECORDS SUMMARY | 2023-09-09 12:39 | XMS_ITS | Clinical Summary ---
Author Name Unknown Organization [facility] Address [address] [place] [address] Care Team Providers Care Industrial Accountant Name Role Phone Elsewhere, Pcp Primary Care Provider Unavailabl e Source Comments Patient records contain information from all sites at [facility]. For routine questions regarding patient records, call [phone] during business hours, M-F 8:00 AM - 5:00 PM Central Time. Record requests for emergency care only can be directed to [phone] at any time.[facility] Allergies No known active allergies Medications Medication [...] 03/14/2009 Immunizations Name Administration Dates Next Due PPSV23(Discontinued) 05/07/2009 SARS-COV-2 (COVID-19) - PFIZ ER TS(Discontinued)(12 years or older) 03/26/2022 Td, (Adult) Unspecified 08/03/2005 Tdap 09/08/2013 [...] or relatives? Once a week 06/17/2022 Attends [employer] Not on file 06/17 Do you belong to any clubs o r organizations such as jehovah's witness groups, unions, fraternal or athletic groups, or [...] Answer Date Recorded PHQ-2 Score 0 05/05/2022 [facility] - Occupational Stress Questionnaire Answer Date Recorded [...] place to sleep or slept in a nursing home (including now)? 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 Sexual Orientation Not on file Last [...] (162 lb 14.7 oz) 06/17/2022 2:52 PM CAMPUS ADMINISTRATIVE ASSISTANT Height 175.3 cm (5' 9.02) 06/17/2022 2:52 PM CS T Body Mass Index 24.05 06/17/2022 2:52 PM CAMPUS ADMINISTRATIVE ASSISTANT Plan of Treatment Health Maintenance Due Date Last Done Comments CT Colonography 1948 Cologuard 1950 FIT 1948 Hepatitis C Screening 1948 Hepatitis A Vaccines (1 of 2 - Risk 2-dose series) 1967 Zoster Vaccines (1 of 2) 1998 Hepatitis B Vaccines (1 of 3 - Risk 3-dose series) 2008 Pneumococcal vaccine (65+ ye ars) (2 of 2 - PCV) 05/07/2010 05/07/2009 Colonoscopy 05/07/2019 05/07/2009 Colorectal Cancer Screening 05/07/2019 COVID-19 Vaccine (2022-2 4 season) 2023 03/26/2022, 03/26/2022, 04/29/2021, Additional [...] Advance Directives For more information, please contact: [phone] Latest Code Status on File Code Status Date Activated Date Inactivated Comments DNR 05/05/2022 1:10 PM 05/07/2022 5:19 PM Code Status History Code Status Date Activated Date Inactivated Comments Full Code 05/04/2022 12:02 PM 05/05/2022 1:10 PM Question Answer Comments Full Code: Not Discussed Due to: Patient not available Care Teams Industrial Accountant Relationship Specialty Start Date End Date Elsewhere, Pcp PCP - General 10/16/20
--- OUTSIDE RECORDS SUMMARY | 2023-09-09 12:39 | XMS_ITS | Encounter Summary ---
Author Name Unknown Organization [facility] Address [address] [place] [id number] Care Team Providers Care Stapler Hand Name Role Phone Elsewhere, Pcp Primary Care Provider Unavailabl e Reason for Visit * Reason Onset Date Comments Nicotine Dependence 11/14/2022 Encounter Details Date Type Department Care Team (Latest Contact Info) Description 11/14/2022 Clinical Communication Department of Nicotine Dependence, [facility] in [place], [place] [address] [place] [phone] Lydia Pichardo M.A., L.P., C.T.T.S. [address] [place] [id number] Nicotine Dependence Social History Tobacco Use Types [...] or relatives? Once a week 06/17/2022 Attends [employer] Not on file 06/17 Do you belong to any clubs o r organizations such as taoism groups, unions, fraternal or athletic groups, or [...] Answer Date Recorded PHQ-2 Score 0 05/05/2022 [facility] - Occupational Stress [...] place to sleep or slept in a detention (including now)? 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
--- OUTSIDE RECORDS SUMMARY | 2023-09-09 12:39 | XMS_ITS | Clinical Summary ---
Author Name Unknown Organization [facility] Address [place], [place] [address] Care Team Providers Care Pre K Lead Teacher Name Role Phone Paty Truong NP Unavailable [phone] Paty Truong NP Primary Care Provider [phone] Allergies No known active allergies Medications Medication [...] adrenal nodule on CT AP W at [facility] 11/17/22 COPD (chronic obstructive pulmonary disease) [...] age 12+ 1960 Hepatitis C screening for age 18-79 1966 Colonoscopy through age 75 1993 Lipids for age 45-75 1993 Zoster (shingles) series for age 50+ (1 of 2) 1998 Pneumococcal series for age 65+ (2 of 2 - PCV) 05/07/2010 05/07/2009 Medicare Wellness for age 65+ 2013 COVID-19 vaccine series (2 - 2022- season) 2023 03/26/2022 Influenza for age 65+ 04/03/2023 Tetanus booster [...] Preferences, Provider to review later Care Teams Pre K Lead Teacher Relationship Specialty Start Date End Date Paty Truong NP [address] [place] [address] PCP - General Emergency Medicine 11/18/22 Paty Truong NP [address] [place] [address] Emergency Medicine 11/18/22
--- OUTSIDE RECORDS SUMMARY | 2023-09-09 12:39 | XMS_ITS | Referral Summary ---
Author Name Unknown Organization [facility] Address [address] [place] [address] Care Team Providers Care Gi Technician Name Role Phone Elsewhere, Pcp Primary Care Provider Unavailabl e Source Comments Patient records contain information from all sites at [facility]. For routine questions regarding patient records, call [phone] during business hours, M-F 8:00 AM - 5:00 PM Central Time. Record requests for emergency care only can be directed to [phone] at any time.[facility] Allergies No known active allergies Medications [...] or relatives? Once a week 06/17/2022 Attends [employer] Services Not on file 06/17 Do you belong to any clubs o r organizations such as hinduism groups, unions, fraternal or athletic groups, or [...] Date Recorded PHQ-2 Score 0 05/05/2022 [facility] - Occupational Stress Questionnaire Answer Date Recorded [...] place to sleep or slept in a halfway (including now)? 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 Sexual Orientation Not on file Last Filed [...] (162 lb 14.7 oz) 06/17/2022 2:52 PM UNION STEWARD Height 175.3 cm (5' 9.02) 06/17/2022 2:52 PM CS T Body Mass Index 24.05 06/17/2022 2:52 PM UNION STEWARD Plan of Treatment Not on file Advance Directives For more information, please contact: [phone] Latest Code Status on File Code Status Date Activated Date Inactivated Comments DNR 05/05/2022 1:10 PM 05/07/2022 5:19 PM Code Status History Code Status Date Activated Date Inactivated Comments Full Code 05/04/2022 12:02 PM 05/05/2022 1:10 PM Question Answer Comments Full Code: Not Discussed Due to: Patient not available Care Teams Gi Technician Relationship Specialty Start Date End Date Elsewhere, Pcp PCP - General 10/16/20
--- OUTSIDE RECORDS SUMMARY | 2023-09-09 12:39 | XMS_ITS | Data Portability ---
Author Name Unknown Address [address] [place] [address] Phone [phone] Organization [facility], [facility] Address [address] [place] [address] Care Team Providers Care Cork Cutter Name Role Phone [facility] LOCATION Primary Care Provider Assessment Encounter Date Assessment Date Assessment LastModified by Organization Details LastModified Time 12/24/2022 12/24/2022 Pt here for UDS procedure. Not available 12/17/2022 09:14:36 Plan of Treatment Reminders Order Date Submit Date Provider Last Modified By Organization Details Last Modified Time Details Appointments None recorded. Lab PSA, serum or plasma 2022 023 [email or web address] [facility], [address], [place], [address], 14:02:00 urinalysis, dipstick 2022 023 [email or web address] [facility], [address], [place], [address], 16:23:17 Referral None recorded. Procedures None recorded. Surgeries transurethr al resection of prostate (SURG) 2022 023 Not available 15:40:38 cystolithal opaxy (SURG) 2022 023 [email or web address] Not available 13:33:16 cystolithal opaxy (SURG) 2022 023 Not available 13:07:11 Imaging None recorded. Medication Orders finasteride 5 mg tablet 2022 023 [facility], [address] [place] [address], [id number], 3 11:31:26 Flomax 0.4 mg capsule 2022 023 [facility], [address] [place], [address], 3 11:15:18 Patient TargetsNo targets recorded. Patient Instructions Encounter Date Encounter Id Patient Instructions Last Modified By Organization Details Last Modified Time 05/29/2023 [id number] History of urina ry retention, large volume bladder stones, obstructive BPH, stabilized with combo therapy but with continued incomplete emptying and LUTS. We again reviewed his options - he and I agree - he would best be managed with a definitive outlet procedure. He and I agree to proceed with Aquablation. All questions answered. Will hold Xarelto as noted above. Not available 05/29/2023 14:26:01 04/10/2023 [id number] We have Geoffrey now bladder stone free and out of retention. His cysto at time of stone removal showed large gland trilobar BPH, and he and I are still planning on an outlet procedure later this Fall. He's back on anticoagulation and I want him to remain that way for the next month or two, so that we can stop it safely for his next phase. 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 I had a long discussion with the patient regarding his symptom severity and his findings from both his imaging and cystoscopy. We first discussed continued medical therapy with alpha-blockade with or without the addition of finasteride 5 mg daily. We discussed expectations in terms of symptom improvement with combination medical therapy as outlined by the MTOPS trial. We then discussed minimally invasive procedures done under anesthesia in the office, notably the Rezum, and Urolift procedures. We discussed surgical outlet procedures done under anesthesia including bi-polar transurethral resection of prostate, transurethral laser vaporization of prostate and Aquablation, which involves high-pressure saline hydrodissection as its core technology for prostate removal. We discussed the technical aspects of these three procedures and that ultimately the goal is the same. We then discussed the associated risks including bleeding requiring transfusion, urinary tract infection, injury to the bladder/ureteral orifices/urinary sphincter, urethral stricture formation, anesthetic risks (CVA/DVT/PE/OK), postoperative urinary retention, and expected durability of treatment with anticipated retreatment rate. We discussed that Aquablation may reduce any worsening in sexual dysfunction post-operatively, but this data is not yet mature. He would like to proceed with Aquablation mid/late Jun 2023. Not available 04/10/2023 14:43:54 01/07/2023 [id number] Geoffrey will need t o complete his ablation before we proceed - he takes Xarelto and we'd need to hold it or window it to attempt to alleviate his prostatic obstruction (likely with a TURP AFTER I remove his bladder stones). In the mean time, we'll begin finasteride, for full combo therapy. He'll see me for voiding trial after the ablation. I do believe his retention is multifactorial, and includes BPH/LUTS, and a neurogenic element from last year's stroke. The UDS suggests however, his bladder has rehabilitated to the point of having enough residual function to attempt TURP. Not available 01/07/2023 11:33:07 12/24/2022 [id number] Has a F/U appt w [facility] Dr Reyes in [place] on 01/07/2023 @ 0950 to review UDS and discuss management options. Not available 12/17/2022 09:17:33 Reason for Referral None Reported. Results Created Date Observation Date Name Description Value Unit Range Abnormal Flag LastModifiedBy Organization Detail LastModifiedTime 12/25/19 23 12/24/2022 urina lysis , dipst ick Color-Status Straw Not Available [facility] [address], [place], [address], 12/24/2022 16:22:08 12/25/19 23 12/24/2022 urina lysis , dipst ick Clarity-Stat us Clear Not Available [facility] [address], [place], [address], 12/24/2022 16:22:08 12/25/19 23 12/24/2022 urina lysis , dipst ick Glucose-Stat us Negati ve Not Available [facility] [address], [place], [address], 12/24/2022 16:22:08 12/25/19 23 12/24/2022 urina lysis , dipst ick Bilirubin-St atus Negati ve Not Available [facility] [address], [place], [address], 12/24/2022 16:22:08 12/25/19 23 12/24/2022 urina lysis , dipst ick Ketones-Stat us Negati ve Not Available [facility] [address], [place], [address], 12/24/2022 16:22:08 12/25/19 23 12/24/2022 urina lysis , dipst ick Sp Rye-Stat us 1.010 Not Available [facility] [address], [place], [address], 12/24/2022 16:22:08 12/25/19 23 12/24/2022 urina lysis , dipst ick pH-Status 6.0 Not Available [facility] [address], [place], [address], 12/24/2022 16:22:08 12/25/19 23 12/24/2022 urina lysis , dipst ick Protein-Stat us 5.0 Not Available [facility] [address], [place], [address], 12/24/2022 16:22:08 12/25/19 23 12/24/2022 urina lysis , dipst ick Urobilinogen -Status 0.2 Not Available [facility] [address], [place], [address], 12/24/2022 16:22:08 12/25/19 23 12/24/2022 urina lysis , dipst ick Nitrates-Sta tus negati ve Not Available [facility] [address], [place], [address], 12/24/2022 16:22:08 12/25/19 23 12/24/2022 urina lysis , dipst ick Blood-Status Modera te Not Available [facility] [address], [place], [address], 12/24/2022 16:22:08 12/25/19 23 12/24/2022 urina lysis , dipst ick Leuko-Status Large Not Available [facility] [address], [place], [address], 12/24/2022 16:22:08 12/25/19 23 12/24/2022 urina lysis , dipst ick Specimen Type Voided Not Available [facility] [address], [place], [address], 12/24/2022 16:22:08 05/29/20 23 05/29/2023 PSA, serum or plasm a PSA 3.7ng/ ml 0-4.0 Not Available [facility] [address], [place], [address], 05/29/2023 13:58:38 Result Notes None recorded. Problems Name Status Onset Date Resolution Date Notes Provider Name and Address Organization Details Recorded Time Urinary bladder stone Active 04/10/20 Brayan Reyes MD [address] [place] [address],[address], [address], [facility] 04/10/2023 14:41:49 Lower urinary tract symptoms due to benign prostatic hypertrophy Active 04/10/20 23 Brayan Reyes MD [address], [place], [address], [facility] 04/10/2023 14:41:52 Prostate specific antigen above reference range Active 04/10/20 23 Brayan Reyes MD [address] [place] [address],[facility] [address], [place], [address], [facility] 04/10/2023 14:42:01 Incomplete emptying of bladder Active 05/29/20 23 Brayan Reyes MD [address] [place] [address],[facility] [address], [place], [address], [facility] 05/29/2023 14:24:31 Problem Notes None recorded. Procedures Surgical History Date Name Laterality Status Provider Name and Address Organization Details Recorded Time 05/29/20 23 Bladder Scan completed Taylor Rodriguez null, [facility] 05/29/2023 13:58:30 05/29/20 23 Blood Draw/CASINO D[employer]Y MANAGER[facility] 14:02:01 04/10/20 23 [facility] 04/10/2023 14:29:11 03/23/20 23 Fill and Pull/Voiding Trial/TOV completed Mag Chi null, [facility] 03/23/2023 10:52:37 03/02/20 23 Fill and Pull/Voiding Trial/TOV completed Wander Coleman null, [facility] 03/02/2023 11:09:18 01/08/20 23 CystoscopyMale completed Brayan Reyes MD [address], [place], [address], [facility] 01/07/2023 11:30:34 12/25/19 23 Urodynamic Studies completed Katia terry, [facility] 12/24/2022 16:41:12 12/25/19 23 Cristobal Catheter Insertion completed Katia terry, [facility] 12/24/2022 16:22:04 12/16/19 23 Cristobal Catheter Insertion completed Ynes Fragoso null, [facility] 12/15/2022 12:57:14 12/16/19 23 Fill and Pull/Voiding Trial/TOV completed Ynes Fragoso null, [facility] 12/15/2022 12:56:40 12/04/19 23 Fill and Pull/Voiding Trial/TOV completed Esther Prabhakar null, [facility] 12/03/2022 13:22:12 08/03/19 09 colonoscopy completed Ana Cristina Jaclyn null, [facility] 01/07/2023 09:47:12 Imaging Results None recorded. Procedure Notes None recorded. Medical Equipment None Reported. Allergies No known drug allergies Medications Name Sig Start Date Stop Date Status Note LastModified by Organization Details LastModified Time atorvastati n 40 mg tablet TAKE 1 TABLET BY MOUTH ONCE DAILY active Not Available Not Available No t Available amiodarone 200 mg tablet active Not Available Not Available Not Available amiodarone 400 mg tablet TAKE 1 TABLET BY MOUTH TWICE DAILY FOR 7 DAYS AND THEN 1 ONCE DAILY FOR 14 DAYS 12/03 completed Not Available Not Available Not Available tamsulosin 0.4 mg capsule Take 1 capsule by mouth once daily 2022 active Not Available Not Available Not Avai lable pantoprazol e 40 mg tablet,jayson yed release active Not Available Not Available Not Available Advair Diskus 250 mcg-50 mcg/dose powder for inhalation INHALE 1 DOSE BY MOUTH TWICE DAILY RINSE MOUTH WITH WATER AFTER EACH USE active Not Available Not Available No t Available furosemide 20 mg tablet active Not Available Not Available Not Available metoprolol succinate ER 25 mg tablet,exte nded release 24 hr TAKE 2 TABLETS BY MOUTH ONCE DAILY active Not Available Not Available No t Available albuterol sulfate HFA 90 mcg/actuati on aerosol inhaler INHALE 2 PUFFS BY MOUTH EVERY 4 TO 6 HOURS NEEDED FOR SHORTNESS OF BREATH OR WHEEZING active Not Available Not Available No t Available oxybutynin chloride 5 mg tablet active Not Available Not Available No t Available cefdinir 300 mg capsule 12/03 completed Not Available Not Available Not Available finasteride 5 mg tablet TAKE 1 TABLET BY MOUTH ONCE DAILY active Not Available Not Available No t Available metoprolol tartrate 25 mg tablet TAKE 1 TABLET BY MOUTH TWICE DAILY FOR 30 DAYS 12/03 completed Not Available Not Available Not Available Xarelto 20 mg tablet TAKE 1 TABLET BY MOUTH ONCE DAILY WITH EVENING MEAL active Not Available Not Available No t Available BinaxNOW COVID-19 Ag Self Test kit Use as Directed on the Package 12/03 completed Not Available Not Available Not Available Lagevrio 200 mg capsule (EUA) TAKE 4 CAPSULES BY MOUTH EVERY 12 HOURS FOR 5 DAYS 12/03 completed Not Available Not Available Not Available Vitals Date Recorded Body height Body mass index (BMI) Body weight Provider Name and Address Organization Details Last Updated DateTime 12/03/2022 175.26 cm 26.1 kg/m2 25046.85 g Esther terry [facility] 12/03/2022 10:16:28 Date Recorded Body height Body mass index (BMI) Body weight Provider Name and Address Organization Details Last Updated DateTime 01/07/2023 175.26 cm 26.1 kg/m2 73707.85 g Ana Cristina Anaya [facility] 01/07/2023 09:46:34 Date Recorded Body height Provider Name an d Address Organization Details Last Updated DateTime 03/02/2023 175.26 cm Wander Coleman [facility] 03/02/2023 11:01:45 Date Recorded Body height Body mass index (BMI) Body weight Provider Name and Address Organization Details Last Updated DateTime 04/10/2023 175.26 cm 26.1 kg/m2 61241.85 g Taylor terry [facility] 04/10/2023 14:23:40 Date Recorded Body height Body mass index (BMI) Body weight Provider Name and Address Organization Details Last Updated DateTime 05/29/2023 175.26 cm 26.1 kg/m2 21272.85 g Taylor Rodriguez [facility] 05/29/2023 13:57:37 Social History Question Answer Notes LastModified by Organizat ion Details LastModified Time Tobacco Smoking Status Former Smoker Esther terry [facility] 12/03/2022 10:18:56 What Is Your Level Of Alcohol Consumption? None [email or web address] Information not available 12/03/2022 What Is Your Level Of Caffeine Consumption? Occasional [email or web address] Information not available 04/10/2023 When Did You Quit Smoking? 1-5yearssincel madan [email or web address] Information not available 12/03/2022 Race White Information no t available 01/07/2023 Ethnicity Not /Latin o Information not available 01/07/2023 Preferred Language [email or web address] Information not available 01/07/2023 What Was The Date Of Your Most Recent Tobacco Screening? 05/29/2023 [email or web address] Information not available 05/29/2023 Do You Use Any Illicit Or Recreational Drugs? No [email or web address] Information not available 04/10/2023 Has Tobacco Cessation Counseling Been Provided? No [email or web address] Information not available 04/10/2023 Do You Or Have You Ever Used Any Other Forms Of Tobacco Or Nicotine? No [email or web address] Information not available 04/10/2023 Sex: Male Functional Status None recorded. Mental Status None recorded. Family History Relationship Description Onset Age of this Age Resolved Age Notes Father No current problems or disability Mother No current problems or disability Medical History Condition Response High Blood Pressure Y Kidney Stones N Lung Disease Y GERD/Acid Reflux N Cancer N High Cholesterol Y Diabetes N Bleeding Disorder N Heart Disease N Immunizations Vaccine Type Date Status Provider Name and Address Organization Details Recorded Time COVID-19, mRNA, LNP-S, PF, 30 mcg/0.3 mL dose 10/09/2020 completed Taylor December null, [facility] 04/10/2023 14:23:45 COVID-19, mRNA, LNP-S, PF, 30 mcg/0.3 mL dose 10/30/2020 completed Taylor December null, [facility] 04/10/2023 14:23:45 COVID-19, mRNA, LNP-S, PF, 30 mcg/0.3 mL dose 04/29/2021 completed Taylor December null, [facility] 04/10/2023 14:23:46 COVID-19, mRNA, LNP-S, PF, 30 mcg/0.3 mL dose, gurvinder-sucrose 03/26/2022 completed Taylor December null, [facility] 04/10/2023 14:23:46 pneumococcal polysaccharide PPV23 05/07/2009 completed Taylordecember null, [facility] 04/10/2023 14:23:46 Tdap 09/08/2013 completed Taylor December mara, [facility] 04/10/2023 14:23:46 Td (adult), 5 Lf tetanus toxoid, preservative free, adsorbed 08/03/2005 completed Taylor December mara, [facility] 04/10/2023 14:23:46 Past Encounters Encounter ID Performer Location Encounter Start Date Encounter Closed Date Diagnosis/Indication [id number] SHELDON BROWNLEE [facility] [address] [place] [address] 12/03/2022 10:05:28 12/10/2022 16:33:38 Retention of urine Urinary bladder stone [id number] SHELDON BROWNLEE [facility] [address] [place] [address] 12/15/2022 10:19:48 12/19/2022 16:17:29 Retention of urine [id number] MD GAURAV [facility] [address] [place] [address] 12/24/2022 14:46:56 01/02/2023 07:43:05 Chronic retention of urine [id number] Brayan Reyes MD [facility] [address] [place] [address] 01/07/2023 09:42:34 01/13/2023 13:59:16 Lower urinary tract symptoms due to benign prostatic hypertrophy Retention of urine Urinary bladder stone Neurogenic bladder [id number] DONAVAN TURNER PA-C [facility] [address] [place] [address] 03/02/2023 10:46:21 03/06/2023 13:01:19 Urinary bladder stone Lower urinary tract symptoms due to benign prostatic hypertrophy Retention of urine Neurogenic bladder [id number] MD GAURAV [facility] [address] [place] [address] 03/23/2023 10:34:27 03/30/2023 16:02:08 Lower urinary tract symptoms due to benign prostatic hypertrophy [id number] MD GAURAV [facility] [address] [place] [address] 04/10/2023 14:16:17 04/15/2023 15:41:15 Urinary bladder stone Lower urinary tract symptoms due to benign prostatic hypertrophy Prostate specific antigen above reference range [id number] Brayan Reyes MD [facility] [address] [place] [address] 05/29/2023 13:25:03 06/04/2023 14:47:11 Prostate specific antigen above reference range Lower urinary tract symptoms due to benign prostatic hypertrophy Incomplete emptying of bladder Health Concerns Section Related Observation LastModified by Organization Detai ls LastModified Time None Recorded Concern Status LastModified by Organization Details LastModified Time None Recorded Advance Directives Directive None Recorded Payers Encounter Date Sequence Insurance Name Policy Number Policy Salguero Covered Member ID Salguero Member ID Guarantor Name 05/29/2023 1 [place] [id number] Carlos Manuel A Danyel [id number] Carlos Manuel Danyel 04/10/2023 1 [place] [id number] Carlos Manuel A Danyel [id number] Carlos Manuel Danyel 03/23/2023 1 [place] [id number] Carlos Manuel A Danyel [id number] Carlos Manuel Danyel 03/02/2023 1 [place] [id number] Carlos Manuel A Danyel [id number] Carlos Manuel Danyel 01/07/2023 1 [place] [id number] Carlos Manuel A Danyel [id number] Carlos Manuel Danyel 12/24/2022 1 [place] [id number] Carlos Manuel A Danyel [id number] Carlos Manuel Danyel 12/24/2022 2 [place] [employer] Carlos Manuel A Danyel [id number] Carlos Manuel Danyel 12/15/2022 1 [place] [id number] Carlos Manuel A Danyel [id number] Carlos Manuel Danyel 12/03/2022 1 [place] [id number] Carlos Manuel A Danyel [id number] Carlos Manuel Montaño Notes Date Note Type Note Provider Name and Address Organization Details Recorded Time 12/03/2022 text/html HPI Notes: 72yo male here for urinary retention. He was seen at [facility] on 11/18-and transferred to [facility] for inability to void and catheter was placed for >1L. Was subsequently admitted for workup of afib and SOB at the time. I consulted on him while inpatient. He was treated for a UTI with cefdinir. CT was also obtained and notable for numerous bladder stones, 1cm in size. Urine has been clear. He has been feeling well since hospital discharge. Denies any troubles voiding, no nocturia or feelings of incomplete emptying. He states his PCP follows his prostate health with routine PSAs and DREs- I do not have these records. No hx of nephrolithiasis or UTIs SHELDON BROWNLEE [address] [place] [address],[address], [address], [facility] 12/03/2022 13:38:51 01/07/2023 text/html HPI Notes: 72yo male here for urinary retention. He was seen at [facility] on 11/18-and transferred to [facility] for inability to void and catheter was placed for >1L. Was subsequently admitted for workup of a-fib and SOB at the time. Urology was consulted while inpatient. He was treated for a UTI with cefdinir. CT was also obtained and notable for numerous bladder stones, 1cm in size. He has been feeling well since hospital discharge. PSA recently checked by PCP (Geoffrey tells me it is his first PSA?) - 16. Patient has Cristobal in place and has been in retention (and had complicated UTI treated) since November 2022. No hx of nephrolithiasis or UTIs. UDS obtained - which shows an elevated pDet at attempted void, Qmax (of zero). This is a good sign. Brayan Reyes MD [address] [place] [address],[address], [place], [address], [facility] 01/07/2023 11:33:18 03/02/2023 text/html HPI Notes: 72yo male here for TOV. Has been followed by Dr Reyes. Had catheter placed for large volume in November of this year and has cristobal ever since. UDS showing detrusor activity. On Flomax and Finasteride. He recently underwent cardiac ablation for his AF on 01/26. Plan per Dr Reyes is for 1) TOV today 2) cystolitholapaxy 3) TURP. Here today with his . Reports ablation went well. Plan to continue Xarelto for 1 year per . DONAVAN TURNER PA-C [address] [place] [address],[address], [place], [address], [facility] 03/02/2023 11:28:19 04/10/2023 text/html HPI Notes: 72 yo M here for post op visit following cystolitholapaxy on 03/18. 20 stones removed from bladder, all CaOx. Passed voiding trial last month - on combo therapy - emptying well, not perfect but much better than his Cristobal. PSA was 16 in Jan 2023 (at time of florid retention / instrumentation). Brayan Reyes MD [address] [place] [address],[address], [place], [address], [facility] 04/10/2023 14:44:12 05/29/2023 text/html HPI Notes: 72 yo M here for post op visit following cystolitholapaxy on 03/18. 20 stones removed from bladder. Trilobar BPH with obstruction noted at time of removal. Benign otherwise. Passed voiding trial after surgery - on combo therapy - emptying well, not perfect but much better than his Cristobal. PSA was 16 in Jan 2023 (at time of florid retention / instrumentation). Updated today: 3.9. 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 Brayan Reyes MD [address] [place] [address],[address], [place], [address], [facility] 05/29/2023 14:26:08
--- OUTSIDE RECORDS SUMMARY | 2023-09-09 12:39 | XMS_ITS ---
Author Name Unknown Organization [facility] Address [address] [place] [address] Care Team Providers Care Cloud Architect Name Role Phone Unavailable Unavailable Unavailable Surgery Details Not on file Complications Check Surgery Details section. Procedure Estimated Blood Loss Check Surgery Details section. Procedure Findings Check Surgery Details section. Procedure Specimens Taken Check Surgery Details section.
--- NOTE | 2023-09-09 13:00 | CRLHL7_ITS ---
For Patients: As a result of the Century Cures Act, medical imaging exams and procedure reports are released immediately into your electronic medical record. You may view this report before your referring provider. If you have questions, please contact your health care provider. Indication: DYSPNEA ON EXERTION Technique: Noncontrast CT chest Please note that all CT scans at this facility use dose modulation, iterative reconstruction, and/or weight-based dosing when appropriate to reduce radiation dose to as low as reasonably achievable. Comparison: 07/06/2023 Findings: Atherosclerotic changes. No pleural effusion or pericardial effusion. Atherosclerotic changes. No suspicious thyroid lesion. Mildly prominent mediastinal lymph nodes are present measuring up to 1.3 cm. Emphysema. Chronic areas of scarring are present bilaterally. Perifissural nodules within the right anterior lung base are similar. Nodular density within the right upper lobe measures 5 millimeters. 6 millimeter nodule within the lingula also present. Additional lingular nodule measures 3 millimeters. Impression: Bilateral pulmonary nodules measuring up to 6 millimeters. Option of follow-up chest CT in 1 year recommended. Emphysema with bilateral patchy areas of scarring. Mild mediastinal adenopathy. Please note that all CT scans at this facility use dose modulation, iterative reconstruction, and/or weight-based dosing when appropriate to reduce radiation dose to as low as reasonably achievable. Dictated by Oneal Rojas MD @ 09/11/2023 1:41:14 PM (Electronically Signed)
== END 2023-09-09 12:36 | disposition home or self-care (01) ==
LOC: CT 12:36
PROVIDERS: PCP Nurse Practitioner Family; Visit Provider Nurse Practitioner Family
DX: R06.09 Other forms of dyspnea (principal); R91.8 Other nonspecific abnormal finding of lung field
CPT/HCPCS: 71250

== ENCOUNTER 2023-10-04 12:10 | Emergency (ER) | payer MEDICARE, BC, SELFPAY ==
[2023-10-04 12:16] VITALS: BP 116/69; PULSE 77; RESP 20; TEMP 37.2; O2SAT 90; BMI 25.8
--- NOTE | 2023-10-04 12:45 | ED_ITS ---
HPI - General Adult General Chief complaint: Shortness of Breath/Dyspnea Stated complaint: difficulty breathing Time Seen by Provider: 10/04/23 12:12 History of Present Illness HPI narrative: Patient is a 73 year white male with COPD after a 50-60 year history of smoking. He reports he has quit at this time. He is interested in seeing a casino cage supervisor at some point. He works with Dwain [employer] in [employer]. Patient is on a steroid and lung beta agonist inhaler. He does not use oxygen and has not had nebulizer at home. He has not been steroid dependent. He denies fever chills cough other than his baseline cough of clear to green a greenish mucus that he typically has. She had a CT scan of the chest for the last couple of weeks it was showing COPD and some nodules that need follow-up in a year. He has also had cardiac ablation for AFib. He is on blood thinner and metoprolol and cook statin. Related Data Home Medications Medication Instructions Recorded Confirmed finasteride 5 mg tablet 5 mg PO DAILY 02/09/23 10/04/23 tamsulosin 0.4 mg capsule 0.4 mg PO DAILY 02/09/23 10/04/23 Previous Rx's Medication Instructions Recorded atorvastatin 40 mg tablet 40 mg PO QDAY 90 days #90 tabs 08/06/22 fluticasone 250 mcg-salmeterol 50 1 inh inhalation BID #60 ea 08/06/22 mcg/dose blistr powdr for inhalation (Advair Diskus) metoprolol succinate 25 mg 25 mg PO QDAY #90 tabs 09/14/23 tablet,extended release 24 hr rivaroxaban 20 mg tablet (Xarelto) 20 mg PO QDAY 90 days #90 tabs 09/14/23 prednisone 20 mg tablet 20 mg PO BID #10 tabs 10/04/23 Allergies Allergy/AdvReac Type Severity Reaction Status Date / Time No Known Drug Allergies Allergy Verified 10/04/23 12:15 Review of Systems Status of ROS: Reports: 6 or more systems reviewed and unremarkable except as noted in History and below [facility] Medical History Former smoker ?Z87.891 - Personal history of nicotine dependence (ICD-10) History of Legionnaire's disease ?Z86.19 - Personal history of other infectious and parasitic diseases (ICD- 10) Surgical History History of cardiac radiofrequency ablation ?Z98.890 - Other specified postprocedural states (ICD-10) History of orthopedic surgery ?Z98.890 - Other specified postprocedural states (ICD-10) History of vasectomy ?Z98.52 - Vasectomy status (ICD-10) Family History Brother Sudden Brother Heart disease Sister Enlarged heart Mother Stroke Sister Diabetes Social History Narrative: . 2 daughters. Formal Exercise. Former smoker. Alcohol, none. No illicit drug use. Smoking Status: Former smoker Do you use any of these nicotine containing products: None Second hand tobacco smoke exposure: No How often do you have a drink containing alcohol: monthly or less AUDIT-C Alcohol total score: 1 Non-prescribed substance use: denies use Exam Narrative: Exam Narrative: Objective: Patient's temp is 99? blood pressure is 116/69 and O2 sat on room air is 90% he is noncyanotic talks in even and unlabored respiratory effort and sentences HEENT is unremarkable neck supple chest diminished air exchange bilaterally no rales or wheezing Heart rate and rhythm regular 2/6 systolic murmur occasional ectopic beat noted Extremities are no edema Neurologic nonfocal Const: Vital Signs, click to edit/add: Vital Signs - 24 hr 10/04/23 12:16 Temperature 99.0 F Pulse Rate [Pulse Oximeter] 77 Respiratory Rate 20 Blood Pressure [Ri ght Upper Arm] 116/69 Pulse Oximetry 90 Oxygen Delivery Me thod Room Air Course Vital Signs Vital signs: Initial Vital Signs Temperature 99.0 F 10/04/23 12:16 Temperature Source Temporal Artery Scan 10/04/23 12:16 Pulse Rate 77 10/04/23 12:16 Respiratory Rate 20 10/04/23 12:16 Blood Pressure 116/69 10/04/23 12:16 Blood Pressure Mean 84 10/04/23 12:16 Blood Pressure Position Sitting 10/04/23 12:16 Pulse Oximetry 90 10/04/23 12:16 Oxygen Delivery Method Room Air 10/04/23 12:16 Vital Signs Temperature 99.0 F 10/04/23 12:16 Pulse Rate 77 10/04/23 12:16 Respiratory Rate 20 10/04/23 12:16 Blood Pressure 116/69 10/04/23 12:16 Pulse Oximetry 90 10/04/23 12:16 Oxygen Delivery Method Room Air 10/04/23 12:16 Temperature 99.0 F 10/04/23 12:16 Pulse Rate 77 10/04/23 12:16 Respiratory Rate 20 10/04/23 12:16 Blood Pressure 116/69 10/04/23 12:16 Pulse Oximetry 90 10/04/23 12:16 Oxygen Delivery Method Room Air 10/04/23 12:16 Medications Administered Medications: Discontinued Medications Generic Name Dose Route Start Last Admin Trade Name Kelly PRN Reason Stop Dose Admin Prednisone 50 mg 10/04/23 12:44 10/04/23 12:47 Prednisone 10 Mg Tablet PO 10/04/23 12:45 50 mg ONCE ONE Administration Medical Decision Making MDM Narrative Medical decision making narrative: [age] white male with COPD with a likely COPD flare. He reports that he has felt more short of breath over the last several years. He has had persistent productive cough. He maybe feels a little more short of breath over the last couple of days. He does feel like his congestion is increased sli ghtly. He has not had any chest pain, no lower extremity swelling or edema. We did discuss doing a chest x-ray but he has been having symptoms for prolonged period and that did not reveal any pneumonia. At this point it makes sense to try some prednisone orally will given 50 mg orally, followed by 20 b.i.d. for 5 days. He is interested in seeing a casino cage supervisor I think that be reasonable he also needs cardiology follow-up for his AFib which hopefully could will clinic with [facility]. He will follow-up with Ms. Queen in the next 5-7 days to review his response to steroid and consider consultations. Return sooner to ED problems or concerns or worsening. At this point he does not appear to have symptoms consistent with influenza RSV or COVID. Discharge Plan Discharge Clinical Impression: COPD (chronic obstructive pulmonary disease) Patient Disposition: Home w/ Parent or Adult Condition: Stable Additional Instructions: Light activity, continue meds at home, add prednisone twice a day for the next 5 days, recheck primary care in the next 5-7 days to consider pulmonary and cardiology consultation. Activity Level: Light activity Discharge Diet: Regular Prescriptions: New prednisone 20 mg tablet 20 mg PO BID Qty: 10 0RF No Action tamsulosin 0.4 mg capsule 0.4 mg PO DAILY finasteride 5 mg tablet 5 mg PO DAILY fluticasone propion-salmeterol [Advair Diskus] 250-50 mcg/dose blister with device 1 inh inhalation BID Qty: 60 4RF atorvastatin 40 mg tablet 40 mg PO QDAY 90 Days Qty: 90 3RF Xarelto 20 mg tablet 20 mg PO QDAY 90 Days Qty: 90 3RF Rx Instructions: must administer with evening meal metoprolol succinate 25 mg tablet extended release 24 hr 25 mg PO QDAY Qty: 90 3RF Follow Up/Referrals: Paty Truong, STAMPING PRESS OPERATOR, POWER [employer] CLIPPER [Primary Care Provider] - Stand Alone Forms: [facility] Info Instructions
[2023-10-04] MEDS: predniSONE 10 MG TABLET 50 MG PO (12:47)
[2023-10-04 12:55] VITALS: BP 116/69; PULSE 77; RESP 20; TEMP 37.2
== END 2023-10-04 12:57 | disposition home or self-care (01) ==
LOC: ED 12:50
PROVIDERS: Emergency Provider Family Medicine; PCP Nurse Practitioner Family
DX: J44.9 Chronic obstructive pulmonary disease, unspecified (principal)
CPT/HCPCS: 99283; J7512

== ENCOUNTER 2023-10-16 10:33 | Outpatient (CLI) | payer MEDICARE, BC, SELFPAY | END 2023-10-16 10:34 | disposition home or self-care (01) | LOC: RAD 10:34 | PROVIDERS: PCP Nurse Practitioner Family; Visit Provider Nurse Practitioner Family | DX: R06.09 Other forms of dyspnea (principal); I48.91 Unspecified atrial fibrillation; I49.9 Cardiac arrhythmia, unspecified | CPT/HCPCS: 93225; 93226; 93306 ==

== ENCOUNTER 2023-12-08 12:38 | Outpatient (CLI) | payer MEDICARE, BC, SELFPAY ==
--- OUTSIDE RECORDS SUMMARY | 2023-12-08 12:41 | XMS_ITS | Data Portability ---
Author Name Unknown Address [address] [place] [address] Phone [phone] Organization [facility], [facility] Address [address] [place] [address] Care Team Providers Care Livestock Nutrition Territory Manager Name Role Phone [facility] LOCATION Primary Care Provider Assessment Encounter Date Assessment Date Assessment LastModified by Organization Details LastModified Time 12/24/2022 12/24/2022 Pt here for UDS procedure. Not available 12/17/2022 09:14:36 Plan of Treatment Reminders Order Date Submit Date Provider Last Modified By Organization Details Last Modified Time Details Appointments None recorded. Lab PSA, serum or plasma 2022 023 [email or web address] [facility], [address], [place], [address], 14:02:00 urinalysis, dipstick 2022 023 [email or web address] [facility], [address], [place], [address], 16:23:17 Referral None recorded. Procedures None recorded. Surgeries transurethr al resection of prostate (SURG) 2022 023 [email or web address] Not available 15:40:38 cystolithal opaxy (SURG) 2022 023 Not available 13:33:16 cystolithal opaxy (SURG) 2022 023 [email or web address] Not available 13:07:11 Imaging None recorded. Medication Orders finasteride 5 mg tablet 2022 023 [facility], [address] [place] [address], [address], 3 11:31:26 Flomax 0.4 mg capsule 2022 023 [facility], [address] [place], [address], 3 11:15:18 Patient TargetsNo targets recorded. Patient Instructions Encounter Date Encounter Id Patient Instructions Last Modified By Organization Details Last Modified Time 05/29/2023 [id number] History of urina ry retention, large volume [...] noted above. Not available 05/29/2023 14:26:01 04/10/2023 [id number] We have Geoffrey now bladder stone free [...] orifices/urinary sphincter, urethral stricture formation, anesthetic risks (CVA/DVT/PE/IN), postoperative urinary retention, and expected durability of treatment with anticipated retreatment rate. We discussed that Aquablation may reduce any worsening in sexual dysfunction post-operatively, but this data is not yet mature. He would like to proceed with Aquablation mid/late Jun 2023. Not available 04/10/2023 14:43:54 01/07/2023 [id number] Geoffrey will need t o complete his [...] attempt TURP. Not available 01/07/2023 11:33:07 12/24/2022 [id number] Has a F/U appt w [facility] Dr Reyes in [place] on 01/07/2023 @ 0950 to review UDS and discuss management options. Not available 12/17/2022 09:17:33 Reason for Referral None Reported. Results Created Date Observation Date Name Description Value Unit Range Abnormal Flag LastModifiedBy Organization Detail LastModifiedTime 12/25/19 23 12/24/2022 urina lysis , dipst ick Color-Status Straw Not Available [facility] [address], [place], [address], 12/24/2022 16:22:08 12/25/19 23 12/24/2022 urina lysis , dipst ick Clarity-Stat us Clear Not Available [facility] [address], [place], [address], 12/24/2022 16:22:08 12/25/19 23 12/24/2022 urina lysis , dipst ick Glucose-Stat us Negati ve Not Available [facility] [address], [place], [address], 12/24/2022 16:22:08 12/25/19 23 12/24/2022 urina lysis , dipst ick Bilirubin-St atus Negati ve Not Available [facility] [address], [place], [address], 12/24/2022 16:22:08 12/25/19 23 12/24/2022 urina lysis , dipst ick Ketones-Stat us Negati ve Not Available [facility] [address], [place], [address], 12/24/2022 16:22:08 12/25/19 23 12/24/2022 urina lysis , dipst ick Sp [place]-Stat us 1.010 Not Available [facility] [address], [place], [address], 12/24/2022 16:22:08 12/25/19 23 12/24/2022 urina lysis , dipst ick pH-Status 6.0 Not Available [facility] [address], [place], [address], 12/24/2022 16:22:08 12/25/19 23 12/24/2022 urina lysis , dipst ick Protein-Stat us 5.0 Not Available [facility] [address], [place], [address], 12/24/2022 16:22:08 12/25/19 23 12/24/2022 urina lysis , dipst ick Urobilinogen -Status 0.2 Not Available [facility] [address], [place], [address], 12/24/2022 16:22:08 12/25/19 23 12/24/2022 urina lysis , dipst ick Nitrates-Sta tus negati ve Not Available [facility] [address], [place], [address], 12/24/2022 16:22:08 12/25/19 23 12/24/2022 urina lysis , dipst ick Blood-Status Modera te Not Available [facility] [address], [place], [address], 12/24/2022 16:22:08 12/25/19 23 12/24/2022 urina lysis , dipst ick Leuko-Status Large Not Available [facility] [address], [place], [address], 12/24/2022 16:22:08 12/25/19 23 12/24/2022 urina lysis , dipst ick Specimen Type Voided Not Available [facility] [address], [place], [address], 12/24/2022 16:22:08 05/29/20 23 05/29/2023 PSA, serum or plasm a PSA 3.7ng/ ml 0-4.0 Not Available [facility] [address], [place], [address], 05/29/2023 13:58:38 Result Notes None recorded. Problems Name Status Onset Date Resolution Date Notes Provider Name and Address Organization Details Recorded Time Urinary bladder stone Active 04/10/20 Brayan Reyes MD [address] [place] [address],[address], [place], [address], [facility] 04/10/2023 14:41:49 Lower urinary tract symptoms due to benign prostatic hypertrophy Active 04/10/20 23 Brayan Reyes MD [address] [facility],[address], [place], [address], [facility] 04/10/2023 14:41:52 Prostate specific antigen above reference range Active 04/10/20 23 Brayan Reyes MD [address] [place] [address],[facility] [address], [place], [address], [facility] 04/10/2023 14:42:01 Incomplete emptying of bladder Active 05/29/20 23 Brayan Reyes MD [address] [place] [address],[facility] [address], [place], [address], [facility] 05/29/2023 14:24:31 Problem Notes None recorded. Procedures Surgical History Date Name Laterality Status Provider Name and Address Organization Details Recorded Time 05/29/20 23 Bladder Scan completed Taylor Rodriguez null, [facility] 05/29/2023 13:58:30 05/29/20 23 Blood Draw/PATENT LAWYER/PSA [facility]ULTS [facility] 14:02:01 04/10/20 23 [facility] 04/10/2023 14:29:11 03/23/20 23 Fill and Pull/Voiding Trial/TOV completed Mag Chi null, [facility] 03/23/2023 10:52:37 03/02/20 23 Fill and Pull/Voiding Trial/TOV completed Wander Coleman null, [facility] 03/02/2023 11:09:18 01/08/20 23 CystoscopyMale completed Brayan Reyes MD [address] [facility],[address], [place], [address], [facility] 01/07/2023 11:30:34 12/25/19 23 Urodynamic Studies completed Katia terry, [facility] 12/24/2022 16:41:12 12/25/19 23 Cristobal Catheter Insertion completed Katia terry, [facility] 12/24/2022 16:22:04 12/16/19 23 Cristobal Catheter Insertion [...] Take 1 capsule by mouth once daily 2023 active Not Available Not Available Not Avai [...] Updated DateTime 12/03/2022 175.26 cm 26.1 kg/m2 34460.85 g Esther terry [facility] 12/03/2022 10:16:28 Date Recorded Body height Body mass index (BMI) Body weight Provider Name and Address Organization Details Last Updated DateTime 01/07/2023 175.26 cm 26.1 kg/m2 84964.85 g Ana Cristina [facility] 01/07/2023 09:46:34 Date Recorded Body height Provider Name an d Address Organization Details Last Updated DateTime 03/02/2023 175.26 cm Wander Coleman [facility] 03/02/2023 11:01:45 Date Recorded Body height Body mass index (BMI) Body weight Provider Name and Address Organization Details Last Updated DateTime 04/10/2023 175.26 cm 26.1 kg/m2 40506.85 g Taylor terry [facility] 04/10/2023 14:23:40 Date Recorded Body height Body mass index (BMI) Body weight Provider Name and Address Organization Details Last Updated DateTime 05/29/2023 175.26 cm 26.1 kg/m2 31461.85 g Taylor Rodriguez [facility] 05/29/2023 13:57:37 Social History Question Answer Notes LastModified by Organizat ion Details LastModified Time Tobacco Smoking Status Former Smoker Esther terry [facility] 12/03/2022 10:18:56 What Is Your Level Of Alcohol Consumption? None [email or web address] Information not available 12/03/2022 What Is Your Level Of Caffeine Consumption? Occasional [email or web address] Information not available 04/10/2023 When Did You Quit Smoking? 1-5yearssincel madan [email or web address] Information not available 12/03/2022 Race White Information no t available 01/07/2023 Ethnicity Not /Latin o Information not available 01/07/2023 Preferred Language [email or web address] Information not available 01/07/2023 What Was The Date Of Your Most Recent Tobacco Screening? 05/29/2023 [email or web address] Information not available 05/29/2023 Do You Use Any Illicit Or Recreational Drugs? No [email or web address] Information not available 04/10/2023 Has Tobacco Cessation Counseling Been Provided? No [email or web address] Information not available 04/10/2023 Do You Or Have You Ever Used Any Other Forms Of Tobacco Or Nicotine? No [email or web address] Information not available 04/10/2023 Sex: Male Functional Status None recorded. Mental Status None recorded. Family History Relationship Description Onset Age of this Age Resolved Age Notes Father No current problems or disability Mother No current problems or disability Medical History Condition Response Diabetes N Bleeding Disorder N High Blood Pressure Y Kidney Stones N High Cholesterol Y GERD/Acid Reflux N Heart Disease N Cancer N Lung Disease Y Immunizations Vaccine Type Date Status Provider Name [...] mL dose 04/29/2021 completed Taylor December null, [facility] 04/10/2023 14:23:46 COVID-19, mRNA, LNP-S, PF, 30 mcg/0.3 mL dose, gurvinder-sucrose 03/26/2022 completed Taylor December null, [facility] 04/10/2023 14:23:46 pneumococcal polysaccharide PPV23 05/07/2009 completed Taylor December null, [facility] 04/10/2023 14:23:46 Tdap 09/08/2013 completed Taylor December null, [facility] 04/10/2023 14:23:46 Td (adult), 5 Lf tetanus toxoid, preservative free, adsorbed 08/03/2005 completed Taylor December null, [facility] 04/10/2023 14:23:46 Past Encounters Encounter ID Performer Location Encounter Start Date Encounter Closed Date Diagnosis/Indication Diagnosis SNOMED-CT Code [id number] SHELDON BROWNLEE [facility] [address] [place] [address] 12/03/2022 10:05:28 12/10/2022 16:33:38 Retention of urine [id number] Urinary bladder stone 70 569263 [id number] SHELDON BROWNLEE [facility] [address] [place] [address] 12/15/2022 10:19:48 12/19/2022 16:17:29 Retention of urine [id number] MD GAURAV [facility] [address] [place] [address] 12/24/2022 14:46:56 01/02/2023 07:43:05 Chronic retention of urine [id number] Brayan Reyes MD _[facility] [address],[facility] [address] [place] [address] 01/07/2023 09:42:34 01/13/2023 13:59:16 Lower urinary tract symptoms due to benign prostatic hypertrophy 68398492083331 Retention of urine 25047 4002 Urinary bladder stone 70 530883 Neurogenic bladder 72726 4005 [id number] DONAVAN TURNER PA-C [facility] [address] [place] [address] 03/02/2023 10:46:21 03/06/2023 13:01:19 Urinary bladder stone 29235629 Lower urin dain tract symptoms due to benign prostatic hypertrophy 88108692843611 Retention of urine 25734 4002 Neurogenic bladder 57431 4005 [id number] MD GAURAV [facility] [address] [place] [address] 03/23/2023 10:34:27 03/30/2023 16:02:08 Lower urinary tract symptoms due to benign prostatic hypertrophy [id number] Brayan Reyes MD [facility] [address] [place] [address] 04/10/2023 14:16:17 04/15/2023 15:41:15 Urinary bladder stone 69504343 Lower urin dain tract symptoms due to benign prostatic hypertrophy 67724888432409 Prostate s pecific antigen above reference range 228124253 [id number] Brayan Reyes MD [facility] [address] [place] [address] 05/29/2023 13:25:03 06/04/2023 14:47:11 Prostate specific antigen above reference range 428354106 Lower urin dain tract symptoms due to benign prostatic hypertrophy 92538025912191 Incomplete emptying of bladder 061048673 Health Concerns Section Related Observation LastModified by Organization Detai ls LastModified Time None Recorded Concern Status LastModified by Organization Details LastModified Time None Recorded Advance Directives Directive None Recorded Payers Encounter Date Sequence Insurance Name Policy Number Policy Salguero Covered Member ID Salguero Member ID Guarantor Name 05/29/2023 1 [place] [id number] Carlos Manuel A Danyel [id number] Carlos Manuel Danyel 04/10/2023 1 [place] [id number] Carlos Manuel A Danyel [id number] Carlos Manuel Danyel 03/23/2023 1 [place] [id number] Carlos Manuel A Danyel [id number] Carlos Manuel Danyel 03/02/2023 1 [place] [id number] Carlos Manuel A Danyel [id number] Carlos Manuel Danyel 01/07/2023 1 [place] [id number] Carlos Amnuel A Danyel [id number] Carlos Manuel Danyel 12/24/2022 1 [place] [id number] Carlos Manuel A Danyel [id number] Carlos Manuel Montaño 12/24/2022 2 [place] [facility] Carlos Manuel Montaño [id number] Carlos Manuel Montaño 12/15/2022 1 [place] [id number] Carlos Manuel Montaño [id number] Carlos Manuel Montaño 12/03/2022 1 [place] [id number] Carlos Manuel Montaño [id number] Carlos Manuel Montaño Notes Date Note Type Note Provider Name and Address Organization Details Recorded Time 12/03/2022 text/html HPI Notes: 72yo male here for urinary retention. He was seen at [facility] on 11/18-and transferred to [facility] for inability to void and catheter was [...] hx of nephrolithiasis or UTIs SHELDON BROWNLEE [address] [place] [address],[address], [place], [address], [facility] 12/03/2022 13:38:51 01/07/2023 text/html HPI Notes: 72yo male here for urinary retention. He was seen at [facility] on 11/18-and transferred to [facility] for inability to void and catheter was [...] is a good sign. Brayan Reyes MD [address] [place] [address],[address], [place], [address], [facility] 01/07/2023 11:33:18 03/02/2023 text/html HPI [...] 1 year per . DONAVAN TURNER PA-C [address] [place] [address],[facility] [address], [place], [address], [facility] 03/02/2023 11:28:19 04/10/2023 text/html HPI Notes: 72 yo M here for post op visit following cystolitholapaxy on 03/18. 20 stones removed from bladder, all CaOx. Passed voiding trial last month - on combo therapy - emptying well, not perfect but much better than his Cristobal. PSA was 16 in Jan 2023 (at time of florid retention / instrumentation). Brayan Reyes MD [address] [place] [address],[address], [place], [address], [facility] 04/10/2023 14:44:12 05/29/2023 text/html HPI [...] Has been optimized and pre-oped by his compliance engineer products, and he can stop his Xarelto for 7-10 days prior, and for 7-10 days after the surgery without bridging. Brayan Reyes MD [address] [facility] [address], [place], [address], [facility] 05/29/2023 14:26:08
--- OUTSIDE RECORDS SUMMARY | 2023-12-08 12:41 | XMS_ITS | Referral Summary ---
Author Name Unknown Organization [facility] Address [address] [place] [address] Care Team Providers Care Manager Care Management Name Role Phone Elsewhere, Pcp Primary Care Provider Unavailabl e Source Comments Patient records contain information from all sites at [facility]. For routine questions regarding patient records, call [phone] during business hours, M-F 8:00 AM - 5:00 PM Central Time. Record requests for emergency care only can be directed to [phone] at any time.[facility] Allergies No known active allergies Medications Medication Sig Dispensed Refills Start Date End Date Status albuterol 90 mcg/actuation inhaler Inhale 2 puffs every 6 (six) hours as needed for wheezing or shortness of breath. Active atorvastatin (LIPITOR) 40 mg tablet Take 1 tablet (40 mg total) by mouth at bedtime. 90 tablet 05/06/2022 Active rivaroxaban (XARELTO) 20 mg tablet Take 1 tablet (20 mg total) by mouth daily with dinner. 30 tablet 3 05/13/2022 Active metoprolol succinate (TOPROL-XL) 25 mg 24 hr tablet Take 2 tablets (50 mg total) by mouth daily. Do not crush or chew. 180 tablet 3 06/17/2022 Active MULTIVITAMIN ORAL Take 1 tablet by mouth daily. 10/02/2011 Suspended Active Problems Problem Noted Date Diagnosed Date Stroke 05/04/2022 Chronic Obstructive Pulmonary Disease Exacerbati on 05/04/2022 Abuse Tobacco Smoking 05/07/2009 Atrial Fibrillation Unspecified 03/14/2009 Immunizations Name Administration Dates Next Due PPSV23 05/07/2009 SARS-COV-2 (COVID-19) - PFIZ ER TS(Discontinued)(12 years or older) 03/26/2022 Td, (Adult) Unspecified 08/03/2005 Tdap 09/08/2013 Social History Tobacco Use Types Packs/Day Years Used Date Smoking Tobacco: Every Day Cigarettes 0.3 59.3 Started: 08[birth year]03/1966 Smokeless Tobacco: Never Tobacco Cessation:Ready [...] or relatives? Once a week 06/17/2022 Attends Denominational Services Not on file 06/17 Do you belong to any clubs o r organizations such as bahai groups, unions, fraternal or athletic groups, or [...] Answer Date Recorded PHQ-2 Score 0 05/05/2022 [facility] - Occupational Stress Questionnaire Answer [...] place to sleep or slept in a half-way (including now)? 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 Sexual Orientation Not on file Last Filed [...] (162 lb 14.7 oz) 06/17/2022 2:52 PM SCALE TESTER Height 175.3 cm (5' 9.02) 06/17/2022 2:52 PM CS T Body Mass Index 24.05 06/17/2022 2:52 PM SCALE TESTER Plan of Treatment Not on file Procedures Procedure Name Priority Date/Time Associated Diagnosis Comments EXTI BASIC METABOLIC PANEL, S/P Routine 01/26/2023 9:11 AM CDT LIPID PANEL, S Routine 05/05/2022 4:21 AM CDT from Last 3 Months or Most Recently Relevant to Health Maintenance Results * Lipid Panel (05/05/2022 4:21 AM CDT) [facility] Triglycerides 102 mg/dL 05/05/2022 5:46 AM CDT DTL Comment: ----REFERENCE VALUE---- Normal: <150 mg/dL Borderline High: 150-199 mg/dL High: 200-499 mg/dL Very High: > or =500 mg/dL Cholesterol, Total 154 mg/dL 2021 5:46 AM CDT DTL Comment: ----REFERENCE VALUE---- Desirable: < 200 [...] CDT DTL Cholesterol, Non-HDL, Calculated 113 mg/dL 05/05/2022 5:46 AM CDT DTL Comment: ----REFERENCE VALUE---- Desirable: <130 mg/dL Above Desirable: 130-159 mg/dL Borderline High: 160-189 mg/dL High: 190-219 mg/dL Very High: > or =220 mg/dL Fasting (8 HR or more) Unknown 05/05/2022 5:26 AM CDT DTL Blood (Blood, Venous) 05/05/2022 4:21 AM CDT 05/05/2022 5:26 AM CDT Yang Anderson P.A.-C. LAB BLOOD ADD-ON [facility] [address] [place] [address], [facility] [address] [place] [address] from Last 3 Months or Most Recently Relevant to Health Maintenance Advance Directives For more information, please contact: [phone] * DNR (Latest Code Status on File) Date Activated Date Inactivated Comments 05/05/2022 1:10 PM 05/07/2022 5:19 PM * Full Code Date Activated Date Inactivated Comments 05/04/2022 12:02 PM 05/05/2022 1:10 PM Question Answer Comments Full Code: Not Discussed Due to: Patient not available Care Teams Manager Care Management Relationship Specialty Start Date End Date Elsewhere, Pcp PCP - General 10/16/20
--- OUTSIDE RECORDS SUMMARY | 2023-12-08 12:41 | XMS_ITS | Clinical Summary ---
Author Name Unknown Organization [facility] Address [address] [place] [address] Care Team Providers Care Canvas Worker Name Role Phone Elsewhere, Pcp Primary Care Provider Unavailabl e Source Comments Patient records contain information from all sites at [facility]. For routine questions regarding patient records, call [phone] during business hours, M-F 8:00 AM - 5:00 PM Central Time. Record requests for emergency care only can be directed to [phone] at any time.[facility] Allergies No known active allergies Medications [...] or relatives? Once a week 06/17/2022 Attends [employer] Services Not on file 06/17 Do [...] Answer Date Recorded PHQ-2 Score 0 05/05/2022 [facility] - Occupational Stress [...] place to sleep or slept in a penitentiary (including now)? 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 Sexual Orientation Not on file Last Filed [...] (162 lb 14.7 oz) 06/17/2022 2:52 PM MEDIA DIRECTOR Height 175.3 cm (5' 9.02) 06/17/2022 2:52 PM CS T Body Mass Index 24.05 06/17/2022 2:52 PM MEDIA DIRECTOR Plan of Treatment Health Maintenance Due Date [...] COVID-19 Vaccine (2022-2 4 season) 2023 03/26/2022, 04/29/2021, 10/30/2020, Additional history exists Influenza Vaccine (#1) 2023 Lipid (Cholesterol) Screening 05/05/2023 05/05/2022 Office Visit for Blood Press ure Check / Re-check 05/14/2023 05/14/2022 Depression Screening (Annual PHQ-2) 08/03/2023 Fall Risk Screen (Annual) 08/03/2023 DTaP,Tdap,and Td Vaccines (2 - Td or Tdap) 09/08/2023 09/08/2013, 08/03/2005 Fasting Glucose for Diabetes Screening 01/26/2026 01/26/2023, 05/05/2022, 05/05/2022, Additional history exists Procedures Procedure Name Priority Date/Time Associated Diagnosis Comments EXTI BASIC METABOLIC PANEL, S/P Routine 01/26/2023 9:11 AM CDT LIPID PANEL, S Routine 05/05/2022 4:21 AM CDT from Last 3 Months or Most Recently Relevant to Health Maintenance Results * Lipid Panel (05/05/2022 4:21 AM CDT) Triglycerides 102 mg/dL 05/05/2022 5:46 AM CDT [...] CDT Yang Anderson P.A.-C. LAB BLOOD ADD-ON [facility] [address] [place] [address], [facility] DTL [facility] [address] [place] [address] from Last 3 Months or Most Recently Relevant to Health Maintenance Advance Directives For more information, please contact: [phone] * DNR (Latest Code Status on File) Date Activated Date Inactivated Comments 05/05/2022 1:10 PM 05/07/2022 5:19 PM * Full Code Date Activated Date Inactivated Comments 05/04/2022 12:02 PM 05/05/2022 1:10 PM Question Answer Comments Full Code: Not Discussed Due to: Patient not available Care Teams Canvas Worker Relationship Specialty Start Date End Date Elsewhere, Pcp PCP - General 10/16/20
--- OUTSIDE RECORDS SUMMARY | 2023-12-08 12:41 | XMS_ITS ---
Author Name Unknown Organization [facility] Address [address] [place] [address] Care Team Providers Care Shear Operator Helper Name Role Phone Unavailable Unavailable Unavailable Surgery Details Not on file Complications Check Surgery Details section. Procedure Estimated Blood Loss Check Surgery Details section. Procedure Findings Check Surgery Details section. Procedure Specimens Taken Check Surgery Details section.
--- OUTSIDE RECORDS SUMMARY | 2023-12-08 12:41 | XMS_ITS | Clinical Summary ---
Author Name Unknown Organization [facility] Address [place], [place] [address] Care Team Providers Care Verifier Name Role Phone José Truong NP Unavailable [phone] José Truong NP Primary Care Provider [phone] Allergies No known active allergies Medications Medication Sig Dispensed Refills Start Date End Date Status albuterol HFA (PRO-AIR; VENTOLIN; PROVENTIL) 90 mcg/actuation inhaler Inhale 2 Puffs by mouth every 4 hours if needed. Active atorvastatin (LIPITOR) 40 mg tablet Take 20 mg by mouth once daily in the evening. Active rivaroxaban (XARELTO) 20 mg tablet Take 20 mg by mouth once daily with evening meal. Active multivitamin (MVI) tablet Take 1 Tablet by mouth once daily in the evening. Active ascorbic acid, vitamin C, (Vitamin C) 1,000 mg tablet Take 1,000 mg by mouth once daily. Active calcium carbonate (Tums) 200 mg calcium (500 mg) chewable tablet Chew 500 mg by mouth once daily in the evening. Active fluticasone propion-salmeteroL (Advair Diskus) 250-50 mcg/Dose diskus inhaler Inhale 1 Puff by mouth 2 times daily if needed. Active finasteride (PROSCAR) 5 mg tablet Take 5 mg by mouth once daily. Active metoprolol tartrate (LOPRESSOR) 25 mg tabletIndications:P aroxysmal atrial fibrillation (HC) Take 25mg by mouth daily as needed for tachycardiac > 110bpm 30 Tablet 05/28/2023 Active Active Problems Problem Noted Date Diagnosed Date Atrial fibrillation with RVR 11/18/2022 Acute urinary retention 11/18/2022 Bladder stones 11/18/2022 Constipation 11/18/2022 Adrenal nodule 11/18/2022 Overview: 2 x 1.5 cm L adrenal nodule on CT AP W at [facility] 11/17/22 COPD (chronic obstructive pulmonary disease) 09/202111/18/2022 Stroke 05/04/2022 11/18/2022 Tobacco dependence syndrome 05/07/200911/01 Atrial fibrillation 03/14/2009 11/18/2022 Encounters Date Type Department Care Team Description 11/26/2023 9:00 AM CDT Office Visit [facility] [address] [place] [address] Tahir Almaguer MD CV General Cardiology Est 10/21/2023 Orders Only [facility] [address] [place] [address] Daryl Ríos 1 scan: (1-Ord) Holter Report ([id number]) 10/16/2023 11:00 AM CDT Ancillary Procedure [facility] [address] [place] [address] 10/16/2023 10:36 AM CDT - 10/16/2023 11:59 PM CDT Hospital Encounter [facility] [address] [place] [id number] José Truong NP from Last 3 Months Immunizations Name Administration Dates Next Due Pneumococcal [...] 05/28/2023 1:43 PM CDT Plan of Treatment Upcoming Encounters Date Type Department Care Team (Late st Contact Info) Description 12/08/2023 1:00 PM CDT Ancillary Procedure [facility] [address] [place] [address] Health Maintenance Due Date Last Done Comments Depression screening for age 12+ 1960 Hepatitis C screening for ag e 18-79 1966 Colonoscopy through age 75 1993 Lipids for age 45-75 1993 Zoster (shingles) series for age 50+ (1 of 2) 1998 Pneumococcal series for age 65+ (2 of 2 - PCV) 05/07/2010 05/07/2009 Medicare Wellness for age 65+ 2013 Tetanus booster 09/08/2023 09/08/2013, 08/2005, 08/03/2005 Influenza for age 65+ 04/03/2024 BMI (ht and wt on same day) for age 18+ 05/28/2024 05/28/2023 Tdap Completed 09/08/2013 COVID-19 vaccine series Completed 10/14/19 24, 03/26/2022, 04/29/2021, Additional history exists Procedures Procedure Name Priority Date/Time Associated Diagnosis Comments HOLTER MONITOR 48 HOURS Routine 10/21/2023 12:00 AM CDT Cardiac arrhythmia ECHO TTE COMPLETE WO CONTRAST Routine 10/16/2023 11:07 AM CDT Dyspnea from Last 3 Months Results * HOLTER MONITOR 48 HOURS (10/21/2023 12:00 AM CDT) José Truong [employer] [address] * ECHO TTE COMPLETE WO CONTRAST (10/16/2023 11:07 AM CDT) AORTIC VALVE MEAN PG 4 mmHg EJECTION FRACTION 77 % LVEDD 4.1 cm EJECTION FRACTION 70 - 75% Anatomical Region Laterality Modality Ultrasound 10/16/2023 10:5 0 AM CDT Narrative 10/16/2023 11:26 AM CDT ECHOCARDIOGRAM CARLOS MANUEL ZENG ?Accession#: ?? [id number] : ?1950 73 years Study Date: ?? 10/16/2023 10:50:43 AM Gender: M ? BP: ? 108/68 mmHg Height: 175.00 cm ? BSA: ?1.95 m? ? ? Weight: 79.00 kg ?Tech: ? NWA ?Referring MD: JOSÉ TRUONG Site: ? [facility] Reading Location: Mobile-OP Patient Location: Outpatient. Procedure: 2D, Color Doppler and Spectral Doppler. Indication for study: Dyspnea Cardiac Rhythm: Regular.Study quality: Fair. Final Impressions: 1. Normal LV size, mildly increased wall thickness, normal global systolic function with an estimated EF of 70 - 75%. 2. Right ventricular cavity size is normal, global systolic RV function is normal. 3. No significant valve disease detected. Comparison Compared to prior exam report of 11/18/22, there has been no significant change. Chamber Sizes and Function Normal left ventricular size, mildly increased wall thickness, normal global systolic function with an estimated EF of 70 - 75%. Left atrial size is normal. Right ventricular cavity size is normal, global systolic RV function is normal. RV wall thickness is normal. The right atrium is normal. Right atrial volume index is 38 ml/m? ? ?. Right atrial area is 12 cm? ? ?. The pulmonary artery is of normal size and origin. The sinus of Valsalva is normal sized. The ascending aorta is normal sized. Valves, RV Pressures and Diastolic Function The aortic valve is trileaflet, no stenosis and no regurgitation. The mitral valve is normal in structure, trace mitral regurgitation. Spectral Doppler shows Grade 1 pattern of LV diastolic filling. The tricuspid valve is normal in structure. Tricuspid regurgitation is regurgitation is not evident. The pulmonic valve is normal. Trace pulmonary regurgitation. Masses, Effusion, Shunts There is no pericardial effusion. The inferior vena cava is normal sized, respiratory size variation greater than 50%. Interatrial septum is not well visualized. MEASUREMENTS AND CALCULATIONS 2-D Measurements and LV Function: LVID (d) 4.1 cm LV FS% (2D) ?? 29 % LVID (s) 2.9 cm LVOT diameter 2.3 cm IVS (d) ??1.3 cm HR ?80 bpm LVPW (d) 1.3 cm LA Vol index ??17 ml/m2 Ao Sinus 3.2 cm RA Vol index ??38 ml/m2 Asc Ao ?? 3.2 cm RA area ? 12 cm? ? ? LA ? 3.2 cm RV Max 4C (d) 2.5 cm Diastology: Mitral ?Tissue Doppler ?Pulmonary veins E Peak 0.7 m/s ??e', Septum ? 0.08 m/s Pulm s ?55.7 cm/s A Peak 0.9 m/s ??e', Lateral ?0.11 m/s Pulm d ?46.1 cm/s E/A ?0.8 ?E/e' Average ?? 7.20 ? Pulm s/d ratio ??1.21 DT ? 342 msec Aortic Valve: Vmax ? 1.3 m/s ??JUAN (V) ?? 3.72 cm? ? ? VTI ?0.26 m ?? JUAN (I) ?? 3.52 cm? ? ? LVOT V max 1.2 m/s ??Max PG ?7 mmHg LVOT VTI ?? 0.22 m ?? Mean PG ?? 4 mmHg SV ? 92 ml ?Dim Index 0.83 SV index ?? 47 ml/m? ? ? CO ?7.4 l/min ?CI ?3.8 l/min/m? ? ? Mitral Valve: MVA ?2.2 cm? ? ? MV P 1/2 99 msec Tricuspid Valve and estimated PA pressures: TAPSE 2.8 cm Pulmonic Valve: PV Vmax 1.0 m/s . This study was interpreted by an [facility] accredited facility. CC: [facility] ([facility]) [facility]. ??Final ?? Procedure Note Miguel Lemos MD - 10/16/2023 ECHOCARDIOGRAM CARLOS MANUEL ZENG : 1950 73 years Study Date: 10/16/2023 10:50:43 AM Gender: M BP: 108/68 mmHg Height: 175.00 cm BSA: 1.95 m? ? ? Weight: 79.00 kg Tech: NEHEMIAS Referring MD: JOSÉ TRUONG Site: [facility] Reading Location: Mobile-OP Patient Location: Outpatient. Procedure: 2D, Color Doppler and Spectral Doppler. Indication for study: Dyspnea Cardiac Rhythm: Regular.Study quality: Fair. Final Impressions: 1. Normal LV size, mildly increased wall thickness, normal globalsystolic function with an estimated EF of 70 - 75%. 2. Right ventricular cavity size is normal, global systolic RV functionis normal. 3. No significant valve disease detected. Comparison Compared to prior exam report of 11/18/22, there has been no significantchange. Chamber Sizes and Function Normal left ventricular size, mildly increased wall thickness, normalglobal systolic function with an estimated EF of 70 - 75%. Left atrialsize is normal. Right ventricular cavity size is normal, global systolicRV function is normal. RV wall thickness is normal. The right atrium isnormal. Right atrial volume index is 38 ml/m? ? ?. Right atrial area is 12cm? ? ?. The pulmonary artery is of normal size and origin. The sinus ofValsalva is normal sized. The ascending aorta is normal sized. Valves, RV Pressures and Diastolic Function The aortic valve is trileaflet, no stenosis and no regurgitation. Themitral valve is normal in structure, trace mitral regurgitation. SpectralDoppler shows Grade 1 pattern of LV diastolic filling. The tricuspid valveis normal in structure. Tricuspid regurgitation is regurgitation is notevident. The pulmonic valve is normal. Trace pulmonary regurgitation. Masses, Effusion, Shunts There is no pericardial effusion. The inferior vena cava is normal sized,respiratory size variation greater than 50%. Interatrial septum is notwell visualized. MEASUREMENTS AND CALCULATIONS 2-D Measurements and LV Function: LVID (d) 4.1 cm LV FS% (2D) 29 % LVID (s) 2.9 cm LVOT diameter 2.3 cm IVS (d) 1.3 cm HR 80 bpm LVPW (d) 1.3 cm LA Vol index 17 ml/m2 Ao Sinus 3.2 cm RA Vol index 38 ml/m2 Asc Ao 3.2 cm RA area 12 cm? ? ? LA 3.2 cm RV Max 4C (d) 2.5 cm Diastology: Mitral Tissue Doppler Pulmonary veins E Peak 0.7 m/s e', Septum 0.08 m/s Pulm s 55.7 cm/s A Peak 0.9 m/s e', Lateral 0.11 m/s Pulm d 46.1 cm/s E/A 0.8 E/e' Average 7.20 Pulm s/d ratio 1.21 DT 342 msec Aortic Valve: Vmax 1.3 m/s JUAN (V) 3.72 cm? ? ? VTI 0.26 m JUAN (I) 3.52 cm? ? ? LVOT V max 1.2 m/s Max PG 7 mmHg LVOT VTI 0.22 m Mean PG 4 mmHg SV 92 ml Dim Index 0.83 SV index 47 ml/m? ? ? CO 7.4 l/min CI 3.8 l/min/m? ? ? Mitral Valve: MVA 2.2 cm? ? ? MV P 1/2 99 msec Tricuspid Valve and estimated PA pressures: TAPSE 2.8 cm Pulmonic Valve: PV Vmax 1.0 m/s . This study was interpreted by an [facility] accredited facility. CC: [facility] (med records) [facility]. Final José Truong SALES TEAM MEMBER ECHO ORD from Last 3 Months Advance Directives * Full Code (Latest Code Status on File) Date Activated Date Inactivated Comments 03/18/2023 2:27 PM 03/18/2023 10:14 PM Question Answer Comments Code Status Discussion: Unable to Assess Preferences, Provider to review later * Full Code Date Activated Date Inactivated Comments 11/18/2022 9:32 AM 11/19/2022 9:29 PM Question Answer Comments Code Status Discussion: Reviewed Preferences * Full Code Date Activated Date Inactivated Comments 11/18/2022 4:24 AM 11/18/2022 9:32 AM Question Answer Comments Code Status Discussion: Unable to Assess Preferences, Provider to review later Care Teams Verifier Relationship Specialty Start Date End Date José Truong NP [address] [place] [address] PCP - General Emergency Medicine 11/18/22 José Truong NP [address] [place] [address] Emergency Medicine 11/18/22
[2023-12-08] MEDS: DOBUTamine 250 MG in 5 % DEXTROSE 250 ML 230 ML 49.8 MG IVPB (13:52)
[2023-12-08] MEDS: ATROPINE 1 MG/10 ML SYRINGE IVP (13:52)
[2023-12-08] MEDS: PERFLUTREN LIPID MICROSPHERES 2 ML VIAL IV (13:53)
[2023-12-08] MEDS: SODIUM CHLORIDE 0.9 % (FLUSH) 10 ML SYRINGE IVF (13:53)
[2023-12-08 14:07] VITALS: BP 134/87; PULSE 107; RESP 18
--- NOTE | 2023-12-08 16:18 | W.PM.STED ---
Stress Test Note Date Date of test: 12/08/23 Providers Primary care provider: Paty Truong Stress test physician: Mehdi Mondragon Stress Test Note Stress test ordered: Dobutamine Echo Indication for test: Shortness of breath Stress test medicine: Definity Results discussion: Patient presents for the above test after discussion the risks benefits and side effects he is willing to proceed. Cardiac stress test medical history port is reviewed entirely. During this test he had no chest pain shortness of breath or any other subjective symptoms. Pretest EKG shows normal sinus rhythm with a ventricular rate of 68, with a blood pressure 126 on 80. Standard infusion of dobutamine is done over time. 9 minutes 3 seconds he which received 40 mcg of dobutamine at his upper level along with 0.4 mg of atropine. His maximum heart rate was 144, which is 117% of the maximum maximum blood pressure 137/78. No significant ST wave changes are noted. To suggest ischemia. The recovered normally during the recovery period, and was told to take his medications. Impression: Negative electrographic tracing of dobutamine stress echo Follow up suggested: Await echo images, clinical correlation with these will be needed patient tolerated this well and left this testing facility in excellent condition there were no complications.
== END 2023-12-08 14:15 | disposition home or self-care (01) ==
LOC: STRESS 12:39
PROVIDERS: PCP Nurse Practitioner Family; Visit Provider Family Medicine
DX: R06.09 Other forms of dyspnea (principal); I63.9 Cerebral infarction, unspecified; I48.91 Unspecified atrial fibrillation
CPT/HCPCS: 93016; 93325; 93351; J0461; J1250; J7050; Q9957

== ENCOUNTER 2024-10-18 18:06 | Outpatient (CLI) | payer MEDICARE, BC, SELFPAY | END 2024-10-18 18:07 | disposition home or self-care (01) | PROVIDERS: PCP Nurse Practitioner Family; Visit Provider Nurse Practitioner Family | DX: E78.5 Hyperlipidemia, unspecified (principal); Z12.5 Encounter for screening for malignant neoplasm of prostate; Z13.0 Encounter for screening for diseases of the blood and blood-forming organs and certain disorders involving the immune mechanism | CPT/HCPCS: 80053; 80061; 85025; G0103 ==

== ENCOUNTER 2024-10-25 15:40 | Outpatient (CLI) | payer MEDICARE, BC, SELFPAY ==
--- NOTE | 2024-10-25 16:00 | CRLHL7_ITS ---
For Patients: As a result of the Century Cures Act, medical imaging exams and procedure reports are released immediately into your electronic medical record. You may view this report before your referring provider. If you have questions, please contact your health care provider. INDICATION: Pulmonary nodule. TECHNIQUE: CT chest without contrast. COMPARISON: CT chest September 09, 2023 FINDINGS: Limited motion degraded exam. Lungs and pleura: Stable scattered solid pulmonary nodular as described below. Solid 5 millimeter right upper lobe pulmonary nodule (series ). Lingula nodule measuring 4 millimeter and 6 millimeter (). Fissural nodule along the right minor fissure are unchanged. Few other 2 millimeter scattered nodules in bilateral lung mendez are also unchanged. No new or concerning lung nodule. No pleural effusion or pneumothorax. Moderate right greater than left basilar atelectasis. The central airways are patent. Centrilobular emphysema. Heart and vasculature: Heart size is normal. Thoracic aorta and pulmonary artery are normal in caliber. Coronary artery calcification is present. Lymph nodes/mediastinum: No suspicious mediastinal or axillary lymph nodes by size criteria. Chest wall: No masses. Upper abdomen: No significant findings. Bones: Multilevel degenerative changes of the spine. No concerning bony lesion. IMPRESSION: 1. Stable bilateral upper lobe solid pulmonary nodules. No new or concerning lung nodule, within the limits of examination. 2. Mild [id number]-left basilar atelectasis/scarring. Please note that all CT scans at this facility use dose modulation, iterative reconstruction, and/or weight-based dosing when appropriate to reduce radiation dose to as low as reasonably achievable. Dictated by Lilo Troy MD @ 10/27/2024 9:12:22 AM (Electronically Signed)
== END 2024-10-25 15:41 | disposition home or self-care (01) ==
LOC: CT 15:41
PROVIDERS: PCP Nurse Practitioner Family; Visit Provider Nurse Practitioner Family
DX: R91.1 Solitary pulmonary nodule (principal); R91.8 Other nonspecific abnormal finding of lung field
CPT/HCPCS: 71250